=== PATIENT | female | born 1950 | race Caucasian/White ===

== ENCOUNTER 2019-10-25 15:39 | Inpatient (IN) | payer MEDICARE, MEDICAID, SELFPAY ==
[2019-10-25 15:40] VITALS: BMI 25.1
[2019-10-25 15:44] VITALS: BP 149/57; PULSE 88; RESP 18; TEMP 36.9; O2SAT 93
--- NOTE | 2019-10-25 15:54 | XR_ITS ---
WS: [id number] RIGHT FEMUR: 2 VIEW(S) TECHNIQUE: AP and lateral. HISTORY: fall COMPARISON: None available. Acute transverse fracture involving the femoral neck. No displacement. Bones are osteopenic. Severe atherosclerosis femoral arteries and popliteal artery. XR/XR femur RT min 2V* 34672 Impression: 1. Acute RIGHT femoral neck fracture without displacement. 2. Severe atherosclerosis.
--- NOTE | 2019-10-25 15:54 | XR_ITS ---
WS: [id number] PELVIS: AP VIEW SUBMITTED HISTORY: fall COMPARISON: None available. Bones are osteopenic. Acute fracture of the RIGHT femoral neck without displacement on the AP view. L EFT lateral fusion hardware at L4-5. Extensive calcifications in the femoral arteries and iliac arter ies. Prior cholecystectomy. XR/XR pelvis 1-2V* [id number] IMPRESSION: Acute transverse fracture RIGHT femoral neck.
--- NOTE | 2019-10-25 15:56 | ED_ITS ---
HPI - Fall General: Chief Complaint: Fall Stated Complaint: FALL RIGHT LEG PAIN Time Seen by Provider: 10/25/19 15:44 Source: patient and EMS Mode of arrival: EMS Limitations: no limitations History of Present Illness: HPI Narrative: 69-year-old female patient who presents to the emergency department after a fall. She was at the store when she tripped over an uneven floor and fell and landed on the right side of her hip and thigh. She developed immediate pain in her right thigh and when bystanders helped her up and she tried to bear weight in her right lower extremity she could not and fell again landing once again on her right thigh and hip region. She has been unable to bear weight since and is here to be evaluated. She denies hitting her head or loss of consciousness. She denies any dizziness, chest pain, difficulty breathing or any other symptoms before the fall. MD complaint: fall Onset (ago): minute(s) (30) Fall from: standing Fall witnessed: yes, by bystander Place fall occurred: other (outside at a store) Loss of consciousness: None Symptoms prior to fall: none Context: tripped/slipped Location of injury: other Location of injury - extremities: Right: thigh Severity: severe Quality: sharp Associated symptoms-after fall: Reports difficulty walking; Denies abdominal pain, chest pain or lightheadedness Review of Systems General: Reports: 10 or more systems reviewed and unremarkable except in HPI and below Const: Denies: fever, chills, body aches, change in appetite, change in weight or fatigue Card: Denies: chest pain, palpitations, irregular heart rhythm, swelling of feet/ankles, lightheadedness, pre-syncope or shortness of breath on exertion Resp: Denies: shortness of breath, productive cough, non-productive cough, wheezing, stridor or coughing up blood GI: Denies: abdominal pain, nausea, vomiting, vomiting blood, heartburn/indigestion, constipation or cramping : Denies: flank pain, difficulty urinating, painful urination, urinary frequency, urinary urgency, urinary hesitancy or urinary dribbling Musc: Reports: extremity pain Neuro: Reports: difficulty walking PFSH ED PFSH: Social History Smoking and tobacco status: former smoker Physical Exam Const: COMMON NORMALS: average body habitus, oriented x3 and no limitations GENERAL APPEARANCE: in distress (painful distress) Neck/C-Spine: COMMON NORMALS: full ROM and supple GENERAL: Yes trachea midline, No anterior neck swelling and No tender Chest: CHEST: No localized rib tenderness with anteroposterior compression Resp: COMMON NORMALS: normal respiratory effort, no retractions and no use of accessory muscles Cardio: COMMON NORMALS: regular rate, regular rhythm, S1 normal heart sound, S2 normal heart sound, no gallops, no clicks and no murmurs RATE: regular rate RHYTHM: regular rhythm HEART SOUNDS: S1 normal and S2 normal GI: COMMON NORMALS: normal to inspection, nondistended, normoactive bowel sounds, soft to palpation, non-tender and no hepatosplenomegaly PALPATION: Yes soft and Yes no hepatosplenomegaly Extremity: RIGHT LOWER EXTREMITY: Yes hip joint Right hip: Yes other (mild tenderness laterally) and Yes upper leg Right upper leg: Yes palpation (severe tenderness to palpation of the right thigh in the mid to upper part) and Yes other (has some reduced sensation in her right foot. Palpable dorsalis pedis.) Neuro: COMMON NORMALS: oriented x3 Course Consultations: Consultation #1: Dr. Vasquez, orthopedic surgeon. Because of her medical comorbidities she should be admitted by the hospitalist service and he can be consulted. He would like to take her to the OR in the morning for pinning of the femoral fracture. Time: 16:46 Consultation #2: Discussed patient with Dr. Dorantes, hospitalist. He kindly accepted the patient to his service. Time: 17:00 Vital Signs: Vital signs: Vital Signs Temperature 98.4 F 10/25/19 15:44 Pulse Rate 101 H 10/25/19 17:20 Respiratory Rate 14 10/25/19 17:20 Blood Pressure 149/57 10/25/19 17:20 Pulse Oximetry 93 10/25/19 17:20 MDM - Fall MDM Narrative: Medical decision making narrative: 69-year-old female patient who presented to the emergency department following a fall. She sustained a nondisplaced femoral neck fracture and is being admitted for surgical repair of the fracture. Medical Records: Attestation: I reviewed the patient's medical records. Imaging Data^: Xray Ortho: Radiologist's impression: [address] [address] XRay Report Signed Patient: Christina Charles #: [id number] : 8Acct#:[id number] Age/Sex: 69 / FADM Date: 10/25/19 Loc: ERRoom/Bed: Attending Dr: Ordering Provider/Ordering MD: Iglesia Hatch MD, [facility] Date of Service: 10/25/19 Procedure(s): XR pelvis 1-2V* 75298 Accession Number(s): [id number] Report Number: [id number] WS: [id number] PELVIS: AP VIEW SUBMITTED HISTORY: fall COMPARISON: None available. Bones are osteopenic. Acute fracture of the RIGHT femoral neck without displacement on the AP view. LEFT lateral fusion hardware at L4-5. Extensive calcifications in the femoral arteries and iliac arteries. Prior cholecystectomy. XR/XR pelvis 1-2V* 84672 IMPRESSION: Acute transverse fracture RIGHT femoral neck. Dictated By:Dary Funes DO Signed By:aDry Funes DOSigned Date/Time:10/25/19 162 DD/ [address] [address] XRay Report Signed Patient: Christina Charles #: [id number] : 1950cct#:[id number] Age/Sex: 69 / FADM Date: 10/25/19 Loc: ERRoo/Bed: Attending Dr: Ordering Provider/Ordering MD: Iglesia Hatch MD, [facility] Date of Service: 10/25/19 Procedure(s): XR femur RT min 2V* 58860 Accession Number(s): [id number] Report Number: [id number] WS: [id number] RIGHT FEMUR: 2 VIEW(S) TECHNIQUE: AP and lateral. HISTORY: fall COMPARISON: None available. Acute transverse fracture involving the femoral neck. No displacement. Bones are osteopenic. Severe atherosclerosis femoral arteries and popliteal artery. XR/XR femur RT min 2V* 46118 Impression: 1. Acute RIGHT femoral neck fracture without displacement. 2. Severe atherosclerosis. Dictated By:Dary Funes DO Signed By:Dary Funes DOSigned Date/Time:10/25/19 1625 DD/ 1624 EKG Data^: EKG 1: Attestation: I personally reviewed and interpreted this EKG as follows: EKG interpretation date: 10/25/19 EKG interpretation time: 17:34 Prior EKG tracings: not available for review Interpretation: Sinus tachycardia. Heart rate 111 bpm Left axis deviation. Intraventricular conduction delay. Discharge Plan Discharge Patient Disposition: Admitted As Inpatient Admit Provider: Wilfredo Buckner Clinical Impression: Fracture of femoral neck, right Condition: Stable Coding Level of Care Code ED Drug Abuse Worker for Chg Fwd Exam Detailed
[2019-10-25] MEDS: morphine 4 mg/mL SDV 1 mL 8 MG IVP (16:05)
[2019-10-25] MEDS: ondansetron 2 mg/ML SDV 2 mL 4 MG IVP (16:05)
--- NOTE | 2019-10-25 16:57 | ECG_ITS ---
Measurements Intervals [place] Rate: 111 P: 51 NM: 234 QRS: -44 QRSD: 132 T: 84 QT: 368 QTc: 501 SINUS TACHYCARDIA WITH FIRST DEGREE AV BLOCK LEFT AXIS DEVIATION [QRS AXIS < -30] INTRAVENTRICULAR CONDUCTION DELAY [130+ ms QRS DURATION] LATERAL MYOCARDIAL INFARCTION , OF INDETERMINATE AGE Compared to ECG 11/27/2018 11:57:17 First degree AV block now present Left-axis deviation now present Intraventricular conduction delay now present Atrial fibrillation no longer present T-wave abnormality no longer present Possible ischemia no longer present Myocardial infarct finding still present Electronically Signed On 10-26-2019 19:23:28 CDT by Renata Leyva M.D. [email or web address]
--- NOTE | 2019-10-25 16:58 | XR_ITS ---
WS: [id number] PORTABLE CHEST HISTORY: pre-op COMPARISON: 11/27/2018 Prior median sternotomy and CABG. Hyperexpanded lungs with diffuse coarsened reticular changes. Mild progression since the prior study. Pleural thickening in the LEFT lower thorax. No pneumothorax. Cardiac size: Moderately enlarged cardiac silhouette. Mediastinum/Aorta: Partially calcified aorta. No osseous abnormality seen. XR/XR chest 1V portable [id number] IMPRESSION: 1. Hyperinflation with emphysema. 2. Progression of interstitial thickening over several prior studies. Progress ion of fibrosis or interstitial edema. 3. Increasing LEFT lower lobe interstitial thickening. May be a component of a telectasis with pleural thickening. Chest CT may be necessary to exclude neopla sm. Continued progression of interstitial thickening and pleural thickening in the LEFT lower thorax since 11/22/2018.
[2019-10-25 17:20] VITALS: BP 149/57; PULSE 101; RESP 14; O2SAT 93
[2019-10-25 17:34] LABS: Basophils % 0.3 %; Eosinophils # 0.2 10^3/uL (0.0-0.8); Eosinophils % 3.4 %; Hematocrit 36.2 % (37.0-47.0); Hemoglobin 10.9 g/dL (11.5-15.3); Lymphocytes # 0.8 10^3/uL (0.8-4.8); Lymphocytes % 12.1 %; Mean Corpuscular HGB Conc 30.1 g/dL (30.0-36.0); Mean Corpuscular Hemoglobin 26.7 pg (28.0-34.0); Mean Corpuscular Volume 88.7 fL (81-99); Monocytes # 0.3 10^3/uL (0.2-0.9); Monocytes % 5.2 %; Neutrophils % 78.2 %; Nucleated Red Blood Cells % 0 %; Platelet Count 189 10^3/cmm (130-400); Red Blood Count 4.08 10^6/uL (4.1-5.3); Red Cell Distribution Width 14.1 % (12.1-15.1); White Blood Count 6.4 10^3/uL (4.0-10.0)
[2019-10-25 17:41] LABS: INR 1.13 (0.8-1.2)
[2019-10-25 17:47] LABS: Alanine Aminotransferase 9 U/L (0-33); Albumin Level 4.2 g/dL (3.5-5.2); Alkaline Phosphatase 161 IU/L (35-105); Anion Gap 17.8 (5-19); Aspartate Amino Transferase 19 U/L (0-32); Blood Urea Nitrogen 34 mg/dL (8-23); Calcium 9.7 mg/dL (8.5-10.5); Carbon Dioxide 24 mmol/L (22-29); Chloride 100 mmol/L (98-107); Globulin 4.1 g/dL (1.3-4.6); Glucose 135 mg/dL (65-115); Osmolality Calculated 283 mOsm/kg (285-295); Potassium 4.8 mmol/L (3.5-5.1); Sodium 137 mmol/L (136-145); Total Bilirubin 0.3 mg/dL (0.15-1.2); Total Protein 8.3 g/dL (6.6-8.7)
[2019-10-25 18:15] LABS: Iron 22 ug/dL (37-145); Percent Saturation 6.8 % (20-50); Total Iron Binding Capacity 319 mcg/dl; Unsaturated Iron Binding 297 ug/dL (112-347)
[2019-10-25 18:20] LABS: D Dimer >= 20.00 ug/mIFEU (0-0.59)
[2019-10-25 18:22] LABS: NT Pro B Type Natriuretic Pept 4528 pg/mL (0-125)
[2019-10-25 18:31] VITALS: BP 140/66; PULSE 96; RESP 14; O2SAT 93
[2019-10-25 18:38] LABS: Procalcitonin 0.16 ng/mL (0-0.5)
[2019-10-25] MEDS: morphine 4 mg/mL SDV 1 mL IVP (19:06)
[2019-10-25 19:09] VITALS: BP 140/66; PULSE 96; RESP 18; O2SAT 89
[2019-10-25 20:00] VITALS: BP 171/74; PULSE 93; RESP 20; TEMP 36.7; O2SAT 90
[2019-10-25 23:00] VITALS: RESP 18
[2019-10-25] MEDS: morphine 4 mg/mL SDV 1 mL 2 MG IVP (23:00)
[2019-10-25] MEDS: cefTRIAXone 1,000 MG in sodium chloride 0.9% (plus) 50 ML 100 MG IV (23:12)
[2019-10-25] MEDS: dextrose 5%-sod chloride 0.9% 1,000 ML 50 ML IV (23:12)
[2019-10-25] MEDS: heparin 5,000 unit/mL INJ 1 mL 5000 UNIT SUBCUT (23:12)
--- NOTE | 2019-10-25 23:28 | P.HP_ITS ---
Providers/Chief Complaint Admitting Physician: Wilfredo Buckner MD Chief Complaint: FALL RIGHT LEG PAIN History of Present Illness Christina Chrales is a 69 year old female with a past medical history of liver cirrhosis secondary to nonalcoholic fatty liver disease, diastolic CHF, CKD stage II-III, oxygen dependent COPD, insulin-dependent type 2 diabetes mellitus, CAD status post CABG x2, 5 stents, hyperlipidemia, mild palmar hypertension, history of GI bleed suspected to AV malformations, history of peripheral vascular disease status post stenting who presents emergency room status post fall. Patient states that she was taking her grandson to [employer], she was pushing a cart in the parking lot, when she came to crack in the cement, she tripped over the crack and cement, fell on the right side, had right hip pain, bystanders helped her to her feet, but she unfortunately fell again to the right side. Patient denies loss of consciousness, denies head trauma, denies significant bleeding. Patient denies any preceding chest pain, palpitations, lightheadedness, dizziness, nausea, vomiting, shortness of breath. Review of Systems Const: Denies: fever, chills, fatigue or malaise Eyes: Denies: change in vision or blurry vision ENMT: Denies: nasal congestion Resp: Denies: shortness of breath, productive cough, non-productive cough or wheezing GI: Denies: abdominal pain, nausea, vomiting, vomiting blood, diarrhea, constipation, blood in stool or black tarry stool : Denies: flank pain, painful urination or urinary frequency Musc: Denies: neck pain or back pain Skin/Breast: Denies: rash Neuro: Denies: headache, dizziness or vertigo Psych: Denies: anxiety or depression Endo: Denies: excessive urination or excessive thirst Medications/Allergies Home Medications Medication Instructions Recorded Confirmed Last Taken Type ondansetron HCl 4 mg PO DAILY 10/25/19 10/25/19 Unknown History Allergies Allergy/AdvReac Type Severity Reaction Status Date / Time STERIODS Allergy ADR-Agitate Uncoded 10/25/19 15:45 d Additional Medication Information Additional Medication Information: Lasix 20 mg every other day BuSpar 15 mg twice daily Metoprolol 12.5 twice daily Trazodone 200 nightly NovoLog 30 units at bedtime PFSH Acute PFSH: Medical History (Updated 10/25/19 @ 23:35 by Bashir Carrero MD) CAD (coronary artery disease) Chronic kidney disease (CKD) Diastolic CHF Insulin dependent type 2 diabetes mellitus Liver cirrhosis Nonalcoholic fatty liver disease Peripheral vascular disease Pulmonary hypertension Surgical History (Updated 10/25/19 @ 23:35 by Bashir Carrero MD) History of coronary artery bypass graft x 2 History of heart artery stent Family History (Updated 10/25/19 @ 23:35 by Bashir Carrero MD) Other Diabetes Social History (Updated 10/25/19 @ 23:35 by Bashir Carrero MD) Smoking and tobacco status: former smoker Alcohol intake: never Substance/Drug Use: never Vitals/I&O/Wt Last Vital Signs Temp 98.0 F 10/25/19 20:00 Pulse 93 10/25/19 20:00 Resp 18 10/25/19 23:00 BP 171/74 10/25/19 20:00 Pulse Ox 90 10/25/19 20:00 Weight last 48 hrs Weight 77.111 kg Physical Exam Const: COMMON NORMALS: no apparent distress and oriented x3 GENERAL APPEARANCE: cooperative and comfortable HENMT: COMMON NORMALS: normocephalic HEAD & SCALP: normocephalic Eye: COMMON NORMALS: PERRL, EOMs intact bilaterally and no papilledema GENERAL EYE: normal appearance of both eyes PUPIL: Yes PERRL DIRECT OPHTHALMOSCOPY: Yes no papilledema Neck/C-Spine: COMMON NORMALS: full ROM, no lymphadenopathy, no JVD and thyroid normal THYROID: thyroid normal Lymph: LYMPHATIC: no lymphadenopathy noted Resp: COMMON NORMALS: normal respiratory effort, no retractions, no use of accessory muscles and clear to auscultation bilaterally AUSCULTATION: clear to auscultation bilaterally Cardio: COMMON NORMALS: no JVD, regular rate, regular rhythm, S1 normal heart sound, S2 normal heart sound, no gallops, no clicks and no murmurs RATE: regular rate RHYTHM: regular rhythm HEART SOUNDS: S1 normal and S2 normal GI: COMMON NORMALS: normal to inspection, nondistended, normoactive bowel sounds, soft to palpation, non-tender and no hepatosplenomegaly PALPATION: Yes soft and Yes no hepatosplenomegaly Extremity: COMMON NORMALS: normal to inspection and no pedal edema Neuro: COMMON NORMALS: oriented x3, CN's II-XII intact bilaterally, moves all extremities and no focal motor deficits Psych: COMMON NORMALS: mental status grossly normal, thought process normal and cooperative THOUGHT PROCESS: normal thought process Data : 10/25/19 17:22 10/25/19 17:22 A&P Assessment and plan (1) Fracture of femoral neck, right: -Acute fracture of right femoral neck without displacement -Plan for surgical treatment by Dr. Vasquez tomorrow morning -EKG shows no acute ST-T wave changes, sinus tachycardia, no complaints of chest pain, no complaints of shortness of breath -Has a history of CABG x2, CAD status post stenting x5 -Patient had stress test in 2016: -CONCLUSION: 1. Myocardial perfusion imaging revealing areas of persistent decreased tracer uptake in the inferior wall and the anteroseptal regions, suggestive of myocardial scarring in the distribution of the right coronary artery and the left anterior descending artery. 2. Normal left ventricular ejection fraction of 57%. 3. Wall motion analysis revealing diffuse hypokinesia of the inferior wall and the septal segments. 4. Left ventricular volume was within normal limits. 5. No significant coronary ischemia, based on the above findings. -Patient had an echocardiogram in on 09/02/2018 which showed an ejection fraction 55%, biatrial enlargement -Repeat cardiac echocardiogram ordered -Denies history of DVTs, no history of PEs. No complaints of shortness of breath, no recent immobility, recent travel, no hemoptysis, but given elevated d-dimer will order bilateral lower extremity ultrasound -Has chronic kidney disease stage II-III, creatinine 1.9 -Has liver cirrhosis, secondary to nonalcoholic fatty liver disease -Has COPD 2 L oxygen dependent, denies fevers, chills, cough, shortness of samanta th -Has insulin-dependent type 2 diabetes mellitus -Has peripheral vascular disease status post stenting -Patient is an intermediate risk for intermediate risk surgery Plan: -N.p.o. over midnight -Morphine for pain control -Zofran for nausea -Gentle IV hydration -Dr. Vasquez on consult for orthopedics -Heparin for DVT prophylaxis Status: Acute Qualifiers: Encounter type: initial encounter Fracture type: closed Qualified Code(s): S72.001A - Fracture of unspecified part of neck of right femur, initial encounter for closed fracture (2) COPD (chronic obstructive pulmonary disease): 2 L oxygen dependent, not in exacerbation Status: Acute (3) Chronic kidney disease (CKD): Creatinine about at baseline 1.9 Status: Acute (4) Peripheral vascular disease: -Total occlusion of the left common iliac artery -High-grade lesion the left common femoral -Subtotally occluded distal left SFA with extensive calcification -Moderate diffuse disease in the abdominal aorta -Moderate diffuse disease in the left renal artery -Hospital stenting in [place] Status: Acute (5) History of heart artery stent: Status: Acute (6) History of coronary artery bypass graft x 2: Status: Acute (7) CAD (coronary artery disease): Status: Acute (8) Nonalcoholic fatty liver disease: Status: Acute (9) Liver cirrhosis: Status: Acute (10) Diastolic CHF: Not in exacerbation Status: Acute (11) Pulmonary hypertension: Status: Acute (12) Oxygen dependent: Status: Acute (13) Urinary tract infection: Started on Rocephin Status: Acute (14) Insulin dependent type 2 diabetes mellitus: Low-dose sliding scale, check hemoglobin A1c Status: Acute Attestations Medical Necessity Statement*: Patient requires hospitalization, outpatient with observation, for right hip fracture Coding Level of Care Code 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 [facility] Fwd Diagnoses Fracture of femoral neck, right S72.001A Encounter type: initial encounter Fracture type: closed COPD (chronic obstructive pulmonary disease) J44.9 Chronic kidney disease (CKD) N18.9 Peripheral vascular disease I73.9 History of heart artery stent Z95.5 History of coronary artery bypass graft x 2 Z95.1 CAD (coronary artery disease) I25.10 Nonalcoholic fatty liver disease K76.0 Liver cirrhosis K74.60 Diastolic CHF I50.30 Pulmonary hypertension I27.20 Oxygen dependent Z99.81 Urinary tract infection N39.0 Insulin dependent type 2 diabetes mellitus E11.9; Z79.4
[2019-10-25 23:31] LABS: Thyroid Stimulating Hormone 2.62 uIU/mL (0.27-4.20)
[2019-10-26] VITALS (27 sets, daily range): BP systolic 104–142; BP diastolic 41–74; PULSE 62–82; RESP 16–22; TEMP 36.6–37.3; O2SAT 92–99
--- NOTE | 2019-10-26 | SCC_ITS ---
Procedure Done: Closed reduction and percutaneous screw fixation right femoral neck fracture 75.1 seconds of fluoroscopic guidance, for a cumulative dose of 12.39 mGy, was provided to Dr. Vasquez by the radiology department. C-arm images of the RIGHT Hip were saved for the patient's permanent record. [facility]
[2019-10-26] MEDS: metoprolol tartrate 25 mg Tablet 12.5 MG PO ×2 (00:39→18:03)
[2019-10-26] MEDS: trazodone 100 mg Tablet 200 MG PO ×2 (00:39→20:51)
[2019-10-26 05:42] LABS: Basophils % 0.3 %; Eosinophils # 0.4 10^3/uL (0.0-0.8); Eosinophils % 5.7 %; Hematocrit 30.4 % (37.0-47.0); Hemoglobin 9.2 g/dL (11.5-15.3); Lymphocytes # 1.2 10^3/uL (0.8-4.8); Lymphocytes % 18.3 %; Mean Corpuscular HGB Conc 30.3 g/dL (30.0-36.0); Mean Corpuscular Hemoglobin 26.8 pg (28.0-34.0); Mean Corpuscular Volume 88.6 fL (81-99); Mean Platelet Volume 10.3 fL (7.4-10.4); Monocytes # 0.5 10^3/uL (0.2-0.9); Monocytes % 7.3 %; Neutrophils # 4.5 10^3/uL (1.8-7.7); Neutrophils % 68.1 %; Nucleated Red Blood Cells % 0 %; Platelet Count 171 10^3/cmm (130-400); Red Blood Count 3.43 10^6/uL (4.1-5.3); Red Cell Distribution Width 14.1 % (12.1-15.1); White Blood Count 6.7 10^3/uL (4.0-10.0)
[2019-10-26 05:57] LABS: Magnesium 2.1 mg/dL (1.7-2.3); Phosphorus 3.5 mg/dL (2.5-4.5)
[2019-10-26 06:01] LABS: Alanine Aminotransferase 7 U/L (0-33); Albumin Level 3.6 g/dL (3.5-5.2); Alkaline Phosphatase 129 IU/L (35-105); Anion Gap 12.8 (5-19); Aspartate Amino Transferase 16 U/L (0-32); Blood Urea Nitrogen 32 mg/dL (8-23); Calcium 9.1 mg/dL (8.5-10.5); Carbon Dioxide 25 mmol/L (22-29); Chloride 101 mmol/L (98-107); Globulin 3.2 g/dL (1.3-4.6); Glucose 136 mg/dL (65-115); Osmolality Calculated 277 mOsm/kg (285-295); Potassium 4.8 mmol/L (3.5-5.1); Sodium 134 mmol/L (136-145); Total Bilirubin 0.3 mg/dL (0.15-1.2); Total Protein 6.8 g/dL (6.6-8.7)
[2019-10-26 06:08] LABS: Estmated Average Glucose 123; Hemoglobin A1C 5.9 % (4.0-6.0)
[2019-10-26 06:14] LABS: INR 1.17 (0.8-1.2)
[2019-10-26 06:21] LABS: Glucose Point of Care 124 mg/dL (70-110)
[2019-10-26] MEDS: sodium chloride 0.9% 1,000 ML 30 ML IV (07:37)
--- NOTE | 2019-10-26 07:40 | ANES.PREANE2 ---
Pre-Anesthetic Assessment Pre-Anesthetic Assessment: Height/Weight: Height 1.75 m Weight 77.111 kg Temp Pulse Resp BP Pulse Ox 99.2 F 72 18 128/56 94 10/26/19 07:31 10/26/19 07:31 10/26/19 07:31 10/26/19 07:31 10/26/19 07:31 Preop Diagnosis: Right femoral neck fracture Proposed Procedure: Operation Date: 10/26/19 09:05 Proposed Procedures p Hip Screw Closed Reduction Percutaneous Pinning Hip Screw(Right) - Nader Vasquez MD Last intake: Intake Last Liquid Date 10/25/19 Last Liquid Time 23:30 Last Solid Date 10/25/19 Last Solid Time 23:30 Social: Pack years: 15 Comment: quit 46y of age Exam: Pre-Anes Outpt Exam: alert, oriented x 3, clear to auscultation bilaterally and regular rate & rhythm Airway: Submandibular: WNL Cervical ROM: WNL MP: 2 Dentition: False Additional comments: upper dentrues Pulmonary: Pulmonary: COPD Comments: breathing feels okay, home 02 x 7 months CV/HEM: CV/HEM: CAD, CA and PVD Comments: s/p CABG, sussequent 5 stents, last 7y ago : : Chronic renal Insufficiency Hepatic: Hepatic: Cirrohsis Comments: nonalcoholic fatty liver Metabolic: Metabolic: DM (rx'd 9y, normally 130-150) Musc/skel: Musc/skel: Lower Back Pain Comments: nonradiating s/p back sx Anesthetic Plan: ASA status: 3 Anesthesia: General Meds/Allergies Current Medications: Current Medications Generic Name Dose Route Start Last Admin Trade Name Freq PRN Reason Stop Dose Admin Famotidine 20 mg 10/25/19 19:37 10/25/19 19:52 Pepcid Inj IVP Not Given Q12H RIANNA Heparin Sodium (Be ef Lung) 5,000 unit 10/25/19 23:00 10/25/19 23:12 Heparin SUBCUT 5,000 unit Q8H RIANNA Administration Dextrose/Sodium Ch loride 1,000 mls @ 50 ml s/hr 10/25/19 23:00 10/25/19 23:12 Dextrose 5%-Sod Chloride 0.9% IV 50 mls/hr .Q20H RIANNA Administration Ceftriaxone Sodium 1,000 mg/ 50 mls @ 100 mls/ hr 10/25/19 23:00 10/25/19 23:42 Sodium Chloride IV Infused Q24H RIANNA Infusion Protocol Sodium Chloride 1,000 mls @ 30 ml s/hr 10/26/19 07:30 10/26/19 07:37 Sodium Chloride 0.9% IV 10/27/19 07:29 30 mls/hr .Q24H RIANNA Administration Metoprolol Tartrat e 12.5 mg 10/25/19 23:35 10/26/19 00:39 Lopressor PO 12.5 mg BID RIANNA Administration Morphine Sulfate 2 mg 10/25/19 22:17 10/25/19 23:00 Morphine IVP 2 mg Q4H PRN Administration SEVERE PAIN Trazodone HCl 200 mg 10/25/19 23:35 10/26/19 00:39 Desyrel PO 200 mg BEDTIME RIANNA Administration Additional Medication Information: Lasix 20 mg every other day BuSpar 15 mg twice daily Metoprolol 12.5 twice daily Trazodone 200 nightly NovoLog 30 units at bedtime PFSH Anesthesia PFSH: Medical History (Updated 10/25/19 @ 23:35 by Bashir Carrero MD) CAD (coronary artery disease) Chronic kidney disease (CKD) Diastolic CHF Insulin dependent type 2 diabetes mellitus Liver cirrhosis Nonalcoholic fatty liver disease Peripheral vascular disease Pulmonary hypertension Surgical History (Updated 10/25/19 @ 23:35 by Bashir Carrero MD) History of coronary artery bypass graft x 2 History of heart artery stent Family History (Updated 10/25/19 @ 23:35 by Bashir Carrero MD) Other Diabetes Social History (Updated 10/25/19 @ 23:35 by Bashir Carrero MD) Smoking and tobacco status: former smoker Alcohol intake: never Substance/Drug Use: never Data Anesthesia CBC & Chem 7: 10/26/19 04:45 10/26/19 04:45 Other Labs: Laboratory Results - last 48 hr 10/25/19 10/25/19 10/25/19 17:22 17:22 17:22 WBC 6.4 RBC 4.08 L Hgb 10.9 L Hct 36.2 L MCV 88.7 MCH 26.7 L MCHC 30.1 RDW 14.1 Plt Count 189 MPV 10.0 Neut % (Auto) 78.2 Lymph % (Auto) 12.1 Taylor % (Auto) 5.2 Eos % (Auto) 3.4 Baso % (Auto) 0.3 Neut # (Auto) 5.0 Lymph # (Auto) 0.8 Taylor # (Auto) 0.3 Eos # (Auto) 0.2 Baso # (Auto) 0.0 Nucleated RBC % (auto) 0 Nucleated RBCs # 0.0 PT 14.90 H INR 1.13 D-Dimer Sodium 137 Potassium 4.8 Chloride 100 Carbon Dioxide 24 Anion Gap 17.8 BUN 34 H Creatinine 1.9 H Glucose 135 H POC Glucose Estimat Average Glucose Hemoglobin A1c Calculated Osmolality 283 L Calcium 9.7 Phosphorus Magnesium Iron TIBC % Saturation Unsat Iron Binding Total Bilirubin 0.3 AST 19 ALT 9 Alkaline Phosphatase 161 H NT-Pro-B Natriuret Pep Total Protein 8.3 Albumin 4.2 Globulin 4.1 Procalcitonin TSH 10/25/19 10/25/19 10/25/19 17:22 17:22 17:22 WBC RBC Hgb Hct MCV MCH MCHC RDW Plt Count MPV Neut % (Auto) Lymph % (Auto) Taylor % (Auto) Eos % (Auto) Baso % (Auto) Neut # (Auto) Lymph # (Auto) Taylor # (Auto) Eos # (Auto) Baso # (Auto) Nucleated RBC % (auto) Nucleated RBCs # PT INR D-Dimer Sodium Potassium Chloride Carbon Dioxide Anion Gap BUN Creatinine Glucose POC Glucose Estimat Average Glucose Hemoglobin A1c Calculated Osmolality Calcium Phosphorus Magnesium Iron 22 L TIBC 319 % Saturation 6.8 L Unsat Iron Binding 297 Total Bilirubin AST ALT Alkaline Phosphatase NT-Pro-B Natriuret Pep 4528 H Total Protein Albumin Globulin Procalcitonin 0.16 TSH 2.62 10/25/19 10/26/19 10/26/19 17:32 04:45 04:45 WBC 6.7 RBC 3.43 L Hgb 9.2 L Hct 30.4 L MCV 88.6 MCH 26.8 L MCHC 30.3 RDW 14.1 Plt Count 171 MPV 10.3 Neut % (Auto) 68.1 Lymph % (Auto) 18.3 Taylor % (Auto) 7.3 Eos % (Auto) 5.7 Baso % (Auto) 0.3 Neut # (Auto) 4.5 Lymph # (Auto) 1.2 Taylor # (Auto) 0.5 Eos # (Auto) 0.4 Baso # (Auto) 0.0 Nucleated RBC % (auto) 0 Nucleated RBCs # 0.0 PT INR D-Dimer >= 20.00 H Sodium 134 L Potassium 4.8 Chloride 101 Carbon Dioxide 25 Anion Gap 12.8 BUN 32 H Creatinine 2.0 H Glucose 136 H POC Glucose Estimat Average Glucose Hemoglobin A1c Calculated Osmolality 277 L Calcium 9.1 Phosphorus Magnesium Iron TIBC % Saturation Unsat Iron Binding Total Bilirubin 0.3 AST 16 ALT 7 Alkaline Phosphatase 129 H NT-Pro-B Natriuret Pep Total Protein 6.8 Albumin 3.6 Globulin 3.2 Procalcitonin TSH 10/26/19 10/26/19 10/26/19 04:45 04:45 04:45 WBC RBC Hgb Hct MCV MCH MCHC RDW Plt Count MPV Neut % (Auto) Lymph % (Auto) Taylor % (Auto) Eos % (Auto) Baso % (Auto) Neut # (Auto) Lymph # (Auto) Taylor # (Auto) Eos # (Auto) Baso # (Auto) Nucleated RBC % (auto) Nucleated RBCs # PT 15.30 H INR 1.17 D-Dimer Sodium Potassium Chloride Carbon Dioxide Anion Gap BUN Creatinine Glucose POC Glucose Estimat Average Glucose 123 Hemoglobin A1c 5.9 Calculated Osmolality Calcium Phosphorus 3.5 Magnesium 2.1 Iron TIBC % Saturation Unsat Iron Binding Total Bilirubin AST ALT Alkaline Phosphatase NT-Pro-B Natriuret Pep Total Protein Albumin Globulin Procalcitonin TSH 10/26/19 06:18 WBC RBC Hgb Hct MCV MCH MCHC RDW Plt Count MPV Neut % (Auto) Lymph % (Auto) Taylor % (Auto) Eos % (Auto) Baso % (Auto) Neut # (Auto) Lymph # (Auto) Taylor # (Auto) Eos # (Auto) Baso # (Auto) Nucleated RBC % (auto) Nucleated RBCs # PT INR D-Dimer Sodium Potassium Chloride Carbon Dioxide Anion Gap BUN Creatinine Glucose POC Glucose 124 Estimat Average Glucose Hemoglobin A1c Calculated Osmolality Calcium Phosphorus Magnesium Iron TIBC % Saturation Unsat Iron Binding Total Bilirubin AST ALT Alkaline Phosphatase NT-Pro-B Natriuret Pep Total Protein Albumin Globulin Procalcitonin TSH Cardiac Studies: No Data to Display
--- NOTE | 2019-10-26 08:18 | PM.CONSULT ---
Providers/Reason For Consult Consulting Physican/Specialty*: Orthopedic surgery, Nader Vasquez Reason for Consult*: Right femoral neck fracture Attending Physician: Wilfredo Buckner MD History of Present Illness History of Present Illness Christina Charles is a 69 year old female who describes falling when she tripped over a crack in a parking lot for a [id number]. On her right side with immediate pain in her right hip. She denies any previous pain in the hip. She denies any other extremity pain. She previously used no ambulatory aids. She lives at home with a daughter. Review of Systems Const: Denies: fever or chills Neuro: Denies: numbness in extremities or weakness in extremities Meds/Allergies Home Medications and Allergies Home Medications Medication Instructions Recorded Confirmed Type ondansetron HCl 4 mg PO DAILY 10/25/19 10/25/19 History Allergies Allergy/AdvReac Type Severity Reaction Status Date / Time STERIODS Allergy ADR-Agitate Uncoded 10/25/19 15:45 d Current Medications Current Medications Generic Name Dose Route Start Last Admin Trade Name Freq PRN Reason Stop Dose Admin Famotidine 20 mg 10/25/19 19:37 10/25/19 19:52 Pepcid Inj IVP Not Given Q12H RIANNA Heparin Sodium (Beef Lung) 5,000 unit 10/25/19 23:00 10/25/19 23:12 Heparin SUBCUT 5,000 unit Q8H RIANNA Administration Dextrose/Sodium Chloride 1,000 mls @ 50 mls/hr 10/25/19 23:00 10/25/19 23:12 Dextrose 5%-Sod Chloride 0.9% IV 50 mls/hr .Q20H RIANNA Administration Ceftriaxone Sodium 1,000 mg/ 50 mls @ 100 mls/hr 10/25/19 23:00 10/25/19 23:42 Sodium Chloride IV Infused Q24H RIANNA Infusion Protocol Sodium Chloride 1,000 mls @ 30 mls/hr 10/26/19 07:30 10/26/19 07:37 Sodium Chloride 0.9% IV 10/27/19 07:29 30 mls/hr .Q24H RIANNA Administration Metoprolol Tartrate 12.5 mg 10/25/19 23:35 10/26/19 00:39 Lopressor PO 12.5 mg BID RIANNA Administration Morphine Sulfate 2 mg 10/25/19 22:17 10/25/19 23:00 Morphine IVP 2 mg Q4H PRN Administration SEVERE PAIN Trazodone HCl 200 mg 10/25/19 23:35 10/26/19 00:39 Desyrel PO 200 mg BEDTIME RIANNA Administration PFSH Acute PFSH: Medical History CAD (coronary artery disease) Chronic kidney disease (CKD) Diastolic CHF Insulin dependent type 2 diabetes mellitus Liver cirrhosis Nonalcoholic fatty liver disease Peripheral vascular disease Pulmonary hypertension Surgical History History of coronary artery bypass graft x 2 History of heart artery stent Family History Other Diabetes Social History Smoking and tobacco status: former smoker Alcohol intake: never Substance/Drug Use: never Vitals/I&O/Wt Last Vital Signs Temp 99.2 F 10/26/19 07:31 Pulse 72 10/26/19 07:31 Resp 18 10/26/19 07:31 BP 128/56 10/26/19 07:31 Pulse Ox 94 10/26/19 07:31 10/25/19 10/26/19 10/26/19 22:59 06:59 14:59 Intake Total 50 / 50 Output Total 300 / 300 Balance -250 / -250 Weight last 48 hrs Weight 170 lb Physical Exam Narrative: EXAM NARRATIVE: The patient is a elderly female supine in no acute distress. She is alert and oriented to person place and time. She answers questions appropriately. There is no visible malalignment of either lower extremity. She has pain with internal and external rotation of the right hip. She has a palpable right dorsalis pedis pulse. She flexing sends her toes and ankle on the right. Her sensation is intact to light touch throughout the right lower extremity. Data Imaging^: Xray Ortho: I personally reviewed and interpreted this imaging study as follows: My impression: I reviewed radiographs of the right hip and pelvis. The patient has a vertical fracture of the right femoral neck with minimal displacement. A&P Assessment and plan (1) Fracture of femoral neck, right: I discussed options with the patient.. I told the patient we could treat this nonoperatively but certainly they would be at risk for medical problems without surgery. They would have problems with pain that would require narcotics for pain control. They would require a long period of bedrest inventory specialist manager risk for pneumonia and skin breakdown. I discussed surgical intervention with the patient. I told him that with displaced fractures hemiarthroplasty is indicated however this fracture is not displaced. I told him hemiarthroplasty is a larger procedure that would carry with it more acute medical risks. Open reduction internal fixation with pins would be a smaller procedure at this setting but would require some protected weightbearing. I told them with open reduction internal fixation with screws they should be able to be mobilized and resume ambulatory status. We can eliminate the problems associated with prolonged bed rest and would have better control of pain. Certainly there would be inherent risk with surgery. These would would include the risk of cardiac complications, stroke, infection, and even . I discussed risk of any orthopedic implant including nonunion, malunion, a component failure. I discussed risk of avascular necrosis that could happen and are beyond our control. I discussed the possible need for component removal. I discussed risk of deep venous thromboses and pulmonary emboli that are present with any treatment and the importance of DVT prophylaxis. The patient expressed good understanding of alternative treatments, seem to comprehend, and agrees to surgical intervention. Status: Acute Qualifiers: Encounter type: initial encounter Fracture type: closed Qualified Code(s): S72.001A - Fracture of unspecified part of neck of right femur, initial encounter for closed fracture Coding Level of Care Code Acute Assembler Installer Structures for [facility] Diagnoses Fracture of femoral neck, right S72.001A Encounter type: initial encounter Fracture type: closed
--- NOTE | 2019-10-26 10:33 | XR_ITS ---
WS: [id number] C-ARM RADIOGRAPHS RIGHT HIP; 4 IMAGES HISTORY: OR PICS COMPARISON: 10/25/2019 Intraoperative screw fixation RIGHT femoral neck fracture. Fracture in good position and alignment. XR/XR hip RT 2-3V wo/w pel* [id number] IMPRESSION: Status post fixation RIGHT femoral neck fracture in good alignment.
[2019-10-26] MEDS: morphine 4 mg/mL SDV 1 mL 2 MG IVP ×2 (10:47→10:53)
--- NOTE | 2019-10-26 10:58 | SUR.PHASEI ---
PT NOW SLEEPING RT HIP DRESSING D/I RT FOOT PULSE DOPPLED STRONG AND REGULAR X 2 SITES MARKED WARM BLANKET TO PT X 2 PT SLEEPS NOW IF NOT DISTURBED SEE EARLIER PAIN MEDS GIVEN.
--- NOTE | 2019-10-26 11:26 | SUR.PHASEI ---
1115 PT TO FLOOR PER BED PT ALERT TALKATIVE WITH NURSE RIVAS AT BEDSIDE, DRESSIING RT THIGH D/I OPSITE WITH NO BLEEDING OR HEMATOMA NOTED. BP 112/59, HR 92, RESP 20, SATS ON 3LNC 93%
[2019-10-26 11:39] LABS: Glucose Point of Care 165 mg/dL (70-110)
[2019-10-26] MEDS: sodium chloride 0.9% 1,000 ML 80 ML IV (11:39)
[2019-10-26] MEDS: HYDROcodone-acetaminophen 5-325 mg Tablet PO (11:39)
--- NOTE | 2019-10-26 12:05 | PC.CHAP ---
Pastoral Care Encounter/Spiritual Assessment Type of Contact [] Declined upper lining cementer visit [] Patient/Family/Request visit [] Outpatient visit [] Follow-up visit [] Physician referral [] Code/Alert [x] Routine visit [] Staff referral [] Actively dying [] Patient sleeping [] Family support [] [] Out of room [] Palliative care [] [] Receiving care in room [] Pre-surgical visit [] Trauma [] Long length of stay [] ICU visit [] Other: Relational/Emotional Strength [] Patient feels connected with others/family/visitors/staff [] Distress [] Loneliness/isolation [] Abandonment Spirituality of Patient [] Person of Mary Ann [] Attends Taoist of their Mary Ann [x] Believes in Prayer [] Reads Bible or Pentecostalism materials [] There are Spiritual issues to be addressed Ethics Manager Interventions [x] Prayer [] Active listening [] Non-anxious presence [] Spiritual/emotional support [] Crisis/trauma care [] Spiritual counseling [] Bereavement support [] Provided bereavement packet [] Provided Bible/devotional materials [] Provided toy/stuffed animal, coloring book to patient or family member [] Provided Communion [] Anointing/[place] [] Salvation [x] Completed spiritual assessment [] Other: Impact on Illness or Injury [] Angry [] Fearful [] Anxious [] Often cries [] Exhaustion [] Unable to work [] Unable to attend synagogue [] Unable to walk/stand [] Unable to read [] Unable to drive [] Unable to eat/drink [] Unable to sleep [] Unable to be with family [] Patient intubated [] Other: Summary Patient doing well, left foot being attending by doctors. Patient enjoying lunch Time spent with patient 10min
--- NOTE | 2019-10-26 12:10 | PC.CHAP ---
Pastoral Care Encounter/Spiritual Assessment Type of Contact [] Declined melting furnace skimmer visit [] Patient/Family/Request visit [] Outpatient visit [] Follow-up visit [] Physician referral [] Code/Alert [x] Routine visit [] Staff referral [] Actively dying [] Patient sleeping [] Family support [] [] Out of room [] Palliative care [] [] Receiving care in room [] Pre-surgical visit [] Trauma [] Long length of stay [] ICU visit [] Other: Relational/Emotional Strength [] Patient feels connected with others/family/visitors/staff [] Distress [] Loneliness/isolation [] Abandonment Spirituality of Patient [] Person of Mary Ann [] Attends Alevism of their Mary Ann [] Believes in Prayer [] Reads Bible or Taoist materials [] There are Spiritual issues to be addressed Surface Plate Inspector Interventions [] Prayer [] Active listening [] Non-anxious presence [] Spiritual/emotional support [] Crisis/trauma care [] Spiritual counseling [] Bereavement support [] Provided bereavement packet [] Provided Bible/devotional materials [] Provided toy/stuffed animal, coloring book to patient or family member [] Provided Communion [] Anointing/[place] [] Salvation [x] Completed spiritual assessment [] Other: Impact on Illness or Injury [] Angry [] Fearful [] Anxious [] Often cries [] Exhaustion [] Unable to work [] Unable to attend spiritism [] Unable to walk/stand [] Unable to read [] Unable to drive [] Unable to eat/drink [] Unable to sleep [] Unable to be with family [] Patient intubated [] Other: Summary Patient just returned from surgery. Prayed in [address]. Time spent with patient
--- NOTE | 2019-10-26 12:13 | P.OP_ITS ---
Operative Report Date of procedure: October 26, 2019 Pre-op Diagnosis: Right femoral neck fracture Post-op diagnosis: same Post-op Findings: Same Procedure Done: Closed reduction and percutaneous screw fixation right femoral neck fracture Implants: Drummond 8.0 mm cannulated screw Pathology: none sent Anesthesia: Local (With sedation) Estimated blood loss (mL): 25 Complications: None Findings: The patient had the previously described nondisplaced fracture of the right femoral neck consisting of a more vertical fracture beginning of the head neck junction extending inferiorly Condition: stable Disposition: PACU Procedure: The patient was positioned on the fracture table with his right leg in traction. They were given sedation by the anesthesia service. A point just beneath the greater trochanter was infiltrated with approximately 20 cc of 1% lidocaine with epinephrine. A timeout was performed. A small lateral stab wound was made just below the level of the greater trochanter with a scalpel blade. Under visit so fluoroscopy initial guide pin was driven from a central position just above the level of lesser trochanter into inferior neck and inferior head. Over this was passed an 8.0 mm Radha Asnis screw. A second pin was placed in the superior anterior position and a second screw placed. A third pin was placed in a posterior superior position and a third screw placed. Intraoperative fluoroscopy was used to verify hardware position. The wound was irrigated with saline. Deep tissues were closed with 3-0 Vicryl. A sterile dressing was applied. The patient was taken to recovery room unit in stable condition.
--- NOTE | 2019-10-26 12:28 | P.PN_ITS ---
Subjective Medications: Medication Review Details: Lasix 20 mg every other day BuSpar 15 mg twice daily Metoprolol 12.5 twice daily Trazodone 200 nightly NovoLog 30 units at bedtime Vitals/I&O/Wt Last Vital Signs Temp 99.2 F 10/26/19 12:12 Pulse 74 10/26/19 12:12 Resp 20 H 10/26/19 12:12 BP 123/64 10/26/19 12:12 Pulse Ox 93 10/26/19 12:12 10/25/19 10/26/19 10/26/19 22:59 06:59 14:59 Intake Total 50 / 50 110 / 110 Output Total 300 / 300 25 / 25 Balance -250 / -250 85 / 85 Weight last 48 hrs Weight 77.111 kg Physical Exam Const: COMMON NORMALS: no apparent distress and oriented x3 GENERAL APPEARANCE: cooperative and comfortable HENMT: COMMON NORMALS: normocephalic HEAD & SCALP: normocephalic Eye: COMMON NORMALS: PERRL, EOMs intact bilaterally and no papilledema GENERAL EYE: normal appearance of both eyes PUPIL: Yes PERRL DIRECT OPHTHALMOSCOPY: Yes no papilledema Neck/C-Spine: COMMON NORMALS: full ROM, no lymphadenopathy, no JVD and thyroid normal THYROID: thyroid normal Lymph: LYMPHATIC: no lymphadenopathy noted Resp: COMMON NORMALS: normal respiratory effort, no retractions, no use of accessory muscles and clear to auscultation bilaterally AUSCULTATION: clear to auscultation bilaterally Cardio: COMMON NORMALS: no JVD, regular rate, regular rhythm, S1 normal heart sound, S2 normal heart sound, no gallops, no clicks and no murmurs RATE: regular rate RHYTHM: regular rhythm HEART SOUNDS: S1 normal and S2 normal GI: COMMON NORMALS: normal to inspection, nondistended, normoactive bowel soun ds, soft to palpation, non-tender and no hepatosplenomegaly PALPATION: Yes soft and Yes no hepatosplenomegaly Extremity: COMMON NORMALS: normal to inspection and no pedal edema Neuro: COMMON NORMALS: oriented x3, CN's II-XII intact bilaterally, moves all extremities and no focal motor deficits Psych: COMMON NORMALS: mental status grossly normal, thought process normal and cooperative THOUGHT PROCESS: normal thought process Data : 10/26/19 04:45 10/26/19 04:45 A&P Assessment and plan (1) Fracture of femoral neck, right: Status: Acute Qualifiers: Encounter type: initial encounter Fracture type: closed Qualified Code(s): S72.001A - Fracture of unspecified part of neck of right femur, initial encounter for closed fracture (2) COPD (chronic obstructive pulmonary disease): Status: Acute (3) Oxygen dependent: Status: Acute (4) Chronic kidney disease (CKD): Status: Acute (5) Peripheral vascular disease: -Total occlusion of the left common iliac artery -High-grade lesion the left common femoral -Subtotally occluded distal left SFA with extensive calcification -Moderate diffuse disease in the abdominal aorta -Moderate diffuse disease in the left renal artery -Hospital stenting in [place] Status: Acute (6) CAD (coronary artery disease): Status: Acute (7) History of heart artery stent: Status: Acute (8) History of coronary artery bypass graft x 2: Status: Acute (9) Diastolic CHF: Status: Acute (10) Nonalcoholic fatty liver disease: Status: Acute (11) Liver cirrhosis: Status: Acute (12) Pulmonary hypertension: Status: Acute (13) Insulin dependent type 2 diabetes mellitus: Status: Acute Additional A&P Information Fracture femoral neck: Postop day 0. Physical therapy, perioperative antibiotics, anticoagulation as per surgical team. We will use [place] 5/325 1 tab every 4 hours as needed along with tramadol 50 every 6 hours as needed for pain. We will try to avoid oversedation. COPD/pulmonary hypertension: Baseline at 2 L oxygen dependent. DuoNebs every 8 hour, albuterol as needed. Oxygen supplementation keeping saturation over 90%. CAD with history of CABG and multiple stents in the past: As per the medication list provided patient is not on any statins or aspirin. Not sure of the medication list is confirmed/true. We will try to get in touch with her daughter to see what medication patient is on. For now we will start patient on aspirin 81 mg daily. Check lipid panel and HbA1c along with TSH. We will hold off on starting statins for now. Continue with home dose of Lopressor 12.5 mg twice daily. Diastolic heart failure: proBNP on admission more than 4000 which seems to be her baseline. Patient seems euvolemic for now. We will hold off on giving any extra fluid for now and watch for fluid overload. CKD: Baseline creatinine seems to be around 2. Creatinine stable for now. Medical reconciliation for now done for nephrotoxic drugs. Continue check BMP daily. No electrolyte abnormalities or acidosis at present. Type 2 diabetes mellitus: Check HbA1c. Continue patient on insulin sliding scale at moderate dose for now before meals and at bedtime. History of liver cirrhosis: Most probably [place]. Continue to monitor liver panels. Stable at present. For now continue chronic medications like BuSpar and trazodone. We will change medication as medical reconciliation is confirmed. Full code. Advance to cardiac diet. Lovenox for DVT prophylaxis as per surgical team. Physical therapy evaluation and treat. We will consult care coordination team for SNF placement for further rehabilitation. 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
[2019-10-26] MEDS: ipratropium-albuterol 3 mL Neb INHALATION ×2 (13:21→20:19)
[2019-10-26 14:00] LABS: Thyroid Stimulating Hormone 2.87 uIU/mL (0.27-4.20)
[2019-10-26 14:16] LABS: Hematocrit 30.6 % (37.0-47.0)
[2019-10-26 16:41] LABS: Glucose Point of Care 146 mg/dL (70-110)
--- NOTE | 2019-10-26 16:57 | USCV_ITS ---
Christina Charles Age: 69 Gender: F : 1950 Exam Date: 10/26/2019 07:06 Ordering Phys: Iglesia Hatch MD [facility] [place] Technologist: Chai Clarke [place] [facility] [place] Indication: PRE OP FOR FX RT HIP BP: 127 / 72 HR: 69 Rhythm: Sinus Technical Quality: Adequate MEASUREMENTS (Male / Female) Normal Values 2D ECHO LV Diastolic Diameter PLAX 4.6 cm 4.2 - 5.9 / 3.9 - 5.3 cm LV Systolic Diameter PLAX 2.8 cm IVS Diastolic Thickness 1.3 cm 0.6 - 1.0 / 0.6 - 0.9 cm IVS Systolic Thickness 1.3 cm LVPW Diastolic Thickness 1.1 cm 0.6 - 1.0 / 0.6 - 0.9 cm LVPW Systolic Thickness 1.4 cm LVOT Diameter 2.0 cm LV Ejection Fraction 2D Teich 69.7 % LV Ejection Fraction MOD 2C 55.3 % LV Ejection Fraction 2C AL 54.9 % LA Diameter 3.6 cm LA Width 4.7 cm LA Height 5.1 cm RA Width 4.0 cm RA Height 4.8 cm M-MODE LV Diastolic Diameter MM 6.3 cm 4.2 - 5.9 / 3.9 - 5.3 cm LV Systolic Diameter MM 4.3 cm LV Ejection Fraction MM Teich 60.1 % IVS Diastolic Thickness MM 1.4 cm 0.6 - 1.0 / 0.6 - 0.9 cm IVS Systolic Thickness MM 1.7 cm LVPW Diastolic Thickness MM 1.1 cm 0.6 - 1.0 / 0.6 - 0.9 cm LVPW Systolic Thickness MM 1.7 cm RV Diastolic Diameter MM 1.2 cm Aortic Annulus Diameter 3.3 cm LA Ao Ratio MM 1.1 MV E Point Septal Separation 1.9 cm DOPPLER AV Peak Velocity 119.0 cm/s LVOT Peak Velocity 114.0 cm/s AV Area Cont Eq vti 2.7 cm squared AV Area Cont Eq pk 3.1 cm squared MV Area PHT 5.0 cm squared Mitral E to A Ratio 1.8 MV E' Velocity 7.0 cm/s Mitral E to MV E' Ratio 15.7 Mitral E to LV E' Lateral Ratio 16.0 Mitral E to LV E' Septal Ratio 15.5 TR Peak Velocity 265.0 cm/s TR Peak Gradient 28.1 mmHg Right Atrial Pressure 3.0 mmHg Pulmonary Artery Systolic Pressu 31.1 mmHg PV Peak Velocity 104.0 cm/s FINDINGS Left Ventricle Normal left ventricular cavity size. Normal left ventricular systolic function. No regional wall motion abnormalities. Left ventricular ejection fraction is estimated at 60 %. Grade II/IV diastolic dysfunction, moderately elevated filling pressures. Right Ventricle The right ventricle is normal in size and function. Right Atrium The right atrium is normal in size. Left Atrium The left atrium is normal in size. Mitral Valve Structurally normal mitral valve without significant stenosis or prolapse. There is no mitral regurgitation. Aortic Valve Structurally normal aortic valve without significant sclerosis or stenosis. There is no aortic regurgitation. Tricuspid Valve Moderate tricuspid valve regurgitation. Pulmonic Valve Structurally normal pulmonic valve without significant stenosis. There is no pulmonic regurgitation. Pericardium Normal pericardium without effusion. Aorta Normal ascending aorta dimension. CONCLUSIONS 1-Normal left ventricular cavity size. Normal left ventricular systolic function. No regional wall motion abnormalities. Left ventricular ejection fraction is estimated at 60 %. Grade II/IV diastolic dysfunction, moderately elevated filling pressures. 2-Moderate tricuspid valve regurgitation. 3-There is no pericardial effusion. 4-No other significant valve abnormalities. 5-When compared to the prior echocardiogram dated 08/30/2018 there is improvement of pulmonary pressure from 47 mmHg which was moderate to mild 30 mmHg now. Jaden Salas MD (Electronically Signed) Final Date: 26 October 2019 16:07 S
[2019-10-26] MEDS: enoxaparin 40 mg/0.4 mL Syringe SUBCUT (20:51)
[2019-10-26] MEDS: famotidine 20 mg/2 mL INJ IVP (20:51)
[2019-10-26] MEDS: cefTRIAXone 1,000 MG in sodium chloride 0.9% (plus) 50 ML 100 MG IV (21:37)
[2019-10-26 21:55] LABS: Glucose Point of Care 169 mg/dL (70-110)
[2019-10-26 22:31] LABS: Bacteria Urine 1+; Bilirubin Urine Neg (NEGATIVE); Blood Urine 2+ (Negative); Glucose Urine UA Norm (Normal); Ketones Urine Negative (Negative); Leukocyte Esterase Urine 2+ (Negative); Nitrate Urine Negative (Negative); Protein Urine 2+ (Negative); Squamous Epithelial Cell Urine 15-25 (0-5); Urine Appearance Turbid (CLEAR); Urine Color Yellow (Yellow); Urobilinogen Urine Norm (Negative); WBC Urine >100 /hpf (0-5); pH Urine 5 (5-7)
[2019-10-26 22:32] LABS: Add Urine Culture? Yes
[2019-10-27] VITALS (13 sets, daily range): BP systolic 108–144; BP diastolic 65–71; PULSE 58–78; RESP 16–20; TEMP 36.4–37.9; O2SAT 92–98
[2019-10-27] MEDS: ipratropium-albuterol 3 mL Neb INHALATION ×3 (04:00→21:21)
[2019-10-27 05:18] LABS: Basophils % 0.4 %; Eosinophils # 0.2 10^3/uL (0.0-0.8); Eosinophils % 3.1 %; Hematocrit 31.4 % (37.0-47.0); Hemoglobin 9.2 g/dL (11.5-15.3); Lymphocytes # 0.7 10^3/uL (0.8-4.8); Lymphocytes % 9.5 %; Mean Corpuscular HGB Conc 29.3 g/dL (30.0-36.0); Mean Corpuscular Hemoglobin 26.3 pg (28.0-34.0); Mean Corpuscular Volume 89.7 fL (81-99); Mean Platelet Volume 10.9 fL (7.4-10.4); Monocytes # 0.4 10^3/uL (0.2-0.9); Monocytes % 5.1 %; Neutrophils # 5.7 10^3/uL (1.8-7.7); Neutrophils % 81.3 %; Nucleated Red Blood Cells % 0 %; Platelet Count 136 10^3/cmm (130-400); Red Cell Distribution Width 14.1 % (12.1-15.1); White Blood Count 7.1 10^3/uL (4.0-10.0)
[2019-10-27 05:36] LABS: Chol HDL Ratio 4.34 mg/dL (0.0-4.40); Cholesterol 152 mg/dL (0-200); HDL Cholesterol 35 mg/dL (60-100); LDL Cholesterol Calculated 83 mg/dL (50-129); Magnesium 2.2 mg/dL (1.7-2.3); Phosphorus 4.2 mg/dL (2.5-4.5); Triglycerides 169 mg/dL (0-150); VLDL Cholestrol Calculation 34 mg/dL (0-30)
[2019-10-27] MEDS: dextrose 5%-sod chloride 0.9% 1,000 ML 50 ML IV (06:08)
[2019-10-27] MEDS: metoprolol tartrate 25 mg Tablet PO ×2 (08:04→17:22)
[2019-10-27] MEDS: HYDROcodone-acetaminophen 5-325 mg Tablet 1 TAB PO ×3 (08:05→17:23)
[2019-10-27] MEDS: famotidine 20 mg/2 mL INJ IVP ×2 (08:07→21:05)
--- NOTE | 2019-10-27 08:44 | ANE.PACU2 ---
 Inpatient post-anesthesia follow up: Airway intact: Yes Vital signs: Temperature 98.1 F Pulse Rate 71 Respiratory Rate 20 Blood Pressure 133/69 Pulse Oximetry 92 Oxygen Delivery Me thod Nasal Cannula Oxygen Flow Rate 2 Fraction of Inspir ed Oxygen Hydration adequate: Yes Nausea and vomiting: No Pain level: 10 Mental status: Baseline
--- NOTE | 2019-10-27 11:15 | PM.PN ---
Subjective Subjective: Interval history: Christina reports she is doing okay. She reports she does not really want to go to a nursing facility for rehab but has plenty of support at home. Nursing relates that she was slightly confused this morning. History and physical, records reviewed. Medications: Reviewed: Yes Vitals/I&O/Wt Last Vital Signs Temp 98.1 F 10/27/19 07:45 Pulse 71 10/27/19 07:45 Resp 20 H 10/27/19 07:45 BP 133/69 10/27/19 07:45 Pulse Ox 92 10/27/19 07:45 10/26/19 10/27/19 10/27/19 22:59 06:59 14:59 Intake Total 1460 / 1570 100 / 1670 Output Total 700 / 725 400 / 1125 Balance 760 / 845 -300 / 545 Weight last 48 hrs Weight 77.111 kg Physical Exam Narrative: EXAM NARRATIVE: General exam is a white female, alert and conversive but seems somewhat tired Cardiovascular regular rate and rhythm without murmur Lungs clear Abdomen is soft with positive bowel sounds Extremities no cyanosis clubbing or edema Right lower extremity surgical site clean and dry. Urinary Catheter Management^: Barriga: Cath Placed During This Visit: yes, but has since been removed by the nurse Reason for Continuing Indwelling Catheter: Perioperative Use in Selected Surgeries Urinary Catheter Date of Insertion: 10/26/19 Urinary Catheter Time of Insertion: 15:25 Date Urinary Catheter Removed: 10/27/19 Time Urinary Catheter Discontinued: 06:00 Data : 10/27/19 04:55 10/26/19 04:45 A&P Assessment and plan (1) Fracture of femoral neck, right: Postoperative day #1, doing well with the exception of confusion noted by nurses earlier this morning Rehabilitation Hydrocodone, tramadol for pain Status: Acute Qualifiers: Encounter type: initial encounter Fracture type: closed Qualified Code(s): S72.001A - Fracture of unspecified part of neck of right femur, initial encounter for closed fracture (2) COPD (chronic obstructive pulmonary disease): No evidence of current exacerbation Continue chronic medications Status: Acute (3) Oxygen dependent: Stable on 2 L Status: Acute (4) Chronic kidney disease (CKD): Last creatinine stable Status: Acute (5) Peripheral vascular disease: -Total occlusion of the left common iliac artery -High-grade lesion the left common femoral -Subtotally occluded distal left SFA with extensive calcification -Moderate diffuse disease in the abdominal aorta -Moderate diffuse disease in the left renal artery -Hospital stenting in [place] On exam left lateral malleolar ulcer noted without evidence of infection. Status: Acute (6) CAD (coronary artery disease): Asymptomatic currently Status: Acute (7) History of heart artery stent: Status: Acute (8) History of coronary artery bypass graft x 2: Status: Acute (9) Diastolic CHF: Compensated Status: Acute (10) Nonalcoholic fatty liver disease: Status: Acute (11) Liver cirrhosis: Status: Acute (12) Pulmonary hypertension: Status: Acute (13) Insulin dependent type 2 diabetes mellitus: Continue current insulin orders Status: Acute Additional A&P Information Anemia, not significantly worsened by surgery. History of cirrhosis. Likely [place]. Check ammonia level in the morning Full code Lovenox for DVT prophylaxis Discussed with her long term facility placement but she does not want to do this currently. Discharge planning to work with patient regarding this. Attestations Medical Necessity Statement*: Needs continued hospitalization for close monitoring following hip fracture surgery. Coding Level of Care Code Acute Rug Frame Mounter for [facility] Diagnoses Fracture of femoral neck, right S72.001A Encounter type: initial encounter Fracture type: closed COPD (chronic obstructive pulmonary disease) J44.9 Oxygen dependent Z99.81 Chronic kidney disease (CKD) N18.9 Peripheral vascular disease I73.9 CAD (coronary artery disease) I25.10 History of heart artery stent Z95.5 History of coronary artery bypass graft x 2 Z95.1 Diastolic CHF I50.30 Nonalcoholic fatty liver disease K76.0 Liver cirrhosis K74.60 Pulmonary hypertension I27.20 Insulin dependent type 2 diabetes mellitus E11.9; Z79.4
--- NOTE | 2019-10-27 12:38 | PM.PN ---
Subjective Subjective: Interval history: Still complains of pain in right hip. Up to chair earlier today. Tolerating p.o. intake. Vitals/I&O/Wt Last Vital Signs Temp 98.6 F 10/27/19 11:12 Pulse 66 10/27/19 11:17 Resp 16 10/27/19 11:17 BP 123/70 10/27/19 11:12 Pulse Ox 96 10/27/19 11:17 10/26/19 10/27/19 10/27/19 22:59 06:59 14:59 Intake Total 1460 / 1570 100 / 1670 360 / 360 Output Total 700 / 725 400 / 1125 Balance 760 / 845 -300 / 545 360 / 360 Weight last 48 hrs Weight 170 lb Physical Exam Narrative: EXAM NARRATIVE: Right hip dressing clean and dry. Some pain with motion of hip. Urinary Catheter Management^: Barriga: Cath Placed During This Visit: yes, but has since been removed by the nurse Reason for Continuing Indwelling Catheter: Perioperative Use in Selected Surgeries Urinary Catheter Date of Insertion: 10/26/19 Urinary Catheter Time of Insertion: 15:25 Date Urinary Catheter Removed: 10/27/19 Time Urinary Catheter Discontinued: 06:00 Data : 10/27/19 04:55 10/26/19 04:45 A&P Assessment and plan (1) Postoperative state: Patient can be mobilized as per therapy. Stable for discharge as per medicine Status: Acute Attestations Medical Necessity Statement*: As per medicine Coding Level of Care Code Acute Pulmonary Disease Specialist for [facility] Diagnoses Postoperative state Z98.890
--- NOTE | 2019-10-27 14:48 | PC.RESP ---
Patient given information on Pulmonary Rehab.
[2019-10-27] MEDS: enoxaparin 30 mg/0.3 mL Syringe SUBCUT (20:44)
[2019-10-27 22:13] LABS: Glucose Point of Care 166 mg/dL (70-110)
[2019-10-27 22:13] LABS: Glucose Point of Care 221 mg/dL (70-110)
[2019-10-27 22:14] LABS: Glucose Point of Care 178 mg/dL (70-110)
[2019-10-27] MEDS: cefTRIAXone 1,000 MG in sodium chloride 0.9% (plus) 50 ML 100 MG IV (23:00)
[2019-10-28] VITALS (8 sets, daily range): BP systolic 119–146; BP diastolic 55–70; PULSE 57–78; RESP 16–20; TEMP 36.8–36.9; O2SAT 85–96
[2019-10-28] MEDS: HYDROcodone-acetaminophen 5-325 mg Tablet 1 TAB PO ×2 (01:10→13:37)
[2019-10-28 03:25] LABS: Basophils % 0.1 %; Eosinophils # 0.3 10^3/uL (0.0-0.8); Eosinophils % 3.5 %; Hematocrit 29.7 % (37.0-47.0); Hemoglobin 8.5 g/dL (11.5-15.3); Lymphocytes # 0.7 10^3/uL (0.8-4.8); Lymphocytes % 10.3 %; Mean Corpuscular HGB Conc 28.6 g/dL (30.0-36.0); Mean Corpuscular Hemoglobin 26.1 pg (28.0-34.0); Mean Corpuscular Volume 91.1 fL (81-99); Mean Platelet Volume 10.5 fL (7.4-10.4); Monocytes # 0.4 10^3/uL (0.2-0.9); Monocytes % 6.1 %; Neutrophils # 5.6 10^3/uL (1.8-7.7); Neutrophils % 79.6 %; Nucleated Red Blood Cells % 0 %; Platelet Count 133 10^3/cmm (130-400); Red Blood Count 3.26 10^6/uL (4.1-5.3); Red Cell Distribution Width 14.4 % (12.1-15.1); White Blood Count 7.1 10^3/uL (4.0-10.0)
[2019-10-28 03:44] LABS: Ammonia 35 umol/L (11-51)
[2019-10-28 03:49] LABS: Alanine Aminotransferase < 5 U/L (0-33); Albumin Level 3.3 g/dL (3.5-5.2); Alkaline Phosphatase 115 IU/L (35-105); Anion Gap 15.7 (5-19); Aspartate Amino Transferase 13 U/L (0-32); Blood Urea Nitrogen 37 mg/dL (8-23); Carbon Dioxide 21 mmol/L (22-29); Chloride 103 mmol/L (98-107); Globulin 3.3 g/dL (1.3-4.6); Glucose 213 mg/dL (65-115); Osmolality Calculated 284 mOsm/kg (285-295); Potassium 4.7 mmol/L (3.5-5.1); Sodium 135 mmol/L (136-145); Total Bilirubin 0.2 mg/dL (0.15-1.2); Total Protein 6.6 g/dL (6.6-8.7)
[2019-10-28 03:50] LABS: Magnesium 2.2 mg/dL (1.7-2.3); Phosphorus 2.5 mg/dL (2.5-4.5)
[2019-10-28] MEDS: ipratropium-albuterol 3 mL Neb INHALATION (04:14)
[2019-10-28] MEDS: dextrose 5%-sod chloride 0.9% 1,000 ML 50 ML IV (04:29)
[2019-10-28 06:23] LABS: Glucose Point of Care 162 mg/dL (70-110)
[2019-10-28] MEDS: famotidine 20 mg/2 mL INJ IVP (08:08)
[2019-10-28] MEDS: metoprolol tartrate 25 mg Tablet PO (08:44)
--- NOTE | 2019-10-28 09:05 | PC.SOCIAL ---
JOSEE initialied and copied. Gena SANABRIA CM was going in room to see patient and explained form as well as provided copy to patient.
[2019-10-28] MEDS: acetaminophen 325 mg Tablet 650 MG PO (09:24)
[2019-10-28 11:15] LABS: Glucose Point of Care 131 mg/dL (70-110)
--- NOTE | 2019-10-28 11:17 | P.DS_ITS ---
Discharge Providers Date of Admission: 10/25/19 17:00 Date of Discharge: October 28, 2019 Attending Provider at Admission: Wilfredo Buckner MD Attending Provider at Discharge: Lobito Bishop MD Diagnoses at Discharge Discharge Diagnosis (1) Postoperative state: Status: Acute Problem details: Postoperative day #2 status post hip repair, doing well. Reason for Visit Reason for Visit: Reason For Visit: FALL RIGHT LEG PAIN Hospital Course Hospital Course: Christina presented on October 24 following a mechanical fall, tripping on cement. She had pain in her right hip, was brought into the emergency department. There she was found to have a femoral neck fracture. Orthopedic surgery was consulted. Urinary tract infection was also suspected and she was started on Rocephin. She underwent operative repair on October 25 without complication. In the postoperative period she had some confusion, that cleared with time. By October 26 she was stable to be discharged home with home health, home physical therapy, and appropriate follow-up. I discussed her hospital course with her daughter as well who will be assuming her care at home. Discharge hemoglobin 8.5, stable. Discharge creatinine 2.4 in this patient with chronic kidney disease stage III/IV. She will need a repeat BMP in 3 to 5 days, follow-up with her primary care provider as well as orthopedics and continue on 2 L of oxygen which she is on chronically. Physical Exam Narrative: EXAM NARRATIVE: General exam is no apparent distress Cardiovascular regular rate and rhythm without murmur Lungs clear Abdomen is soft with positive bowel sounds Extremities no cyanosis clubbing or edema, right hip dressing site clean and dry. Urinary Catheter Management^: Barriga: Cath Placed During This Visit: yes, but has since been removed by the nurse Reason for Continuing Indwelling Catheter: Perioperative Use in Selected Surgeries Urinary Catheter Date of Insertion: 10/26/19 Urinary Catheter Time of Insertion: 15:25 Date Urinary Catheter Removed: 10/27/19 Time Urinary Catheter Discontinued: 06:00 Discharge Data Data Completed and Pending: Completed Studies During Hospitalization Category Date Time Status XR chest 1V velma ble [id number] Stat Exams 10/25/19 16:58 Completed XR femur RT min 2 V* [id number] Stat Exams 10/25/19 15:54 Completed XR hip RT 2-3V wo /w pel* [id number] Rout ine Exams 10/26/19 10:33 Completed XR pelvis 1-2V* 7 2170 Stat Exams 10/25/19 15:54 Completed CV echo complete* [id number] Routine Ultrasound 10/26/19 16:57 Completed Pending at discharge Category Date Time Status Urine Culture Rou kaylan Lab 10/26/19 17:47 Received Labs from last 24 hours 10/28/19 10/28/19 10/28/19 11:11 06:18 03:15 WBC RBC Hgb Hct MCV MCH MCHC RDW Plt Count MPV Neut % (Auto) Lymph % (Auto) [place] % (Auto) Eos % (Auto) Baso % (Auto) Neut # (Auto) Lymph # (Auto) [place] # (Auto) Eos # (Auto) Baso # (Auto) Nucleated RBC % (a uto) Nucleated RBCs # Sodium Potassium Chloride Carbon Dioxide Anion Gap BUN Creatinine Glucose POC Glucose 131 162 Calculated Osmolal ity Calcium Phosphorus 2.5 Magnesium 2.2 Total Bilirubin AST ALT Alkaline Phosphata se Ammonia Total Protein Albumin Globulin 10/28/19 10/28/19 10/28/19 03:15 03:15 03:15 WBC 7.1 RBC 3.26 L Hgb 8.5 L Hct 29.7 L MCV 91.1 MCH 26.1 L MCHC 28.6 L RDW 14.4 Plt Count 133 MPV 10.5 H Neut % (Auto) 79.6 Lymph % (Auto) 10.3 [place] % (Auto) 6.1 Eos % (Auto) 3.5 Baso % (Auto) 0.1 Neut # (Auto) 5.6 Lymph # (Auto) 0.7 L [place] # (Auto) 0.4 Eos # (Auto) 0.3 Baso # (Auto) 0.0 Nucleated RBC % (a uto) 0 Nucleated RBCs # 0.0 Sodium 135 L Potassium 4.7 Chloride 103 Carbon Dioxide 21 L Anion Gap 15.7 BUN 37 H Creatinine 2.4 H Glucose 213 H POC Glucose Calculated Osmolal ity 284 L Calcium 9.0 Phosphorus Magnesium Total Bilirubin 0.2 AST 13 ALT < 5 Alkaline Phosphata se 115 H Ammonia 35 Total Protein 6.6 Albumin 3.3 L Globulin 3.3 10/27/19 10/27/19 10/27/19 19:39 16:37 11:13 WBC RBC Hgb Hct MCV MCH MCHC RDW Plt Count MPV Neut % (Auto) Lymph % (Auto) [place] % (Auto) Eos % (Auto) Baso % (Auto) Neut # (Auto) Lymph # (Auto) [place] # (Auto) Eos # (Auto) Baso # (Auto) Nucleated RBC % (a uto) Nucleated RBCs # Sodium Potassium Chloride Carbon Dioxide Anion Gap BUN Creatinine Glucose POC Glucose 166 221 178 Calculated Osmolal ity Calcium Phosphorus Magnesium Total Bilirubin AST ALT Alkaline Phosphata se Ammonia Total Protein Albumin Globulin Vitals: Last Vital Signs Temp 98.2 F 10/28/19 11:02 Pulse 57 L 10/28/19 11:02 Resp 18 10/28/19 11:02 BP 119/67 10/28/19 11:02 Pulse Ox 93 10/28/19 11:02 Discharge Plan Discharge Patient Disposition: Home Health Service Condition: Stable Prescriptions: New cefdinir 300 mg capsule 300 mg PO BID 5 Days Qty: 10 RF: 0 Continued ondansetron HCl 4 mg tablet 4 mg PO DAILY RF: 0 furosemide 40 mg tablet 40 mg PO DAILY RF: 0 ondansetron HCl 4 mg tablet 4 mg PO Q4H PRN (Reason: Nausea And Vomiting) RF: 0 diphenoxylate-atropine 2.5-0.025 mg tablet 1 tab PO TID PRN (Reason: Diarrhea) RF: 0 hydrocodone-acetaminophen 10-325 mg tablet 10 - 325 tab PO 5XD PRN (Reason: Pain) RF: 0 trazodone 100 mg tablet 100 mg PO BEDTIME RF: 0 mupirocin 2 % ointment 1 applic TOPICAL DAILY RF: 0 midodrine 2.5 mg tablet 2.5 mg PO BID RF: 0 spironolactone 50 mg tablet 50 mg PO DAILY RF: 0 buspirone 15 mg tablet 15 mg PO BID RF: 0 metoprolol tartrate 25 mg tablet 25 mg PO BID RF: 0 Xopenex HFA 45 mcg/actuation HFA aerosol inhaler 1 puff INHALATION QID PRN (Reason: Shortness Of Breath) RF: 0 Tresiba FlexTouch U-100 100 unit/mL (3 mL) insulin pen 30 unit SUBCUT BEDTIME RF: 0 Discharge Orders: Discharge Order (Routine); Ordered 10/28/19 Ordered By: Lobito Bishop Referrals: [facility] [Outside] Keena De La Torre DO [Family Provider] - 7-10 days (BMP in 3 to 4 days, by home health, sent to her primary care provider.) Discharge Diet: Diabetic Discharge Activity: Limit activity as instructed Activity Restrictions/Additional Instructions: Continue oxygen 2 L at night Postoperative wound instructions, follow-up, weightbearing status, rehabilitation instructions to come through orthopedics. Please call them prior to discharge. Please also call orthopedics for their follow-up plans. 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
== END 2019-10-28 14:23 | disposition home health service (06) | DRG 481 ==
LOC: ER 17:51 → MEDSURG 17:56
PROVIDERS: Family Medicine; Orthopaedic Surgery; Admitting Provider Student in an Organized Health Care Education/Training Program; Emergency Provider Family Medicine; Family Provider Family Medicine; Visit Provider Internal Medicine
PROC: 0QS604Z Reposition Right Upper Femur with Internal Fixation Device, Open Approach (ICD-10-PCS; CPT 27236; principal; 2019-10-26 08:45)
DX: S72.091A Other fracture of head and neck of right femur, initial encounter for closed fracture (principal); I13.0 Hypertensive heart and chronic kidney disease with heart failure and stage 1 through stage 4 chronic kidney disease, or unspecified chronic kidney disease; I50.32 Chronic diastolic (congestive) heart failure; N39.0 Urinary tract infection, site not specified; W01.0XXA Fall on same level from slipping, tripping and stumbling without subsequent striking against object, initial encounter; Y93.89 Activity, other specified; Y92.89 Other specified places as the place of occurrence of the external cause; K74.60 Unspecified cirrhosis of liver; K76.0 Fatty (change of) liver, not elsewhere classified; N18.3 Chronic kidney disease, stage 3 (moderate); E11.22 Type 2 diabetes mellitus with diabetic chronic kidney disease; Z99.81 Dependence on supplemental oxygen; J44.9 Chronic obstructive pulmonary disease, unspecified; Z79.4 Long term (current) use of insulin; I25.10 Atherosclerotic heart disease of native coronary artery without angina pectoris; Z95.5 Presence of coronary angioplasty implant and graft; Z95.1 Presence of aortocoronary bypass graft; E78.5 Hyperlipidemia, unspecified; E11.51 Type 2 diabetes mellitus with diabetic peripheral angiopathy without gangrene; Z95.820 Peripheral vascular angioplasty status with implants and grafts; I27.20 Pulmonary hypertension, unspecified; Z87.891 Personal history of nicotine dependence; Z79.891 Long term (current) use of opiate analgesic
CPT/HCPCS: 12345; 36415; 36416; 51702; 71045; 72170; 73502; 73552; 76000; 80053; 80061; 81001; 82140; 82962; 83036; 83540; 83550; 83735; 83880; 84100; 84145; 84443; 85014; 85018; 85025; 85378; 85610; 87086; 93005; 93306; 94640; 94664; 96372; 96374; 96375; 97110; 97116; 97161; 97167; 97530; 97535; 99282; C1713; J0690; J0696; J1644; J1650; J1815; J2001; J2270; J2370; J2405; J2704; J3490; J7030

== ENCOUNTER 2020-04-12 00:50 | Inpatient (IN) | payer MEDICARE, MEDICAID, SELFPAY ==
[2020-04-12] VITALS (25 sets, daily range): BP systolic 101–151; BP diastolic 49–87; PULSE 92–133; RESP 13–20; TEMP 36.4–36.9; O2SAT 90–100; BMI 25.4
--- NOTE | 2020-04-12 00:55 | XRR_ITS ---
PROCEDURE INFORMATION: Exam: XR Chest, 1 View Exam date and time: 04/12/2020 2:01 AM Age: 70 years old Clinical indication: Dyspnea; Prior surgery; Surgery type: Bypass stents TECHNIQUE: Imaging protocol: XR of the chest Views: 1 view. COMPARISON: CR XR chest 1V portable [id number] 10/25/2019 5:00 PM FINDINGS: Lungs: Interstitial prominence most pronounced within the right lung base greater than left. Correlate. Pleural space: Probable subpulmonic effusions bilaterally Heart/Mediastinum: cardiac silhouette is enlarged. Prior sternotomy. Bones/joints: See Heart/Mediastinum finding. XR/XR chest 1V portable [id number] IMPRESSION: Interstitial prominence most pronounced within the right lung base greater than left. Correlate. Follow-up recommended. Suspected subpulmonic effusions.
--- NOTE | 2020-04-12 00:56 | ECG_ITS ---
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 Measurements Intervals [place] Rate: 116 P: -25 NH: 64 QRS: -25 QRSD: 108 T: 151 QT: 343 QTc: 478 Interpretive Statements SINUS TACHYCARDIA WITH SHORT NH INTERVAL INCOMPLETE RIGHT BUNDLE BRANCH BLOCK [90+ ms QRS DURATION, TERMINAL R IN V1/V2, 40+ ms S IN I/aVL/V4/V5/V6] SEPTAL MYOCARDIAL INFARCTION [40+ ms Q WAVE IN V1/V2], OF INDETERMINATE AGE MODERATE T-WAVE ABNORMALITY, CONSIDER ANTEROLATERAL ISCHEMIA [-0.1+ mV T WAVE IN V3-V6] Compared to ECG 10/25/2019 17:34:30 Short NH interval now present No significant change Electronically Signed On 04-12-2020 18:36:00 CDT by Jaden Salas M.D. [email or web address]
--- NOTE | 2020-04-12 01:02 | ED_ITS ---
HPI - SOB/Dyspnea General: Chief Complaint: Shortness of Breath/Dyspnea Stated Complaint: SOB Time Seen by Provider: 04/12/20 00:51 Source: patient and EMS Mode of arrival: EMS History of Present Illness: HPI Narrative: Christina is a nice 70-year-old female who comes in from home with report of shortness of breath. Patient states that she has had increased lower extremity swelling at her body weight has increased. She denies fever, cough, loss of sense of taste, loss of sense of smell or increased sputum production. Patient does have COPD and wears 2 L of nasal cannula oxygen at all time. Patient is tried to treat herself by increasing her albuterol frequency and increasing her oxygen. Patient states she has shortness of breath when she lays flat and when she exerts herself. There is no reported chest pain. Patient has a history of A. fib but states that she does not take anticoagulation because she has had GI bleeds in the past. EMS gave the patient 40 mg of Lasix and 1 albuterol treatment in route. They do state that she has been tachycardic throughout her transport. Associated symptoms: Deny abdominal pain, chest congestion, chest pain, diaphoresis, dizziness, extremity pain, fever(s), hemoptysis, lightheadedness, nausea, palpitations, syncope or vomiting Review of Systems Const: Denies: fever(s), chills, body aches, fatigue, malaise or diaphoresis Eyes: Denies: change in vision, blurry vision, photophobia, eye discomfort, eye discharge, eye redness or yellow eyes ENMT: Denies: throat pain, odynophagia, hoarseness, swelling of lips/tongue, ear or mastoid pain, ear discharge, change in hearing or nasal discharge Card: Reports: swelling of feet/ankles and dyspnea on exertion; Denies: chest pain, palpitations, irregular heart rhythm, edema, lightheadedness, syncope or pre-syncope Resp: Reports: dyspnea; Denies: productive cough, non-productive cough, wheezing, hemoptysis or chest congestion GI: Denies: abdominal pain, nausea, vomiting, hematemesis, coffee ground emesis, heartburn, diarrhea, constipation, GI cramping, hematochezia or melena : Denies: flank pain, dysuria, urinary frequency, urinary urgency or hematuria Musc: Denies: neck pain, back pain, extremity pain, extremity swelling, joint pain, joint swelling, joint redness, joint warmth or joint stiffness Skin/Breast: Denies: rash, pruritus, erythema, skin pain or skin tenderness Neuro: Denies: headache(s), numbness in extremities, weakness in extremities, sensory changes, lack of coordination, difficulty walking, dizziness, vertigo, confusion, Slurred speech present or seizure-like activity Reed/Lymph: Denies: easy bruising, easy bleeding, petechiae, purpura or enlarged lymph nodes All/Imm: Denies: urticaria, throat swelling, tongue swelling, facial swelling or acute wheezing PFSH ED PFSH: Medical History CAD (coronary artery disease) Chronic kidney disease (CKD) Diastolic CHF Insulin dependent type 2 diabetes mellitus Liver cirrhosis Nonalcoholic fatty liver disease Peripheral vascular disease Pulmonary hypertension Surgical History History of coronary artery bypass graft x 2 History of heart artery stent Family History Other Diabetes Social History Smoking and tobacco status: former smoker Alcohol intake: never Physical Exam Const: COMMON NORMALS: no acute distress, patient oriented x3, no limitations and alert GENERAL APPEARANCE: cooperative HENMT: COMMON NORMALS: normocephalic, atraumatic, external ears normal, EAC's normal and Normal external nose present HEAD & SCALP: normal to inspection, normocephalic and atraumatic FACE & SINUS: normal facial exam and face symmetric NOSE: Normal external nose present and Normal nares present EXTERNAL EAR: Yes external ears normal EXTERNAL AUDITORY CANAL: EAC's normal MOUTH: Normal oral and palatal mucosa present, lip normal and tongue normal Eye: COMMON NORMALS: Equal, round and reactive pupils present and conjunctivae normal GENERAL EYE: appearance normal, both eyes and all related structures ALIGNMENT: Yes alignment normal PERIORBITAL: periorbital findings normal EYELID: eyelids normal CONJUNCTIVA: Yes conjunctivae normal SCLERA: sclerae normal PUPIL: Yes Equal, round and reactive pupils present Neck/C-Spine: COMMON NORMALS: full ROM, no lymphadenopathy, supple, no meningeal signs and no JVD GENERAL: Yes normal visual inspection and Yes trachea midline Chest: COMMONS NORMALS: normal inspection of the chest and normal palpation of entire chest wall Resp: COMMON NORMALS: normal respiratory effort, No retractions, No use of accessory muscles and clear to auscultation bilaterally EFFORT & INSPECTION: Yes able to speak in complete sentences and Yes symmetric chest movement AUSCULTATION: clear to auscultation bilaterally, no crackles, no rhonchi and no wheezes Cardio: COMMON NORMALS: no JVD, S1 normal heart sound present and S2 normal heart sound present RATE: tachycardic RHYTHM: abnormal rhythm irregularly irregular HEART SOUNDS: S1 normal heart sound present, S2 normal heart sound present, no click, no gallops, no murmurs and no rubs GI: COMMON NORMALS: Soft to palpation and No hepatosplenomegaly present PALPATION: Yes Soft to palpation, No Tenderness to palpation present (GI), No Guarding due to palpation present (GI), No Rigid due to palpation, Yes No hepatosplenomegaly present, No Hernia present, No Palpable mass present and No Pulsatile mass present : COMMON NORMALS: Yes no CVA tenderness BLADDER/KIDNEY EXAM: Yes no CVA tenderness EXTERNAL FEMALE EXAM: No Hernia present Back/Pelvis: COMMON NORMALS: no CVA tenderness, thoracic and lumbar spine normal to inspection, no thoracic nor lumbar tenderness and thoraco-lumbar ROM normal Extremity: COMMON NORMALS: normal to inspection, full ROM, capillary refill normal, no joint enlargement and no calf tenderness NARRATIVE EXTREMITY EXAM: Bilateral lower extremity pitting edema Neuro: COMMON NORMALS: patient oriented x3, CN's II-XII intact bilaterally, moves all extremities, no focal motor deficits and no sensory deficits noted SENSORIUM/ORIENTATION: Yes alert MENINGEAL SIGNS: Yes no meningeal signs SPEECH: speech normal Psych: COMMON NORMALS: mental status grossly normal, Normal thought process present, cooperative, normal affect, speech normal and activity/motor behavior normal SPEECH: Yes normal speech THOUGHT PROCESS: Normal thought process present Skin: COMMON NORMALS: no rashes or lesions noted, turgor normal, no jaundice, no petechiae and no mottling GENERAL SKIN EXAM: no rashes or lesions noted and turgor normal Course Vital Signs: Vital signs: Vital Signs Temperature 98.5 F 04/12/20 00:51 Pulse Rate 126 H 09/30/20 03:27 Respiratory Rate 15 04/12/20 03:21 Blood Pressure 101/87 04/12/20 03:27 Pulse Oximetry 97 04/12/20 03:27 MDM - SOB/Dyspnea 2 Lab Data: Attestation: I reviewed the patient's lab results. Labs: Lab Results 04/12/20 04/12/20 04/12/20 Range/Units 00:12 00:12 00:12 WBC 6.1 (4.0-10.0) 10^3/ uL RBC 3.54 L (4.1-5.3) 10^6/u L Hgb 7.6 L (11.5-15.3) g/dL Hct 28.7 L (37.0-47.0) % MCV 81.1 (81-99) fL MCH 21.5 L (28.0-34.0) pg MCHC 26.5 L (30.0-36.0) g/dL RDW 17.6 H (12.1-15.1) % Plt Count 190 (130-400) 10^3/c mm MPV 10.2 (7.4-10.4) fL Neut % (Auto) 82.9 % Lymph % (Auto) 8.7 % Spencer % (Auto) 4.4 % Eos % (Auto) 3.4 % Baso % (Auto) 0.3 % Neut # (Auto) 5.04 (1.8-7.7) 10^3/u L Lymph # (Auto) 0.5 L (0.8-4.8) 10^3/u L Spencer # (Auto) 0.3 (0.2-0.9) 10^3/u L Eos # (Auto) 0.2 (0.0-0.8) 10^3/u L Baso # (Auto) 0.0 (0.0-0.1) 10^3/u L Nucleated RBC % (a uto) 0 % Nucleated RBCs # 0.0 /100WBC PT 15.30 H (12.1-14.9) SECO NDS INR 1.17 (0.8-1.2) Specimen Type Sample Site ABG pH (7.35-7.45) ABG pCO2 (35-45) mmHg ABG pO2 (80.0-100.0) mmH g ABG HCO3 (22-26) mmol/L ABG Base Excess (-2.0-2.0) mmol/ L Jaleel Test Hematocrit (37-47) % O2 Delivery Device O2 Liters/Min % Pigment Weigher ID Sodium 136 (136-145) mmol/L Potassium 5.1 (3.5-5.1) mmol/L Chloride 96 L (98-107) mmol/L Carbon Dioxide 29 (22-29) mmol/L Anion Gap 16.1 (5-19) BUN 38 H (8-23) mg/dL Creatinine 2.0 H (0.5-0.9) mg/dL GFR Calculation Not Reportable Glucose 159 H (65-115) mg/dL Calculated Osmolal ity 294 (285-295) mOsm/k g Lactic Acid (0.5-2.2) mmol/L Calcium 9.1 (8.5-10.5) mg/dL Magnesium 2.3 (1.7-2.3) mg/dL Total Bilirubin 0.4 (0.15-1.2) mg/dL AST 15 (0-32) U/L ALT < 5 (0-33) U/L Alkaline Phosphata se 92 (35-105) IU/L Troponin T Baselin e (0-10) ng/L NT-Pro-B Natriuret Pep 09896 H (0-125) pg/mL Total Protein 7.4 (6.6-8.7) g/dL Albumin 4.3 (3.5-5.2) g/dL Globulin 3.1 (1.3-4.6) g/dL Lipase 12 L (13-60) U/L TSH 2.91 (0.27-4.20) uIU/ mL Urine Color (Yellow) Urine Appearance (CLEAR) Urine pH (5-7) Ur Specific Gravit y (1.005-1.030) Urine Protein (Negative) Urine Glucose (UA) (Normal) Urine Ketones (Negative) Urine Blood (Negative) Urine Nitrate (Negative) Urine Bilirubin (Negative) Urine Urobilinogen (Negative) mg/dL Ur Leukocyte Majo ase (Negative) Influenza Type A A g (Negative) Influenza Type B A g (Negative) SARS-CoV-2 Ag (Rap id) (Negative) Blood Type Rho(D) Type 04/12/20 04/12/2004/12/20 Range/Units 00:12 01:00 01:00 WBC (4.0-10.0) 10^3/ uL RBC (4.1-5.3) 10^6/u L Hgb (11.5-15.3) g/dL Hct (37.0-47.0) % MCV (81-99) fL MCH (28.0-34.0) pg MCHC (30.0-36.0) g/dL RDW (12.1-15.1) % Plt Count (130-400) 10^3/c mm MPV (7.4-10.4) fL Neut % (Auto) % Lymph % (Auto) % Spencer % (Auto) % Eos % (Auto) % Baso % (Auto) % Neut # (Auto) (1.8-7.7) 10^3/u L Lymph # (Auto) (0.8-4.8) 10^3/u L Spencer # (Auto) (0.2-0.9) 10^3/u L Eos # (Auto) (0.0-0.8) 10^3/u L Baso # (Auto) (0.0-0.1) 10^3/u L Nucleated RBC % (a uto) % Nucleated RBCs # /100WBC PT (12.1-14.9) SECO NDS INR (0.8-1.2) Specimen Type Sample Site ABG pH (7.35-7.45) ABG pCO2 (35-45) mmHg ABG pO2 (80.0-100.0) mmH g ABG HCO3 (22-26) mmol/L ABG Base Excess (-2.0-2.0) mmol/ L Jaleel Test Hematocrit (37-47) % O2 Delivery Device O2 Liters/Min % Pigment Weigher ID Sodium (136-145) mmol/L Potassium (3.5-5.1) mmol/L Chloride (98-107) mmol/L Carbon Dioxide (22-29) mmol/L Anion Gap (5-19) BUN (8-23) mg/dL Creatinine (0.5-0.9) mg/dL GFR Calculation Glucose (65-115) mg/dL Calculated Osmolal ity (285-295) mOsm/k g Lactic Acid 1.7 (0.5-2.2) mmol/L Calcium (8.5-10.5) mg/dL Magnesium (1.7-2.3) mg/dL Total Bilirubin (0.15-1.2) mg/dL AST (0-32) U/L ALT (0-33) U/L Alkaline Phosphata se (35-105) IU/L Troponin T Baselin e 67 H (0-10) ng/L NT-Pro-B Natriuret Pep (0-125) pg/mL Total Protein (6.6-8.7) g/dL Albumin (3.5-5.2) g/dL Globulin (1.3-4.6) g/dL Lipase (13-60) U/L TSH (0.27-4.20) uIU/ mL Urine Color (Yellow) Urine Appearance (CLEAR) Urine pH (5-7) Ur Specific Gravit y (1.005-1.030) Urine Protein (Negative) Urine Glucose (UA) (Normal) Urine Ketones (Negative) Urine Blood (Negative) Urine Nitrate (Negative) Urine Bilirubin (Negative) Urine Urobilinogen (Negative) mg/dL Ur Leukocyte Majo ase (Negative) Influenza Type A A g (Negative) Influenza Type B A g (Negative) SARS-CoV-2 Ag (Rap id) Negative (Negative) Blood Type Rho(D) Type 04/12/20 04/12/20 04/12/20 Range/Units 01:00 01:14 01:29 WBC (4.0-10.0) 10^3/ uL RBC (4.1-5.3) 10^6/u L Hgb (11.5-15.3) g/dL Hct (37.0-47.0) % MCV (81-99) fL MCH (28.0-34.0) pg MCHC (30.0-36.0) g/dL RDW (12.1-15.1) % Plt Count (130-400) 10^3/c mm MPV (7.4-10.4) fL Neut % (Auto) % Lymph % (Auto) % Spencer % (Auto) % Eos % (Auto) % Baso % (Auto) % Neut # (Auto) (1.8-7.7) 10^3/u L Lymph # (Auto) (0.8-4.8) 10^3/u L Spencer # (Auto) (0.2-0.9) 10^3/u L Eos # (Auto) (0.0-0.8) 10^3/u L Baso # (Auto) (0.0-0.1) 10^3/u L Nucleated RBC % (a uto) % Nucleated RBCs # /100WBC PT (12.1-14.9) SECO NDS INR (0.8-1.2) Specimen Type Arterial Sample Site Brachial, right ABG pH 7.39 (7.35-7.45) ABG pCO2 50.2 H (35-45) mmHg ABG pO2 88.8 (80.0-100.0) mmH g ABG HCO3 30.6 H (22-26) mmol/L ABG Base Excess 5.0 H (-2.0-2.0) mmol/ L Jaleel Test Pos Hematocrit 25.2 L (37-47) % O2 Delivery Device Nc O2 Liters/Min 3.0 % Pigment Weigher ID Jlg Sodium (136-145) mmol/L Potassium (3.5-5.1) mmol/L Chloride (98-107) mmol/L Carbon Dioxide (22-29) mmol/L Anion Gap (5-19) BUN (8-23) mg/dL Creatinine (0.5-0.9) mg/dL GFR Calculation Glucose (65-115) mg/dL Calculated Osmolal ity (285-295) mOsm/k g Lactic Acid (0.5-2.2) mmol/L Calcium (8.5-10.5) mg/dL Magnesium (1.7-2.3) mg/dL Total Bilirubin (0.15-1.2) mg/dL AST (0-32) U/L ALT (0-33) U/L Alkaline Phosphata se (35-105) IU/L Troponin T Baselin e (0-10) ng/L NT-Pro-B Natriuret Pep (0-125) pg/mL Total Protein (6.6-8.7) g/dL Albumin (3.5-5.2) g/dL Globulin (1.3-4.6) g/dL Lipase (13-60) U/L TSH (0.27-4.20) uIU/ mL Urine Color Yellow (Yellow) Urine Appearance Clear (CLEAR) Urine pH 5 (5-7) Ur Specific Gravit y 1.015 (1.005-1.030) Urine Protein Neg (Negative) Urine Glucose (UA) Norm (Normal) Urine Ketones Negative (Negative) Urine Blood Neg (Negative) Urine Nitrate Negative (Negative) Urine Bilirubin Neg (Negative) Urine Urobilinogen Norm (Negative) mg/dL Ur Leukocyte Majo ase Negative (Negative) Influenza Type A A g Negative (Negative) Influenza Type B A g Negative (Negative) SARS-CoV-2 Ag (Rap id) (Negative) Blood Type Rho(D) Type 04/12/20 Range/Units 01:30 WBC (4.0-10.0) 10^3/ uL RBC (4.1-5.3) 10^6/u L Hgb (11.5-15.3) g/dL Hct (37.0-47.0) % MCV (81-99) fL MCH (28.0-34.0) pg MCHC (30.0-36.0) g/dL RDW (12.1-15.1) % Plt Count (130-400) 10^3/c mm MPV (7.4-10.4) fL Neut % (Auto) % Lymph % (Auto) % Spencer % (Auto) % Eos % (Auto) % Baso % (Auto) % Neut # (Auto) (1.8-7.7) 10^3/u L Lymph # (Auto) (0.8-4.8) 10^3/u L Spencer # (Auto) (0.2-0.9) 10^3/u L Eos # (Auto) (0.0-0.8) 10^3/u L Baso # (Auto) (0.0-0.1) 10^3/u L Nucleated RBC % (a uto) % Nucleated RBCs # /100WBC PT (12.1-14.9) SECO NDS INR (0.8-1.2) Specimen Type Sample Site ABG pH (7.35-7.45) ABG pCO2 (35-45) mmHg ABG pO2 (80.0-100.0) mmH g ABG HCO3 (22-26) mmol/L ABG Base Excess (-2.0-2.0) mmol/ L Jaleel Test Hematocrit (37-47) % O2 Delivery Device O2 Liters/Min % Pigment Weigher ID Sodium (136-145) mmol/L Potassium (3.5-5.1) mmol/L Chloride (98-107) mmol/L Carbon Dioxide (22-29) mmol/L Anion Gap (5-19) BUN (8-23) mg/dL Creatinine (0.5-0.9) mg/dL GFR Calculation Glucose (65-115) mg/dL Calculated Osmolal ity (285-295) mOsm/k g Lactic Acid (0.5-2.2) mmol/L Calcium (8.5-10.5) mg/dL Magnesium (1.7-2.3) mg/dL Total Bilirubin (0.15-1.2) mg/dL AST (0-32) U/L ALT (0-33) U/L Alkaline Phosphata se (35-105) IU/L Troponin T Baselin e (0-10) ng/L NT-Pro-B Natriuret Pep (0-125) pg/mL Total Protein (6.6-8.7) g/dL Albumin (3.5-5.2) g/dL Globulin (1.3-4.6) g/dL Lipase (13-60) U/L TSH (0.27-4.20) uIU/ mL Urine Color (Yellow) Urine Appearance (CLEAR) Urine pH (5-7) Ur Specific Gravit y (1.005-1.030) Urine Protein (Negative) Urine Glucose (UA) (Normal) Urine Ketones (Negative) Urine Blood (Negative) Urine Nitrate (Negative) Urine Bilirubin (Negative) Urine Urobilinogen (Negative) mg/dL Ur Leukocyte Majo ase (Negative) Influenza Type A A g (Negative) Influenza Type B A g (Negative) SARS-CoV-2 Ag (Rap id) (Negative) Blood Type A Positive Rho(D) Type Positive Imaging Data^: CXR: Attestation: I personally reviewed and interpreted this imaging study as follows: My impression: Cardiomegaly with mild to moderate pulmonary vascular congestion. EKG Data^: EKG 1: Attestation: I personally reviewed and interpreted this EKG as follows: EKG Interpretation Date: 04/12/20 EKG interpretation time: 01:19 Interpretation: Possible sinus tach versus a flutter with a ventricular rate of 116, right bundle branch block, left axis deviation, left anterior fascicular block, mild ST depression V4 through V6 and 1. Discharge Plan Discharge Patient Disposition: Admitted As Inpatient Clinical Impression: Acute exacerbation of CHF (congestive heart failure), Anemia Condition: Stable Prescriptions: No Action ondansetron HCl 4 mg tablet 4 mg PO DAILY RF: 0 furosemide 40 mg tablet 40 mg PO DAILY RF: 0 ondansetron HCl 4 mg tablet 4 mg PO Q4H PRN (Reason: Nausea And Vomiting) RF: 0 diphenoxylate-atropine 2.5-0.025 mg tablet 1 tab PO TID PRN (Reason: Diarrhea) RF: 0 hydrocodone-acetaminophen 10-325 mg tablet 10 - 325 tab PO 5XD PRN (Reason: Pain) RF: 0 trazodone 100 mg tablet 100 mg PO BEDTIME RF: 0 mupirocin 2 % ointment 1 applic TOPICAL DAILY RF: 0 midodrine 2.5 mg tablet 2.5 mg PO BID RF: 0 spironolactone 50 mg tablet 50 mg PO DAILY RF: 0 buspirone 15 mg tablet 15 mg PO BID RF: 0 metoprolol tartrate 25 mg tablet 25 mg PO BID RF: 0 Xopenex HFA 45 mcg/actuation HFA aerosol inhaler 1 puff INHALATION QID PRN (Reason: Shortness Of Breath) RF: 0 Tresiba FlexTouch U-100 100 unit/mL (3 mL) insulin pen 30 unit SUBCUT BEDTIME RF: 0 Referrals: Keena De La Torre DO [Primary Care Provider] - Coding Level of Care Code ED Flight Kitchen Manager for Chg Fwd Exam Comprehensive
[2020-04-12 01:16] LABS: Basophils % 0.3 %; Eosinophils # 0.2 10^3/uL (0.0-0.8); Eosinophils % 3.4 %; Hematocrit 28.7 % (37.0-47.0); Hemoglobin 7.6 g/dL (11.5-15.3); Lymphocytes # 0.5 10^3/uL (0.8-4.8); Lymphocytes % 8.7 %; Mean Corpuscular HGB Conc 26.5 g/dL (30.0-36.0); Mean Corpuscular Hemoglobin 21.5 pg (28.0-34.0); Mean Corpuscular Volume 81.1 fL (81-99); Mean Platelet Volume 10.2 fL (7.4-10.4); Monocytes # 0.3 10^3/uL (0.2-0.9); Monocytes % 4.4 %; Neutrophils # 5.04 10^3/uL (1.8-7.7); Neutrophils % 82.9 %; Nucleated Red Blood Cells % 0 %; Platelet Count 190 10^3/cmm (130-400); Red Blood Count 3.54 10^6/uL (4.1-5.3); Red Cell Distribution Width 17.6 % (12.1-15.1); White Blood Count 6.1 10^3/uL (4.0-10.0)
[2020-04-12 01:26] LABS: INR 1.17 (0.8-1.2)
[2020-04-12 01:32] LABS: Troponin(5th) Baseline 67 ng/L (0-10)
[2020-04-12 01:43] LABS: Alanine Aminotransferase < 5 U/L (0-33); Albumin Level 4.3 g/dL (3.5-5.2); Alkaline Phosphatase 92 IU/L (35-105); Anion Gap 16.1 (5-19); Aspartate Amino Transferase 15 U/L (0-32); Blood Urea Nitrogen 38 mg/dL (8-23); Calcium 9.1 mg/dL (8.5-10.5); Carbon Dioxide 29 mmol/L (22-29); Chloride 96 mmol/L (98-107); Globulin 3.1 g/dL (1.3-4.6); Glucose 159 mg/dL (65-115); Lipase 12 U/L (13-60); Magnesium 2.3 mg/dL (1.7-2.3); NT Pro B Type Natriuretic Pept 11354 pg/mL (0-125); Osmolality Calculated 294 mOsm/kg (285-295); Potassium 5.1 mmol/L (3.5-5.1); Sodium 136 mmol/L (136-145); Thyroid Stimulating Hormone 2.91 uIU/mL (0.27-4.20); Total Bilirubin 0.4 mg/dL (0.15-1.2); Total Protein 7.4 g/dL (6.6-8.7)
[2020-04-12 01:43] LABS: ABG PCO2 50.2 mmHg (35-45); ABG PH Result 7.39 (7.35-7.45); Arterial Blood Gas Hematocrit 25.2 % (37-47); Blood Gas Allen Test Pos; Blood Gas Sample Site Brachial, right; Blood Gas Sample Type Arterial; HCO3 ABG 30.6 mmol/L (22-26); Oxygen Device NC; PO2 ABG 88.8 mmHg (80.0-100.0)
[2020-04-12 02:07] LABS: SARS Covid-2 Antigen Negative (Negative)
[2020-04-12 02:09] LABS: Add Urine Microscopic? NO
[2020-04-12 02:11] LABS: Lactic Sepsis W/Reflex 1.7 mmol/L (0.5-2.2)
[2020-04-12 02:15] LABS: Bilirubin Urine Neg (Negative); Blood Urine Neg (Negative); Glucose Urine UA Norm (Normal); Ketones Urine Negative (Negative); Leukocyte Esterase Urine Negative (Negative); Nitrate Urine Negative (Negative); Protein Urine Neg (Negative); Specific Gravity, Urine 1.015 (1.005-1.030); Urine Appearance Clear (CLEAR); Urine Color Yellow (Yellow); Urobilinogen Urine Norm (Negative); pH Urine 5 (5-7)
[2020-04-12 02:27] LABS: Influenza A by IFA Negative (Negative); Influenza B by IFA Negative (Negative)
[2020-04-12] MEDS: pantoprazole 40 mg SDV 80 MG IVP (02:54)
[2020-04-12] MEDS: levalbuterol 1.25 mg/3 mL Neb INHALATION (03:21)
--- NOTE | 2020-04-12 03:28 | PM.HP ---
Providers/Chief Complaint Admitting Physician: Dr. Boss Primary Care Provider: Keena De La Torre DO Chief Complaint: SOB History of Present Illness Christina Charles is a 70 year old female who presented from home with chief complaint of difficulty breathing. Patient has a history of diastolic CHF, known coronary artery disease, chronic kidney disease and nonalcoholic fatty liver disease among other diagnoses noted below. She is chronically on Lasix 40 mg daily. She states that about a week ago she started swelling significantly. It is gotten to the point that she is short of breath talking or with any degree of exertion. She has significant orthopnea and describes some PND. She has begun to have weeping from both of her legs. She states that she is never had weeping before. Under the instruction of her primary care provider, Dr. De La Torre, she increased her Lasix to 60 mg a day on Friday but has not had any significant improvement. She feels like if she can have some fluid drained from her belly that her breathing would be better. She relates to me being hospitalized at [facility] in [place] and in October or November 2018. She had paracentesis at that time. She says she feels like she did then. She has not had any other paracenteses that she can recall in the interim. She was most recently hospitalized here in October of this year when she fell and sustained a hip fracture. She underwent surgical intervention and was subsequently discharged to [facility]. She left [facility] and January or so. She states that she is at baseline now able to get up to bedside commode but does not really ambulate more than that. The past few days she has not even been able to do that bit. Does not sound like she experienced significant fluid overload during that hospital stay. In the emergency room today patient was tachycardic, tachypneic maintaining oxygen saturations. Chest x-ray showed pulmonary vascular congestion. BNP was elevated and BUN and creatinine. Near baseline. Patient had extensive edema on examination. She received 1 dose of Lasix. She is being admitted for further evaluation and treatment. She has had similar admissions in the past but I think she may be more edematous this time than she has been previously. She is only with her primary care provider. Appointments have been made for specialist follow-up to include hepatology, nephrology and cardiology but those appointments were delayed due to COVID. Of note patient denies any known sick contacts. Today is only the second time she has been out of her house since she left [facility]. She had rapid COVID antigen negative in the emergency room. No reports of any fevers. Review of Systems Const: Reports: fatigue and malaise; Denies: fever(s), chills, change in appetite or diaphoresis Eyes: Denies: change in vision ENMT: Denies: throat pain, odynophagia, dry mouth, nasal congestion or epistaxis Card: Reports: edema, dyspnea on exertion and orthopnea; Denies: chest pain, palpitations or syncope Resp: Reports: dyspnea, productive cough, non-productive cough and wheezing (Not increased from baseline); Denies: pain on inspiration or hemoptysis GI: Reports: nausea, early satiety and bloating; Denies: abdominal pain, vomiting, hematemesis, dysphagia, heartburn, diarrhea, constipation, hematochezia or melena : Reports: nocturia; Denies: difficulty voiding Musc: Reports: extremity pain and muscle weakness Skin/Breast: Reports: other (Legs are weeping) Neuro: Denies: headache(s), numbness in extremities, weakness in extremities or dizziness Psych: Reports: anxiety; Denies: depression Reed/Lymph: Denies: easy bruising or easy bleeding Medications/Allergies Home Medications Medication Instructions Recorded Confirmed Last Taken Type ondansetron HCl 4 mg PO DAILY 10/25/19 10/25/19 Unknown History Tresiba FlexTouch U-100 30 unit SUBCUT BEDTIME 10/26/19 10/26/19 Unknown History Xopenex HFA 1 puff INHALATION QID PRN 10/26/19 10/26/19 Unknown History buspirone 15 mg PO BID 10/26/19 10/26/19 Unknown History diphenoxylate-atropine 1 tab PO TID PRN 10/26/19 10/26/19 Unknown History furosemide 40 mg PO DAILY 10/26/19 10/26/19 Unknown History hydrocodone-acetaminophen 10 - 325 tab PO 5XD PRN 10/26/19 10/26/19 Unknown History metoprolol tartrate 25 mg PO BID 10/26/19 10/26/19 Unknown History midodrine 2.5 mg PO BID 10/26/19 10/26/19 Unknown History mupirocin 1 applic TOPICAL DAILY 10/26/19 10/26/19 Unknown History ondansetron HCl 4 mg PO Q4H PRN 10/26/19 10/26/19 Unknown History spironolactone 50 mg PO DAILY 10/26/19 10/26/19 Unknown History trazodone 100 mg PO BEDTIME 10/26/19 10/26/19 Unknown History Allergies Allergy/AdvReac Type Severity Reaction Status Date / Time STERIODS Allergy ADR-Agitate Uncoded 10/25/19 15:45 d PFSH Acute PFSH: Medical History (Updated 04/12/20 @ 05:08 by Coty Boss MD) CAD (coronary artery disease) Chronic kidney disease (CKD) COPD (chronic obstructive pulmonary disease) Diastolic CHF Echocardiogram 10/2019 with EF 60% and grade 2/4 diastolic dysfunction History of arteriovenous malformation (AVM) Associated with GI bleeding in the past Insulin dependent type 2 diabetes mellitus Liver cirrhosis Nonalcoholic fatty liver disease Paroxysmal atrial fibrillation Noted on some prior EKGs, not anticoagulated due to the blood loss from gastrointestinal AVMs, not known to be chronic Peripheral vascular disease Pulmonary hypertension Echocardiogram in October of 2019 showed improvement in pulmonary pressures to 30 mmHg consistent with mild disease Surgical History (Updated 04/12/20 @ 04:14 by Coty Boss MD) History of appendectomy History of back surgery History of cholecystectomy History of coronary artery bypass graft x 2 History of hand surgery History of heart artery stent History of hernia repair History of repair of right hip joint (~10/26/19) Close reduction with percutaneous screw fixation in the right femoral neck fracture by Dr. Vasquez Family History Other Diabetes Social History Smoking and tobacco status: former smoker Alcohol intake: never Vitals/I&O/Wt Last Vital Signs Temp 98.5 F 04/12/20 00:51 Pulse 111 H 04/12/20 03:21 Resp 15 04/12/20 03:21 BP 128/84 04/12/20 02:54 Pulse Ox 95 04/12/20 03:21 Weight last 48 hrs Weight 78.018 kg Physical Exam Const: OTHER: Alert, oriented x3, cooperative, chronically and acutely ill-appearing HENMT: OTHER: Normocephalic atraumatic, moist mucus membranes, nasopharynx is clear Eye: OTHER: Pupils equally round and reactive to light, sclera anicteric Neck/C-Spine: OTHER: Supple, large Resp: OTHER: Basilar rails, no current wheezes, tachypnea, talks in 3-5 word sentences with supraclavicular retractions and requiring sitting up straight Cardio: OTHER: Tachycardic but regular rhythm, S3 gallop, no rubs, JVD up to the earlobe GI: OTHER: Abdomen soft, distended with extensive abdominal wall edema and a peau d'orange appearance, bowel sounds are decreased but present in all 4 quadrants, uncomfortable but not tender to palpation : OTHER: Edematous suprapubic region, Barriga catheter in place Extremity: NARRATIVE EXTREMITY EXAM: Clubbing noted, 4+ pitting edema, with the positioning in the ED bed right lower extremity looks slightly larger in diameter than left lower extremity but this is the leg in which she had surgical intervention earlier this year. Both calves are tender to palpation that I think it is due to the degree of edema, not able to appreciate definitive palpable cords. Neuro: OTHER: Face symmetric, speech clear, moves all extremities though is generally weak with muscle wasting noted Psych: OTHER: Anxious but otherwise normal affect Skin: OTHER: Lower extremities are shiny they are so swollen. There are some areas of serous drainage. Around both ankles there is a bit of redness with some slight warmth associated with the right ankle but not the left. The left thigh is a bit cool compared to the right thigh coloration is equal bilaterally. Capillary refill is actually brisk at both great toes though I am unable to palpate peripheral pulses. Toes are pink. On the right great toe there is a small area of discoloration along the nailbed a few millimeters in diameter. I do not see any obviously open wounds to the lower extremities. Urinary Catheter Management^: Barriga: Cath Placed During This Visit: yes Urethral Indwelling: Yes Reason for Continuing Indwelling Catheter: Accurate Measurement of Urinary Output in Critically Ill Patients Urinary Catheter Date of Insertion: 04/12/20 Data : 04/12/20 00:12 04/12/20 00:12 Other Labs: Laboratory Tests 04/12/20 04/12/20 04/12/20 00:12 00:12 01:00 INR 1.17 ABG pH ABG pCO2 ABG pO2 ABG HCO3 Lactic Acid 1.7 Magnesium 2.3 Troponin T Baseline NT-Pro-B Natriuret Pep 88377 H Lipase 12 L TSH 2.91 04/12/20 04/12/20 01:29 04:31 INR ABG pH 7.39 ABG pCO2 50.2 H ABG pO2 88.8 ABG HCO3 30.6 H Lactic Acid Magnesium Troponin T Baseline 67 H NT-Pro-B Natriuret Pep Lipase TSH A&P Assessment and plan (1) Acute exacerbation of CHF (congestive heart failure): I suspect that this is the primary issue for this patient at the moment. She is probably been having gradually increasing edema for some time although her report indicates that this just happened in the last week. Chest x-ray shows pulmonary vascular congestion and clinically that is what she looks like. She had an echocardiogram earlier this year with normal ejection fraction although there was some hypokinesis noted. She has a history of coronary artery disease status post prior bypass surgery and stents but has not had specific cardiac evaluation in some time. Initial troponins were elevated. EKG additionally shows some nonspecific ischemic changes there are no ST segment elevation. She denies chest pain. Could have had an event sometime since last hospital stay and now, potentially even recently though need a bit more information to discern. This does not seem to be primarily a respiratory issue as it has been in the past, looking at her ABG she does have chronic hypercapnia. Status: Acute Qualifiers: Heart failure type: diastolic Qualified Code(s): I50.33 - Acute on chronic diastolic (congestive) heart failure (2) Anemia: Without evidence of acute blood loss currently, preliminary Hemoccult in the emergency room was negative though I do not have results directly from that. She does have a history of AVMs and GI bleed in the past. She has chronic anemia which is suspect is multifactorial from chronic inflammation/chronic kidney disease plus or minus the impact of chronic slow blood loss. She has not had any transfusions in 2019 at least at our facility. Could be a component of hemodilution currently with a degree of anasarca that she has. No gross bleeding is evident. She has been typed and crossed and has an antibody that was being evaluated further by the blood bank. Status: Acute Qualifiers: Anemia type: unspecified type Qualified Code(s): D64.9 - Anemia, unspecified (3) Chronic kidney disease (CKD): Looks to have chronic kidney disease stage III although she could actually be chronic kidney disease stage IV when adequately diuresed. Renal function has varied somewhat over time depending on the degree of diuresis that she has achieved. Review of records shows evidence of acute kidney injury with diuresis almost every hospital stay. Status: Chronic Qualifiers: Chronic kidney disease stage: stage 3 (moderate) Qualified Code(s): N18.3 - Chronic kidney disease, stage 3 (moderate) (4) CAD (coronary artery disease): Baseline troponin is elevated, await repeat levels. EKG with some ischemic changes that without ST segment elevation is noted. Denies chest pain. Could be a type II process but with history primary ischemic etiology of her presentation is also within the differential Status: Chronic Qualifiers: Coronary Disease-Associated Artery/Lesion type: bypass graft [place] vs. transplanted heart: [place] heart Associated angina: angina presence unspecified Qualified Code(s): I25.810 - Atherosclerosis of coronary artery bypass graft(s) without angina pectoris (5) Insulin dependent type 2 diabetes mellitus: With associated chronic kidney disease stage III Status: Chronic (6) Nonalcoholic fatty liver disease: Has had previous paracentesis about a year and a half ago and feels like she needs another one currently by her estimation. Liver function studies are normal, platelet count is normal, INR is normal as is total protein. Status: Chronic (7) COPD (chronic obstructive pulmonary disease): Chronically on oxygen. Currently does not appear to be exacerbated. Status: Chronic Qualifiers: COPD type: unspecified COPD Qualified Code(s): J44.9 - Chronic obstructive pulmonary disease, unspecified Additional A&P Information Tachycardia, appears to be sinus but has had EKGs demonstrating likely paroxysmal atrial fibrillation in the past Hip fracture status post repair in October of this year, limited mobility at baseline presently Normal TSH Rapid COVID antigen -04/12 Inpatient admission Cardiac stepdown unit with telemetry monitoring Serial cardiac enzymes and EKGs IV diuresis Barriga catheter for close monitoring of urine output in a patient with known chronic kidney disease and CHF who has had acute kidney injury with attempts at diuresis in the past Strict I's and O's and daily weights Fluid restriction Had echocardiogram in October of this year with normal ejection fraction although some hypokinesis. Results of serial cardiac enzymes and clinical response will decide if need to evaluate further and/or include cardiology and care Explained to patient that I like to see how much fluid and relief we can get her with IV diuresis before proceeding to consideration for paracentesis. I am not able to truly appreciate a fluid wave due to the degree of anasarca and abdominal wall edema. Hemoccult of stool, TIBC, repeat H&H later today and consider ordering for transfusion if further drop in hemoglobin, has been typed and screened Continue Xopenex which is what she usually has at home Respiratory therapy to follow, she may require BiPAP depending on clinical course. I did discuss this with her and she is okay with that Need to further clarify home medications later today but did review what we have arm profile from October with patient as well as recently filled prescriptions. Based on this I have continued her on some BuSpar, Midrin, hydrocodone. I have currently held oral Lasix and Aldactone though I did order some metoprolol at a lower than usual dose. Lantus and sliding scale insulin in place of home Tresiba currently Check lipid panel and hemoglobin A1c Add aspirin and statin at least for now although will need to decide if long-term utilization is warranted before discharge Subcu heparin for DVT prophylaxis currently, although we will need to watch for any signs of GI blood loss Given surgical intervention a few months ago and disparate edema between the 2 lower extremities will check ultrasound, venous Doppler to make sure no DVT contributing to the situation. PPI for GI prophylaxis Chronically on home oxygen at 2 to 3 L by nasal cannula Has family at home to assist her, her daughter and currently anticipate discharge back home. That said baseline mobility is limited since her hip fracture this year. She may require either some additional assistance at home or even potentially consideration for placement. Supportive care otherwise Full code as per my discussion with Mrs. Charles Attestations Medical Necessity Statement*: Anticipated stay greater than 2 midnights in a patient with multiple comorbid conditions presenting significant total body volume overload as evidenced by anasarca and associated respiratory distress. Clinically appears to be acute on chronic CHF. She will require IV diuresis and close monitoring of renal function given known propensity to develop acute kidney injury with management. Additionally she has anemia which, if not secondary to volume overload, may necessitate transfusion, particularly with known history of coronary disease. At high risk of rapid clinical decline necessitating more aggressive medical care. Coding Level of Care Code Acute Firebreak Cutter for Chg Fwd Diagnoses Acute exacerbation of CHF (congestive heart failure) I50.33 Heart failure type: diastolic Anemia D64.9 Anemia type: unspecified type Chronic kidney disease (CKD) N18.3 Chronic kidney disease stage: stage 3 (moderate) CAD (coronary artery disease) I25.810 Coronary Disease-Associated Artery/Lesion type: bypass graft [place] vs. transplanted heart: [place] heart Associated angina: angina presence unspecified Insulin dependent type 2 diabetes mellitus E11.9; Z79.4 Nonalcoholic fatty liver disease K76.0 COPD (chronic obstructive pulmonary disease) J44.9 COPD type: unspecified COPD
--- NOTE | 2020-04-12 04:20 | ECG_ITS ---
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 Measurements Intervals Mccrory Rate: 111 P: VT: -1 QRS: -26 QRSD: 105 T: 126 QT: 329 QTc: 449 Interpretive Statements ATRIAL FIBRILLATION WITH RAPID VENTRICULAR RESPONSE INCOMPLETE RIGHT BUNDLE BRANCH BLOCK [90+ ms QRS DURATION, TERMINAL R IN V1/V2, 40+ ms S IN I/aVL/V4/V5/V6] SEPTAL MYOCARDIAL INFARCTION [40+ ms Q WAVE IN V1/V2], OF INDETERMINATE AGE ST DEVIATION AND MODERATE T-WAVE ABNORMALITY, CONSIDER ANTEROLATERAL ISCHEMIA [-0.1+ mV T WAVE IN V3-V6] Compared to ECG 04/12/2020 01:19:58 Sinus tachycardia no longer present Short VT interval no longer present Myocardial infarct finding still present T-wave abnormality still present Possible ischemia still present Electronically Signed On 04-12-2020 18:36:03 CDT by Jaden Salas M.D. [id number]
--- NOTE | 2020-04-12 04:43 | PC.NURSE ---
Called Dr Boss for instruction on giving blood to patient, Dr Boss gave verbal order for no blood to be given to patient at this time.
[2020-04-12 04:56] LABS: Troponin(5th) Baseline 67 ng/L (0-10)
[2020-04-12 05:17] LABS: Iron 16 ug/dL (37-145); Total Iron Binding Capacity 317 mcg/dl; Unsaturated Iron Binding 301 ug/dL (112-347)
--- NOTE | 2020-04-12 05:35 | PC.NURSE ---
Patient arrived to [facility] from ED at 0515. Patient is alert and orientated and wears o2 at 3 L sat levels at 95. Barriga in place from ED patent and draining. Very friendly and cooperative with staff. 2 IVs present left wrist and right AC.
--- NOTE | 2020-04-12 06:05 | USCV_ITS ---
Christina Charles Age: 70 Gender: F : 1950 Exam Date: 04/12/2020 08:23 Ordering Phys: Coty Boss MD Technologist: Chai Clarke [place] [facility] [place]: ? DVT HISTORY: BILAT SWELLING PROCEDURES: The venous duplex Doppler examination of both lower extremities was performed in the standard fashion. The following venous structures were evaluated: common femoral vein, profunda vein, proximal portion of the greater saphenous vein, superficial femoral vein, and the popliteal vein. In addition, the posterior tibial and peroneal trunk were evaluated. FINDINGS: Normal 2-D Doppler and augmentation and compressibility throughout the lower extremity venous structures. Additional imaging through the proximal calf veins also reveals no thrombus. Limited evaluation of the greater saphenous vein is patent with no thrombus. Multiple echolucent areas are noted in the subcutaneous plane bilaterally. CONCLUSIONS No evidence of DVT in the above-mentioned identifiable veins. Features of fluid retention/edema bilaterally in the lower extremities Dr Ole Flores MD FACC (Electronically Signed) Final Date: 13 April 2020 14:56 S
[2020-04-12] MEDS: metoprolol tartrate 25 mg Tablet 12.5 MG PO (06:09)
[2020-04-12] MEDS: heparin 5,000 unit/mL INJ 1 mL 5000 UNIT SUBCUT ×2 (06:09→18:43)
[2020-04-12] MEDS: FUROsemide 10 mg/mL SDV 4mL 40 MG IVP ×2 (06:09→18:33)
--- NOTE | 2020-04-12 06:09 | PC.NURSE ---
Verified with Dr. Boss not to give blood to patient at this time. Blood bank notified.
[2020-04-12] MEDS: iron sucrose 200 MG in sodium chloride 0.9% (100 ml) 100 ML 220 MG IV (06:25)
[2020-04-12 06:28] LABS: Glucose Point of Care 150 mg/dL (70-110)
[2020-04-12] MEDS: levalbuterol 0.63 mg/3 mL Neb INHALATION (08:57)
[2020-04-12] MEDS: budesonide 0.5 mg/2 mL Neb INHALATION ×2 (08:57→21:34)
[2020-04-12] MEDS: midodrine 5 mg TABLET 2.5 MG PO ×2 (09:36→18:33)
[2020-04-12] MEDS: aspirin 81 mg EC Tablet PO (09:37)
[2020-04-12] MEDS: docusate sodium 100 mg Capsule PO ×2 (09:38→18:33)
[2020-04-12] MEDS: BuSPIRONE 10 mg Tablet PO ×2 (09:38→18:33)
[2020-04-12] MEDS: pantoprazole DR 40 mg Tablet PO (09:38)
[2020-04-12 10:31] LABS: Basophils % 0.2 %; Eosinophils # 0.1 10^3/uL (0.0-0.8); Eosinophils % 1.4 %; Hematocrit 27.7 % (37.0-47.0); Hemoglobin 7.4 g/dL (11.5-15.3); Lymphocytes # 0.3 10^3/uL (0.8-4.8); Lymphocytes % 5.2 %; Mean Corpuscular HGB Conc 26.7 g/dL (30.0-36.0); Mean Corpuscular Hemoglobin 21.5 pg (28.0-34.0); Mean Corpuscular Volume 80.5 fL (81-99); Mean Platelet Volume 9.9 fL (7.4-10.4); Monocytes # 0.3 10^3/uL (0.2-0.9); Neutrophils % 88.9 %; Nucleated Red Blood Cells % 0 %; Platelet Count 172 10^3/cmm (130-400); Red Blood Count 3.44 10^6/uL (4.1-5.3); Red Cell Distribution Width 17.8 % (12.1-15.1); White Blood Count 6.3 10^3/uL (4.0-10.0)
[2020-04-12] MEDS: HYDROcodone-acetaminophen 5-325 mg Tablet 1 TAB PO ×3 (10:47→20:37)
--- NOTE | 2020-04-12 10:54 | US_ITS ---
WS: [id number] Abdominal ultrasound, limited. History: Evaluate for ascites. Comparison: 11/27/2018 All 4 quadrants are imaged by ultrasound to evaluate for ascites. There is a small to moderate amount of ascites within the peritoneal cavity. The largest amount is along the superior liver which would be difficult to access for paracentesis. Liver appears cirrhotic. US/US abdomen limited [id number] IMPRESSION: Small to moderate amount of ascites.
[2020-04-12 10:55] LABS: Anion Gap 13.1 (5-19); Blood Urea Nitrogen 38 mg/dL (8-23); Calcium 9.2 mg/dL (8.5-10.5); Carbon Dioxide 30 mmol/L (22-29); Chloride 100 mmol/L (98-107); Glucose 157 mg/dL (65-115); Osmolality Calculated 298 mOsm/kg (285-295); Potassium 5.1 mmol/L (3.5-5.1); Sodium 138 mmol/L (136-145)
[2020-04-12 10:59] LABS: Troponin 5 6HR 62.48 ng/L (0-10)
[2020-04-12 11:06] LABS: Troponin 5 6HR Delta -4.52 ng/L (0-12)
--- NOTE | 2020-04-12 11:12 | PM.PN ---
Subjective Subjective: Interval history: Admitted overnight. H&P and labs noted. Examination patient is an respiratory distress but saturating 96% on 4 L nasal cannula. She seems very tired. Denies of any nausea, vomiting, abdominal pain, headache, dizziness. Vitals have remained stable. Patient has remained afebrile. Vitals/I&O/Wt Last Vital Signs Temp 97.5 F L 04/12/20 11:05 Pulse 108 H 04/12/20 11:05 Resp 15 04/12/20 11:05 BP 114/80 04/12/20 11:05 Pulse Ox 97 04/12/20 11:05 04/11/20 04/12/20 04/12/20 22:59 06:59 14:59 Output Total 650 / 650 Balance -650 / -650 Weight last 48 hrs Weight 100.896 kg Weight 78.018 kg Physical Exam Const: OTHER: Alert, oriented x3, cooperative, chronically and acutely ill-appearing HENMT: OTHER: Normocephalic atraumatic, moist mucus membranes, nasopharynx is clear Eye: OTHER: Pupils equally round and reactive to light, sclera anicteric Neck/C-Spine: OTHER: Supple, large Resp: OTHER: Fine crackles present and bilateral lower zone up to mid chest, decreased air entry bilaterally right more than left, no current wheezes, tachypnea, talks in 3-5 word sentences with supraclavicular retractions and requiring sitting up straight Cardio: OTHER: Tachycardic but regular rhythm, S3 gallop, no rubs, JVD up to the earlobe GI: OTHER: Abdomen soft, distended with extensive abdominal wall edema and a peau d'orange appearance, bowel sounds are decreased but present in all 4 quadrants, uncomfortable but not tender to palpation : OTHER: Edematous suprapubic region, Barriga catheter in place Extremity: NARRATIVE EXTREMITY EXAM: Clubbing noted, 4+ pitting edema, with the positioning in the ED bed right lower extremity looks slightly larger in diameter than left lower extremity but this is the leg in which she had surgical intervention earlier this year. Both calves are tender to palpation that I think it is due to the degree of edema, not able to appreciate definitive palpable cords. Neuro: OTHER: Face symmetric, speech clear, moves all extremities though is generally weak with muscle wasting noted Psych: OTHER: Anxious but otherwise normal affect Skin: OTHER: Lower extremities are shiny they are so swollen. There are some areas of serous drainage. Around both ankles there is a bit of redness with some slight warmth associated with the right ankle but not the left. The left thigh is a bit cool compared to the right thigh coloration is equal bilaterally. Capillary refill is actually brisk at both great toes though I am unable to palpate peripheral pulses. Toes are pink. On the right great toe there is a small area of discoloration along the nailbed a few millimeters in diameter. I do not see any obviously open wounds to the lower extremities. Urinary Catheter Management^: Barriga: Cath Placed During This Visit: yes Reason for Continuing Indwelling Catheter: Accurate Measurement of Urinary Output in Critically Ill Patients Urinary Catheter Date of Insertion: 04/12/20 Urinary Catheter Time of Insertion: 02:00 Data : 04/12/20 10:13 04/12/20 10:13 A&P Assessment and plan (1) Respiratory distress: Status: Acute (2) Acute exacerbation of CHF (congestive heart failure): Status: Acute Qualifiers: Heart failure type: diastolic Qualified Code(s): I50.33 - Acute on chronic diastolic (congestive) heart failure (3) Diastolic CHF: Status: Chronic (4) Pulmonary hypertension: Status: Chronic (5) Anemia: Without evidence of acute blood loss currently, preliminary Hemoccult in the emergency room was negative though I do not have results directly from that. She does have a history of AVMs and GI bleed in the past. She has chronic anemia which is suspect is multifactorial from chronic inflammation/chronic kidney disease plus or minus the impact of chronic slow blood loss. She has not had any transfusions in 2019 at least at our facility. Could be a component of hemodilution currently with a degree of anasarca that she has. No gross bleeding is evident. She has been typed and crossed and has an antibody that was being evaluated further by the blood bank. Status: Acute Qualifiers: Anemia type: unspecified type Qualified Code(s): D64.9 - Anemia, unspecified (6) Chronic kidney disease (CKD): Status: Chronic Qualifiers: Chronic kidney disease stage: stage 3 (moderate) Qualified Code(s): N18.3 - Chronic kidney disease, stage 3 (moderate) (7) CAD (coronary artery disease): Baseline troponin is elevated, await repeat levels. EKG with some ischemic changes that without ST segment elevation is noted. Denies chest pain. Could be a type II process but with history primary ischemic etiology of her presentation is also within the differential Status: Chronic Qualifiers: Associated angina: angina presence unspecified Coronary Disease-Associated Artery/Lesion type: bypass graft [place] vs. transplanted heart: [place] heart Qualified Code(s): I25.810 - Atherosclerosis of coronary artery bypass graft(s) without angina pectoris (8) Insulin dependent type 2 diabetes mellitus: With associated chronic kidney disease stage III. Insulin sliding scale at moderate dose before meals and at bedtime. Status: Chronic (9) Nonalcoholic fatty liver disease: Status: Chronic (10) COPD (chronic obstructive pulmonary disease): Chronically on oxygen. Mild exacerbation. Status: Chronic Qualifiers: COPD type: unspecified COPD Qualified Code(s): J44.9 - Chronic obstructive pulmonary disease, unspecified Additional A&P Information Respiratory distress: Most likely a combination of acute exacerbation of congestive heart failure along with increased intra-abdominal ascites. Patient does have history of pulmonary hypertension in the past. Echocardiogram done in October 2019 shows an EF of 60% with grade 2 diastolic dysfunction. Patient denies any changes in the medication recently, any changes in the lifestyle. Denies of having any chest pain, palpitation. Using up to 4 pillows every night which has been going on for a long time. proBNP elevated to more than 11,000. In October was 4000. Continue with Lasix at 40 mg IV twice daily. Strict input output charting. Daily weights. Fluid restriction up to 1500 cc. Patient's EKG suggestive of right bundle branch block along with ST depressions anterior lateral leads. Troponins negative. Patient has a sedentary lifestyle. Unfortunately cannot do a CTA PE because of CKD. We will do a lower limb Doppler, CT chest without contrast to rule out any pneumonic patch. ABG concerning for hypercapnia and hypoxia which is going against PE. If patient does not improve or continues to worsen in next 24 hours we will have to do a VQ scan. Check procalcitonin, sputum culture, urine Legionella, bacterial antigen. For now we will start patient on ceftriaxone which will also cover for community-acquired pneumonia along with possible SBP. Though unlikely. If patient remains afebrile in next 24 to 48 hours will discontinue antibiotics. COPD exacerbation: Continue with budesonide. Start DuoNeb's. Hold off on steroids for now. For now we will try to put patient on BiPAP ventilation to decrease rate of breathing. If patient is not tolerating BiPAP ventilation will go for high flow to help with rate of breathing. Wilson: Ascites: Cirrhosis: We will do ultrasound abdomen to look for liver, portal vein, portal hypertension, ascites. Patient does have ascites will go for paracentesis. We will confirm with radiology. For now hold off on heparin. INR within normal limits. Liver enzymes appreciated. For now hold off on spironolactone. CKD: Patient baseline creatinine since 2019 has been ranging from 1.7-2. 2.2 today morning. Medical reconciliation done for nephrotoxic drugs. We will continue to monitor BMP daily. Metabolic acidosis on admission have resolved now. Potassium 5.1. Most likely because of spironolactone use at home. We will continue to monitor. For now hold off on spironolactone. Anemia: Iron panel suggestive of severe iron deficiency anemia. Continue with IV iron supplementation for 5 days. Day 07/18 today. Check vitamin B12, folate levels. If hemoglobin goes below 7 will transfuse. Tachycardia, appears to be sinus but has had EKGs demonstrating likely paroxysmal atrial fibrillation in the past Hip fracture status post repair in October of this year, limited mobility at baseline presently Normal TSH Rapid COVID antigen -04/12 Continue chronic medication like Middaugh drain, BuSpar, trazodone. Full code as per my discussion with Mrs. Charles GI soft diet. Heparin 5000 every 12 after paracentesis. BiPAP ventilation. When not on BiPAP ventilation will start on high flow to decrease the rate of breathing. Attestations Medical Necessity Statement*: Respiratory distress, CHF, ascites Time Spent in Patient Care: Greater than 35 minutes (>than 50% of time spent in counselling and/or direct pt care on unit). 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 transplanted heart: [place] heart Insulin dependent type 2 diabetes mellitus E11.9; Z79.4 Nonalcoholic fatty liver disease K76.0 COPD (chronic obstructive pulmonary disease) J44.9 COPD type: unspecified COPD
--- NOTE | 2020-04-12 11:13 | USCV_ITS ---
Christina Charles Age: 70 Gender: F : 1950 Exam Date: 04/12/2020 12:02 Ordering Phys: Wilfredo Buckner MD Technologist: Leslye Graff Exam Location: [facility] [place] Indication: PER EFF? BP: 114 / 80 HR: 112 Rhythm: Atrial fibrillation Technical Quality: Adequate MEASUREMENTS (Male / Female) Normal Values 2D ECHO LV Diastolic Diameter PLAX 5.1 cm 4.2 - 5.9 / 3.9 - 5.3 cm LV Systolic Diameter PLAX 4.4 cm LV Chamber Size 5.0 cm IVS Diastolic Thickness 1.1 cm 0.6 - 1.0 / 0.6 - 0.9 cm IVS Systolic Thickness 0.9 cm LVPW Diastolic Thickness 1.1 cm 0.6 - 1.0 / 0.6 - 0.9 cm LVPW Systolic Thickness 1.6 cm RV Chamber Size 3.6 cm LVOT Diameter 2.0 cm LV Ejection Fraction 2D Teich 28.4 % LV Ejection Fraction MOD 2C 32.2 % LV Ejection Fraction 2C AL 35.7 % LA Diameter 4.1 cm LA Width 4.6 cm LA Height 4.9 cm RA Width 4.2 cm RA Height 4.0 cm Aorta at Sinotubular Diameter 3.4 cm M-MODE LV Diastolic Diameter MM 5.8 cm 4.2 - 5.9 / 3.9 - 5.3 cm LV Systolic Diameter MM 4.6 cm LV Ejection Fraction MM Teich 42.5 % IVS Diastolic Thickness MM 0.9 cm 0.6 - 1.0 / 0.6 - 0.9 cm IVS Systolic Thickness MM 1.2 cm LVPW Diastolic Thickness MM 1.3 cm 0.6 - 1.0 / 0.6 - 0.9 cm LVPW Systolic Thickness MM 1.5 cm RV Diastolic Diameter MM 1.2 cm MV E Point Septal Separation 1.4 cm DOPPLER AV Peak Velocity 108.0 cm/s LVOT Peak Velocity 64.0 cm/s AV Area Cont Eq vti 2.1 cm squared AV Area Cont Eq pk 1.9 cm squared MV E' Velocity 6.0 cm/s TR Peak Velocity 344.0 cm/s TR Peak Gradient 47.3 mmHg TR Mean Velocity 249.2 cm/s TR Mean Gradient 26.5 mmHg TR Velocity Time Integral 95.0 cm TV Peak E Velocity 89.0 cm/s Right Atrial Pressure 8.0 mmHg Pulmonary Artery Systolic Pressu 55.3 mmHg PV Peak Velocity 46.0 cm/s FINDINGS Left Ventricle Diffuse hypokinesia left ventricle with ejection fraction around 40-45% Right Ventricle Mildly increased right ventricular size. Mildly decreased right ventricular systolic function. Right Atrium Moderately increased right atrial size. Left Atrium Mildly increased left atrial size. Mitral Valve Thickened mitral valve. Mild-moderate mitral valve regurgitation. Aortic Valve Thickened aortic valve. Tricuspid Valve Moderate tricuspid valve regurgitation. Estimated pulmonary artery peak systolic pressure of 55 mmHg Pulmonic Valve Mild pulmonary valve regurgitation. Pericardium Normal pericardium without effusion. Aorta Normal ascending aorta dimension. CONCLUSIONS Diffuse hypokinesia left ventricle with ejection fraction around 40-45%. Mildly increased right ventricular size. Mildly decreased right ventricular systolic function. Moderately increased right atrial size. Mildly increased left atrial size. Moderate tricuspid valve regurgitation. Estimated pulmonary artery peak systolic pressure of 55 mmHg. Mild pulmonary valve regurgitation. Thickened aortic valve. Compared to study from 10/26/2019, there is some worsening of the LV systolic function. Because of the differences in the technical quality, exact comparison is difficult. No significant pericardial effusion Dr Ole Flores MD FAC (Electronically Signed) Final Date: 12 April 2020 19:28 S
--- NOTE | 2020-04-12 11:14 | CT_ITS ---
WS: [id number] CT CHEST WITHOUT INTRAVENOUS CONTRAST HISTORY: Short of breath and CHF. TECHNIQUE: Contiguous 5 mm axial imaging performed on the thorax. Coronal and sagittal reformats are submitted. All CT scans at [facility] use at least one of these dose optimization techniq ues: automated exposure control; mA and/or kV adjustment per patient size (includes targeted exams wh ere dose is matched to clinical indication); or iterative reconstruction. CONTRAST: None DLP: 933.84 mGy.cm COMPARISON: 02/17/2017. Lungs and central airway: Diffuse mild pulmonary venous congestion and haziness. Additional interstit ial thickening of the distal airways. Nodular thickening and a few subcentimeter nodules in the RIGHT upper lobe. Small RIGHT pleural effusion. Small amount of pleural thickening at the LEFT lung base. Pleura: Small RIGHT pleural effusion. Pleural thickening at the LEFT base. Heart and pericardium: Moderately enlarged heart. Prior CABG. LEFT anterior descending coronary arter y stent. No significant pericardial effusion. Mediastinum and omar: Multiple small mediastinal and hilar lymph nodes. Vessels: Extensive atherosclerosis thoracic aorta. Pulmonary artery size is enlarged. Chest wall and lower neck: There is diffuse soft tissue anasarca over the mid to lower thorax extendi ng into the upper abdomen. Upper abdomen: Moderate amount of ascites noted around the liver and spleen. This soft tissue anasarc a. Extensive atherosclerosis in the visualized upper abdominal aorta and mesenteric arteries. Suspect cirrhosis. Osseous structures: Thoracolumbar scoliosis. CT/CT chest wo con [id number] IMPRESSION: 1. Small layering RIGHT pleural effusion. 2. Moderate pulmonary venous congestion. Suspect these changes of congestion w ithout improve as acute episode of venous congestion resolves. Follow-up chest CT may be beneficial in 2-3 weeks. 3. Cardiomegaly. 4. Moderate amount of ascites. 5. Extensive atherosclerosis within the thoracic and abdominal aorta and mesen teric arteries as visualized.
[2020-04-12 11:22] LABS: Glucose Point of Care 158 mg/dL (70-110)
[2020-04-12 11:26] LABS: Procalcitonin 0.78 ng/mL (0-0.5)
--- NOTE | 2020-04-12 12:05 | PC.RESP ---
PULMONARY REHAB INFORMATION SENT TO PATIENT.
--- NOTE | 2020-04-12 13:45 | PC.NURSE ---
Patient yelling through bipap mask to nurse aide that she wants the mask off and the RT told her she only had to wear if for one hour. Nurse aide notified nurse & RT that patient is off her bipap and back on nasal cannula. Dr. Kelsey is present on unit. He stated if patient cannot tolerate bipap we can place her on high flow oxygen per NC. And not to use an oxymask as that will cause patient to retain CO2. Discussed with patient the need for bipap at present. RT also at bedside to adjust patient's bipap mask and provide education and support to patient.. Assured patient both RT and I would check her more frequently to assure her comfort with the bipap as she adjusts to it.
--- NOTE | 2020-04-12 14:18 | US_ITS ---
WS: [id number] ULTRASOUND-GUIDED THERAPEUTIC AND DIAGNOSTIC PARACENTESIS Procedure, risks, and complications have been explained to the patient. Consent is obtained. Utilizing aseptic technique and 1% buffered lidocaine, a small dermatome was made through which a 5 F rench Yueh catheter was inserted. Approximately 2000 ml of clear peritoneal fluid was obtained witho ut difficulty. No complications encountered. Specimen collected and sent for analysis as requested by ordering physician. US/US paracentesis abd w [id number] IMPRESSION: Uncomplicated paracentesis yielding 2000 ml of peritoneal fluid. Peritoneal fluid sent for for analysis as requested.
[2020-04-12] MEDS: ipratropium-albuterol 3 mL Neb INHALATION ×2 (14:22→21:34)
[2020-04-12] MEDS: cefTRIAXone 1,000 MG in sodium chloride 0.9% (plus) 50 ML 100 MG IV (15:53)
[2020-04-12 16:17] LABS: Glucose Point of Care 132 mg/dL (70-110)
[2020-04-12] MEDS: morphine 4 mg/mL SDV 1 mL 2 MG IVP (16:35)
[2020-04-12 16:36] LABS: Body Fluid Polynuclear #Cells 0.006; Body Fluid WBC 160 /uL; Monocytes # Body Fluid 0.154
[2020-04-12 16:40] LABS: Apprearance, Body Fluid CLOUDY; Color, Body Fluid YELLOW
[2020-04-12 16:41] LABS: Body Fluid Specific Gravity 1.015; PATH Referral YES
[2020-04-12 16:53] LABS: Albumin Body Fluid 2.7 g/dL; Amylase Body Fluid 27 U/L; Cholesterol Body Fluid 58 mg/dL (0-200); Fluid Alkaline Phos. 44 IU/L; LDH Body Fluid 94 U/L; Total Protein Body Fluid 4 g/dL
[2020-04-12 16:54] LABS: Triglycerides Body Fluid 45 mg/dL (0-150); Uric Acid Body Fluid 11 mg/dL
[2020-04-12] MEDS: metoprolol tartrate 25 mg Tablet PO (18:35)
[2020-04-12] MEDS: atorvastatin 40 mg Tablet 20 MG PO (20:37)
[2020-04-12 20:49] LABS: Glucose Point of Care 118 mg/dL (70-110)
--- NOTE | 2020-04-12 23:48 | PC.NURSE ---
Patient is cooperative with staff and cares and is currently sitting on side of bed and is happy to be able to move lower extremities easier due to decreased levels of edema. Patient is wearing bipap when laying in bed. Patient has also requested something to help her sleep while adjusting to wearing bipap. Notified provider.
--- NOTE | 2020-04-12 23:56 | PC.NURSE ---
Order received for trazodone at bedtime to help patient sleep.
[2020-04-13] VITALS (12 sets, daily range): BP systolic 107–136; BP diastolic 47–69; PULSE 77–105; RESP 11–18; TEMP 36.6–36.8; O2SAT 94–100
[2020-04-13] MEDS: trazodone 100 mg Tablet 50 MG PO ×2 (00:01→20:18)
--- NOTE | 2020-04-13 03:13 | PC.NURSE ---
Patient did wear bipap at beginning of shift, but then took bipap off and still isnt tolerating wearing it. Patient was educated on the benefits of complying with treatment with no effect. Continue care.
[2020-04-13] MEDS: ipratropium-albuterol 3 mL Neb INHALATION ×3 (03:40→21:24)
[2020-04-13] MEDS: iron sucrose 200 MG in sodium chloride 0.9% (100 ml) 100 ML 220 MG IV (04:45)
[2020-04-13 05:00] LABS: Basophils % 0.3 %; Eosinophils # 0.1 10^3/uL (0.0-0.8); Eosinophils % 2.2 %; Hematocrit 28.8 % (37.0-47.0); Hemoglobin 7.8 g/dL (11.5-15.3); Lymphocytes # 0.6 10^3/uL (0.8-4.8); Lymphocytes % 10.1 %; Mean Corpuscular HGB Conc 27.1 g/dL (30.0-36.0); Mean Corpuscular Hemoglobin 21.8 pg (28.0-34.0); Mean Corpuscular Volume 80.7 fL (81-99); Mean Platelet Volume 9.9 fL (7.4-10.4); Monocytes # 0.3 10^3/uL (0.2-0.9); Monocytes % 4.9 %; Neutrophils # 5.18 10^3/uL (1.8-7.7); Neutrophils % 82.2 %; Nucleated Red Blood Cells % 0 %; Platelet Count 199 10^3/cmm (130-400); Red Blood Count 3.57 10^6/uL (4.1-5.3); White Blood Count 6.3 10^3/uL (4.0-10.0)
[2020-04-13] MEDS: FUROsemide 10 mg/mL SDV 4mL 40 MG IVP (05:00)
[2020-04-13] MEDS: heparin 5,000 unit/mL INJ 1 mL 5000 UNIT SUBCUT ×2 (05:01→17:00)
[2020-04-13] MEDS: metoprolol tartrate 25 mg Tablet PO ×2 (05:01→17:00)
[2020-04-13 05:29] LABS: NT Pro B Type Natriuretic Pept 20445 pg/mL (0-125)
[2020-04-13 05:31] LABS: Alanine Aminotransferase < 5 U/L (0-33); Albumin Level 3.7 g/dL (3.5-5.2); Alkaline Phosphatase 76 IU/L (35-105); Anion Gap 15.5 (5-19); Aspartate Amino Transferase 14 U/L (0-32); Blood Urea Nitrogen 39 mg/dL (8-23); Carbon Dioxide 29 mmol/L (22-29); Chloride 99 mmol/L (98-107); Glucose 117 mg/dL (65-115); Osmolality Calculated 298 mOsm/kg (285-295); Potassium 4.5 mmol/L (3.5-5.1); Sodium 139 mmol/L (136-145); Total Bilirubin 0.4 mg/dL (0.15-1.2); Total Protein 6.7 g/dL (6.6-8.7)
[2020-04-13 06:33] LABS: Glucose Point of Care 118 mg/dL (70-110)
--- NOTE | 2020-04-13 08:15 | PC.NURSE ---
pt expressed concern of not being able to breath. nurse assessed, o2 saturation was 99% on [address] del toro notified and medications adjusted. ordered high flow and bipap at hs. needs within reach. will continue to monitor.
[2020-04-13] MEDS: midodrine 5 mg TABLET 2.5 MG PO ×2 (08:30→16:59)
[2020-04-13] MEDS: docusate sodium 100 mg Capsule PO ×2 (08:31→17:00)
[2020-04-13] MEDS: aspirin 81 mg EC Tablet PO (08:31)
[2020-04-13] MEDS: BuSPIRONE 10 mg Tablet PO ×2 (08:31→16:59)
[2020-04-13] MEDS: pantoprazole DR 40 mg Tablet PO (08:31)
[2020-04-13] MEDS: budesonide 0.5 mg/2 mL Neb INHALATION ×2 (08:41→21:25)
--- NOTE | 2020-04-13 08:56 | P.PN_ITS ---
Subjective Subjective: Interval history: In last 24 hours patient underwent paracentesis in which 2 L fluid was aspirated. Patient was on CPAP overnight. Looking comfortable today morning. Still complaining of feeling out of breath. Looking mildly sleepy Denies any nausea, vomiting, headache, dizziness. Vitals/I&O/Wt Last Vital Signs Temp 98.0 F 04/13/20 07:11 Pulse 77 04/13/20 08:46 Resp 16 04/13/20 08:44 BP 121/60 04/13/20 07:11 Pulse Ox 97 04/13/20 08:44 04/12/20 04/13/20 04/13/20 22:59 06:59 14:59 Intake Total 140 / 140 260 / 400 120 / 120 Output Total 700 / 1350 1450 / 2800 Balance -560 / -1210 -1190 / -2400 120 / 120 Weight last 48 hrs Weight 99.79 kg Weight 100.896 kg Weight 78.018 kg Physical Exam Const: OTHER: Alert, oriented x3, cooperative, chronically and acutely ill- appearing HENMT: OTHER: Normocephalic atraumatic, moist mucus membranes, nasopharynx is clear Eye: OTHER: Pupils equally round and reactive to light, sclera anicteric Neck/C-Spine: OTHER: Supple, large Resp: OTHER: Fine crackles present and bilateral lower zone up to mid chest, decreased air entry bilaterally right more than left, no current wheezes, tachypnea, talks in 3-5 word sentences with supraclavicular retractions and requiring sitting up straight Cardio: OTHER: Tachycardic but regular rhythm, S3 gallop, no rubs, JVD up to t he earlobe GI: OTHER: Abdomen soft, distended with extensive abdominal wall edema and a peau d'orange appearance, bowel sounds are decreased but present in all 4 quadrants, uncomfortable but not tender to palpation : OTHER: Edematous suprapubic region, Barriga catheter in place Extremity: NARRATIVE EXTREMITY EXAM: Clubbing noted, 4+ pitting edema, with the positioning in the ED bed right lower extremity looks slightly larger in diameter than left lower extremity but this is the leg in which she had surgical intervention earlier this year. Both calves are tender to palpation that I think it is due to the degree of edema, not able to appreciate definitive palpable cords. Neuro: OTHER: Face symmetric, speech clear, moves all extremities though is generally weak with muscle wasting noted Psych: OTHER: Anxious but otherwise normal affect Skin: OTHER: Lower extremities are shiny they are so swollen. There are some areas of serous drainage. Around both ankles there is a bit of redness with some slight warmth associated with the right ankle but not the left. The left thigh is a bit cool compared to the right thigh coloration is equal bilaterally. Capillary refill is actually brisk at both great toes though I am unable to palpate peripheral pulses. Toes are pink. On the right great toe there is a small area of discoloration along the nailbed a few millimeters in diameter. I do not see any obviously open wounds to the lower extremities. Urinary Catheter Management^: Barriga: Cath Placed During This Visit: yes Reason for Continuing Indwelling Catheter: Acute Urinary Retention or Obstruction Urinary Catheter Date of Insertion: 04/12/20 Urinary Catheter Time of Insertion: 02:00 Data : 04/13/20 04:41 04/13/20 04:41 Micro: Microbiology 04/12/20 16:00 Gram Stain - Preliminary Peritoneal Fluid 04/12/20 01:14 Bacterial Antigens - Final Urine Kidney 04/12/20 01:14 Legionella Urinary Antigen - Final Urine Kidney A&P Assessment and plan (1) Respiratory distress: Status: Acute (2) Acute exacerbation of CHF (congestive heart failure): Status: Acute Qualifiers: Heart failure type: diastolic Qualified Code(s): I50.33 - Acute on chronic diastolic (congestive) heart failure (3) Diastolic CHF: Status: Chronic (4) Pulmonary hypertension: Status: Chronic (5) Anemia: Status: Acute Qualifiers: Anemia type: unspecified type Qualified Code(s): D64.9 - Anemia, unspecified (6) Chronic kidney disease (CKD): Status: Chronic Qualifiers: Chronic kidney disease stage: stage 3 (moderate) Qualified Code(s): N18.3 - Chronic kidney disease, stage 3 (moderate) (7) CAD (coronary artery disease): Status: Chronic Qualifiers: Associated angina: angina presence unspecified Coronary Disease- Associated Artery/Lesion type: bypass graft [place] vs. transplanted heart: [place] heart Qualified Code(s): I25.810 - Atherosclerosis of coronary artery bypass graft(s) without angina pectoris (8) Insulin dependent type 2 diabetes mellitus: With associated chronic kidney disease stage III. Insulin sliding scale at moderate dose before meals and at bedtime. Status: Chronic (9) Nonalcoholic fatty liver disease: Status: Chronic (10) COPD (chronic obstructive pulmonary disease): Chronically on oxygen. Mild exacerbation. Status: Chronic Qualifiers: COPD type: unspecified COPD Qualified Code(s): J44.9 - Chronic obstructive pulmonary disease, unspecified Additional A&P Information Respiratory distress: Most likely a combination of acute exacerbation of congestive heart failure along with increased intra-abdominal ascites. Patient does have history of pulmonary hypertension in the past. Echocardiogram done in October 2019 shows an EF of 60% with grade 2 diastolic dysfunction. Patient denies any changes in the medication recently, any changes in the lifestyle. Denies of having any chest pain, palpitation. Using up to 4 pillows every night which has been going on for a long time. proBNP elevated to more than 11,000. In October was 4000. Patient's proBNP elevated today. Will increase the dose of Lasix to 60 mg IV twice daily. Strict input output charting. Daily weights. Fluid restriction up to 1500 cc. We will try to get patient at least a liter to a 1500 cc negative in next 1 to 4 hours. Currently patient is overall 2-1/2 L negative since admission Repeat echo echocardiogram done shows an EF of 40 to 45%, mildly increased right ventricular size with decreased RV systolic function, moderate TR with PASP of 55 mmHg, mild to moderate MR, mild FL. Echocardiogram results suggestive of biventricular heart failure. Given sedentary lifestyle, EKG changes and history of CAD with multiple stents with ischemic work-up around 7 to 8 years ago cannot rule out ischemic event. Though patient is fairly decompensated and creatinine is elevated. We will consult cardiology for further work-up if possible. Troponins negative. Patient has a sedentary lifestyle. Unfortunately cannot do a CTA PE because of CKD. Lower limb Dopplers negative for DVT. ABG concerning for hypercapnia and hypoxia which is going against PE. If patient does not improve or continues to worsen in next 24 hours we will have to do a VQ scan. Procalcitonin mildly elevated most likely because of elevated creatinine. MRSA negative, urine Legionella and bacterial antigen negative, paracentesis fluid study negative for any kind of infection. Stop antibiotics. Given multiple valvular issues along with pulmonary hypertension we will start patient on Imdur 15 mg extended release daily. We will continue to monitor blood pressures and if possible will uptitrate. COPD exacerbation: Continue with budesonide. Start DuoNeb's. Hold off on steroids for now. For now we will try to put patient on BiPAP ventilation to decrease rate of breathing. If patient is not tolerating BiPAP ventilation will go for high flow to help with rate of breathing. Wilson: Ascites: Cirrhosis: Post paracentesis. Patient had 2 L of fluid aspirated on April 12. Liver enzymes appreciated. For now hold off on spironolactone. CKD: Cardiorenal and hepatorenal syndrome. Patient baseline creatinine since 2019 has been ranging from 1.7-2. Medical reconciliation done for nephrotoxic drugs. We will continue to monitor BMP daily. Metabolic acidosis on admission have resolved now. Anemia: Iron panel suggestive of severe iron deficiency anemia. Continue with IV iron supplementation for 5 days. Day 2/5 today. Check vitamin B12, folate levels. If hemoglobin goes below 7 will transfuse. Continue chronic medication like Midodrin, BuSpar, trazodone. Full code as per my discussion with Mrs. Charles GI soft diet. Heparin 5000 every 12 after paracentesis. CPAP at night, can try high flow to decrease work of breathing and some PEEP. Patient is fairly anxious continue morphine 1 mg IV every 6 hours along with Xa nax 0.25 twice daily as needed. Attestations Medical Necessity Statement*: Biventricular heart failure, decompensated congestive heart failure, cardiorenal syndrome Time Spent in Patient Care: Greater than 35 minutes (>than 50% of time spent in counselling and/or direct pt care on unit) . Coding Level of Care Code Acute Risk Control Specialist for Joey Coffman Diagnoses Respiratory distress R06.03 Acute exacerbation of CHF (congestive heart failure) I50.33 Heart failure type: diastolic Diastolic CHF I50.30 Pulmonary hypertension I27.20 Anemia D64.9 Anemia type: unspecified type Chronic kidney disease (CKD) N18.3 Chronic kidney disease stage: stage 3 (moderate) CAD (coronary artery disease) I25.810 Associated angina: angina presence unspecified Coronary Disease-Associated Artery/Lesion type: bypass graft [place] vs. transplanted heart: [place] heart Insulin dependent type 2 diabetes mellitus E11.9; Z79.4 Nonalcoholic fatty liver disease K76.0 COPD (chronic obstructive pulmonary disease) J44.9 COPD type: unspecified COPD
[2020-04-13] MEDS: ALPRAZolam 0.25 mg Tablet 0.125 MG PO (09:25)
[2020-04-13] MEDS: FUROsemide 10 mg/mL SDV 2mL 20 MG IVP (09:26)
[2020-04-13] MEDS: morphine 4 mg/mL SDV 1 mL 2 MG IVP (09:27)
[2020-04-13] MEDS: isosorbide mononitrate ER 30 mg Tablet 15 MG PO (10:51)
--- NOTE | 2020-04-13 10:52 | PC.NURSE ---
imdur administered late per dr liu. wanted to see what blood pressure was after other medications and consult with Maritza. verbal order to give at this time.
[2020-04-13 11:14] LABS: Glucose Point of Care 143 mg/dL (70-110)
[2020-04-13] MEDS: cefTRIAXone 1,000 MG in sodium chloride 0.9% (plus) 50 ML 100 MG IV (15:49)
[2020-04-13 16:44] LABS: Glucose Point of Care 130 mg/dL (70-110)
[2020-04-13] MEDS: FUROsemide 10 mg/mL SDV 4mL 60 MG IVP (16:59)
[2020-04-13] MEDS: HYDROcodone-acetaminophen 5-325 mg Tablet 1 TAB PO (17:01)
--- NOTE | 2020-04-13 18:52 | P.CONIM_ITS ---
Providers/Reason For Consult Consulting Physican/Specialty*: Cardiology Reason for Consult*: Shortness of breath, liver dysfunction Attending Physician: Wilfredo Buckner MD Primary Care Provider: Keena De La Torre DO History of Present Illness History of Present Illness Christina Charles is a 70 year old female past medical history significant for history of cirrhosis, chronic kidney disease, diastolic heart failure, severe multivessel coronary artery disease status post CABG and PCI was admitted with ascites pleural effusion worsening of shortness of breath. Patient was diuresed underwent paracentesis and drained 2 L of fluid. Despite the fact she remains short of breath she was also noted to have anemia. Left ventricular ejection fraction dropped from 60 to 45% which is moderately depressed. We have been asked to assist in her care as our medicine colleagues think that reduction in LV function could be ischemia driven . When I saw the patient she was sleepy and does not like to talk. History as per Dr. Valentine and documentations. Review of Systems Const: Reports: fatigue and malaise; Denies: fever(s), chills, body aches, change in appetite or diaphoresis Eyes: Denies: change in vision, blurry vision, photophobia, eye discomfort, eye discharge, eye redness or yellow eyes ENMT: Denies: throat pain, odynophagia, hoarseness, swelling of lips/tongue, dry mouth, ear or mastoid pain, ear discharge, change in hearing, nasal discharge, nasal congestion or epistaxis Card: Reports: edema, swelling of feet/ankles, dyspnea on exertion and orthopnea; Denies: chest pain, palpitations, irregular heart rhythm, lightheadedness, syncope or pre-syncope Resp: Reports: dyspnea, productive cough, non-productive cough and wheezing (Not increased from baseline); Denies: pain on inspiration, hemoptysis or chest congestion GI: Reports: nausea, early satiety and bloating; Denies: abdominal pain, vomiting, hematemesis, coffee ground emesis, dysphagia, heartburn, diarrhea, constipation, GI cramping, hematochezia or melena : Reports: nocturia; Denies: flank pain, difficulty voiding, dysuria, urinary frequency, urinary urgency or hematuria Musc: Reports: extremity pain and muscle weakness; Denies: neck pain, back pain, extremity swelling, joint pain, joint swelling, joint redness, joint warmth or joint stiffness Skin/Breast: Reports: other (Legs are weeping); Denies: rash, pruritus, erythema, skin pain or skin tenderness Neuro: Denies: headache(s), numbness in extremities, weakness in extremities, sensory changes, lack of coordination, difficulty walking, dizziness, vertigo, confusion, Slurred speech present or seizure-like activity Psych: Reports: anxiety; Denies: depression Reed/Lymph: Denies: easy bruising, easy bleeding, petechiae, purpura or enlarged lymph nodes All/Imm: Denies: urticaria, throat swelling, tongue swelling, facial swelling or acute wheezing Meds/Allergies Home Medications and Allergies Home Medications Medication Instructions Recorded Confirmed Last Taken Type ondansetron HCl 4 mg PO DAILY 10/25/19 04/12/20 Unknown History Tresiba FlexTouch U-100 30 unit SUBCUT BEDTIME 10/26/19 04/12/20 Unknown History buspirone 15 mg PO BID 10/26/19 04/12/20 Unknown History diphenoxylate-atropine 1 tab PO TID PRN 10/26/19 04/12/20 Unknown History furosemide 40 mg PO DAILY 10/26/19 04/12/20 Unknown History hydrocodone-acetaminophen 10 - 325 tab PO 5XD PRN 10/26/19 04/12/20 Unknown History levalbuterol tartrate [Xopenex HFA] 1 puff INHALATION QID PRN 10/26/19 04/12/20 Unknown History metoprolol tartrate 25 mg PO DAILY 10/26/19 04/12/20 Unknown History midodrine 2.5 mg PO BID 10/26/19 04/12/20 Unknown History spironolactone 50 mg PO DAILY 10/26/19 04/12/20 Unknown History trazodone 100 mg PO BEDTIME 10/26/19 04/12/20 Unknown History albuterol sulfate 2.5 mg INHALATION QID PRN 04/12/20 04/12/20 Unknown History Allergies Allergy/AdvReac Type Severity Reaction Status Date / Time STERIODS Allergy ADR-Agitate Uncoded 10/25/19 15:45 d Current Medications Current Medications Generic Name Dose Route Start Last Admin Trade Name Freq PRN Reason Stop Dose Admin Hydrocodone Bitart/Acetaminophen 1 tab 04/12/20 09:16 04/13/20 17:01 [place] 5-325 Mg PO 1 tab Q4H PRN Administration MODERATE PAIN Albuterol/Ipratropium 3 ml 04/12/20 15:00 04/13/20 14:21 Duoneb INHALATION Not Given Q6H.RESPIRATORY RIANNA Alprazolam 0.125 mg 04/13/20 09:03 04/13/20 09:25 Xanax PO 0.125 mg BID PRN Administration ANXIETY Aspirin 81 mg 04/12/20 09:30 04/13/20 08:31 Aspirin Ec PO 81 mg DAILY RIANNA Administration Atorvastatin Calcium 20 mg 04/12/20 21:00 04/12/20 20:37 Lipitor PO 20 mg BEDTIME RIANNA Administration Budesonide 0.5 mg 04/12/20 09:30 04/13/20 08:41 Pulmicort INHALATION 0.5 mg BID.RESPIRATORY RIANNA Administration Buspirone HCl 10 mg 04/12/20 09:30 04/13/20 16:59 Buspar PO 10 mg BID RIANNA Administration Docusate Sodium 100 mg 04/12/20 09:30 04/13/20 17:00 Colace PO 100 mg BID RIANNA Administration Furosemide 60 mg 04/13/20 18:00 04/13/20 16:59 Lasix IVP 60 mg BID RIANNA Administration Heparin Sodium (Beef Lung) 5,000 unit 04/12/20 18:00 04/13/20 17:00 Heparin SUBCUT 5,000 unit Q12H RIANNA Administration Iron Sucrose 200 mg/ Sodium 110 mls @ 220 mls/hr 04/12/20 05:45 04/13/20 05:30 Chloride IV 04/16/20 06:14 Infused Q24H RIANNA Infusion Ceftriaxone Sodium 1,000 mg/ 50 mls @ 100 mls/hr 04/12/20 15:00 04/13/20 17:04 Sodium Chloride IV Infused Q24H RIANNA Infusion Protocol Insulin Aspart 0 unit 04/12/20 21:00 04/12/20 20:36 Novolog SUBCUT Not Given BEDTIME RIANNA Protocol Insulin Aspart 0 unit 04/12/20 09:00 04/13/20 17:00 Novolog SUBCUT Not Given TIDWM RIANNA Protocol Isosorbide Mononitrate 15 mg 04/13/20 09:00 04/13/20 10:51 Imdur PO 15 mg DAILY RIANNA Administration Metoprolol Tartrate 25 mg 04/12/20 18:00 04/13/20 17:00 Lopressor PO 25 mg Q12H RIANNA Administration Midodrine 2.5 mg 04/12/20 09:30 04/13/20 16:59 Proamatine PO 2.5 mg BID RIANNA Administration Morphine Sulfate 2 mg 04/13/20 08:57 04/13/20 09:27 Morphine IVP 2 mg Q6H PRN Administration Severe Pain/dyspnea if SBP>100 Pantoprazole Sodium 40 mg 04/12/20 09:30 04/13/20 08:31 Protonix PO 40 mg DAILY RIANNA Administration Trazodone HCl 50 mg 04/12/20 23:45 04/13/20 00:01 Desyrel PO 50 mg BEDTIME RIANNA Administration PFSH Acute PFSH: Medical History (Updated 04/13/20 @ 19:24 by Wilfredo Buckner MD) CAD (coronary artery disease) Chronic kidney disease (CKD) COPD (chronic obstructive pulmonary disease) Diastolic CHF Echocardiogram 10/2019 with EF 60% and grade 2/4 diastolic dysfunction History of arteriovenous malformation (AVM) Associated with GI bleeding in the past Insulin dependent type 2 diabetes mellitus Liver cirrhosis Nonalcoholic fatty liver disease Paroxysmal atrial fibrillation Noted on some prior EKGs, not anticoagulated due to the blood loss from gastrointestinal AVMs, not known to be chronic Peripheral vascular disease Pulmonary hypertension Echocardiogram in October of 2019 showed improvement in pulmonary pressures to 30 mmHg consistent with mild disease Surgical History (Updated 04/12/20 @ 04:14 by Coty Boss MD) History of appendectomy History of back surgery History of cholecystectomy History of coronary artery bypass graft x 2 History of hand surgery History of heart artery stent History of hernia repair History of repair of right hip joint (~10/26/19) Close reduction with percutaneous screw fixation in the right femoral neck fracture by Dr. Vasquez Family History Other Diabetes Social History Smoking and tobacco status: former smoker Alcohol intake: never Vitals/I&O/Wt Last Vital Signs Temp 97.9 F 04/13/20 14:43 Pulse 89 04/13/20 14:43 Resp 13 04/13/20 14:43 BP 114/47 04/13/20 14:43 Pulse Ox 97 04/13/20 14:43 04/13/20 04/13/20 04/13/20 06:59 14:59 22:59 Intake Total 260 / 450 360 / 360 170 / 530 Output Total 1450 / 2800 1000 / 1000 250 / 1250 Balance -1190 / -2350 -640 / -640 -80 / -720 Weight last 48 hrs Weight 220 lb Weight 222 lb 7 oz Weight 172 lb Physical Exam Narrative: EXAM NARRATIVE: GENERAL: Patient is alert, awake and oriented x3. Patient appeared to be cachectic and weak and pale. NECK: No jugular vein distension. HEENT: No cyanosis. No icterus. No pallor. HEART: Regular S1 and S2. No murmur, rub or gallop. LUNGS: Clear to auscultate bilaterally. ABDOMEN: Soft, nontender and nondistended. Positive bowel sounds. No guarding, rebound or tenderness. CENTRAL NERVOUS SYSTEM: Grossly nonfocal. EXTREMITIES: Lower extremities with trace edema bilaterally. Urinary Catheter Management^: Barriga: Cath Placed During This Visit: yes Reason for Continuing Indwelling Catheter: Acute Urinary Retention or Obstruction Urinary Catheter Date of Insertion: 04/12/20 Urinary Catheter Time of Insertion: 02:00 Data Micro: Micro: Microbiology 04/12/20 16:00 Gram Stain - Final Peritoneal Fluid 04/12/20 15:55 MRSA Culture - Fin al Nose 04/12/20 01:14 Bacterial Antigens - Final Urine Kidney 04/12/20 01:14 Legionella Urinary Antigen - Final Urine Kidney A&P Assessment and plan (1) Acute exacerbation of CHF (congestive heart failure): We will continue diuretics. Status: Acute Qualifiers: Heart failure type: diastolic Qualified Code(s): I50.33 - Acute on chronic diastolic (congestive) heart failure (2) CAD (coronary artery disease): Patient has a history of multivessel coronary disease with history of CABG. Recent drop in left ventricle ejection fraction could be ischemia driven however patient is not a good candidate for intervention keeping in mind her comorbidities we recommend continue to treat her medically. Continue to optimize beta-luana if blood pressure permits continue isosorbide mononitrate and VIRA inhibitor once cretinine improves. Continue to diurese and try to achieve euvolemic state. We will continue to follow-up with the patient. Status: Chronic Qualifiers: Associated angina: angina presence unspecified Coronary Disease- Associated Artery/Lesion type: bypass graft [place] vs. transplanted heart: [place] heart Qualified Code(s): I25.810 - Atherosclerosis of coronary artery bypass graft(s) without angina pectoris (3) Pulmonary hypertension: Continue to optimize isosorbide mononitrate. O2 sats to nasal cannula will also help Status: Chronic (4) Anemia: Patient has chronic anemia but in the face of cirrhosis AVM GI bleed could be a consideration. Continue to monitor as per medicine. Status: Acute Qualifiers: Anemia type: unspecified type Qualified Code(s): D64.9 - Anemia, unspecified (5) Chronic kidney disease (CKD): Could be multifactorial including hepatorenal/heart failure. Continue to monitor. Status: Chronic Qualifiers: Chronic kidney disease stage: stage 3 (moderate) Qualified Code(s): N18.3 - Chronic kidney disease, stage 3 (moderate) (6) Nonalcoholic fatty liver disease: Patient has history of nonalcoholic fatty liver cirrhosis. Ascites during this admission. Continue diuretics. Patient follow-up with hepatology Status: Chronic (7) Peripheral vascular disease: Stable. Continue to monitor Status: Chronic (8) Insulin dependent type 2 diabetes mellitus: As per medicine. Status: Chronic Consult Attestations Medical Necessity Statement: Require continuation hospitalization for above defined care. Coding Level of Care Code Established Pt Acute Dredge Engineer for Joey Coffman Patient Type Established History Detailed Exam Detailed Medical Decision Making Moderate Complexity Diagnoses Acute exacerbation of CHF (congestive heart failure) I50.33 Heart failure type: diastolic CAD (coronary artery disease) I25.810 Associated angina: angina presence unspecified Coronary Disease-Associated Artery/Lesion type: bypass graft [place] vs. transplanted heart: [place] heart Pulmonary hypertension I27.20 Anemia D64.9 Anemia type: unspecified type Chronic kidney disease (CKD) N18.3 Chronic kidney disease stage: stage 3 (moderate) Nonalcoholic fatty liver disease K76.0 Peripheral vascular disease I73.9 Paroxysmal atrial fibrillation I48.0 Biventricular heart failure with reduced left ventricular function I50.814 Cardiovascular renal disease I13.10 Respiratory distress R06.03 Insulin dependent type 2 diabetes mellitus E11.9; Z79.4
--- NOTE | 2020-04-13 19:10 | PC.NURSE ---
Patient resting in bed watching television. Patient requested to be pulled up in bed which was done using 2 RNs. Patient positioned for comfort to left side. Patient expressed thanks. Discussed plan of care for tonight. Patient stated, I will try to wear my bipap tonight but I am very claustrophobic. Instructed patient on Xanax. Patient verbalized complete understanding.
[2020-04-13 20:13] LABS: Glucose Point of Care 138 mg/dL (70-110)
[2020-04-13] MEDS: atorvastatin 40 mg Tablet 20 MG PO (20:18)
[2020-04-14] VITALS (22 sets, daily range): BP systolic 102–139; BP diastolic 52–80; PULSE 74–99; RESP 12–19; TEMP 36.4–37.1; O2SAT 93–100
--- NOTE | 2020-04-14 02:02 | PC.NURSE ---
Patient resting with eyes closed. Patient refused to use bipap this evening. Patient currently has SpO2 of 95-100% on 4L NC. No distress observed.
[2020-04-14] MEDS: ipratropium-albuterol 3 mL Neb INHALATION ×3 (02:25→21:40)
[2020-04-14 05:15] LABS: Basophils % 0.4 %; Eosinophils # 0.2 10^3/uL (0.0-0.8); Eosinophils % 3.9 %; Hematocrit 27.8 % (37.0-47.0); Hemoglobin 7.3 g/dL (11.5-15.3); Lymphocytes # 0.7 10^3/uL (0.8-4.8); Lymphocytes % 13.4 %; Mean Corpuscular HGB Conc 26.3 g/dL (30.0-36.0); Mean Corpuscular Hemoglobin 21.5 pg (28.0-34.0); Mean Corpuscular Volume 81.8 fL (81-99); Mean Platelet Volume 10.3 fL (7.4-10.4); Monocytes # 0.3 10^3/uL (0.2-0.9); Monocytes % 5.8 %; Neutrophils # 4.11 10^3/uL (1.8-7.7); Neutrophils % 76.1 %; Nucleated Red Blood Cells % 0 %; Platelet Count 188 10^3/cmm (130-400); White Blood Count 5.4 10^3/uL (4.0-10.0)
[2020-04-14] MEDS: heparin 5,000 unit/mL INJ 1 mL 5000 UNIT SUBCUT ×2 (05:24→17:20)
[2020-04-14] MEDS: metoprolol tartrate 25 mg Tablet PO ×2 (05:24→17:20)
[2020-04-14] MEDS: iron sucrose 200 MG in sodium chloride 0.9% (100 ml) 100 ML 220 MG IV (05:24)
[2020-04-14 05:53] LABS: Alanine Aminotransferase < 5 U/L (0-33); Albumin Level 3.5 g/dL (3.5-5.2); Alkaline Phosphatase 78 IU/L (35-105); Anion Gap 12.3 (5-19); Aspartate Amino Transferase 12 U/L (0-32); Blood Urea Nitrogen 40 mg/dL (8-23); Calcium 8.6 mg/dL (8.5-10.5); Carbon Dioxide 32 mmol/L (22-29); Chloride 99 mmol/L (98-107); Globulin 2.7 g/dL (1.3-4.6); Glucose 137 mg/dL (65-115); Osmolality Calculated 300 mOsm/kg (285-295); Potassium 4.3 mmol/L (3.5-5.1); Sodium 139 mmol/L (136-145); Total Bilirubin 0.2 mg/dL (0.15-1.2); Total Protein 6.2 g/dL (6.6-8.7)
[2020-04-14 06:09] LABS: Glucose Point of Care 137 mg/dL (70-110)
--- NOTE | 2020-04-14 07:00 | PC.NURSE ---
assessment performed. pt resting in bed. noted to have something spilt on sheets and gown, nurse obtained new linens and pt assisted in changing linens and gown. no needs identified at this time. call light within reach, will continue to monitor.
[2020-04-14] MEDS: ALPRAZolam 0.25 mg Tablet 0.125 MG PO (07:29)
--- NOTE | 2020-04-14 07:37 | PC.NURSE ---
pt pushed call light and wanted to speak to nurse. stated that she felt like the fluid was building up in her belly again. pt asked for xanax, nurse obtained and administered xanax per prn order. call light within reach, will continue to monitor.
[2020-04-14] MEDS: midodrine 5 mg TABLET 2.5 MG PO ×2 (08:23→17:20)
[2020-04-14] MEDS: docusate sodium 100 mg Capsule PO ×2 (08:23→17:19)
[2020-04-14] MEDS: BuSPIRONE 10 mg Tablet PO ×2 (08:23→17:19)
[2020-04-14] MEDS: isosorbide mononitrate ER 30 mg Tablet 15 MG PO ×2 (08:23→17:19)
[2020-04-14] MEDS: aspirin 81 mg EC Tablet PO (08:23)
[2020-04-14] MEDS: pantoprazole DR 40 mg Tablet PO (08:23)
[2020-04-14] MEDS: FUROsemide 10 mg/mL SDV 4mL 60 MG IVP ×2 (08:23→22:12)
[2020-04-14] MEDS: budesonide 0.5 mg/2 mL Neb INHALATION ×2 (08:45→21:40)
--- NOTE | 2020-04-14 10:07 | PM.PN ---
Subjective Subjective: Interval history: No acute events overnight. Patient has remained hemodynamically stable. Examination lying comfortably in bed on 4 L nasal cannula. Patient has not been on CPAP overnight. Denies of any nausea, vomiting, headache. Patient has been sitting in chair for most of the day today. Vitals/I&O/Wt Last Vital Signs Temp 98.1 F 04/14/20 04:00 Pulse 86 04/14/20 08:51 Resp 17 04/14/20 08:45 BP 115/68 04/14/20 07:39 Pulse Ox 98 04/14/20 08:45 04/13/20 04/14/20 04/14/20 22:59 06:59 14:59 Intake Total 410 / 770 240 / 1010 100 / 100 Output Total 250 / 1250 750 / 2000 Balance 160 / -480 -510 / -990 100 / 100 Weight last 48 hrs Weight 97.568 kg Weight 99.79 kg Physical Exam Const: OTHER: Alert, oriented x3, cooperative, chronically and acutely ill-appearing HENMT: OTHER: Normocephalic atraumatic, moist mucus membranes, nasopharynx is clear Eye: OTHER: Pupils equally round and reactive to light, sclera anicteric Neck/C-Spine: OTHER: Supple, large Resp: OTHER: Fine crackles present and bilateral lower zone up to mid chest, decreased air entry bilaterally right more than left, no current wheezes, tachypnea, talks in 3-5 word sentences with supraclavicular retractions and requiring sitting up straight Cardio: OTHER: Tachycardic but regular rhythm, S3 gallop, no rubs, JVD up to the earlobe GI: OTHER: Abdomen soft, distended with extensive abdominal wall edema and a peau d'orange appearance, bowel sounds are decreased but present in all 4 quadrants, uncomfortable but not tender to palpation : OTHER: Edematous suprapubic region, Barriga catheter in place Extremity: NARRATIVE EXTREMITY EXAM: Clubbing noted, 4+ pitting edema, with the positioning in the ED bed right lower extremity looks slightly larger in diameter than left lower extremity but this is the leg in which she had surgical intervention earlier this year. Both calves are tender to palpation that I think it is due to the degree of edema, not able to appreciate definitive palpable cords. Neuro: OTHER: Face symmetric, speech clear, moves all extremities though is generally weak with muscle wasting noted Psych: OTHER: Anxious but otherwise normal affect Skin: OTHER: Lower extremities are shiny they are so swollen. There are some areas of serous drainage. Around both ankles there is a bit of redness with some slight warmth associated with the right ankle but not the left. The left thigh is a bit cool compared to the right thigh coloration is equal bilaterally. Capillary refill is actually brisk at both great toes though I am unable to palpate peripheral pulses. Toes are pink. On the right great toe there is a small area of discoloration along the nailbed a few millimeters in diameter. I do not see any obviously open wounds to the lower extremities. Urinary Catheter Management^: Barriga: Cath Placed During This Visit: yes Reason for Continuing Indwelling Catheter: Acute Urinary Retention or Obstruction Urinary Catheter Date of Insertion: 04/12/20 Urinary Catheter Time of Insertion: 02:00 Data : 04/14/20 04:19 04/14/20 04:19 Micro: Microbiology 04/12/20 16:00 Gram Stain - Final Peritoneal Fluid 04/12/20 15:55 MRSA Culture - Final Nose A&P Assessment and plan (1) Respiratory distress: Status: Acute (2) Acute exacerbation of CHF (congestive heart failure): Status: Acute Qualifiers: Heart failure type: diastolic Qualified Code(s): I50.33 - Acute on chronic diastolic (congestive) heart failure (3) Biventricular heart failure with reduced left ventricular function: Status: Acute (4) Diastolic CHF: Status: Chronic (5) Pulmonary hypertension: Status: Chronic (6) COPD (chronic obstructive pulmonary disease): Chronically on oxygen. Mild exacerbation. Status: Chronic Qualifiers: COPD type: unspecified COPD Qualified Code(s): J44.9 - Chronic obstructive pulmonary disease, unspecified (7) Anemia: Status: Acute Qualifiers: Anemia type: unspecified type Qualified Code(s): D64.9 - Anemia, unspecified (8) Cardiovascular renal disease: Status: Acute (9) Chronic kidney disease (CKD): Status: Chronic Qualifiers: Chronic kidney disease stage: stage 3 (moderate) Qualified Code(s): N18.3 - Chronic kidney disease, stage 3 (moderate) (10) Nonalcoholic fatty liver disease: Status: Chronic (11) Paroxysmal atrial fibrillation: Status: Acute (12) CAD (coronary artery disease): Status: Chronic Qualifiers: Associated angina: angina presence unspecified Coronary Disease-Associated Artery/Lesion type: bypass graft [place] vs. transplanted heart: [place] heart Qualified Code(s): I25.810 - Atherosclerosis of coronary artery bypass graft(s) without angina pectoris (13) Insulin dependent type 2 diabetes mellitus: With associated chronic kidney disease stage III. Insulin sliding scale at moderate dose before meals and at bedtime. Status: Chronic Additional A&P Information Respiratory distress: Most likely a combination of acute exacerbation of congestive heart failure along with increased intra-abdominal ascites. Patient does have history of pulmonary hypertension in the past. Echocardiogram done in October 2019 shows an EF of 60% with grade 2 diastolic dysfunction. Patient denies any changes in the medication recently, any changes in the lifestyle. Denies of having any chest pain, palpitation. Using up to 4 pillows every night which has been going on for a long time. proBNP elevated to more than 11,000. In October was 4000. C/w Lasix 60 mg IV BID. Overall 3 L negative since admission Strict input output charting. Daily weights. Fluid restriction up to 1500 cc. Repeat echo echocardiogram done shows an EF of 40 to 45%, mildly increased right ventricular size with decreased RV systolic function, moderate TR with PASP of 55 mmHg, mild to moderate MR, mild OR. Echocardiogram results suggestive of biventricular heart failure. Given sedentary lifestyle, EKG changes and history of CAD with multiple stents with ischemic work-up around 7 to 8 years ago cannot rule out ischemic event. Though patient is fairly decompensated and creatinine is elevated. Dr. Salas's recommendation appreciated. Troponins negative. Unfortunately cannot do a CTA PE because of CKD. Lower limb Dopplers negative for DVT. ABG concerning for hypercapnia and hypoxia which is going against PE. If patient does not improve or continues to worsen in next 24 hours we will have to do a VQ scan. Procalcitonin mildly elevated most likely because of elevated creatinine. MRSA negative, urine Legionella and bacterial antigen negative, paracentesis fluid study negative for any kind of infection. Stop antibiotics. Given multiple valvular issues along with pulmonary hypertension we will start patient on Imdur. Uptitrate to Imdure 15 mg PO BID. Monitor urine output. COPD exacerbation: C/w Duonebs and budesonide. Hold off on steroids for now. Patient is fairly anxious continue morphine 1 mg IV every 6 hours along with Xanax 0.25 twice daily as needed. CPAP at night. Continue with oxygen supplementation keeping saturation over 90. Wilson: Ascites: Cirrhosis: Post paracentesis. Patient had 2 L of fluid aspirated on April 12. Liver enzymes appreciated. For now hold off on spironolactone. CKD: Cardiorenal and hepatorenal syndrome. Patient baseline creatinine since 2019 has been ranging from 1.7-2. Creatinine baseline at present. Medical reconciliation done for nephrotoxic drugs. We will continue to monitor BMP daily. Metabolic acidosis on admission have resolved now. Anemia: Iron panel suggestive of severe iron deficiency anemia. Continue with IV iron supplementation for 5 days. Day 3/5 today. Hemoglobin 7.3 today. Given the cardiac history and CHF will give her 1 unit of blood transfusion. Will repeat her dose of Lasix after blood transfusion. Vitamin B12 and folate levels normal. Continue chronic medication like Midodrin, BuSpar, trazodone. Full code as per my discussion with Mrs. Charles GI soft diet. Heparin 5000 every 12 after paracentesis. Attestations Medical Necessity Statement*: Respiratory distress because of bivalvular heart failure, COPD, liver cirrhosis, CKD most likely cardiorenal syndrome. Time Spent in Patient Care: Greater than 35 minutes (>than 50% of time spent in counselling and/or direct pt care on unit). Coding Level of Care Code Acute Director Records Management for Joey Coffman Diagnoses Respiratory distress R06.03 Acute exacerbation of CHF (congestive heart failure) I50.33 Heart failure type: diastolic Biventricular heart failure with reduced left ventricular function I50.814 Diastolic CHF I50.30 Pulmonary hypertension I27.20 COPD (chronic obstructive pulmonary disease) J44.9 COPD type: unspecified COPD Anemia D64.9 Anemia type: unspecified type Cardiovascular renal disease I13.10 Chronic kidney disease (CKD) N18.3 Chronic kidney disease stage: stage 3 (moderate) Nonalcoholic fatty liver disease K76.0 Paroxysmal atrial fibrillation I48.0 CAD (coronary artery disease) I25.810 Associated angina: angina presence unspecified Coronary Disease-Associated Artery/Lesion type: bypass graft [place] vs. transplanted heart: [place] heart Insulin dependent type 2 diabetes mellitus E11.9; Z79.4
[2020-04-14 11:33] LABS: Glucose Point of Care 342 mg/dL (70-110)
--- NOTE | 2020-04-14 11:53 | PC.NURSE ---
pt up to chair with two assist. moderate assistance needed. call light and food placed within reach. will continue to monitor.
[2020-04-14] MEDS: HYDROcodone-acetaminophen 5-325 mg Tablet 1 TAB PO ×2 (13:09→19:57)
--- NOTE | 2020-04-14 14:00 | PC.NURSE ---
pt sat in chair for about 2 hours. pt worked with physical therapy and requested to go back to bed after finishing exercises.
[2020-04-14 16:41] LABS: Glucose Point of Care 75 mg/dL (70-110)
[2020-04-14 16:41] LABS: Glucose Point of Care 77 mg/dL (70-110)
--- NOTE | 2020-04-14 18:06 | PM.PN ---
Subjective Subjective: Interval history: Patient says she is feeling much better she is breathing better vital [place] she is stable. She is status post paracentesis with 2 L out Vitals/I&O/Wt Last Vital Signs Temp 98.1 F 04/14/20 04:00 Pulse 83 04/14/20 16:00 Resp 17 04/14/20 16:00 BP 117/65 04/14/20 16:00 Pulse Ox 98 04/14/20 16:00 04/14/20 04/14/20 04/14/20 06:59 14:59 22:59 Intake Total 240 / 1010 340 / 340 Output Total 750 / 2000 1200 / 1200 Balance -510 / -990 340 / 340 -1200 / -860 Weight last 48 hrs Weight 215 lb 1.6 oz Weight 220 lb Physical Exam Narrative: EXAM NARRATIVE: GENERAL: Patient is alert, awake and oriented x3. NECK: No jugular vein distension. HEENT: No cyanosis. No icterus. No pallor. HEART: Regular S1 and S2. No murmur, rub or gallop. LUNGS: Clear to auscultate bilaterally. ABDOMEN: Soft, nontender and nondistended. Positive bowel sounds. No guarding, rebound or tenderness. CENTRAL NERVOUS SYSTEM: Grossly nonfocal. EXTREMITIES: Lower extremities with trace edema bilaterally. Urinary Catheter Management^: Barriga: Cath Placed During This Visit: yes Reason for Continuing Indwelling Catheter: Acute Urinary Retention or Obstruction Urinary Catheter Date of Insertion: 04/12/20 Urinary Catheter Time of Insertion: 02:00 Data : 04/14/20 04:19 04/14/20 04:19 Micro: Microbiology 04/12/20 16:00 Gram Stain - Final Peritoneal Fluid Anaerobic Culture - Preliminary Body Fluid Culture - Preliminary A&P Assessment and plan (1) Acute exacerbation of CHF (congestive heart failure): Continue current regimen continue diuresis Status: Acute Qualifiers: Heart failure type: diastolic Qualified Code(s): I50.33 - Acute on chronic diastolic (congestive) heart failure (2) CAD (coronary artery disease): Continue to optimize medicine including beta-luana isosorbide mononitrate and aspirin. Status: Chronic Qualifiers: Coronary Disease-Associated Artery/Lesion type: bypass graft [place] vs. transplanted heart: [place] Associated angina: angina presence unspecified Qualified Code(s): I25.810 - Atherosclerosis of coronary artery bypass graft(s) without angina pectoris (3) Pulmonary hypertension: Add isosorbide mononitrate and oxygen therapy Status: Chronic (4) Anemia: Patient has chronic anemia but in the face of cirrhosis AVM GI bleed could be a consideration. Continue to monitor as per medicine. Status: Acute Qualifiers: Anemia type: unspecified type Qualified Code(s): D64.9 - Anemia, unspecified (5) Chronic kidney disease (CKD): Could be multifactorial including hepatorenal/heart failure. Continue diuresis continue to monitor vitals he is status post paracentesis Status: Chronic Qualifiers: Chronic kidney disease stage: stage 3 (moderate) Qualified Code(s): N18.3 - Chronic kidney disease, stage 3 (moderate) (6) Nonalcoholic fatty liver disease: Patient has history of nonalcoholic fatty liver cirrhosis. Ascites during this admission. Continue diuretics. Patient follow-up with hepatology Status: Chronic (7) Peripheral vascular disease: Stable. Continue to monitor Status: Chronic (8) Insulin dependent type 2 diabetes mellitus: As per medicine. Status: Chronic Attestations Medical Necessity Statement*: Patient require continuation hospitalization for above defined care. 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 transplanted heart: [place] heart Associated angina: angina presence unspecified Pulmonary hypertension I27.20 Anemia D64.9 Anemia type: unspecified type Chronic kidney disease (CKD) N18.3 Chronic kidney disease stage: stage 3 (moderate) Nonalcoholic fatty liver disease K76.0 Peripheral vascular disease I73.9 Insulin dependent type 2 diabetes mellitus E11.9; Z79.4
[2020-04-14] MEDS: sodium chloride 0.9% (100 ml) 100 ML (19:44)
[2020-04-14 20:03] LABS: Glucose Point of Care 116 mg/dL (70-110)
[2020-04-14] MEDS: trazodone 100 mg Tablet 50 MG PO (22:11)
[2020-04-14] MEDS: atorvastatin 40 mg Tablet 20 MG PO (22:12)
--- NOTE | 2020-04-14 22:19 | PC.NURSE ---
1 unit PRBCs infused. Patient denies any reactions. No distress observed. Lasix given post blood administration per Dr request.
[2020-04-15] VITALS (11 sets, daily range): BP systolic 108–131; BP diastolic 58–80; PULSE 75–88; RESP 12–98; TEMP 36.4–36.8; O2SAT 92–100
--- NOTE | 2020-04-15 03:03 | PC.NURSE ---
RN and RT have made numerous attempts to encourage her to wear bipap as requested by physician. Patient continues to stated, I feel really anxious and I am so claustrophobic, I just don't think I can wear it tonight. Patient continues to refuse to wear bipap. Patient has not slept tonight and is currently sitting up in a recliner.
[2020-04-15 05:08] LABS: Alanine Aminotransferase < 5 U/L (0-33); Albumin Level 3.7 g/dL (3.5-5.2); Alkaline Phosphatase 83 IU/L (35-105); Anion Gap 12.1 (5-19); Aspartate Amino Transferase 15 U/L (0-32); Blood Urea Nitrogen 42 mg/dL (8-23); Calcium 8.8 mg/dL (8.5-10.5); Carbon Dioxide 32 mmol/L (22-29); Chloride 98 mmol/L (98-107); Globulin 3.1 g/dL (1.3-4.6); Glucose 110 mg/dL (65-115); Osmolality Calculated 297 mOsm/kg (285-295); Potassium 4.1 mmol/L (3.5-5.1); Sodium 138 mmol/L (136-145); Total Bilirubin 0.5 mg/dL (0.15-1.2); Total Protein 6.8 g/dL (6.6-8.7)
[2020-04-15] MEDS: metoprolol tartrate 25 mg Tablet PO ×2 (05:39→18:15)
[2020-04-15] MEDS: heparin 5,000 unit/mL INJ 1 mL 5000 UNIT SUBCUT ×2 (05:39→18:15)
[2020-04-15] MEDS: iron sucrose 200 MG in sodium chloride 0.9% (100 ml) 100 ML IV (05:39)
[2020-04-15 06:49] LABS: Glucose Point of Care 120 mg/dL (70-110)
[2020-04-15] MEDS: HYDROcodone-acetaminophen 5-325 mg Tablet 1 TAB PO ×2 (07:23→15:23)
[2020-04-15] MEDS: ipratropium-albuterol 3 mL Neb INHALATION ×2 (08:14→14:55)
[2020-04-15] MEDS: budesonide 0.5 mg/2 mL Neb INHALATION (08:14)
[2020-04-15] MEDS: aspirin 81 mg EC Tablet PO (09:32)
[2020-04-15] MEDS: midodrine 5 mg TABLET 2.5 MG PO ×2 (09:32→18:14)
[2020-04-15] MEDS: pantoprazole DR 40 mg Tablet PO (09:32)
[2020-04-15] MEDS: isosorbide mononitrate ER 30 mg Tablet 15 MG PO ×2 (09:33→18:14)
[2020-04-15] MEDS: docusate sodium 100 mg Capsule PO ×2 (09:33→18:15)
[2020-04-15] MEDS: FUROsemide 10 mg/mL SDV 4mL 60 MG IVP (09:35)
[2020-04-15] MEDS: BuSPIRONE 10 mg Tablet PO ×2 (09:35→18:15)
--- NOTE | 2020-04-15 10:41 | PC.SOCIAL ---
IMM Update Pg. 2 of IMM given and explained to patient who verbalized understanding. Copy provided.
[2020-04-15 10:52] LABS: Glucose Point of Care 149 mg/dL (70-110)
--- NOTE | 2020-04-15 13:07 | P.PN_ITS ---
Subjective Subjective: Interval history: No acute events overnight. Patient has stable. She states she is feeling a lot better after blood transfusion. She is looking a lot more awake. She states breathing is better. Denies of having any nausea, vomiting, headache, abdominal pain. Still concerned of some possible abdominal fluid pressing on to her lungs. We discussed in detail that patient has already had a paracentesis earlier in this admission. Frequent paracentesis can lead to abdominal infection. Also discussed that most likely if she requires further paracentesis she would re quire a permanent catheter for frequent drainage. We decided for now continue with oral diuretics and see how she does. Vitals/I&O/Wt Last Vital Signs Temp 97.9 F 04/15/20 10:48 Pulse 77 04/15/20 10:48 Resp 12 04/15/20 10:48 BP 121/61 04/15/20 10:48 Pulse Ox 92 04/15/20 10:48 04/14/20 04/15/20 04/15/20 22:59 06:59 14:59 Intake Total 350.083 / 690.083 240 / 930.083 240 / 240 Output Total 1200 / 1200 1250 / 2450 Balance -849.917 / -509.917 -1010 / -1519.917 240 / 240 Weight last 48 hrs Weight 97.159 kg Weight 97.568 kg Physical Exam Const: OTHER: Alert, oriented x3, cooperative, chronically and acutely ill- appearing HENMT: OTHER: Normocephalic atraumatic, moist mucus membranes, nasopharynx is clear Eye: OTHER: Pupils equally round and reactive to light, sclera anicteric Neck/C-Spine: OTHER: Supple, large Resp: OTHER: Fine crackles present and bilateral lower zone up to mid chest, decreased air entry bilaterally right more than left, no current wheezes, tachypnea, talks in 3-5 word sentences with supraclavicular retractions and requiring sitting up straight Cardio: OTHER: Tachycardic but regular rhythm, S3 gallop, no rubs, JVD up to the earlobe GI: OTHER: Abdomen soft, distended with extensive abdominal wall edema and a peau d'orange appearance, bowel sounds are decreased but present in all 4 quadrants, uncomfortable but not tender to palpation : OTHER: Edematous suprapubic region, Barriga catheter in place Extremity: NARRATIVE EXTREMITY EXAM: Clubbing noted, 4+ pitting edema, with the positioning in the ED bed right lower extremity looks slightly larger in diameter than left lower extremity but this is the leg in which she had surgical intervention earlier this year. Both calves are tender to palpation that I think it is due to the degree of edema, not able to appreciate definitive palpable cords. Neuro: OTHER: Face symmetric, speech clear, moves all extremities though is generally weak with muscle wasting noted Psych: OTHER: Anxious but otherwise normal affect Skin: OTHER: Lower extremities are shiny they are so swollen. There are some areas of serous drainage. Around both ankles there is a bit of redness with some slight warmth associated with the right ankle but not the left. The left thigh is a bit cool compared to the right thigh coloration is equal bilaterally. Capillary refill is actually brisk at both great toes though I am unable to palpate peripheral pulses. Toes are pink. On the right great toe there is a small area of discoloration along the nailbed a few millimeters in diameter. I do not see any obviously open wounds to the lower extremities. Urinary Catheter Management^: Barriga: Cath Placed During This Visit: yes Reason for Continuing Indwelling Catheter: Acute Urinary Retention or Obstruction Urinary Catheter Date of Insertion: 04/12/20 Urinary Catheter Time of Insertion: 02:00 Data : 04/14/20 04:19 04/15/20 04:02 Micro: Microbiology 04/12/20 16:00 Gram Stain - Final Peritoneal Fluid Anaerobic Culture - Preliminary Body Fluid Culture - Preliminary A&P Assessment and plan (1) Respiratory distress: Status: Acute (2) Acute exacerbation of CHF (congestive heart failure): Status: Acute Qualifiers: Heart failure type: diastolic Qualified Code(s): I50.33 - Acute on chronic diastolic (congestive) heart failure (3) Biventricular heart failure with reduced left ventricular function: Status: Acute (4) Diastolic CHF: Status: Chronic (5) Pulmonary hypertension: Status: Chronic (6) COPD (chronic obstructive pulmonary disease): Chronically on oxygen. Mild exacerbation. Status: Chronic Qualifiers: COPD type: unspecified COPD Qualified Code(s): J44.9 - Chronic obstructive pulmonary disease, unspecified (7) Anemia: Status: Acute Qualifiers: Anemia type: unspecified type Qualified Code(s): D64.9 - Anemia, unspecified (8) Cardiovascular renal disease: Status: Acute (9) Chronic kidney disease (CKD): Status: Chronic Qualifiers: Chronic kidney disease stage: stage 3 (moderate) Qualified Code(s): N18.3 - Chronic kidney disease, stage 3 (moderate) (10) Nonalcoholic fatty liver disease: Status: Chronic (11) Paroxysmal atrial fibrillation: Status: Acute (12) CAD (coronary artery disease): Status: Chronic Qualifiers: Coronary Disease-Associated Artery/Lesion type: bypass graft [place] vs. transplanted heart: [place] heart Associated angina: angina presence unspecified Qualified Code(s): I25.810 - Atherosclerosis of coronary artery bypass graft(s) without angina pectoris (13) Insulin dependent type 2 diabetes mellitus: With associated chronic kidney disease stage III. Insulin sliding scale at moderate dose before meals and at bedtime. Status: Chronic Additional A&P Information Respiratory distress: Most likely a combination of acute exacerbation of congestive heart failure along with increased intra-abdominal ascites. Patient does have history of pulmonary hypertension in the past. Echocardiogram done in October 2019 shows an EF of 60% with grade 2 diastolic dysfunction. Patient denies any changes in the medication recently, any changes in the lifestyle. Denies of having any chest pain, palpitation. Using up to 4 pillows every night which has been going on for a long time. proBNP elevated to more than 11,000. In October was 4000. Patient is overall 4.5 L negative. Change IV Lasix to order. Start patient on Lasix 80 mg twice daily. Also start patient on home spironolactone but her lower dose of 25 mg daily. Strict input output charting. Daily weights. Fluid restriction up to 1500 cc. Repeat echo echocardiogram done shows an EF of 40 to 45%, mildly increased right ventricular size with decreased RV systolic function, moderate TR with PASP of 55 mmHg, mild to moderate MR, mild [place]. Echocardiogram results suggestive of biventricular heart failure. Given sedentary lifestyle, EKG changes and history of CAD with multiple stents with ischemic work-up around 7 to 8 years ago cannot rule out ischemic event. Though patient is fairly decompensated and creatinine is elevated which is going to make both Lexiscan and left heart cath difficult. Dr. Salas's recommendation appreciated. Troponins negative. Unfortunately cannot do a CTA PE because of CKD. Lower limb Dopplers negative for DVT. ABG concerning for hypercapnia and hypoxia which is going against PE. If patient does not improve or continues to worsen in next 24 hours we will have to do a VQ scan. Procalcitonin mildly elevated most likely because of elevated creatinine. MRSA negative, urine Legionella and bacterial antigen negative, paracentesis fluid study negative for any kind of infection. Patient has remained hemodynamically stable and afebrile last 48 hours of antibiotics. Given multiple valvular issues along with pulmonary hypertension we will start patient on Imdur. Continue Imdur at 15 mg twice daily. COPD exacerbation: C/w Duonebs and budesonide. Hold off on steroids for now. Patient is fairly anxious continue morphine 1 mg IV every 6 hours along with Xanax 0.25 twice daily as needed. CPAP at night if tolerated. Continue with oxygen supplementation keeping saturation over 90. Wilson: Ascites: Cirrhosis: Post paracentesis. Patient had 2 L of fluid aspirated on April 12. Liver enzymes appreciated. Spironolactone restarted. CKD: Cardiorenal and hepatorenal syndrome. Patient baseline creatinine since 2018 has been ranging from 1.7-2. Creatinine baseline at present. Medical reconciliation done for nephrotoxic drugs. We will continue to monitor BMP daily. Metabolic acidosis on admission have resolved now. Anemia: Iron panel suggestive of severe iron deficiency anemia. Continue with IV iron supplementation for 5 days. Day 4/5 today. Post 1 blood transfusion. Vitamin B12 and folate levels normal. Continue chronic medication like Midodrin, BuSpar, trazodone. Full code as per my discussion with Mrs. Charles GI soft diet. Heparin 5000 every 12 after paracentesis. Attestations Medical Necessity Statement*: Anemia, respiratory distress because of biventricular heart failure, liver cirrhosis Time Spent in Patient Care: Greater than 35 minutes (>than 50% of time spent in counselling and/or direct pt care on unit) . 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[employer] [facility] Diagnoses Respiratory distress R06.03 Acute exacerbation of CHF (congestive heart failure) I50.33 Heart failure type: diastolic Biventricular heart failure with reduced left ventricular function I50.814 Diastolic CHF I50.30 Pulmonary hypertension I27.20 COPD (chronic obstructive pulmonary disease) J44.9 COPD type: unspecified COPD Anemia D64.9 Anemia type: unspecified type Cardiovascular renal disease I13.10 Chronic kidney disease (CKD) N18.3 Chronic kidney disease stage: stage 3 (moderate) Nonalcoholic fatty liver disease K76.0 Paroxysmal atrial fibrillation I48.0 CAD (coronary artery disease) I25.810 Coronary Disease-Associated Artery/Lesion type: bypass graft [place] vs. transplanted heart: [place] heart Associated angina: angina presence unspecified Insulin dependent type 2 diabetes mellitus E11.9; Z79.4
[2020-04-15] MEDS: spironolactone 25 mg Tablet PO (13:34)
[2020-04-15] MEDS: FUROsemide 40 mg Tablet 80 MG PO (15:23)
[2020-04-15 16:17] LABS: Glucose Point of Care 127 mg/dL (70-110)
--- NOTE | 2020-04-15 16:37 | P.PN_ITS ---
Subjective Subjective: Interval history: Patient is feeling much better compared to before after paracentesis. She still feels some mild shortness of breath and has significant lower extremity edema. Vitals/I&O/Wt Last Vital Signs Temp 97.8 F 04/15/20 14:54 Pulse 78 04/15/20 14:57 Resp 18 04/15/20 14:57 BP 108/58 04/15/20 14:54 Pulse Ox 97 04/15/20 14:57 04/15/20 04/15/20 04/15/20 06:59 14:59 22:59 Intake Total 240 / 930.083 240 / 240 Output Total 1250 / 2450 880 / 880 Balance -1010 / -1519.917 240 / 240 -880 / -640 Weight last 48 hrs Weight 214 lb 3.2 oz Weight 215 lb 1.6 oz Physical Exam Narrative: EXAM NARRATIVE: GENERAL: Patient is alert, awake and oriented x3. NECK: No jugular vein distension. HEENT: No cyanosis. No icterus. No pallor. HEART: Regular S1 and S2. No murmur, rub or gallop. LUNGS: Clear to auscultate bilaterally. ABDOMEN: Soft, nontender and nondistended. Positive bowel sounds. No guarding, rebound or tenderness. CENTRAL NERVOUS SYSTEM: Grossly nonfocal. EXTREMITIES: Lower extremities with 1+ pitting edema Urinary Catheter Management^: Barriga: Cath Placed During This Visit: yes Reason for Continuing Indwelling Catheter: Acute Urinary Retention or Obstruction Urinary Catheter Date of Insertion: 04/12/20 Urinary Catheter Time of Insertion: 02:00 Data : 04/14/20 04:19 04/15/20 04:02 Micro: Microbiology 04/12/20 16:00 Gram Stain - Final Peritoneal Fluid Anaerobic Culture - Preliminary Body Fluid Culture - Preliminary A&P Assessment and plan (1) Acute exacerbation of CHF (congestive heart failure): Continue current regimen continue diuresis. Will recommend adding spironolactone once creatinine is less than 1.7. Status: Acute Qualifiers: Heart failure type: diastolic Qualified Code(s): I50.33 - Acute on chronic diastolic (congestive) heart failure (2) CAD (coronary artery disease): Continue to optimize medicine including beta-luana isosorbide mono nitrate and aspirin. Status: Chronic Qualifiers: Coronary Disease-Associated Artery/Lesion type: bypass graft [place] vs. transplanted heart: [place] heart Associated angina: angina presence unspecified Qualified Code(s): I25.810 - Atherosclerosis of coronary artery bypass graft(s) without angina pectoris (3) Pulmonary hypertension: Status: Chronic (4) Anemia: Patient has chronic anemia but in the face of cirrhosis AVM GI bleed could be a consideration. Continue to monitor as per medicine. Status: Acute Qualifiers: Anemia type: unspecified type Qualified Code(s): D64.9 - Anemia, unspecified (5) Chronic kidney disease (CKD): Could be multifactorial including hepatorenal/heart failure. Continue diuresis continue to monitor vitals he is status post paracentesis Status: Chronic Qualifiers: Chronic kidney disease stage: stage 3 (moderate) Qualified Code(s): N18.3 - Chronic kidney disease, stage 3 (moderate) (6) Nonalcoholic fatty liver disease: Patient has history of nonalcoholic fatty liver cirrhosis. Ascites during this admission. Continue diuretics. Patient follow-up with hepatology Status: Chronic (7) Peripheral vascular disease: Stable. Continue to monitor Status: Chronic (8) Insulin dependent type 2 diabetes mellitus: As per medicine. Status: Chronic Attestations Medical Necessity Statement*: Care expected to cross 2 midnights. Patient needing continued IV diuresis. Coding Level of Care Code Acute Academic Advisement Director for [facility] Fwd Diagnoses Acute exacerbation of CHF (congestive heart failure) I50.33 Heart failure type: diastolic CAD (coronary artery disease) I25.810 Coronary Disease-Associated Artery/Lesion type: bypass graft [place] vs. transplanted heart: [place] heart Associated angina: angina presence unspecified Pulmonary hypertension I27.20 Anemia D64.9 Anemia type: unspecified type Chronic kidney disease (CKD) N18.3 Chronic kidney disease stage: stage 3 (moderate) Nonalcoholic fatty liver disease K76.0 Peripheral vascular disease I73.9 Insulin dependent type 2 diabetes mellitus E11.9; Z79.4
[2020-04-15 19:52] LABS: Glucose Point of Care 175 mg/dL (70-110)
[2020-04-15] MEDS: atorvastatin 40 mg Tablet 20 MG PO (20:08)
[2020-04-15] MEDS: trazodone 100 mg Tablet 50 MG PO (20:08)
--- NOTE | 2020-04-15 21:54 | PC.NURSE ---
Patient up to [facility] and toileted following catheter removal at 1700 today. Patient voided 300 mL's of urine. Continue care.
--- NOTE | 2020-04-16 02:58 | PC.NURSE ---
Patient continues to comply with staff and cares. Dr. Cote and RT aware of patient non compliant with bipap and orders were given to dayshift and RT that bipap may be DC and taken out of room due to patient continuing to saturate well via O2 NC at 3.5 L. Patient is getting up stand by assist to use BSC when needing to void and continues to improve in mobility functions. Continue care.
[2020-04-16 04:00] VITALS: BP 133/82; PULSE 80; RESP 18; TEMP 36.3; O2SAT 99
[2020-04-16 04:19] LABS: Basophils % 0.3 %; Eosinophils # 0.2 10^3/uL (0.0-0.8); Eosinophils % 2.5 %; Hematocrit 30.3 % (37.0-47.0); Hemoglobin 8.3 g/dL (11.5-15.3); Lymphocytes # 0.6 10^3/uL (0.8-4.8); Lymphocytes % 8.5 %; Mean Corpuscular HGB Conc 27.4 g/dL (30.0-36.0); Mean Corpuscular Volume 83.9 fL (81-99); Mean Platelet Volume 10.5 fL (7.4-10.4); Monocytes # 0.4 10^3/uL (0.2-0.9); Monocytes % 5.8 %; Neutrophils # 5.81 10^3/uL (1.8-7.7); Neutrophils % 82.3 %; Nucleated Red Blood Cells % 0 %; Platelet Count 180 10^3/cmm (130-400); Red Blood Count 3.61 10^6/uL (4.1-5.3); Red Cell Distribution Width 19.5 % (12.1-15.1); White Blood Count 7.1 10^3/uL (4.0-10.0)
[2020-04-16 04:37] LABS: Alanine Aminotransferase < 5 U/L (0-33); Albumin Level 3.6 g/dL (3.5-5.2); Alkaline Phosphatase 80 IU/L (35-105); Anion Gap 16.2 (5-19); Aspartate Amino Transferase 16 U/L (0-32); Blood Urea Nitrogen 38 mg/dL (8-23); Calcium 9.1 mg/dL (8.5-10.5); Carbon Dioxide 30 mmol/L (22-29); Chloride 97 mmol/L (98-107); Globulin 3.2 g/dL (1.3-4.6); Glucose 125 mg/dL (65-115); Osmolality Calculated 299 mOsm/kg (285-295); Potassium 4.2 mmol/L (3.5-5.1); Sodium 139 mmol/L (136-145); Total Bilirubin 0.4 mg/dL (0.15-1.2); Total Protein 6.8 g/dL (6.6-8.7)
[2020-04-16] MEDS: iron sucrose 200 MG in sodium chloride 0.9% (100 ml) 100 ML 220 MG IV (05:11)
[2020-04-16] MEDS: heparin 5,000 unit/mL INJ 1 mL 5000 UNIT SUBCUT (05:12)
[2020-04-16] MEDS: metoprolol tartrate 25 mg Tablet PO (05:12)
--- NOTE | 2020-04-16 05:44 | PC.NURSE ---
Patient resting in room with eyes shut at this time. Patient has been pleasant and cooperative with staff all shift. Non eventful shift. Iron sucrose IV infusion complete per orders. Continue care.
[2020-04-16 06:09] LABS: Glucose Point of Care 128 mg/dL (70-110)
[2020-04-16 06:56] VITALS: BP 136/90; PULSE 84; RESP 17; TEMP 36.6; O2SAT 100
[2020-04-16] MEDS: midodrine 5 mg TABLET 2.5 MG PO (08:23)
[2020-04-16] MEDS: aspirin 81 mg EC Tablet PO (08:24)
[2020-04-16] MEDS: pantoprazole DR 40 mg Tablet PO (08:24)
[2020-04-16] MEDS: BuSPIRONE 10 mg Tablet PO (08:24)
[2020-04-16] MEDS: FUROsemide 40 mg Tablet 80 MG PO (08:24)
[2020-04-16] MEDS: spironolactone 25 mg Tablet PO (08:24)
[2020-04-16] MEDS: isosorbide mononitrate ER 30 mg Tablet 15 MG PO (08:24)
[2020-04-16] MEDS: docusate sodium 100 mg Capsule PO (08:25)
[2020-04-16 10:38] VITALS: PULSE 86; RESP 17; O2SAT 97
[2020-04-16 10:44] VITALS: BP 109/60; PULSE 78; RESP 20; TEMP 36.6; O2SAT 98
--- NOTE | 2020-04-16 10:46 | P.DS_ITS ---
Discharge Providers Date of Admission: 04/12/20 05:08 Date of Discharge: April 16, 2020 Attending Provider at Admission: Coty Boss MD Attending Provider at Discharge: Wilfredo Buckner MD Consults: Cardiology: Dr. Salas Primary Care Provider: Keena De La Torre DO Diagnoses at Discharge Discharge Diagnosis (1) Acute exacerbation of CHF (congestive heart failure): Status: Acute Qualifiers: Heart failure type: diastolic Qualified Code(s): I50.33 - Acute on chronic diastolic (congestive) heart failure (2) CAD (coronary artery disease): Status: Chronic Qualifiers: Coronary Disease-Associated Artery/Lesion type: bypass graft [place] vs. transplanted heart: [place] heart Associated angina: angina presence unspecified Qualified Code(s): I25.810 - Atherosclerosis of coronary artery bypass graft(s) without angina pectoris (3) Pulmonary hypertension: Status: Chronic Problem details: ECHO 04/12 Estimated pulmonary artery peak systolic pressure of 55 mmHg. (4) Anemia: Status: Acute Qualifiers: Anemia type: unspecified type Qualified Code(s): D64.9 - Anemia, unspecified (5) Chronic kidney disease (CKD): Status: Chronic Qualifiers: Chronic kidney disease stage: stage 3 (moderate) Qualified Code(s): N18.3 - Chronic kidney disease, stage 3 (moderate) (6) Nonalcoholic fatty liver disease: Status: Chronic (7) Peripheral vascular disease: Status: Chronic (8) Insulin dependent type 2 diabetes mellitus: Status: Chronic Reason for Visit Reason for Visit: SOB Hospital Course Discharge Summary: Christina Charles is a 70 year old female with a past medical history of liver cirrhosis secondary to nonalcoholic fatty liver disease, diastolic CHF, CKD stage II-III, oxygen dependent COPD, insulin-dependent type 2 diabetes mellitus, CAD status post CABG x2, 5 stents, hyperlipidemia, mild palmar hypertension, history of GI bleed suspected to AV malformations, history of peripheral vascular disease status post stenting who presents emergency room status post fall, who presented from home with chief complaint of difficulty breathing. She is chronically on Lasix 40 mg daily. She states that about a week ago she started swelling significantly. It is gotten to the point that she is short of breath talking or with any degree of exertion. She has significant orthopnea and describes some PND. She has begun to have weeping from both of her legs. She states that she is never had weeping before. Under the instruction of her primary care provider, Dr. De La Torre, she increased her Lasix to 60 mg a day on Friday but has not had any significant improvement. She feels like if she can have some fluid drained from her belly that her breathing would be better. She relates to me being hospitalized at [facility] in [place] and in October or November 2018. She had paracentesis at that time. She says she feels like she did then. She has not had any other paracenteses that she can recall in the interim. She was most recently hospitalized here in October of this year when she fell and sustained a hip fracture. She underwent surgical intervention and was subsequently discharged to [place]. She left [place] and January or so. She states that she is at baseline now able to get up to bedside commode but does not really ambulate more than that. The past few days she has not even been able to do that bit. She was admitted to the hospital for further management of acute on chronic congestive heart failure along with situs. She was started on IV diuresis. Any source of infection along with pneumonia was ruled out with negative consolidation on chest imaging, negative MRSA swab, negative urine Legionella or bacterial antigen. Abdominal ultrasound was done which was consistent with moderate ascites for which she underwent paracentesis and 2 L of fluid was aspirated. Echocardiogram was repeated because of severe congestive heart failure and anasarca which showed an EF of 40 to 45%, mildly increased right ventricular size with decreased RV systolic function, moderate TR with PASP of 55 mmHg, moderate MR, mild GA. Her echocardiogram results were consistent with biventricular heart failure. Echocardiogram findings are very different from the one done in October 2019 which had shown an EF of 60% with grade 2 diastolic dysfunction. Cardiology was consulted for further evaluation and treatment. Etiology of decreasing her ejection fraction could be secondary to ischemia but unfortunately because patient was fairly decompensated with elevated creatinine she was not a good candidate for ischemic work-up at present. During hospitalization she was found to have severe iron deficiency anemia for which she was treated with IV iron transfusion for 5 days and 1 unit of PRBC transfusion. She responded appropriately to the treatment and oxygen requirements came down, she worked appropriately with physical therapy and was able to ambulate from bed to chair and bedside commode which is her baseline functional capacity. Overall patient was around 6 L negative. She is been discharged in hemodynamically stable condition on oral diuretics with advised to follow-up with her drafting technician for work-up of ischemic cardiomyopathy once she is more compensated from a heart failure point of view. Physical Exam Const: OTHER: Alert, oriented x3, cooperative, chronically and acutely ill- appearing HENMT: OTHER: Normocephalic atraumatic, moist mucus membranes, nasopharynx is clear Eye: OTHER: Pupils equally round and reactive to light, sclera anicteric Neck/C-Spine: OTHER: Supple, large Resp: OTHER: Fine crackles present and bilateral lower zone up to mid chest, decreased air entry bilaterally right more than left, no current wheezes, tachypnea, talks in 3-5 word sentences with supraclavicular retractions and requiring sitting up straight Cardio: OTHER: Tachycardic but regular rhythm, S3 gallop, no rubs, JVD up to the earlobe GI: OTHER: Abdomen soft, distended with extensive abdominal wall edema and a peau d'orange appearance, bowel sounds are decreased but present in all 4 quadrants, uncomfortable but not tender to palpation : OTHER: Edematous suprapubic region, Barriga catheter in place Extremity: NARRATIVE EXTREMITY EXAM: Clubbing noted, 4+ pitting edema, with the positioning in the ED bed right lower extremity looks slightly larger in diameter than left lower extremity but this is the leg in which she had surgical intervention earlier this year. Both calves are tender to palpation that I think it is due to the degree of edema, not able to appreciate definitive palpable cords. Neuro: OTHER: Face symmetric, speech clear, moves all extremities though is generally weak with muscle wasting noted Psych: OTHER: Anxious but otherwise normal affect Skin: OTHER: Lower extremities are shiny they are so swollen. There are some areas of serous drainage. Around both ankles there is a bit of redness with some slight warmth associated with the right ankle but not the left. The left thigh is a bit cool compared to the right thigh coloration is equal bilaterally. Capillary refill is actually brisk at both great toes though I am unable to palpate peripheral pulses. Toes are pink. On the right great toe there is a small area of discoloration along the nailbed a few millimeters in diameter. I do not see any obviously open wounds to the lower extremities. Urinary Catheter Management^: Barriga: Cath Placed During This Visit: yes Reason for Continuing Indwelling Catheter: Acute Urinary Retention or Obstruction Urinary Catheter Date of Insertion: 04/12/20 Urinary Catheter Time of Insertion: 02:00 Discharge Data Data Completed and Pending: Completed Studies During Hospitalization Category Date Time Status CT chest wo con 7 1250 Urgent Cat Scan 04/12/20 11:14 Completed XR chest 1V velma ble [id number] Stat Exams 04/12/20 00:55 Completed CV echo complete* [id number] Routine Ultrasound 04/12/20 11:13 [place] [id number] Routin e Ultrasound 04/12/20 06:05 Completed US abdomen limite d [id number] Routine Ultrasound 04/12/20 10:54 Completed [place]acentesis a bd w [id number] Routine Ultrasound 04/12/20 14:18 Completed Pending at discharge Category Date Time Status Anaerobic Culture Routine Lab 04/12/20 16:00 Results Body Fluid Cultur e & GS Routine Lab 04/12/20 16:00 Results Mycobacteria, Cul ture w/Fluor Routi ne Lab 04/12/20 16:00 Received Sputum Culture an d Gram Stain Routi ne Lab 04/12/20 14:27 Uncollected Cytology [PTH] Ro utine Pth 04/12/20 14:18 Received Labs from last 24 hours 04/16/20 04/16/20 04/16/20 05:55 03:49 03:49 WBC 7.1 RBC 3.61 L Hgb 8.3 L Hct 30.3 L MCV 83.9 MCH 23.0 L MCHC 27.4 L RDW 19.5 H Plt Count 180 MPV 10.5 H Neut % (Auto) 82.3 Lymph % (Auto) 8.5 [place] % (Auto) 5.8 Eos % (Auto) 2.5 Baso % (Auto) 0.3 Neut # (Auto) 5.81 Lymph # (Auto) 0.6 L [place] # (Auto) 0.4 Eos # (Auto) 0.2 Baso # (Auto) 0.0 Nucleated RBC % (a uto) 0 Nucleated RBCs # 0.0 Sodium 139 Potassium 4.2 Chloride 97 L Carbon Dioxide 30 H Anion Gap 16.2 BUN 38 H Creatinine 2.2 H GFR Calculation Not Reportable Glucose 125 H POC Glucose 128 Calculated Osmolal ity 299 H Calcium 9.1 Total Bilirubin 0.4 AST 16 ALT < 5 Alkaline Phosphata se 80 Total Protein 6.8 Albumin 3.6 Globulin 3.2 Crossmatch 04/15/20 04/15/20 04/15/20 19:43 16:11 10:48 WBC RBC Hgb Hct MCV MCH MCHC RDW Plt Count MPV Neut % (Auto) Lymph % (Auto) [place] % (Auto) Eos % (Auto) Baso % (Auto) Neut # (Auto) Lymph # (Auto) [place] # (Auto) Eos # (Auto) Baso # (Auto) Nucleated RBC % (a uto) Nucleated RBCs # Sodium Potassium Chloride Carbon Dioxide Anion Gap BUN Creatinine GFR Calculation Glucose POC Glucose 175 127 149 Calculated Osmolal ity Calcium Total Bilirubin AST ALT Alkaline Phosphata se Total Protein Albumin Globulin Crossmatch 04/12/20 01:30 WBC RBC Hgb Hct MCV MCH MCHC RDW Plt Count MPV Neut % (Auto) Lymph % (Auto) [place] % (Auto) Eos % (Auto) Baso % (Auto) Neut # (Auto) Lymph # (Auto) [place] # (Auto) Eos # (Auto) Baso # (Auto) Nucleated RBC % (a uto) Nucleated RBCs # Sodium Potassium Chloride Carbon Dioxide Anion Gap BUN Creatinine GFR Calculation Glucose POC Glucose Calculated Osmolal ity Calcium Total Bilirubin AST ALT Alkaline Phosphata se Total Protein Albumin Globulin Crossmatch See Detail Vitals: Last Vital Signs Temp 97.9 F 04/16/20 10:44 Pulse 78 04/16/20 10:44 Resp 20 H 04/16/20 10:44 BP 109/60 04/16/20 10:44 Pulse Ox 98 04/16/20 10:44 Discharge Plan Discharge Patient Disposition: Home Health Service Condition: Stable Prescriptions: New furosemide 40 mg Tablet 80 mg PO BID@,16 Qty: 120 RF: 0 isosorbide mononitrate 30 mg Tablet Extended Release 24 Hr 15 mg PO BID Qty: 60 RF: 0 aspirin 81 mg Tablet,Delayed Release (Dr/Ec) 81 mg PO DAILY Qty: 30 RF: 0 Continued albuterol sulfate 2.5 mg /3 mL (0.083 %) Solution For Nebulization 2.5 mg INHALATION QID PRN (Reason: Shortness Of Breath) RF: 0 ondansetron HCl 4 mg tablet 4 mg PO DAILY RF: 0 diphenoxylate-atropine 2.5-0.025 mg tablet 1 tab PO TID PRN (Reason: Diarrhea) RF: 0 hydrocodone-acetaminophen 10-325 mg tablet 10 - 325 tab PO 5XD PRN (Reason: Pain) RF: 0 trazodone 100 mg tablet 100 mg PO BEDTIME RF: 0 midodrine 2.5 mg tablet 2.5 mg PO BID RF: 0 buspirone 15 mg tablet 15 mg PO BID RF: 0 metoprolol tartrate 25 mg tablet 25 mg PO DAILY RF: 0 levalbuterol tartrate [Xopenex HFA] 45 mcg/actuation HFA aerosol inhaler 1 puff INHALATION QID PRN (Reason: Shortness Of Breath) RF: 0 Tresiba FlexTouch U-100 100 unit/mL (3 mL) insulin pen 30 unit SUBCUT BEDTIME RF: 0 Changed spironolactone 50 mg tablet 25 mg PO DAILY Qty: 30 RF: 0 Discontinued furosemide 40 mg tablet 40 mg PO DAILY RF: 0 Discharge Orders: Discharge Order (Routine); Ordered 04/16/20 Ordered By: Wilfredo Buckner Referrals: Jaden Salas MD [Physician] - 2 weeks Keena De La Torre DO [Primary Care Provider] - 4-7 days Discharge Diet: Cardiac and Low Salt Discharge Activity: Resume usual activity Activity Restrictions/Additional Instructions: Your oral diuretics have been increased. You are not supposed to be on Lasix 80 mg twice daily and Spironolactone 25 mg daily. Please follow-up with your primary care provider within next 4 to 7 days with a repeat CMP. Please follow-up with your drafting technician within next 2 weeks for further work-up of ischemic cardiomyopathy. You are supposed to have continue taking low-salt 2 g cardiac diet every day. Please make sure that you restrict your fluid intake to less than 1500 cc/day. Discharge Attestations Time Spent in Discharge Care*: greater than 30 min Specific Discharge Activities: Specific discharge activities: educating patient, discussing with pcp/other providers, discussing with case management specialist/social workers/dc planners, documenting/other paperwork and evaluating patient/reviewing data Status at Discharge: Cognitive status at discharge: cognitively intact , Behavioral status at discharge: cooperative , Functional status at discharge: uses cane/walker Overall status at discharge: patient is progressing back to baseline Quality Metrics Clinical Quality Measures During this hospital stay, did patient experience: None Coding Level of Care Code Acute Manager Stylist for [facility] Fwd Diagnoses Acute exacerbation of CHF (congestive heart failure) I50.33 Heart failure type: diastolic CAD (coronary artery disease) I25.810 Coronary Disease-Associated Artery/Lesion type: bypass graft [place] vs. transplanted heart: [place] heart Associated angina: angina presence unspecified Pulmonary hypertension I27.20 Anemia D64.9 Anemia type: unspecified type Chronic kidney disease (CKD) N18.3 Chronic kidney disease stage: stage 3 (moderate) Nonalcoholic fatty liver disease K76.0 Peripheral vascular disease I73.9 Insulin dependent type 2 diabetes mellitus E11.9; Z79.4
--- NOTE | 2020-04-16 10:46 | P.PN_ITS ---
Subjective Subjective: Interval history: Patient is doing well. She denies any complaints of shortness of breath, chest pain or palpitations. Vitals/I&O/Wt Last Vital Signs Temp 97.9 F 04/16/20 10:44 Pulse 78 04/16/20 10:44 Resp 20 H 04/16/20 10:44 BP 109/60 04/16/20 10:44 Pulse Ox 98 04/16/20 10:44 04/15/20 04/16/20 04/16/20 22:59 06:59 14:59 Intake Total 420 / 660 110 / 770 120 / 120 Output Total 1440 / 1440 450 / 1890 300 / 300 Balance -1020 / -780 -340 / -1120 -180 / -180 Weight last 48 hrs Weight 215 lb Weight 214 lb 3.2 oz Physical Exam Narrative: EXAM NARRATIVE: GENERAL: Patient is alert, awake and oriented x3. NECK: No jugular vein distension. HEENT: No cyanosis. No icterus. No pallor. HEART: Regular S1 and S2. No murmur, rub or gallop. LUNGS: Clear to auscultate bilaterally. ABDOMEN: Soft, nontender and nondistended. Positive bowel sounds. No guarding, rebound or tenderness. CENTRAL NERVOUS SYSTEM: Grossly nonfocal. EXTREMITIES: Lower extremities with 1+ pitting edema Urinary Catheter Management^: Barriga: Cath Placed During This Visit: yes Reason for Continuing Indwelling Catheter: Acute Urinary Retention or Obstruction Urinary Catheter Date of Insertion: 04/12/20 Urinary Catheter Time of Insertion: 02:00 Data : 04/16/20 03:49 04/16/20 03:49 Micro: Microbiology 04/12/20 16:00 Gram Stain - Final Peritoneal Fluid Anaerobic Culture - Preliminary Body Fluid Culture - Preliminary A&P Assessment and plan (1) Acute exacerbation of CHF (congestive heart failure): IV Lasix can be switched to p.o. Lasix 60 mg twice daily. Patient is close to be euvolemic. From cardiology standpoint she can be discharged. Spironolactone can be held and started once creatinine is less than 1.7. Will recommend follow-up BMP in 3 days as outpatient. Status: Acute Qualifiers: Heart failure type: diastolic Qualified Code(s): I50.33 - Acute on chronic diastolic (congestive) heart failure (2) CAD (coronary artery disease): Continue to optimize medicine including beta-luana isosorbide mononitrate and aspirin. Status: Chronic Qualifiers: Coronary Disease-Associated Artery/Lesion type: bypass graft [place] vs. transplanted heart: [place] heart Associated angina: angina presence unspecified Qualified Code(s): I25.810 - Atherosclerosis of coronary artery bypass graft(s) without angina pectoris (3) Pulmonary hypertension: Status: Chronic (4) Anemia: Patient has chronic anemia but in the face of cirrhosis AVM GI bleed could be a consideration. Continue to monitor as per medicine. Status: Acute Qualifiers: Anemia type: unspecified type Qualified Code(s): D64.9 - Anemia, unspecified (5) Chronic kidney disease (CKD): Could be multifactorial including hepatorenal/heart failure. Continue di uresis continue to monitor vitals he is status post paracentesis Status: Chronic Qualifiers: Chronic kidney disease stage: stage 3 (moderate) Qualified Code(s): N18.3 - Chronic kidney disease, stage 3 (moderate) (6) Nonalcoholic fatty liver disease: Patient has history of nonalcoholic fatty liver cirrhosis. Ascites during this admission. Continue diuretics. Patient follow-up with hepatology Status: Chronic (7) Peripheral vascular disease: Stable. Continue to monitor Status: Chronic (8) Insulin dependent type 2 diabetes mellitus: As per medicine. Status: Chronic Attestations Medical Necessity Statement*: Care expected to cross 2 midnights. Coding Level of Care Code Acute Director Pharmacy Services for [facility] Fwd Diagnoses Acute exacerbation of CHF (congestive heart failure) I50.33 Heart failure type: diastolic CAD (coronary artery disease) I25.810 Coronary Disease-Associated Artery/Lesion type: bypass graft [place] vs. transplanted heart: [place] heart Associated angina: angina presence unspecified Pulmonary hypertension I27.20 Anemia D64.9 Anemia type: unspecified type Chronic kidney disease (CKD) N18.3 Chronic kidney disease stage: stage 3 (moderate) Nonalcoholic fatty liver disease K76.0 Peripheral vascular disease I73.9 Insulin dependent type 2 diabetes mellitus E11.9; Z79.4
[2020-04-16 10:55] LABS: Glucose Point of Care 275 mg/dL (70-110)
[2020-04-16 11:21] VITALS: O2SAT 78; O2SAT 84; O2SAT 95
[2020-04-16 13:27] VITALS: BP 109/60; PULSE 78; RESP 20; TEMP 36.6; O2SAT 98
== END 2020-04-16 14:32 | disposition home or self-care (01) | DRG 291 ==
LOC: ER 03:52 → CSU 07:29
PROVIDERS: Emergency Medicine; Admitting Provider Hospitalist; PCP Family Medicine; Visit Provider Student in an Organized Health Care Education/Training Program
DX: I13.0 Hypertensive heart and chronic kidney disease with heart failure and stage 1 through stage 4 chronic kidney disease, or unspecified chronic kidney disease (principal); I50.33 Acute on chronic diastolic (congestive) heart failure; J44.1 Chronic obstructive pulmonary disease with (acute) exacerbation; R18.8 Other ascites; E87.2 Acidosis; E11.22 Type 2 diabetes mellitus with diabetic chronic kidney disease; N18.30 Chronic kidney disease, stage 3 unspecified; Z79.4 Long term (current) use of insulin; I25.10 Atherosclerotic heart disease of native coronary artery without angina pectoris; K76.0 Fatty (change of) liver, not elsewhere classified; Q27.33 Arteriovenous malformation of digestive system vessel; K74.60 Unspecified cirrhosis of liver; I48.0 Paroxysmal atrial fibrillation; E11.51 Type 2 diabetes mellitus with diabetic peripheral angiopathy without gangrene; I27.20 Pulmonary hypertension, unspecified; Z95.1 Presence of aortocoronary bypass graft; Z95.5 Presence of coronary angioplasty implant and graft; Z87.891 Personal history of nicotine dependence; D50.9 Iron deficiency anemia, unspecified; R06.03 Acute respiratory distress; Z79.51 Long term (current) use of inhaled steroids; Z79.891 Long term (current) use of opiate analgesic; E78.5 Hyperlipidemia, unspecified; Z99.81 Dependence on supplemental oxygen
CPT/HCPCS: 12345; 36415; 36416; 36430; 36600; 49083; 51702; 71045; 71250; 76705; 80048; 80053; 80500; 81003; 82042; 82150; 82465; 82803; 82945; 82962; 83540; 83550; 83605; 83615; 83690; 83735; 83880; 83986; 84075; 84145; 84157; 84315; 84443; 84478; 84484; 84560; 85025; 85610; 86403; 86850; 86870; 86900; 86920; 87015; 87070; 87075; 87116; 87205; 87206; 87426; 87449; 87641; 87801; 87804; 88112; 88305; 89050; 93005; 93306; 93970; 94640; 94660; 94664; 96372; 96375; 97161; 97530; 99284; C9113; J0696; J1644; J1756; J1815; J1940; J2270; J7614; J7626; P9016

== ENCOUNTER 2020-04-27 11:20 | Outpatient (CLI) | payer MEDICARE, MEDICAID, SELFPAY ==
[2020-04-27 11:49] LABS: Basophils % 0.3 %; Eosinophils # 0.3 10^3/uL (0.0-0.8); Eosinophils % 4.4 %; Hemoglobin 8.8 g/dL (11.5-15.3); Lymphocytes # 0.5 10^3/uL (0.8-4.8); Lymphocytes % 7.9 %; Mean Corpuscular HGB Conc 27.5 g/dL (30.0-36.0); Mean Corpuscular Volume 87.4 fL (81-99); Mean Platelet Volume 11.3 fL (7.4-10.4); Monocytes # 0.3 10^3/uL (0.2-0.9); Monocytes % 4.3 %; Neutrophils # 5.22 10^3/uL (1.8-7.7); Neutrophils % 82.8 %; Nucleated Red Blood Cells % 0 %; Platelet Count 201 10^3/cmm (130-400); Red Blood Count 3.66 10^6/uL (4.1-5.3); Red Cell Distribution Width 23.7 % (12.1-15.1); White Blood Count 6.3 10^3/uL (4.0-10.0)
[2020-04-27 12:07] LABS: Estmated Average Glucose 97
[2020-04-27 12:25] LABS: Alanine Aminotransferase < 5 U/L (0-33); Albumin Level 3.9 g/dL (3.5-5.2); Alkaline Phosphatase 86 IU/L (35-105); Anion Gap 17.4 (5-19); Aspartate Amino Transferase 15 U/L (0-32); Blood Urea Nitrogen 44 mg/dL (8-23); Calcium 9.1 mg/dL (8.5-10.5); Carbon Dioxide 33 mmol/L (22-29); Chloride 94 mmol/L (98-107); Globulin 3.2 g/dL (1.3-4.6); Glucose 80 mg/dL (65-115); NT Pro B Type Natriuretic Pept 13395 pg/mL (0-125); Osmolality Calculated 300 mOsm/kg (285-295); Potassium 4.4 mmol/L (3.5-5.1); Sodium 140 mmol/L (136-145); Total Bilirubin 0.4 mg/dL (0.15-1.2); Total Protein 7.1 g/dL (6.6-8.7)
== END 2020-04-27 11:21 | disposition home or self-care (01) ==
LOC: LAB 11:24
PROVIDERS: PCP Family Medicine; Visit Provider Registered Nurse
DX: I50.23 Acute on chronic systolic (congestive) heart failure (principal); E11.51 Type 2 diabetes mellitus with diabetic peripheral angiopathy without gangrene; I10 Essential (primary) hypertension; Z79.4 Long term (current) use of insulin
CPT/HCPCS: 80053; 83036; 83880; 85025

== ENCOUNTER 2020-05-26 16:51 | Outpatient (CLI) | payer MEDICARE, MEDICAID, SELFPAY ==
[2020-05-26 17:22] LABS: Basophils % 0.7 %; Eosinophils # 0.4 10^3/uL (0.0-0.8); Eosinophils % 6.8 %; Hematocrit 34.1 % (37.0-47.0); Hemoglobin 9.6 g/dL (11.5-15.3); Lymphocytes # 1.1 10^3/uL (0.8-4.8); Lymphocytes % 17.6 %; Mean Corpuscular HGB Conc 28.2 g/dL (30.0-36.0); Mean Corpuscular Hemoglobin 25.4 pg (28.0-34.0); Mean Corpuscular Volume 90.2 fL (81-99); Monocytes # 0.3 10^3/uL (0.2-0.9); Monocytes % 4.8 %; Neutrophils % 69.9 %; Nucleated Red Blood Cells % 0 %; Platelet Count 187 10^3/cmm (130-400); Red Blood Count 3.78 10^6/uL (4.1-5.3); Red Cell Distribution Width 20.3 % (12.1-15.1)
[2020-05-26 17:39] LABS: Alanine Aminotransferase < 5 U/L (0-33); Albumin Level 4.6 g/dL (3.5-5.2); Alkaline Phosphatase 107 IU/L (35-105); Anion Gap 15.6 (5-19); Aspartate Amino Transferase 15 U/L (0-32); Calcium 9.5 mg/dL (8.5-10.5); Carbon Dioxide 34 mmol/L (22-29); Chloride 93 mmol/L (98-107); Chol HDL Ratio 2.86 mg/dL (0.0-4.40); Cholesterol 126 mg/dL (0-200); Globulin 3.4 g/dL (1.3-4.6); Glucose 66 mg/dL (65-115); HDL Cholesterol 44 mg/dL (60-100); LDL Cholesterol Calculated 61 mg/dL (50-129); LDL HDL Ratio 1.39 RATIO (0.00-3.22); Osmolality Calculated 312 mOsm/kg (285-295); Potassium 5.6 mmol/L (3.5-5.1); Sodium 137 mmol/L (136-145); Total Bilirubin 0.3 mg/dL (0.15-1.2); Triglycerides 106 mg/dL (0-150)
[2020-05-26 17:51] LABS: Blood Urea Nitrogen 97 mg/dL (8-23)
== END 2020-05-26 16:52 | disposition home or self-care (01) ==
LOC: LAB 17:05
PROVIDERS: Visit Provider Family Medicine
DX: E11.51 Type 2 diabetes mellitus with diabetic peripheral angiopathy without gangrene (principal); D64.9 Anemia, unspecified; Z87.19 Personal history of other diseases of the digestive system
CPT/HCPCS: 80053; 80061; 85025

== ENCOUNTER 2020-07-11 19:21 | Inpatient (IN) | payer MEDICARE, MEDICAID, SELFPAY ==
[2020-07-11 19:26] VITALS: BP 106/66; PULSE 116; RESP 20; TEMP 36.8; O2SAT 100; BMI 25.1
--- NOTE | 2020-07-11 19:31 | XR_ITS ---
WS: [id number] Exam: XR foot RT min 3V* [id number] Date/Time of Exam: 07/11/2020 7:31 PM Reason For Exam: injury No fracture or dislocation noted. There is soft tissue edema and air identified about the fifth toe a s well as the soft tissue interspace between the fourth and fifth toe. There are 2 small opaque densi ties superimposing the soft tissues of the fifth MP joint which may represent foreign bodies. No obvi ous bone destruction noted. XR/XR foot RT min 3V* [id number] IMPRESSION: 1. Soft tissue air identified in the region of the fourth and fifth toes. This may be secondary to soft tissue injury or infection secondary to gas-forming ba cteria. Also noted are 2 small opaque densities along the medial and lateral as pects of the distal fifth metatarsal that could represent soft tissue foreign b odies. These both measure in the range of the 4 to 5 mm each.
--- NOTE | 2020-07-11 19:37 | W.ED.EXTPRO ---
HPI - Extremity Problem General: Chief complaint: Extremity Injury, Lower Stated complaint: FALL Time Seen by Provider: 07/11/20 19:27 Source: patient Mode of arrival: ambulatory Limitations: no limitations History of Present Illness: HPI Narrative: 68-year-old female who has a history diabetes states she ran over right foot weeks ago with her wheelchair has had increasing erythema cellulitis and drainage from the foot. There is foul-smelling. She denies any pain. Denies any worsening factors. Associated symptoms: Deny chest pain, fever(s) or rash Review of Systems Const: Denies: fever(s), chills, body aches or change in appetite Eyes: Denies: blurry vision or eye discomfort ENMT: Denies: throat pain or dental pain Card: Denies: chest pain Resp: Denies: dyspnea GI: Denies: abdominal pain, nausea, vomiting or diarrhea : Denies: dysuria Musc: Reports: extremity pain; Denies: neck pain or back pain Skin/Breast: Denies: rash Neuro: Denies: headache(s) Psych: Denies: depression Reed/Lymph: Denies: easy bruising All/Imm: Denies: urticaria PFSH ED PFSH: Medical History (Updated 07/11/20 @ 21:40 by Cammy Anna MD) CAD (coronary artery disease) Chronic kidney disease (CKD) COPD (chronic obstructive pulmonary disease) Diastolic CHF Echocardiogram 04/12 Diffuse hypokinesia left ventricle with ejection fraction around 40-45%, mildly increased RV size, increased RA/LA size, mod TR History of arteriovenous malformation (AVM) Associated with GI bleeding in the past Insulin dependent type 2 diabetes mellitus Liver cirrhosis Nonalcoholic fatty liver disease Paroxysmal atrial fibrillation Noted on some prior EKGs, not anticoagulated due to the blood loss from gastrointestinal AVMs, not known to be chronic Peripheral vascular disease Pulmonary hypertension ECHO 04/12 Estimated pulmonary artery peak systolic pressure of 55 mmHg. Surgical History (Updated 04/12/20 @ 04:14 by Coty Boss MD) History of appendectomy History of back surgery History of cholecystectomy History of coronary artery bypass graft x 2 History of hand surgery History of heart artery stent History of hernia repair History of repair of right hip joint (~10/26/19) Close reduction with percutaneous screw fixation in the right femoral neck fracture by Dr. Vasquez Family History Other Diabetes Social History Smoking and tobacco status: former smoker Alcohol intake: never Physical Exam Const: COMMON NORMALS: no acute distress, patient oriented x3 and healthy appearing HENMT: COMMON NORMALS: normocephalic and atraumatic HEAD & SCALP: normocephalic and atraumatic Eye: COMMON NORMALS: Equal, round and reactive pupils present and EOMs intact bilaterally PUPIL: Yes Equal, round and reactive pupils present Neck/C-Spine: COMMON NORMALS: full ROM and supple Chest: COMMONS NORMALS: normal inspection of the chest and normal palpation of entire chest wall Resp: COMMON NORMALS: normal respiratory effort, No retractions, No use of accessory muscles and clear to auscultation bilaterally AUSCULTATION: clear to auscultation bilaterally Cardio: COMMON NORMALS: regular rate, regular rhythm and No murmurs present (Cardio) RATE: regular rate RHYTHM: regular rhythm GI: COMMON NORMALS: Normal to inspection, nondistended, normoactive bowel sounds present, Soft to palpation, non-tender and no masses PALPATION: Yes Soft to palpation Extremity: NARRATIVE EXTREMITY EXAM: Cellulitis to right foot with a foul smell and drainage distal pulses are intact Neuro: COMMON NORMALS: patient oriented x3, moves all extremities and no focal motor deficits Psych: COMMON NORMALS: mental status grossly normal, Normal thought process present and cooperative THOUGHT PROCESS: Normal thought process present Skin: COMMON NORMALS: no rashes or lesions noted and no wounds GENERAL SKIN EXAM: no rashes or lesions noted Course Vital Signs: Vital signs: Vital Signs Temperature 98.3 F 07/11/20 19:26 Pulse Rate 115 H 07/11/20 19:57 Respiratory Rate 16 07/11/20 19:57 Blood Pressure 100/66 07/11/20 20:31 Pulse Oximetry 100 07/11/20 20:31 MDM - Extremity (Nontraumatic) MDM Narrative: Medical decision making narrative: Christina presents here cellulitis to her foot with possible osteomyelitis his x-ray does show some gas. Patient started on IV antibiotics and I spoke to hospitalist and will admit. Patient is not septic has a normal lactate. Lab Data: Labs: Lab Results 07/11/20 07/11/20 07/11/20 Range/Units 19:45 19:48 19:48 WBC 12.0 H (4.0-10.0) 10^3/ uL RBC 3.23 L (4.1-5.3) 10^6/u L Hgb 7.9 L (11.5-15.3) g/dL Hct 27.9 L (37.0-47.0) % MCV 86.4 (81-99) fL MCH 24.5 L (28.0-34.0) pg MCHC 28.3 L (30.0-36.0) g/dL RDW 17.2 H (12.1-15.1) % Plt Count 315 (130-400) 10^3/c mm MPV 9.8 (7.4-10.4) fL Neut % (Auto) 89.2 % Lymph % (Auto) 4.8 % [place] % (Auto) 3.3 % Eos % (Auto) 1.8 % Baso % (Auto) 0.2 % Neut # (Auto) 10.67 H (1.8-7.7) 10^3/u L Lymph # (Auto) 0.6 L (0.8-4.8) 10^3/u L [place] # (Auto) 0.4 (0.2-0.9) 10^3/u L Eos # (Auto) 0.2 (0.0-0.8) 10^3/u L Baso # (Auto) 0.0 (0.0-0.1) 10^3/u L Nucleated RBC % (a uto) 0.2 % Nucleated RBCs # 0.0 /100WBC Sodium 129 L (136-145) mmol/L Potassium 5.7 H (3.5-5.1) mmol/L Chloride 90 L (98-107) mmol/L Carbon Dioxide 28 (22-29) mmol/L Anion Gap 16.7 (5-19) BUN 88 H* D (8-23) mg/dL Creatinine 2.9 H (0.5-0.9) mg/dL GFR Calculation Not Reportable Glucose 105 (65-115) mg/dL POC Glucose 112 H (70-110) mg/dL Calculated Osmolal ity 295 (285-295) mOsm/k g Lactate (0.5-2.2) mmol/L Calcium 8.9 (8.5-10.5) mg/dL Total Bilirubin 0.3 (0.15-1.2) mg/dL AST 15 (0-32) U/L ALT 30 (0-33) U/L Alkaline Phosphata se 138 H (35-105) IU/L Total Protein 7.5 (6.6-8.7) g/dL Albumin 3.6 (3.5-5.2) g/dL Globulin 3.9 (1.3-4.6) g/dL 07/11/20 Range/Units 19:48 WBC (4.0-10.0) 10^3/ uL RBC (4.1-5.3) 10^6/u L Hgb (11.5-15.3) g/dL Hct (37.0-47.0) % MCV (81-99) fL MCH (28.0-34.0) pg MCHC (30.0-36.0) g/dL RDW (12.1-15.1) % Plt Count (130-400) 10^3/c mm MPV (7.4-10.4) fL Neut % (Auto) % Lymph % (Auto) % [place] % (Auto) % Eos % (Auto) % Baso % (Auto) % Neut # (Auto) (1.8-7.7) 10^3/u L Lymph # (Auto) (0.8-4.8) 10^3/u L [place] # (Auto) (0.2-0.9) 10^3/u L Eos # (Auto) (0.0-0.8) 10^3/u L Baso # (Auto) (0.0-0.1) 10^3/u L Nucleated RBC % (a uto) % Nucleated RBCs # /100WBC Sodium (136-145) mmol/L Potassium (3.5-5.1) mmol/L Chloride (98-107) mmol/L Carbon Dioxide (22-29) mmol/L Anion Gap (5-19) BUN (8-23) mg/dL Creatinine (0.5-0.9) mg/dL GFR Calculation Glucose (65-115) mg/dL POC Glucose (70-110) mg/dL Calculated Osmolal ity (285-295) mOsm/k g Lactate 0.7 (0.5-2.2) mmol/L Calcium (8.5-10.5) mg/dL Total Bilirubin (0.15-1.2) mg/dL AST (0-32) U/L ALT (0-33) U/L Alkaline Phosphata se (35-105) IU/L Total Protein (6.6-8.7) g/dL Albumin (3.5-5.2) g/dL Globulin (1.3-4.6) g/dL Discharge Plan Discharge Patient Disposition: Admitted As Inpatient Admit Provider: Jaden Prasad Clinical Impression: Chronic kidney disease (CKD) Cellulitis Qualifiers: Site of cellulitis: extremity Site of cellulitis of extremity: lower extremity Laterality: right Qualified Code(s): L03.115 - Cellulitis of right lower limb Condition: Stable Coding Level of Care Code ED Information Management Officer for [facility] Fwd Exam Comprehensive
[2020-07-11 19:50] VITALS: PULSE 115
[2020-07-11 19:57] VITALS: BP 90/56; PULSE 115; RESP 16; O2SAT 100
[2020-07-11 20:02] LABS: Glucose Point of Care 112 mg/dL (70-110)
[2020-07-11 20:31] VITALS: BP 100/66; O2SAT 100
[2020-07-11 20:37] LABS: Basophils % 0.2 %; Eosinophils # 0.2 10^3/uL (0.0-0.8); Eosinophils % 1.8 %; Hematocrit 27.9 % (37.0-47.0); Hemoglobin 7.9 g/dL (11.5-15.3); Lymphocytes # 0.6 10^3/uL (0.8-4.8); Lymphocytes % 4.8 %; Mean Corpuscular HGB Conc 28.3 g/dL (30.0-36.0); Mean Corpuscular Hemoglobin 24.5 pg (28.0-34.0); Mean Corpuscular Volume 86.4 fL (81-99); Mean Platelet Volume 9.8 fL (7.4-10.4); Monocytes # 0.4 10^3/uL (0.2-0.9); Monocytes % 3.3 %; Neutrophils # 10.67 10^3/uL (1.8-7.7); Neutrophils % 89.2 %; Nucleated Red Blood Cells % 0.2 %; Platelet Count 315 10^3/cmm (130-400); Red Blood Count 3.23 10^6/uL (4.1-5.3); Red Cell Distribution Width 17.2 % (12.1-15.1)
[2020-07-11 20:45] LABS: Alanine Aminotransferase 30 U/L (0-33); Albumin Level 3.6 g/dL (3.5-5.2); Alkaline Phosphatase 138 IU/L (35-105); Anion Gap 16.7 (5-19); Aspartate Amino Transferase 15 U/L (0-32); Calcium 8.9 mg/dL (8.5-10.5); Carbon Dioxide 28 mmol/L (22-29); Chloride 90 mmol/L (98-107); Globulin 3.9 g/dL (1.3-4.6); Glucose 105 mg/dL (65-115); Osmolality Calculated 295 mOsm/kg (285-295); Potassium 5.7 mmol/L (3.5-5.1); Sodium 129 mmol/L (136-145); Total Bilirubin 0.3 mg/dL (0.15-1.2); Total Protein 7.5 g/dL (6.6-8.7)
[2020-07-11 20:46] LABS: Lactate (Lactic Acid level) 0.7 mmol/L (0.5-2.2)
[2020-07-11 20:50] LABS: Blood Urea Nitrogen 88 mg/dL (8-23)
--- NOTE | 2020-07-11 21:26 | CTR_ITS ---
PROCEDURE INFORMATION: Exam: CT Right Lower Extremity Without Contrast, Foot Exam date and time: 07/11/2020 9:28 PM Age: 70 years old Clinical indication: Patient HX: Cellulitis to right foot. TECHNIQUE: Imaging protocol: CT of the Right lower extremity without contrast was performed. Exam focused on the foot. Radiation optimization: All CT scans at this facility use at least one of these dose optimization techniques: automated exposure control; mA and/or kV adjustment per patient size (includes targeted exams where dose is matched to clinical indication); or iterative reconstruction. COMPARISON: No relevant prior studies available. RADIATION DOSE METRICS: Total DLP (mGy-cm): 483.39 FINDINGS: Bones/joints: Normal. No acute fracture or dislocation. Soft tissues: Soft tissue edema is present with air in the plantar aspect of the 3rd 4th and 5th toes and the dorsal aspects of the 4th and 5th toes. No collection or drainable abscess is identified. CT/CT lower leg RT wo con* [id number] IMPRESSION: 1. Cellulitis is present in the forefoot as described with air in the soft tissues. 2. No drainable abscess is seen. 3. No evidence of osteomyelitis is seen. Radiation Dose CTDIVOL = (mGy): DLP = 483.39 (mGy-cm)
[2020-07-11] MEDS: piperacillin-tazobactam 3.375 GM in sodium chloride 0.9% (plus) 50 ML IV (21:34)
--- NOTE | 2020-07-11 22:02 | PM.HP ---
Providers/Chief Complaint Admitting Physician: Jaden Prasad MD Primary Care Provider: Keena De La Torre DO Chief Complaint: FALL History of Present Illness Christina Charles is a 70 year old female who has multiple comorbidities including type 2 diabetes scented today with chief complaint of worsening wound of right foot. Patient is stating that 1.5 weeks ago her right foot came under her wheelchair and that caused some skin breakdown, initially she did not pay much attention but gradually it was getting worse then she started noticing some bleeding, drainage and foul odor. She did not seek any attention until today when it is looking macerated. She has not noticed any fever, chills, rigors, nausea, vomiting and is stating that her leg hurts all the time. There are no relieving factors, it gets aggravated with any kind of movement. Patient is stating that since her leg surgery she has been using wheelchair has not been able to walk on her own yet. Diagnostics in the ER revealed sepsis, she was given vancomycin and Zosyn She was also found to have bedbugs, I have requested CT of her lower extremity to rule out necrotizing fasciitis Other investigation revealed hypokalemia, worsening kidney function acute on chronic kidney disease, hyponatremia, her foot x-ray is showing some accumulation of air as well, will add clindamycin as well for toxin suppression Review of Systems Const: Reports: chills, body aches and fatigue Eyes: Denies: change in vision ENMT: Denies: throat pain Card: Reports: edema and swelling of feet/ankles; Denies: chest pain Resp: Denies: dyspnea GI: Denies: abdominal pain : Denies: flank pain Musc: Reports: extremity pain, extremity swelling, joint pain, joint swelling, joint warmth, joint stiffness and limited range of motion Skin/Breast: Reports: new lesions, changing lesions, non-healing lesions, lesions, changes in skin color and dry skin Neuro: Denies: headache(s) Psych: Denies: anxiety Endo: Denies: polyuria Reed/Lymph: Denies: easy bruising All/Imm: Denies: urticaria Medications/Allergies Home Medications Medication Instructions Recorded Confirmed Last Taken Type ondansetron HCl 4 mg PO DAILY 10/25/19 04/12/20 Unknown History Tresiba FlexTouch U-100 30 unit SUBCUT BEDTIME 10/26/19 04/12/20 Unknown History buspirone 15 mg PO BID 10/26/19 04/12/20 Unknown History diphenoxylate-atropine 1 tab PO TID PRN 10/26/19 04/12/20 Unknown History hydrocodone-acetaminophen 10 - 325 tab PO 5XD PRN 10/26/19 04/12/20 Unknown History levalbuterol tartrate [Xopenex HFA] 1 puff INHALATION QID PRN 10/26/19 04/12/20 Unknown History metoprolol tartrate 25 mg PO DAILY 10/26/19 04/12/20 Unknown History midodrine 2.5 mg PO BID 10/26/19 04/12/20 Unknown History trazodone 100 mg PO BEDTIME 10/26/19 04/12/20 Unknown History albuterol sulfate 2.5 mg INHALATION QID PRN 04/12/20 04/12/20 Unknown History aspirin 81 mg PO DAILY #30 tab 04/16/20 Unknown Rx furosemide 80 mg PO BID@08,16 #120 tab 04/16/20 Unknown Rx isosorbide mononitrate 15 mg PO BID #60 tab 04/16/20 Unknown Rx spironolactone 25 mg PO DAILY #30 tab 04/16/20 04/12/20 Unknown Rx Allergies Allergy/AdvReac Type Severity Reaction Status Date / Time STERIODS Allergy ADR-Agitate Uncoded 10/25/19 15:45 d PFSH Acute PFSH: Medical History CAD (coronary artery disease) Chronic kidney disease (CKD) COPD (chronic obstructive pulmonary disease) Diastolic CHF Echocardiogram 04/12 Diffuse hypokinesia left ventricle with ejection fraction around 40-45%, mildly increased RV size, increased RA/LA size, mod TR History of arteriovenous malformation (AVM) Associated with GI bleeding in the past Insulin dependent type 2 diabetes mellitus Liver cirrhosis Nonalcoholic fatty liver disease Paroxysmal atrial fibrillation Noted on some prior EKGs, not anticoagulated due to the blood loss from gastrointestinal AVMs, not known to be chronic Peripheral vascular disease Pulmonary hypertension ECHO 04/12 Estimated pulmonary artery peak systolic pressure of 55 mmHg. Surgical History History of appendectomy History of back surgery History of cholecystectomy History of coronary artery bypass graft x 2 History of hand surgery History of heart artery stent History of hernia repair History of repair of right hip joint (~10/26/19) Close reduction with percutaneous screw fixation in the right femoral neck fracture by Dr. Vasquez Family History Other Diabetes Social History Smoking and tobacco status: former smoker Alcohol intake: never Vitals/I&O/Wt Last Vital Signs Temp 98.3 F 07/11/20 19:26 Pulse 115 H 07/11/20 19:57 Resp 16 07/11/20 19:57 BP 100/66 07/11/20 20:31 Pulse Ox 100 07/11/20 20:31 Weight last 48 hrs Weight 77.111 kg Physical Exam Narrative: EXAM NARRATIVE: elderly female Who looks more than stated age Unkempt appearance, Bedbugs were also noted Currently saturating well on 3 L nasal can Patient was not complaining of active chest pain, S1, S2, tachycardia Abdomen soft nontender bowel sound present Bilateral breath sound without adventitial rhonchi or crackles Anxious mood EOMI, PERRLA No neurological deficit Lower extremity bilateral pitting edema 2+ Right foot fifth digit area has wet gangrene, 4 x 3 x 3 cm, extending from dorsum of foot to lateral and plantar side ,macerated edges, purulent discharge with hyperemia, foul-order Dorsalis pedis pulses 1+ bilateral Data : 07/11/20 19:48 07/11/20 19:48 Micro: Microbiology 07/11/20 20:08 Blood Culture - Preliminary Blood SPECIMEN COLLECTED 07/11/20 20:14 Blood Culture - Preliminary Blood SPECIMEN COLLECTED A&P Assessment and plan (1) Diabetic foot ulcer: Status: Acute (2) Sepsis: Status: Acute (3) Cellulitis: Status: Acute Qualifiers: Laterality: right Site of cellulitis: extremity Site of cellulitis of extremity: lower extremity Qualified Code(s): L03.115 - Cellulitis of right lower limb (4) Acute kidney injury superimposed on chronic kidney disease: Status: Acute (5) Hyperkalemia: Status: Acute (6) Chronic anemia: Status: Acute Additional A&P Information Sepsis due to wet gangrene Nonhealing diabetic foot ulcer , purulent cellulitis, Her symptoms started about 1.5 weeks ago Concern for osteomyelitis, foot x-rays also showing air around fifth metatarsal, requested CT scan to rule out necrotizing fasciitis, meanwhile I will start her on linezolid, Zosyn and clindamycin, linezolid was chosen because of worsening kidney function We will consult podiatry Keep her n.p.o. Start her on normal saline ESR, CRP requested Acute on chronic kidney disease Baseline creatinine seems to be around 1.9-2.4 This seems due to sepsis and medications, clinically she has signs of fluid overload, this could very well be prerenal/cardiorenal Patient has been taking spironolactone Not complaining of UTI or flank pain Would request renal ultrasound to rule out hydronephrosis Avoid nephrotoxic agent For hyperkalemia I will give her calcium gluconate and Kayexalate, request EKG chronic anemia Hemoglobin seems to be around baseline No active need of blood transfusion, Current hemoglobin 7.9 HemoDynamically she is stable CHF She has chronic leg edema for which she takes Lasix Clinically she does have signs of fluid overload I will repeat BNP Judicious use of fluids, start Lasix after 4 hours of normal saline overnight Full code DVT prophylaxis SCDs N.p.o. Attestations Medical Necessity Statement*: Anticipating stay in the hospital course more than 2 midnights, currently need evaluation for wet gangrene of foot, awaiting CT scan result to rule out necrotizing fasciitis Time Spent in Patient Care: (>than 50% of time spent in counselling and/or direct pt care on unit). 50mins Coding Level of Care Code Acute Planting Material Carrier for [facility]g Fwd Diagnoses Diabetic foot ulcer E11.621; L97.509 Sepsis A41.9 Cellulitis L03.115 Laterality: right Site of cellulitis: extremity Site of cellulitis of extremity: lower extremity Acute kidney injury superimposed on chronic kidney disease N17.9; N18.9 Hyperkalemia E87.5 Chronic anemia D64.9
[2020-07-11] MEDS: vancomycin 1,000 MG in sodium chloride 0.9% 250 ML 250 MG IV (22:20)
[2020-07-12] VITALS (26 sets, daily range): BP systolic 83–113; BP diastolic 45–73; PULSE 80–124; RESP 14–20; TEMP 36.1–36.7; O2SAT 93–100
[2020-07-12] MEDS: clindamycin 150 mg Capsule 300 MG PO ×3 (05:53→18:00)
[2020-07-12] MEDS: linezolid premix 600 MG/300 ML PREMIX 300 MG IV ×2 (05:53→18:00)
[2020-07-12] MEDS: sodium chloride 0.9% 1,000 ML 75 ML IV (05:53)
[2020-07-12] MEDS: sodium polystyrene sulfonate 15 gm/60 mL Btl PO (05:53)
[2020-07-12 07:29] LABS: Glucose Point of Care 89 mg/dL (70-110)
[2020-07-12 08:07] LABS: Procalcitonin 0.72 ng/mL (0-0.5)
[2020-07-12 08:18] LABS: C Reactive Protein 82.7 mg/L (0.0-4.9)
[2020-07-12 08:42] LABS: Erythrocyte Sedimentation Rate 59 mm/hr (0-15)
[2020-07-12] MEDS: isosorbide mononitrate ER 30 mg Tablet 15 MG PO ×2 (09:18→18:00)
[2020-07-12] MEDS: metoprolol tartrate 25 mg Tablet PO (09:18)
[2020-07-12] MEDS: aspirin 81 mg EC Tablet PO (09:18)
[2020-07-12] MEDS: sennosides-docusate Tablet 1 TAB PO (09:18)
[2020-07-12] MEDS: piperacillin-tazobactam 3.375 GM in sodium chloride 0.9% (plus) 50 ML IV (09:19)
--- NOTE | 2020-07-12 11:45 | USR_ITS ---
PROCEDURE INFORMATION: Exam: US Duplex Lower Extremity Arteries Or Arterial Bypass Grafts Exam date and time: 07/12/2020 1:15 PM Age: 70 years old Clinical indication: Other: Wet gangrene TECHNIQUE: Imaging protocol: Real-time ultrasound scan of the arteries of the bilateral lower extremities with 2-D lucas scale, color Doppler flow and spectral waveform analysis. Images documented and saved. COMPARISON: CT lower leg RT wo con* [id number] 07/12/2020 4:00 AM FINDINGS: Right common femoral artery: The peak systolic velocity is elevated at 209 cm/s consistent with moderate common femoral artery stenosis.. Right superficial femoral artery: There is monophasic waveform with elevated peak systolic velocity in the distal SFA at 183 cm/s. This is consistent with mild stenosis.. Right popliteal artery: Monophasic waveform with elevated velocity of 183 cm/s consistent with mild stenosis.. Right calf/foot arteries: Monophasic waveform but no elevated velocities. Dorsalis pedis artery is patent. Left common femoral artery: No occlusion or significant stenosis. Normal waveform. Left superficial femoral artery: There is complete occlusion of the proximal and midportion of the left superficial femoral artery. The distal portion reconstitute via deep collaterals. Left popliteal artery: There is monophasic waveform in the left popliteal artery and significantly decreased flow consistent with the superficial femoral artery occlusion. Left calf/foot arteries: There is monophasic waveform and significantly decreased velocities and flow. The dorsalis pedis artery is patent.. US/[place] [id number] IMPRESSION: 1. Elevated velocities and monophasic waveform in the right common femoral and right popliteal arteries consistent with mild to moderate stenosis. 2. 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
--- NOTE | 2020-07-12 11:49 | PM.CONSULT ---
Providers/Reason For Consult Consulting Physican/Specialty*: Demetrius Narvaez MD Reason for Consult*: Right diabetic foot infection Attending Physician: Bashir Carrero MD Primary Care Provider: Keena De La Torre DO History of Present Illness History of Present Illness This is a pleasant 71 years old female patient with multiple medical comorbidities including type 2 diabetes mellitus. Patient has been complaining of worsening right foot wound, has been deteriorating over the past 1 week or so and started to have a foul odor drainage and associated with some bleeding. Does not seem that the patient had medical attention and she denies history of fevers chills nausea or vomiting. And she does report that her leg does cause pain most of the time. Patient was admitted to the hospitalist service and was started on broad-spectrum antimicrobial therapy and a foot x-ray was obtained and showed: IMPRESSION: 1. Soft tissue air identified in the region of the fourth and fifth toes. This may be secondary to soft tissue injury or infection secondary to gas-forming bacteria. Also noted are 2 small opaque densities along the medial and lateral aspects of the distal fifth metatarsal that could represent soft tissue foreign bodies. These both measure in the range of the 4 to [address] scan was done that showed: 1. Cellulitis is present in the forefoot as described with air in the soft tissues. 2. No drainable abscess is seen. 3. No evidence of osteomyelitis is seen. Ankle and foot surgery were consulted, a consultation was deferred to general surgery for further evaluation and potential intervention. Review of Systems General: Reports: 10 or more systems reviewed and unremarkable except in HPI and below Meds/Allergies Home Medications and Allergies Home Medications Medication Instructions Recorded Confirmed Last Taken Type Tresiba FlexTouch U-100 30 unit SUBCUT BEDTIME 10/26/19 07/12/20 Unknown History buspirone 15 mg PO BID 10/26/19 07/12/20 Unknown History diphenoxylate-atropine 1 tab PO TID PRN 10/26/19 07/12/20 Unknown History hydrocodone-acetaminophen 10 - 325 tab PO 5XD PRN 10/26/19 07/12/20 Unknown History levalbuterol tartrate [Xopenex HFA] 1 puff INHALATION QID PRN 10/26/19 07/12/20 Unknown History metoprolol tartrate 25 mg PO DAILY 10/26/19 07/12/20 Unknown History midodrine 2.5 mg PO BID 10/26/19 07/12/20 Unknown History trazodone 200 mg PO BEDTIME 10/26/19 07/12/20 Unknown History albuterol sulfate 2.5 mg INHALATION QID PRN 04/12/20 07/12/20 Unknown History aspirin 81 mg PO DAILY #30 tab 04/16/20 07/12/20 Unknown Rx isosorbide mononitrate 15 mg PO BID #60 tab 04/16/20 07/12/20 Unknown Rx spironolactone 25 mg PO DAILY #30 tab 04/16/20 07/12/20 Unknown Rx furosemide 40 mg PO DAILY 07/12/20 07/12/20 Unknown History Allergies Allergy/AdvReac Type Severity Reaction Status Date / Time STERIODS Allergy ADR-Agitate Uncoded 07/12/20 15:00 d Current Medications Current Medications Generic Name Dose Route Start Last Admin Trade Name Freq PRN Reason Stop Dose Admin Albuterol Sulfate 2.5 mg 07/12/20 04:59 07/12/20 08:05 Albuterol 2.5 Mg/0.5 Ml Neb INHALATION 2.5 mg QID PRN Administration Shortness Of Breath Aspirin 81 mg 07/12/20 09:00 07/12/20 09:18 Aspirin 81 Mg Ec Tablet PO 81 mg DAILY RINANA Administration Clindamycin HCl 300 mg 07/12/20 05:00 07/12/20 05:53 Clindamycin 150 Mg Capsule PO 300 mg Q6H RIANNA Administration Protocol Piperacillin Sod/Tazobactam 50 mls @ 12.5 mls/hr 07/12/20 10:00 07/12/20 09:19 Sod 3.375 gm/ Sodium Chloride IV 12.5 mls/hr Q12H RIANNA Administration Protocol Linezolid 600 mg in 300 mls @ 300 mls/hr 07/12/20 05:00 07/12/20 05:53 Zyvox Premix IV 300 mls/hr Q12H RIANNA Administration Protocol Insulin Aspart 0 unit 07/12/20 08:00 07/12/20 08:19 Insulin Aspart 100 Unit/1 Ml SUBCUT Not Given WM&BEDTIME RIANNA Protocol Isosorbide Mononitrate 15 mg 07/12/20 09:00 07/12/20 09:18 Isosorbide Mononitrate Er 30 Mg Tablet PO 15 mg BID RIANNA Administration Metoprolol Tartrate 25 mg 07/12/20 09:00 07/12/20 09:18 Metoprolol Tartrate 25 Mg Tablet PO 25 mg DAILY RIANNA Administration Senna/Docusate Sodium 1 tab 07/12/20 09:00 07/12/20 09:18 Sennosides-Docusate Tablet PO 1 tab DAILY RIANNA Administration PFSH Acute PFSH: Medical History CAD (coronary artery disease) Chronic kidney disease (CKD) COPD (chronic obstructive pulmonary disease) Diastolic CHF Echocardiogram 04/12 Diffuse hypokinesia left ventricle with ejection fraction around 40-45%, mildly increased RV size, increased RA/LA size, mod TR History of arteriovenous malformation (AVM) Associated with GI bleeding in the past Insulin dependent type 2 diabetes mellitus Liver cirrhosis Nonalcoholic fatty liver disease Paroxysmal atrial fibrillation Noted on some prior EKGs, not anticoagulated due to the blood loss from gastrointestinal AVMs, not known to be chronic Peripheral vascular disease Pulmonary hypertension ECHO 04/12 Estimated pulmonary artery peak systolic pressure of 55 mmHg. Surgical History History of appendectomy History of back surgery History of cholecystectomy History of coronary artery bypass graft x 2 History of hand surgery History of heart artery stent History of hernia repair History of repair of right hip joint (~10/26/19) Close reduction with percutaneous screw fixation in the right femoral neck fracture by Dr. Vasquez Family History Other Diabetes Social History Smoking and tobacco status: former smoker Alcohol intake: never Vitals/I&O/Wt Last Vital Signs Temp 97.7 F 07/12/20 11:24 Pulse 87 07/12/20 11:24 Resp 18 07/12/20 11:24 BP 94/54 07/12/20 11:24 Pulse Ox 97 07/12/20 11:24 07/11/20 07/12/20 07/12/20 22:59 06:59 14:59 Intake Total 50 / 50 250 / 300 Balance 50 / 50 250 / 300 Weight last 48 hrs Weight 170 lb Physical Exam Narrative: EXAM NARRATIVE: Patient is conscious alert oriented X3 BMI 25.1 Head and neck examination PERRLA no masses no cervical lymphadenopathy no jaundice Abdomen nontender nondistended soft no organomegaly guarding or rigidity/no signs of peritonitis Lateral lower extremity edema. Right foot shows an open ulcer towards the lateral aspect of the right lateral toe with wet gangrenous changes and malodorous discharge, with dorsal edema and surrounding cellulitis I was not able to palpate dorsalis pedis, posterior tibial or peroneal arteries because of the swelling and edema Data Micro: Micro: Microbiology 07/11/20 20:08 Blood Culture - Pr eliminary Blood SPECIMEN [place] [facility] 07/11/20 20:14 Blood Culture - Pr eliminary Blood SPECIMEN [facility] A&P Assessment and plan (1) Diabetic foot ulcer: After history taking physical examination and reviewing the chart and images with my personal interpretation of the x-ray and the CT scan, we will plan to take the patient for surgery the form of incision and drainage of right diabetic foot infection and possible amputation of right fifth toe. Patient understands the potential risks benefits alternatives and indications and she does understand that she is a high risk of future amputee. Status: Acute Consult Attestations Medical Necessity Statement: Inpatient hospitalization for medical and surgical care Time Spent in Patient Care: (>than 50% of time spent in counselling and/or direct pt care on unit). 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
[2020-07-12 11:59] LABS: Basophils % 0.2 %; Eosinophils # 0.3 10^3/uL (0.0-0.8); Eosinophils % 2.1 %; Hematocrit 27.1 % (37.0-47.0); Lymphocytes # 0.9 10^3/uL (0.8-4.8); Lymphocytes % 6.5 %; Mean Corpuscular HGB Conc 29.5 g/dL (30.0-36.0); Mean Corpuscular Hemoglobin 24.4 pg (28.0-34.0); Mean Corpuscular Volume 82.6 fL (81-99); Mean Platelet Volume 9.6 fL (7.4-10.4); Monocytes # 0.5 10^3/uL (0.2-0.9); Monocytes % 4.1 %; Neutrophils # 11.34 10^3/uL (1.8-7.7); Neutrophils % 86.3 %; Nucleated Red Blood Cells % 0.3 %; Platelet Count 413 10^3/cmm (130-400); Red Blood Count 3.28 10^6/uL (4.1-5.3); Red Cell Distribution Width 17.1 % (12.1-15.1); White Blood Count 13.1 10^3/uL (4.0-10.0)
[2020-07-12 12:07] LABS: Glucose Point of Care 51 mg/dL (70-110)
[2020-07-12] MEDS: dextrose 50% syringe 50 mL 25 ML IVP ×2 (12:10→17:23)
[2020-07-12 12:17] LABS: Ferritin 82 ng/mL (15-150); Iron 15 ug/dL (37-145)
[2020-07-12] MEDS: pantoprazole DR 40 mg Tablet PO ×2 (12:24→18:00)
[2020-07-12] MEDS: sucralfate 1 gm Tablet PO ×3 (12:25→21:51)
[2020-07-12 12:46] LABS: Glucose Point of Care 178 mg/dL (70-110)
[2020-07-12] MEDS: dextrose 5%-sod chloride 0.9% 1,000 ML 100 ML IV ×2 (12:50→23:59)
--- NOTE | 2020-07-12 14:31 | ANES.PREANE2 ---
Pre-Anesthetic Assessment Pre-Anesthetic Assessment: Height/Weight: Height 1.75 m Weight 77.111 kg Temp Pulse Resp BP Pulse Ox 97.8 F 98 16 88/60 100 07/12/20 14:06 07/12/20 14:06 07/12/20 14:06 07/12/20 14:06 07/12/20 14:06 Preop Diagnosis: Right femoral neck fracture Proposed Procedure: Operation Date: 07/12/20 14:20 Proposed Procedures p Debridement right foot(Right) - Demetrius Narvaez MD s poss amputaion right 5th toe(Right) - Demetrius Narvaez MD Was Beta Kojo taken within 24 hours: Yes Last intake: Intake Last Liquid Date 07/11/20 Last Liquid Time 17:30 Last Solid Date 07/11/20 Last Solid Time 11:00 Social: Social History: Tobacco and No alcohol Comment: long h/o smoking quit several yrs ago Exam: Pre-Anes Outpt Exam: alert and oriented x 3 Additional Exam Findings (including area of procedure): decreased BS, irregular Airway: Submandibular: WNL Cervical ROM: WNL MP: 2 Dentition: False Pulmonary: Pulmonary: COPD Comments: Home O2 CV/HEM: CV/HEM: Anemia, Arrythmia, CAD, CHF and PVD Comments: EF 30-40%, pulm HTN : : Chronic renal Insufficiency Hepatic: Hepatic: None reported GI: GI: GERD Metabolic: Metabolic: DM Musc/skel: Musc/skel: Weakness Comments: leg pain Neuropsych: Neuropsych: None reported Anesthetic Plan: ASA status: 4 Anesthesia: Regional (specify below) Other: SAB--despite elevated WBC and left shift, patient has had 2 doses of Zyvox, afebrile...given PMHx especially COPD/CHF and Pulm HTN Risk of > 500 ml blood loss (7ml/kg in children): No Meds/Allergies Current Medications: Current Medications Generic Name Dose Route Start Last Admin Trade Name Freq PRN Reason Stop Dose Admin Albuterol Sulfate 2.5 mg 07/12/20 04:59 07/12/20 08:05 Albuterol 2.5 Mg /0.5 Ml Neb INHALATION 2.5 mg QID PRN Administration Shortness Of Bernie th Aspirin 81 mg 07/12/20 09:00 07/12/20 09:18 Aspirin 81 Mg Ec Tablet PO 81 mg DAILY RIANNA Administration Clindamycin HCl 300 mg 07/12/20 05:00 07/12/20 12:24 Clindamycin 150 Mg Capsule PO 300 mg Q6H RIANNA Administration Protocol Dextrose 25 ml 07/12/20 04:50 07/12/20 12:10 Dextrose 50% Syr darrell 50 Ml IVP 25 ml ONCE PRN Administration hypoglycemia prot ocol Protocol Piperacillin Sod/T azobactam 50 mls @ 12.5 mls /hr 07/12/20 10:00 07/12/20 09:19 Sod 3.375 gm/ So dium Chloride IV 12.5 mls/hr Q12H RIANNA Administration Protocol Linezolid 600 mg in 300 mls @ 300 mls/hr 07/12/20 05:00 07/12/20 05:53 Zyvox Premix IV 300 mls/hr Q12H RIANNA Administration Protocol Dextrose/Sodium Ch loride 1,000 mls @ 100 m ls/hr 07/12/20 12:30 07/12/20 12:50 Dextrose 5%-Sod Chloride 0.9% IV 100 mls/hr .Q10H RIANNA Administration Insulin Aspart 0 unit 07/12/20 08:00 07/12/20 12:26 Insulin Aspart 1 00 Unit/1 Ml SUBCUT Not Given WM&BEDTIME RIANNA Protocol Isosorbide Mononit rate 15 mg 07/12/20 09:00 07/12/20 09:18 Isosorbide [place] itrate Er 30 Mg Ta blet PO 15 mg BID RIANNA Administration Metoprolol Tartrat e 25 mg 07/12/20 09:00 07/12/20 09:18 Metoprolol Tartr ate 25 Mg Tablet PO 25 mg DAILY RIANNA Administration Pantoprazole Sodiu m 40 mg 07/12/20 11:00 07/12/20 12:[address] 40 Mg Tablet PO 40 mg BID RIANNA Administration Senna/Docusate Sod ium 1 tab 07/12/20 09:00 07/12/20 09:18 Sennosides-Docus ate Tablet PO 1 tab DAILY RIANNA Administration Sucralfate 1 gm 07/12/20 11:00 07/12/20 12:25 Sucralfate 1 Gm Tablet PO 1 gm AC&BEDTIME RIANNA Administration PFSH Anesthesia PFSH: Medical History CAD (coronary artery disease) Chronic kidney disease (CKD) COPD (chronic obstructive pulmonary disease) Diastolic CHF Echocardiogram 04/12 Diffuse hypokinesia left ventricle with ejection fraction around 40-45%, mildly increased RV size, increased RA/LA size, mod TR History of arteriovenous malformation (AVM) Associated with GI bleeding in the past Insulin dependent type 2 diabetes mellitus Liver cirrhosis Nonalcoholic fatty liver disease Paroxysmal atrial fibrillation Noted on some prior EKGs, not anticoagulated due to the blood loss from gastrointestinal AVMs, not known to be chronic Peripheral vascular disease Pulmonary hypertension ECHO 04/12 Estimated pulmonary artery peak systolic pressure of 55 mmHg. Surgical History History of appendectomy History of back surgery History of cholecystectomy History of coronary artery bypass graft x 2 History of hand surgery History of heart artery stent History of hernia repair History of repair of right hip joint (~10/26/19) Close reduction with percutaneous screw fixation in the right femoral neck fracture by Dr. Vasquez Family History Other Diabetes Social History Smoking and tobacco status: former smoker Alcohol intake: never Data Anesthesia CBC & Chem 7: 07/12/20 11:50 07/11/20 19:48 Other Labs: Laboratory Results - last 48 hr 07/11/20 07/11/20 07/11/20 19:45 19:48 19:48 WBC 12.0 H RBC 3.23 L Hgb 7.9 L Hct 27.9 L MCV 86.4 MCH 24.5 L MCHC 28.3 L RDW 17.2 H Plt Count 315 MPV 9.8 Neut % (Auto) 89.2 Lymph % (Auto) 4.8 Traverse % (Auto) 3.3 Eos % (Auto) 1.8 Baso % (Auto) 0.2 Reticulocyte % (Auto) Neut # (Auto) 10.67 H Lymph # (Auto) 0.6 L Traverse # (Auto) 0.4 Eos # (Auto) 0.2 Baso # (Auto) 0.0 Nucleated RBC % (auto) 0.2 Nucleated RBCs # 0.0 ESR Sodium 129 L Potassium 5.7 H Chloride 90 L Carbon Dioxide 28 Anion Gap 16.7 BUN 88 H* D Creatinine 2.9 H GFR Calculation Not Reportable Glucose 105 POC Glucose 112 H Calculated Osmolality 295 Lactate Calcium 8.9 Iron Ferritin Total Bilirubin 0.3 AST 15 ALT 30 Alkaline Phosphatase 138 H C-Reactive Protein Total Protein 7.5 Albumin 3.6 Globulin 3.9 Procalcitonin 07/11/20 07/11/20 07/11/20 19:48 19:48 19:48 WBC RBC Hgb Hct MCV MCH MCHC RDW Plt Count MPV Neut % (Auto) Lymph % (Auto) Traverse % (Auto) Eos % (Auto) Baso % (Auto) Reticulocyte % (Auto) Neut # (Auto) Lymph # (Auto) Traverse # (Auto) Eos # (Auto) Baso # (Auto) Nucleated RBC % (auto) Nucleated RBCs # ESR 59 H Sodium Potassium Chloride Carbon Dioxide Anion Gap BUN Creatinine GFR Calculation Glucose POC Glucose Calculated Osmolality Lactate 0.7 Calcium Iron Ferritin Total Bilirubin AST ALT Alkaline Phosphatase C-Reactive Protein 82.7 H Total Protein Albumin Globulin Procalcitonin 0.72 H 07/12/20 07/12/20 07/12/20 07:26 11:50 11:50 WBC 13.1 H RBC 3.28 L Hgb 8.0 L Hct 27.1 L MCV 82.6 MCH 24.4 L MCHC 29.5 L RDW 17.1 H Plt Count 413 H MPV 9.6 Neut % (Auto) 86.3 Lymph % (Auto) 6.5 Traverse % (Auto) 4.1 Eos % (Auto) 2.1 Baso % (Auto) 0.2 Reticulocyte % (Auto) 1.5600 Neut # (Auto) 11.34 H Lymph # (Auto) 0.9 Traverse # (Auto) 0.5 Eos # (Auto) 0.3 Baso # (Auto) 0.0 Nucleated RBC % (auto) 0.3 Nucleated RBCs # 0.0 ESR Sodium Potassium Chloride Carbon Dioxide Anion Gap BUN Creatinine GFR Calculation Glucose POC Glucose 89 Calculated Osmolality Lactate Calcium Iron 15 L Ferritin 82 Total Bilirubin AST ALT Alkaline Phosphatase C-Reactive Protein Total Protein Albumin Globulin Procalcitonin 07/12/20 07/12/20 12:05 12:43 WBC RBC Hgb Hct MCV MCH MCHC RDW Plt Count MPV Neut % (Auto) Lymph % (Auto) Traverse % (Auto) Eos % (Auto) Baso % (Auto) Reticulocyte % (Auto) Neut # (Auto) Lymph # (Auto) Traverse # (Auto) Eos # (Auto) Baso # (Auto) Nucleated RBC % (auto) Nucleated RBCs # ESR Sodium Potassium Chloride Carbon Dioxide Anion Gap BUN Creatinine GFR Calculation Glucose POC Glucose 51 L 178 H Calculated Osmolality Lactate Calcium Iron Ferritin Total Bilirubin AST ALT Alkaline Phosphatase C-Reactive Protein Total Protein Albumin Globulin Procalcitonin Micro: Microbiology 07/11/20 20:08 Blood Culture - Preliminary Blood SPECIMEN COLLECTED 07/11/20 20:14 Blood Culture - Preliminary Blood SPECIMEN COLLECTED Cardiac Studies: No Data to Display
[2020-07-12] MEDS: albumin 12.5 GM/250 ML VIAL IV (14:50)
--- NOTE | 2020-07-12 15:19 | PM.PN ---
Subjective Subjective: Interval history: This morning patient was examined, she is complaining of right foot pain, increased drainage, foul smell, no fevers, no chills, no nausea, no vomiting, no abdominal pain, is hungry Vitals/I&O/Wt Last Vital Signs Temp 97.8 F 07/12/20 14:06 Pulse 98 07/12/20 14:06 Resp 16 07/12/20 14:06 BP 88/60 07/12/20 14:06 Pulse Ox 100 07/12/20 14:06 07/12/20 07/12/20 07/12/20 06:59 14:59 22:59 Intake Total 250 / 300 Balance 250 / 300 Weight last 48 hrs Weight 77.111 kg Physical Exam Const: COMMON NORMALS: no acute distress and patient oriented x3 HENMT: COMMON NORMALS: normocephalic HEAD & SCALP: normocephalic Neck/C-Spine: COMMON NORMALS: no JVD Resp: COMMON NORMALS: normal respiratory effort, No retractions, No use of accessory muscles and clear to auscultation bilaterally AUSCULTATION: clear to auscultation bilaterally Cardio: COMMON NORMALS: no JVD, regular rate, regular rhythm, S1 normal heart sound present and S2 normal heart sound present RATE: regular rate RHYTHM: regular rhythm HEART SOUNDS: S1 normal heart sound present and S2 normal heart sound present GI: COMMON NORMALS: Normal to inspection, nondistended, normoactive bowel sounds present, Soft to palpation, non-tender, No hepatosplenomegaly present, no masses and no bruits PALPATION: Yes Soft to palpation and Yes No hepatosplenomegaly present Extremity: COMMON NORMALS: capillary refill normal, no clubbing, cyanosis or edema, no calf tenderness and no pedal edema Neuro: COMMON NORMALS: patient oriented x3 Psych: COMMON NORMALS: mental status grossly normal Skin: NARRATIVE SKIN EXAM: Right foot, wet gangrene, fourth and fifth digit, foul smell, with surrounding erythema, swelling Data : 07/12/20 11:50 07/11/20 19:48 Micro: Microbiology 07/11/20 20:08 Blood Culture - Preliminary Blood SPECIMEN COLLECTED 07/11/20 20:14 Blood Culture - Preliminary Blood SPECIMEN COLLECTED A&P Assessment and plan (1) Diabetic foot ulcer: Status: Acute (2) Sepsis: Status: Acute (3) Cellulitis: Status: Acute Qualifiers: Laterality: right Site of cellulitis: extremity Site of cellulitis of extremity: lower extremity Qualified Code(s): L03.115 - Cellulitis of right lower limb (4) Acute kidney injury superimposed on chronic kidney disease: Status: Acute (5) Hyperkalemia: Status: Acute (6) Chronic anemia: Status: Acute Additional A&P Information Sepsis due to wet gangrene Nonhealing diabetic foot ulcer , purulent cellulitis, Her symptoms started about 1.[address] scan: Bones/joints: Normal. No acute fracture or dislocation. Soft tissues: Soft tissue edema is present with air in the plantar aspect of the 3rd 4th and 5th toes and the dorsal aspects of the 4th and 5th toes. No collection or drainable abscess is identified. linezolid, Zosyn and clindamycin Podiatry was consulted, however they are not on-call, Dr. Vasquez was consulted however he has passed patient off to Dr. Narvaez, Dr. Narvaez will come see the patient Keep her n.p.o. Start her on normal saline, bolus as needed to maintain MAP more than 65 Pro-Steve 0.72, ESR 52, CRP 82.7 white blood cell count 13.1 Acute on chronic kidney disease Baseline creatinine seems to be around 1.9-2.4, creatinine 2.9 likely secondary to sepsis This seems due to sepsis and medications, clinically she has signs of fluid overload, this could very well be prerenal/cardiorenal Patient has been taking spironolactone Not complaining of UTI or flank pain Would request renal ultrasound to rule out hydronephrosis Avoid nephrotoxic agent For hyperkalemia she has received calcium gluconate and Kayexalate Acute on chronic chronic anemia Hemoglobin seems to be around baseline No active need of blood transfusion, Current hemoglobin 7.9 We will transfuse 1 unit PRBC Start Protonix, Carafate Iron levels 15, ferritin 82 Hemoccult stool pending Cannot rule out underlying slow GI bleed, patient has a history of AV malformations, associate with GI bleeds in the past, continue to monitor CHF: Diastolic CHF, echo on 11/01/2019 showed an EF of 60%, grade 2 out of 4 diastolic dysfunction She has chronic leg edema for which she takes Lasix Currently has 1+ pitting edema, no shortness of breath and on her home 3 L Conservative use of fluids, Lasix as needed CAD, aspirin, statin, Imdur, metoprolol and hold Nonalcoholic fatty liver disease, liver cirrhosis Paroxysmal atrial fibrillation, not anticoagulation due to gastrointestinal AV malformations Peripheral vascular disease: We will do arterial ultrasound bilateral extremities Pulmonary hypertension, echo showed pulmonary tear pressure 30 mmHg Insulin-dependent type 2 diabetes mellitus COPD: 3L o2 Full code DVT prophylaxis SCDs N.p.o. Attestations Medical Necessity Statement*: Patient requires hospitalization for sepsis secondary to wet gangrene, right foot Coding Level of Care Code Acute Outside Sales for [facility] Fwd Diagnoses Diabetic foot ulcer E11.621; L97.509 Sepsis A41.9 Cellulitis L03.115 Laterality: right Site of cellulitis: extremity Site of cellulitis of extremity: lower extremity Acute kidney injury superimposed on chronic kidney disease N17.9; N18.9 Hyperkalemia E87.5 Chronic anemia D64.9
[2020-07-12] MEDS: sodium chloride 0.9% 1,000 ML 30 ML (15:29)
--- NOTE | 2020-07-12 16:02 | PC.RESP ---
Pulmonary Rehab information sent to patient.
[2020-07-12] MEDS: lidocaine 2% INJ 20 mL INJECTION (16:03)
--- NOTE | 2020-07-12 16:20 | PM.OP ---
Operative Report Date of procedure: July 12, 2020 Pre-op Diagnosis: Right diabetic foot Infection Post-op diagnosis: same (Right diabetic foot infection including gangrene of the right fifth toe) Post-op Findings: Right diabetic foot abscess with necrotic tissues Post debridement measurements 5.5 x 4 x [address] to the bone level Procedure Done: Incision and drainage of right diabetic foot abscess Sharp debridement of abscess cavity Amputation of right fifth toe to the level of the distal fifth metatarsal bone Specimens removed/disposition: Tissues for cultures and sensitivity Right fifth toe for permanent pathology Surgeon: Demetrius Narvaez Hydrodynamics Professor: technical service engineerjan Nolen and medical student Sharyn Berger Anesthesia: MAC (Bonita Wright) Estimated blood loss (mL): 15 Condition: stable Disposition: floor Brief History: This is a pleasant 70 years old female patient presenting with complicated diabetic foot infection. Surgical consultation was initiated for further evaluation and management. After history taking physical examination and reviewing the chart and images with my personal interpretation I did preparole counseling aide the patient for incision and drainage of right diabetic foot infection with possible amputation of right fifth toe. Informed consent per chart. Procedure: Patient after being identified in the holding area and the right lower extremity was marked by me, and informed consent per chart ,patient was then taken back to the OR placed in supine position got intubated by anesthesia. Time-out was done verifying the patient's name/date of /planned procedure and destination after the procedure, all were in agreement.preoperative antibiotics administered per protocol, and beta luana protocol was confirmed. prep and drape of the right lower extremity was done under the usual sterile technique. I started incising the skin including the infected area surrounding the right fifth toe area all the way to the subcutaneous and musculofascial layer.Considerable amount of pus was appreciated and necrotic tissues were debrided sharply and tissues were sent for cultures and sensitivities. Post debridement wound Measurements 5.5 x 4 x [address] to the bone level The dissection of the right fifth toe was done all the way to the distal part of the distal fifth metatarsal bone.were an electric bone saw was applied to amputate the toe, the specimen was then passed to the circulating nurse for permanent pathology,an electric rasp was then used to cut off the extra bone spurs. Copious and extensive irrigation was done using Pulsavac 3 L followed by appropriate hemostasis. I elected at this point to apply couple of [id number] #1 PDS sutures to cover the underlying distal part of the fifth metatarsal bone.The remainder of the wound was left open and packed by mini Kerlix soaked in lidocaine 2%. Followed by ABDs Kerlix and Isidro wrap. Count was completed at the end of the procedure I was present for the whole entire procedure. Patient was taken to the recovery in stable condition
--- NOTE | 2020-07-12 16:37 | P.ANESPOST_ITS ---
Inpatient post-anesthesia follow up: Airway intact: Yes Vital signs: Temperature 97.8 F Pulse Rate [Monito r] 115 Pulse Rate 98 Respiratory Rate 16 Blood Pressure [Le ft Arm] 106/66 Blood Pressure 88/60 Pulse Oximetry 100 Oxygen Delivery Me thod Nasal Cannula Oxygen Flow Rate 3.0 Fraction of Inspir ed Oxygen Hydration adequate: Yes Nausea and vomiting: No Pain level: 1 Clem tional Comments: Sedate
[2020-07-12 17:24] LABS: Glucose Point of Care 55 mg/dL (70-110)
[2020-07-12 20:48] LABS: Glucose Point of Care 106 mg/dL (70-110)
[2020-07-12] MEDS: atorvastatin 40 mg Tablet PO (21:51)
[2020-07-13] VITALS (12 sets, daily range): BP systolic 82–98; BP diastolic 45–60; PULSE 80–120; RESP 14–20; TEMP 36.5–36.8; O2SAT 96–100
[2020-07-13] MEDS: piperacillin-tazobactam 3.375 GM in sodium chloride 0.9% (plus) 50 ML IV ×3 (00:05→22:21)
[2020-07-13] MEDS: clindamycin 150 mg Capsule 300 MG PO ×2 (00:08→06:25)
[2020-07-13 05:26] LABS: Lactate (Lactic Acid level) 1.7 mmol/L (0.5-2.2)
[2020-07-13 05:45] LABS: Basophils % 0.2 %; Eosinophils % 0.1 %; Hematocrit 26.3 % (37.0-47.0); Hemoglobin 7.8 g/dL (11.5-15.3); Lymphocytes # 0.2 10^3/uL (0.8-4.8); Lymphocytes % 0.7 %; Mean Corpuscular HGB Conc 29.7 g/dL (30.0-36.0); Mean Corpuscular Hemoglobin 25.2 pg (28.0-34.0); Mean Corpuscular Volume 85.1 fL (81-99); Mean Platelet Volume 9.8 fL (7.4-10.4); Monocytes # 0.5 10^3/uL (0.2-0.9); Monocytes % 1.9 %; Neutrophils # 24.14 10^3/uL (1.8-7.7); Neutrophils % 95.9 %; Nucleated Red Blood Cells % 0.2 %; Platelet Count 276 10^3/cmm (130-400); Red Blood Count 3.09 10^6/uL (4.1-5.3); Red Cell Distribution Width 16.9 % (12.1-15.1); White Blood Count 25.2 10^3/uL (4.0-10.0)
--- NOTE | 2020-07-13 06:12 | P.PN_ITS ---
Subjective Subjective: Interval history: Patient overall feeling better status post amputation of right fifth toe. Vitals/I&O/Wt Last Vital Signs Temp 97.5 F L 07/12/20 21:05 Pulse 118 H 07/12/20 21:05 Resp 18 07/12/20 21:05 BP 109/61 07/12/20 21:05 Pulse Ox 100 07/12/20 21:05 07/12/20 07/12/20 07/13/20 14:59 22:59 06:59 Intake Total 50 / 50 1250 / 1300 Output Total 220 / 220 Balance 50 / 50 1030 / 1080 Weight last 48 hrs Weight 170 lb Physical Exam Narrative: EXAM NARRATIVE: Patient is conscious alert oriented X3 BMI 25.1 Right foot wound is aircraft cleaner with less surrounding cellulitis. No evidence of purulent discharge.Sutures stable in place. Less edema is appreciated. Packing removed by me with bedside and repacking was done with wet-to-dry 1 inch Nu Gauze impregnated in half-strength Dakin solution followed by BRENNEN Kerlix and Isidro wrap Data : 07/13/20 04:30 07/13/20 04:30 Micro: Microbiology 07/11/20 20:08 Blood Culture - Preliminary Blood NEGATIVE TO DATE 07/11/20 20:14 Blood Culture - Preliminary Blood NEGATIVE TO DATE 07/12/20 15:58 Gram Stain - Final Toe - Right A&P Assessment and plan (1) Diabetic foot ulcer: 1-nutrition optimization 2-wound care in the form of packing the wound twice a day using 1 inch Nu Gauze wet-to-dry using Dakin's solution half-strength, followed by Anam Kerlix and Isidro wrap. 3-management of medical comorbidities per hospitalist service 4-physical therapy consultation when needed 5-assurance and education Due to the patient's wound complexity she is encouraged to follow-up at the wound care center upon discharge. All questions have been answered and all concerns have been addressed to patient's satisfaction. Status: Acute Attestations Medical Necessity Statement*: Inpatient hospitalization for medical and surgical care Time Spent in Patient Care: 16 - 35 minutes (>than 50% of time spent in counselling and/or direct pt care on unit) . Coding Level of Care Code Acute Environmental Journalist for [facility] Fwd Diagnoses Diabetic foot ulcer E11.621; L97.509
[2020-07-13 06:24] LABS: Alanine Aminotransferase 19 U/L (0-33); Alkaline Phosphatase 98 IU/L (35-105); Anion Gap 17.8 (5-19); Aspartate Amino Transferase 14 U/L (0-32); C Reactive Protein 65.9 mg/L (0.0-4.9); Calcium 8.6 mg/dL (8.5-10.5); Carbon Dioxide 25 mmol/L (22-29); Chloride 94 mmol/L (98-107); Globulin 3.2 g/dL (1.3-4.6); Glucose 118 mg/dL (65-115); Magnesium 1.9 mg/dL (1.7-2.3); Osmolality Calculated 299 mOsm/kg (285-295); Phosphorus 3.9 mg/dL (2.5-4.5); Potassium 5.8 mmol/L (3.5-5.1); Sodium 131 mmol/L (136-145); Total Bilirubin 1.3 mg/dL (0.15-1.2); Total Protein 6.2 g/dL (6.6-8.7)
[2020-07-13] MEDS: linezolid premix 600 MG/300 ML PREMIX 300 MG IV ×2 (06:26→17:55)
[2020-07-13] MEDS: sucralfate 1 gm Tablet PO ×4 (06:26→20:09)
[2020-07-13 06:27] LABS: Blood Urea Nitrogen 84 mg/dL (8-23)
[2020-07-13 06:33] LABS: Procalcitonin 27.97 ng/mL (0-0.5)
[2020-07-13 07:22] LABS: Glucose Point of Care 182 mg/dL (70-110)
[2020-07-13] MEDS: sodium hypochlorite 0.25% Btl 473 mL 1 APPLIC TOPICAL (08:15)
[2020-07-13] MEDS: isosorbide mononitrate ER 30 mg Tablet 15 MG PO ×2 (08:16→17:56)
[2020-07-13] MEDS: aspirin 81 mg EC Tablet PO (08:16)
[2020-07-13] MEDS: pantoprazole DR 40 mg Tablet PO ×2 (08:16→17:56)
[2020-07-13] MEDS: sennosides-docusate Tablet 1 TAB PO (08:16)
[2020-07-13] MEDS: metoprolol tartrate 25 mg Tablet PO (08:16)
[2020-07-13] MEDS: metroNIDAZOLE IV 500 MG/100 ML PREMIX 100 MG IV ×2 (09:58→17:55)
[2020-07-13 10:57] LABS: Glucose Point of Care 108 mg/dL (70-110)
[2020-07-13] MEDS: morphine IR 15 mg Tablet PO ×3 (11:10→22:21)
--- NOTE | 2020-07-13 11:11 | P.PN_ITS ---
Subjective Subjective: Interval history: Patient was seen sitting up in a chair this morning, she is having her wound packing taken out and changed by Dr. Narvaez, she has no complaints, blood pressures have been soft overnight, Vitals/I&O/Wt Last Vital Signs Temp 98.2 F 07/13/20 08:00 Pulse 109 H 07/13/20 09:31 Resp 18 07/13/20 09:27 BP 97/58 07/13/20 08:00 Pulse Ox 100 07/13/20 09:27 07/12/20 07/13/20 07/13/20 22:59 06:59 14:59 Intake Total 1570 / 1620 480 / 2100 240 / 240 Output Total 220 / 220 Balance 1350 / 1400 480 / 1880 240 / 240 Weight last 48 hrs Weight 77.111 kg Physical Exam Const: COMMON NORMALS: no acute distress and patient oriented x3 HENMT: COMMON NORMALS: normocephalic HEAD & SCALP: normocephalic Neck/C-Spine: COMMON NORMALS: no JVD Resp: COMMON NORMALS: normal respiratory effort, No retractions, No use of accessory muscles and clear to auscultation bilaterally AUSCULTATION: clear to auscultation bilaterally Cardio: COMMON NORMALS: no JVD, regular rate, regular rhythm, S1 normal heart sound present and S2 normal heart sound present RATE: regular rate RHYTHM: regular rhythm HEART SOUNDS: S1 normal heart sound present and S2 normal heart sound present GI: COMMON NORMALS: Normal to inspection, nondistended, normoactive bowel sounds present, Soft to palpation, non-tender, No hepatosplenomegaly present, no masses and no bruits PALPATION: Yes Soft to palpation and Yes No hepatosplenomegaly present Extremity: COMMON NORMALS: capillary refill normal, no clubbing, cyanosis or edema, no calf tenderness and no pedal edema NARRATIVE EXTREMITY EXAM: Right lower extremity, amputation of right fifth toe to the level of the distal fifth metatarsal bone, some minimal necrotic tissue left, some bleeding, sutures in place Neuro: COMMON NORMALS: patient oriented x3 Psych: COMMON NORMALS: mental status grossly normal Data : 07/13/20 04:30 07/13/20 04:30 Micro: Microbiology 07/11/20 20:08 Blood Culture - Preliminary Blood NEGATIVE TO DATE 07/11/20 20:14 Blood Culture - Preliminary Blood NEGATIVE TO DATE 07/12/20 15:58 Gram Stain - Final Toe - Right A&P Assessment and plan (1) Diabetic foot ulcer: Status: Acute (2) Sepsis: Status: Acute (3) Cellulitis: Status: Acute Qualifiers: Laterality: right Site of cellulitis: extremity Site of cellulitis of extremity: lower extremity Qualified Code(s): L03.115 - Cellulitis of right lower limb (4) Acute kidney injury superimposed on chronic kidney disease: Status: Acute (5) Hyperkalemia: Status: Acute (6) Chronic anemia: Status: Acute Additional A&P Information Sepsis due to wet gangrene Nonhealing diabetic foot ulcer , purulent cellulitis, Her symptoms started about 1.[address] scan: Bones/joints: Normal. No acute fracture or dislocation. Soft tissues: Soft tissue edema is present with air in the plantar aspect of the 3rd 4th and 5th toes and the dorsal aspects of the 4th and 5th toes. No collection or drainable abscess is identified. Status post debridement, incision and drainage of right diabetic foot abscess, debridement of abscess cavity, amputation of the right fifth toe to the level of the distal fifth metatarsal bone Afebrile overnight, WBC 25.2, CRP 65.9, pro-Steve 27.97, lactic acid unremarkable Plan: -Follow blood cultures, surgical cultures -Continue vancomycin, Primaxin, added Flagyl -Gentle fluid boluses to maintain MAP greater than 65, add midodrine -Avoid fluid overload as BNP is 40 2139 -Monitor hemodynamics closely -Given low borderline blood pressures, will start midodrine Hyperkalemia, will receive insulin this morning, repeat CMP at 1 PM Acute on chronic kidney disease Baseline creatinine seems to be around 1.9-2.4, creatinine 2.9 likely secondary to sepsis, uremia BUN 84 This seems due to sepsis and medications, clinically she has signs of fluid overload, this could very well be prerenal/cardiorenal Patient has been taking spironolactone Not complaining of UTI or flank pain Avoid nephrotoxic agent Acute on chronic chronic anemia Hemoglobin seems to be around baseline No active need of blood transfusion, Current hemoglobin 7.9 Status post 1 unit PRBC, repeat hemoglobin this afternoon Start Protonix, Carafate Iron levels 15, ferritin 82 Hemoccult stool pending Cannot rule out underlying slow GI bleed, patient has a history of AV malformations, associate with GI bleeds in the past, continue to monitor CHF: Diastolic CHF, echo on 11/01/2019 showed an EF of 60%, grade 2 out of 4 diastolic dysfunction She has chronic leg edema for which she takes Lasix Currently has 1+ pitting edema, no shortness of breath and on her home 3 L Conservative use of fluids, Lasix as needed CAD, aspirin, statin, Imdur, metoprolol and hold Nonalcoholic fatty liver disease, liver cirrhosis Paroxysmal atrial fibrillation, not anticoagulation due to gastrointestinal AV malformations Peripheral vascular disease: We will do arterial ultrasound bilateral extremities Pulmonary hypertension, echo showed pulmonary tear pressure 30 mmHg Insulin-dependent type 2 diabetes mellitus, sliding scale COPD: 3L o2 Full code DVT prophylaxis SCDs N.p.o. Attestations Medical Necessity Statement*: Patient requires hospitalization for sepsis secondary to diabetic ulcer, anemia, uremia, acute renal failure Time Spent in Patient Care: Greater than 35 minutes (>than 50% of time spent in counselling and/or direct pt care on unit) . Coding Level of Care Code Acute Fishing Vessel Operator for g Fwd Diagnoses Diabetic foot ulcer E11.621; L97.509 Sepsis A41.9 Cellulitis L03.115 Laterality: right Site of cellulitis: extremity Site of cellulitis of extremity: lower extremity Acute kidney injury superimposed on chronic kidney disease N17.9; N18.9 Hyperkalemia E87.5 Chronic anemia D64.9
[2020-07-13] MEDS: midodrine 5 mg TABLET PO ×2 (12:24→20:09)
[2020-07-13 17:31] LABS: Glucose Point of Care 112 mg/dL (70-110)
[2020-07-13] MEDS: atorvastatin 40 mg Tablet PO (20:12)
[2020-07-13 21:25] LABS: Glucose Point of Care 174 mg/dL (70-110)
[2020-07-14] VITALS (14 sets, daily range): BP systolic 88–105; BP diastolic 53–67; PULSE 71–108; RESP 16–19; TEMP 36.3–36.7; O2SAT 97–100
[2020-07-14] MEDS: metroNIDAZOLE IV 500 MG/100 ML PREMIX 100 MG IV ×3 (02:10→21:49)
--- NOTE | 2020-07-14 02:53 | PC.NURSE ---
Integumentary: Small open area to medial sacrum measuring approx 1cm Lx 0.2 cm W, zero drainage noted, cleansed with NS & covered with optifoam. Blanchable redness to medial sacrum. Small dry scabs to abdomen & umbilicus. Small dry ulcer to left lateral ankle. Small dry callous to left heel. Dressing change to right foot, wound bed yellowish/white with small amount of serosanguineous drainage noted, sutures intact. Area cleansed with NS, 1 ribbon soaked in 1/2% Dakins Solution + ABD + Kerlix + Isidro wrap. Tolerated well.
--- NOTE | 2020-07-14 04:15 | PC.NURSE ---
Pt c/o itching, states she thinks it may be from the antibiotic (Flagyl). Flagyl was almost complete at this time. No rash/hives noted. Will continue to monitor.
[2020-07-14] MEDS: midodrine 5 mg TABLET PO (05:01)
[2020-07-14] MEDS: linezolid premix 600 MG/300 ML PREMIX 300 MG IV ×2 (05:01→20:07)
[2020-07-14] MEDS: sucralfate 1 gm Tablet PO ×4 (06:24→21:49)
[2020-07-14 06:36] LABS: Basophils % 0.3 %; Eosinophils # 0.4 10^3/uL (0.0-0.8); Eosinophils % 2.5 %; Hematocrit 27.2 % (37.0-47.0); Hemoglobin 7.9 g/dL (11.5-15.3); Lymphocytes # 1.2 10^3/uL (0.8-4.8); Lymphocytes % 8.4 %; Mean Corpuscular Hemoglobin 24.4 pg (28.0-34.0); Mean Platelet Volume 9.7 fL (7.4-10.4); Monocytes # 0.8 10^3/uL (0.2-0.9); Monocytes % 5.3 %; Neutrophils # 11.67 10^3/uL (1.8-7.7); Neutrophils % 82.8 %; Nucleated Red Blood Cells % 0.3 %; Platelet Count 291 10^3/cmm (130-400); Red Blood Count 3.24 10^6/uL (4.1-5.3); Red Cell Distribution Width 17.2 % (12.1-15.1); White Blood Count 14.1 10^3/uL (4.0-10.0)
[2020-07-14 06:59] LABS: INR 1.45 (0.8-1.2)
[2020-07-14 07:06] LABS: Alanine Aminotransferase 15 U/L (0-33); Albumin Level 3.2 g/dL (3.5-5.2); Anion Gap 16.8 (5-19); Aspartate Amino Transferase 13 U/L (0-32); C Reactive Protein 71.4 mg/L (0.0-4.9); Calcium 8.3 mg/dL (8.5-10.5); Carbon Dioxide 24 mmol/L (22-29); Chloride 92 mmol/L (98-107); Glucose 93 mg/dL (65-115); Magnesium 1.8 mg/dL (1.7-2.3); Osmolality Calculated 291 mOsm/kg (285-295); Phosphorus 5.1 mg/dL (2.5-4.5); Potassium 4.8 mmol/L (3.5-5.1); Sodium 128 mmol/L (136-145); Total Bilirubin 0.5 mg/dL (0.15-1.2); Total Protein 6.6 g/dL (6.6-8.7)
[2020-07-14 07:07] LABS: Alkaline Phosphatase 87 IU/L (35-105); Globulin 3.4 g/dL (1.3-4.6)
[2020-07-14 07:07] LABS: Glucose Point of Care 115 mg/dL (70-110)
[2020-07-14 07:13] LABS: Procalcitonin 82.87 ng/mL (0-0.5)
[2020-07-14 07:27] LABS: Blood Urea Nitrogen 83 mg/dL (8-23)
[2020-07-14] MEDS: HYDROcodone-acetaminophen 5-325 mg Tablet 1 TAB PO ×2 (09:13→21:49)
[2020-07-14] MEDS: pantoprazole DR 40 mg Tablet PO ×2 (09:13→17:58)
[2020-07-14] MEDS: sennosides-docusate Tablet 1 TAB PO (09:13)
[2020-07-14] MEDS: aspirin 81 mg EC Tablet PO (09:13)
[2020-07-14] MEDS: piperacillin-tazobactam 3.375 GM in sodium chloride 0.9% (plus) 50 ML IV (09:16)
[2020-07-14 11:17] LABS: Glucose Point of Care 111 mg/dL (70-110)
[2020-07-14] MEDS: sodium hypochlorite 0.25% Btl 473 mL 1 APPLIC TOPICAL (11:44)
[2020-07-14] MEDS: ondansetron 2 mg/ML SDV 2 mL 4 MG IVP (11:46)
--- NOTE | 2020-07-14 13:21 | PM.PN ---
Subjective Subjective: Interval history: Patient was examined she sitting up into a chair, she has had low blood pressures overnight, she is asymptomatic, no chest pain shortness of breath, she tells me that she is urinating frequently, but her creatinine is increased, afebrile overnight, no nausea, vomiting, she is thinking of going to a long-term Vitals/I&O/Wt Last Vital Signs Temp 97.5 F L 07/14/20 11:30 Pulse 72 07/14/20 11:30 Resp 18 07/14/20 11:30 BP 97/54 07/14/20 11:30 Pulse Ox 99 07/14/20 11:30 07/13/20 07/14/20 07/14/20 22:59 06:59 14:59 Intake Total 790 / 1790 150 / 1940 360 / 360 Output Total 100 / 500 200 / 700 Balance 690 / 1290 -50 / 1240 360 / 360 Physical Exam Const: COMMON NORMALS: no acute distress and patient oriented x3 HENMT: COMMON NORMALS: normocephalic HEAD & SCALP: normocephalic Neck/C-Spine: COMMON NORMALS: no JVD Resp: COMMON NORMALS: normal respiratory effort, No retractions, No use of accessory muscles and clear to auscultation bilaterally AUSCULTATION: clear to auscultation bilaterally Cardio: COMMON NORMALS: no JVD, regular rate, regular rhythm, S1 normal heart sound present and S2 normal heart sound present RATE: regular rate RHYTHM: regular rhythm HEART SOUNDS: S1 normal heart sound present and S2 normal heart sound present GI: COMMON NORMALS: Normal to inspection, nondistended, normoactive bowel sounds present, Soft to palpation, non-tender, No hepatosplenomegaly present, no masses and no bruits PALPATION: Yes Soft to palpation and Yes No hepatosplenomegaly present Extremity: COMMON NORMALS: capillary refill normal, no clubbing, cyanosis or edema, no calf tenderness and no pedal edema NARRATIVE EXTREMITY EXAM: Right lower extremity, amputation of right fifth toe to the level of the distal fifth metatarsal bone, some minimal necrotic tissue left, some bleeding, sutures in place Neuro: COMMON NORMALS: patient oriented x3 Psych: COMMON NORMALS: mental status grossly normal Data : 07/14/20 06:18 07/14/20 06:18 Micro: Microbiology 07/12/20 15:58 Gram Stain - Final Toe - Right Tissue Culture - Preliminary Gram Negative Rods Gram Negative Rods#2 A&P Assessment and plan (1) Diabetic foot ulcer: Status: Acute (2) Sepsis: Status: Acute (3) Cellulitis: Status: Acute Qualifiers: Laterality: right Site of cellulitis: extremity Site of cellulitis of extremity: lower extremity Qualified Code(s): L03.115 - Cellulitis of right lower limb (4) Acute kidney injury superimposed on chronic kidney disease: Status: Acute (5) Hyperkalemia: Status: Acute (6) Chronic anemia: Status: Acute Additional A&P Information Sepsis due to wet gangrene Nonhealing diabetic foot ulcer , purulent cellulitis, Her symptoms started about 1.[address] scan: Bones/joints: Normal. No acute fracture or dislocation. Soft tissues: Soft tissue edema is present with air in the plantar aspect of the 3rd 4th and 5th toes and the dorsal aspects of the 4th and 5th toes. No collection or drainable abscess is identified. Status post debridement, incision and drainage of right diabetic foot abscess, debridement of abscess cavity, amputation of the right fifth toe to the level of the distal fifth metatarsal bone Afebrile overnight, WBC 14.1, CRP 71.4, pro-Steve 82.87, lactic acid unremarkable Plan: -Follow blood cultures, surgical cultures -Continue vancomycin, switch Zosyn to Primaxin, continue Flagyl -Gentle fluid boluses to maintain MAP greater than 65, add midodrine if required, hold blood pressure medications -Avoid fluid overload as BNP is over 40,000 -Monitor hemodynamics closely -Given low borderline blood pressures, will start midodrine Hyperkalemia, will receive insulin this morning, repeat CMP at 1 PM Acute on chronic kidney disease Baseline creatinine seems to be around 1.9-2.4, creatinine 3.5, likely secondary to sepsis and hypotension, uremia BUN 84 This seems due to sepsis and medications, clinically she has signs of fluid overload, this could very well be prerenal/cardiorenal Patient has been taking spironolactone Not complaining of UTI or flank pain Avoid nephrotoxic agent Acute on chronic chronic anemia Hemoglobin seems to be around baseline No active need of blood transfusion, Current hemoglobin 7.9, will give another unit PRBC all on hold Status post 1 unit PRBC Start Protonix, Carafate Iron levels 15, ferritin 82 Hemoccult stool pending Cannot rule out underlying slow GI bleed, patient has a history of AV malformations, associate with GI bleeds in the past, continue to monitor CHF: Diastolic CHF, echo on 11/01/2019 showed an EF of 60%, grade 2 out of 4 diastolic dysfunction She has chronic leg edema for which she takes Lasix Currently has 1+ pitting edema, no shortness of breath and on her home 3 L Conservative use of fluids, Lasix as needed CAD, aspirin, statin, Imdur on hold, metoprolol and hold Nonalcoholic fatty liver disease, liver cirrhosis Paroxysmal atrial fibrillation, not anticoagulation due to gastrointestinal AV malformations Peripheral vascular disease: Awaiting arterial ultrasound results Pulmonary hypertension, echo showed pulmonary tear pressure 30 mmHg Insulin-dependent type 2 diabetes mellitus, sliding scale COPD: 3L o2 Full code DVT prophylaxis SCDs Diabetic diet Attestations Medical Necessity Statement*: Patient requires hospitalization due to sepsis secondary to diabetic foot, acute on chronic anemia, hypertension, Coding Level of Care Code Acute Sheet Music Salesperson for [facility] Fw Diagnoses Diabetic foot ulcer E11.621; L97.509 Sepsis A41.9 Cellulitis L03.115 Laterality: right Site of cellulitis: extremity Site of cellulitis of extremity: lower extremity Acute kidney injury superimposed on chronic kidney disease N17.9; N18.9 Hyperkalemia E87.5 Chronic anemia D64.9
[2020-07-14 13:41] LABS: Basophils # 0.1 10^3/uL (0.0-0.1); Basophils % 0.4 %; Eosinophils # 0.3 10^3/uL (0.0-0.8); Hemoglobin 8.2 g/dL (11.5-15.3); Lymphocytes # 0.8 10^3/uL (0.8-4.8); Lymphocytes % 5.4 %; Mean Corpuscular HGB Conc 28.3 g/dL (30.0-36.0); Mean Corpuscular Hemoglobin 24.3 pg (28.0-34.0); Mean Corpuscular Volume 85.8 fL (81-99); Mean Platelet Volume 10.1 fL (7.4-10.4); Monocytes # 0.7 10^3/uL (0.2-0.9); Monocytes % 4.8 %; Neutrophils # 12.42 10^3/uL (1.8-7.7); Nucleated Red Blood Cells % 0 %; Platelet Count 330 10^3/cmm (130-400); Red Blood Count 3.38 10^6/uL (4.1-5.3); Red Cell Distribution Width 17.3 % (12.1-15.1); White Blood Count 14.3 10^3/uL (4.0-10.0)
--- NOTE | 2020-07-14 15:07 | PC.SOCIAL ---
Important Medicare Message Attempted to call patient to review Important Medicare Message page 2 but there was no answer. Staff will attempt at later time.
--- NOTE | 2020-07-14 15:18 | PM.PN ---
Subjective Subjective: Interval history: Patient overall feels well Awaiting duplex arterial studies final report Vitals/I&O/Wt Last Vital Signs Temp 97.5 F L 07/14/20 11:30 Pulse 72 07/14/20 11:30 Resp 18 07/14/20 11:30 BP 97/54 07/14/20 11:30 Pulse Ox 99 07/14/20 11:30 07/14/20 07/14/20 07/14/20 06:59 14:59 22:59 Intake Total 150 / 1940 380 / 380 Output Total 200 / 700 Balance -50 / 1240 380 / 380 Physical Exam Narrative: EXAM NARRATIVE: Patient is conscious alert oriented X3 BMI 25.1 Right foot wound bed shows residual necrotic tissues that were debrided bedside by me less surrounding cellulitis. No evidence of purulent discharge.Sutures stable in place. Some ischemic changes noted towards the site of the suture likely due to to skin ischemia. Data : 07/14/20 13:28 07/14/20 06:18 Micro: Microbiology 07/12/20 15:58 Gram Stain - Final Toe - Right Tissue Culture - Preliminary Gram Negative Rods Gram Negative Rods#2 A&P Assessment and plan (1) Diabetic foot ulcer: Continue: 1-nutrition optimization 2-wound care in the form of packing the wound twice a day using 1 inch Nu Gauze wet-to-dry using Dakin's solution half-strength, followed by ABDs Kerlix and Isidro wrap. 3-management of medical comorbidities per hospitalist service 4-physical therapy consultation and emphasis on nonweightbearing right forefoot 5-assurance and education Due to the patient's wound complexity she is encouraged to follow-up at the wound care center upon discharge. All questions have been answered and all concerns have been addressed to patient's satisfaction. Status: Acute Attestations Medical Necessity Statement*: Inpatient hospitalization for medical and surgical care Time Spent in Patient Care: 16 - 35 minutes (>than 50% of time spent in counselling and/or direct pt care on unit). Coding Level of Care Code Acute Framing Mechanic for [facility] Fwd Diagnoses Diabetic foot ulcer E11.621; L97.509
[2020-07-14 17:09] LABS: Glucose Point of Care 99 mg/dL (70-110)
[2020-07-14] MEDS: diphenhydrAMINE 25 mg Capsule PO (18:16)
[2020-07-14 21:28] LABS: Glucose Point of Care 133 mg/dL (70-110)
[2020-07-14] MEDS: atorvastatin 40 mg Tablet PO (21:49)
[2020-07-15] VITALS (10 sets, daily range): BP systolic 94–122; BP diastolic 53–75; PULSE 81–112; RESP 15–20; TEMP 36.4–36.8; O2SAT 93–99
[2020-07-15] MEDS: diphenhydrAMINE 25 mg Capsule PO ×4 (00:16→23:55)
--- NOTE | 2020-07-15 03:28 | PC.PHAR ---
changed Primaxin to 500 mg q6h to 250 mg q12h due to crcl of 15.8
[2020-07-15] MEDS: metroNIDAZOLE IV 500 MG/100 ML PREMIX 100 MG IV ×3 (04:50→20:31)
--- NOTE | 2020-07-15 05:00 | PC.NURSE ---
Patient abd distended and firm more so than beginning shift assessment. Patient says she has no pain just pressure and feeling bloated. Bowel sounds in all 4 quadrants. Patient reports she has not had a bowel movement in a few days which is normal for her.
[2020-07-15 06:11] LABS: Basophils # 0.1 10^3/uL (0.0-0.1); Basophils % 0.4 %; Eosinophils # 0.3 10^3/uL (0.0-0.8); Eosinophils % 2.3 %; Hematocrit 31.7 % (37.0-47.0); Hemoglobin 9.1 g/dL (11.5-15.3); Lymphocytes # 0.8 10^3/uL (0.8-4.8); Lymphocytes % 6.5 %; Mean Corpuscular HGB Conc 28.7 g/dL (30.0-36.0); Mean Corpuscular Hemoglobin 24.6 pg (28.0-34.0); Mean Corpuscular Volume 85.7 fL (81-99); Mean Platelet Volume 9.7 fL (7.4-10.4); Monocytes # 0.7 10^3/uL (0.2-0.9); Monocytes % 5.8 %; Neutrophils % 84.3 %; Nucleated Red Blood Cells % 0 %; Platelet Count 296 10^3/cmm (130-400); Red Cell Distribution Width 17.2 % (12.1-15.1); White Blood Count 12.1 10^3/uL (4.0-10.0)
[2020-07-15 06:18] LABS: Procalcitonin 61.25 ng/mL (0-0.5)
[2020-07-15 06:19] LABS: Alanine Aminotransferase 14 U/L (0-33); Albumin Level 3.2 g/dL (3.5-5.2); Alkaline Phosphatase 89 IU/L (35-105); Anion Gap 19.9 (5-19); Aspartate Amino Transferase 15 U/L (0-32); C Reactive Protein 51.5 mg/L (0.0-4.9); Calcium 8.4 mg/dL (8.5-10.5); Carbon Dioxide 21 mmol/L (22-29); Chloride 91 mmol/L (98-107); Globulin 3.6 g/dL (1.3-4.6); Glucose 94 mg/dL (65-115); Osmolality Calculated 290 mOsm/kg (285-295); Phosphorus 5.1 mg/dL (2.5-4.5); Potassium 4.9 mmol/L (3.5-5.1); Sodium 127 mmol/L (136-145); Total Bilirubin 0.7 mg/dL (0.15-1.2); Total Protein 6.8 g/dL (6.6-8.7)
[2020-07-15 06:24] LABS: Blood Urea Nitrogen 85 mg/dL (8-23)
[2020-07-15 06:26] LABS: INR 1.38 (0.8-1.2)
[2020-07-15 06:32] LABS: Creatine Phosphokinase 40 U/L (26-192)
[2020-07-15] MEDS: sucralfate 1 gm Tablet PO ×4 (06:32→20:32)
[2020-07-15 06:39] LABS: Lactate (Lactic Acid level) 1.3 mmol/L (0.5-2.2)
[2020-07-15 06:49] LABS: Glucose Point of Care 106 mg/dL (70-110)
--- NOTE | 2020-07-15 07:55 | PM.PN ---
Subjective Subjective: Interval history: Trending down and leukocytosis. Patient complains of being bloated and distended likely due to her ascites otherwise no complaints with regard to her right foot wound. Debridement was done by me bedside yesterday Vitals/I&O/Wt Last Vital Signs Temp 98.3 F 07/15/20 03:58 Pulse 81 07/15/20 03:58 Resp 19 H 07/15/20 03:58 BP 99/64 07/15/20 03:58 Pulse Ox 93 07/15/20 03:58 07/14/20 07/15/20 07/15/20 22:59 06:59 14:59 Intake Total 1280 / 1760 Output Total 400 / 400 550 / 950 Balance 880 / 1360 -550 / 810 Physical Exam Narrative: EXAM NARRATIVE: Patient is conscious alert oriented X3 BMI 25.1 Right foot wound bed shows less residual necrotic tissues that were sharply debrided bedside by me the presence of caring nurse Misty. No surrounding cellulitis. No evidence of purulent discharge.Sutures stable in place. Some ischemic changes noted towards the site of the suture likely due to to skin ischemia. Repacking of the wound done by me Appearance of a right lateral malleolar ulcer about 2 cm in diameter reaching all the way to the fascial layer, bed is clean. Data : 07/15/20 04:55 07/15/20 05:03 Micro: Microbiology 07/12/20 15:58 Gram Stain - Final Toe - Right Tissue Culture - Preliminary Gram Negative Rods Gram Negative Rods#2 A&P Assessment and plan (1) Diabetic foot ulcer: Continue: 1-nutrition optimization. Recommend highly to obtain nutrition consultation I would recommend that the patient have Glucerna with each meal 2-wound care in the form of packing the wound twice a day using 1 inch Nu Gauze wet-to-dry using Dakin's solution half-strength, followed by ABDs Kerlix and Isidro wrap. Application of triple antibiotic ointment on the right lateral malleolar ulcer followed by dry gauze. 3-management of medical comorbidities per hospitalist service, will defer for potential paracentesis to Dr. Carrero 4-physical therapy consultation and emphasis on nonweightbearing right forefoot 5-assurance and education. 6-follow on cultures and sensitivities Due to the patient's wound complexity she is encouraged to follow-up at the wound care center upon discharge. All questions have been answered and all concerns have been addressed to patient's satisfaction. Status: Acute Attestations Medical Necessity Statement*: Ongoing inpatient hospitalization for medical and surgical care Time Spent in Patient Care: 16 - 35 minutes (>than 50% of time spent in counselling and/or direct pt care on unit). Coding Level of Care Code Acute Sales Promotion Officer for [facility] Diagnoses Diabetic foot ulcer E11.621; L97.509
[2020-07-15] MEDS: pantoprazole DR 40 mg Tablet PO ×2 (08:34→17:45)
[2020-07-15] MEDS: aspirin 81 mg EC Tablet PO (08:34)
[2020-07-15] MEDS: sennosides-docusate Tablet 1 TAB PO (08:34)
[2020-07-15] MEDS: neomycin-poly-bacitracin oint 28 gm 1 APPLIC TOPICAL ×2 (08:35→23:04)
[2020-07-15] MEDS: linezolid premix 600 MG/300 ML PREMIX 300 MG IV ×2 (08:35→20:31)
[2020-07-15] MEDS: sodium hypochlorite 0.25% Btl 473 mL 1 APPLIC TOPICAL (08:36)
[2020-07-15 11:13] LABS: Glucose Point of Care 125 mg/dL (70-110)
--- NOTE | 2020-07-15 11:23 | USCV_ITS ---
Christina Charles Age: 70 Gender: F : 1950 Exam Date: 07/15/2020 14:22 Ordering Phys: Bashir Carrero MD Technologist: Angélica Morgan Exam Location: [facility] [place] Indication: CHF BP: 103 / 62 HR: 107 Rhythm: Sinus Technical Quality: Fair MEASUREMENTS (Male / Female) Normal Values 2D ECHO LV Diastolic Diameter PLAX 4.8 cm 4.2 - 5.9 / 3.9 - 5.3 cm LV Systolic Diameter PLAX 4.2 cm LV Chamber Size 4.2 cm IVS Diastolic Thickness 1.2 cm 0.6 - 1.0 / 0.6 - 0.9 cm IVS Systolic Thickness 1.4 cm LVPW Diastolic Thickness 0.9 cm 0.6 - 1.0 / 0.6 - 0.9 cm LVPW Systolic Thickness 1.4 cm RV Chamber Size 3.2 cm LVOT Diameter 2.1 cm LV Ejection Fraction 2D Teich 29.6 % LV Ejection Fraction MOD 2C 37.7 % LV Ejection Fraction 2C AL 39.4 % LA Diameter 4.1 cm LA Width 3.6 cm LA Height 5.0 cm RA Width 3.7 cm RA Height 5.3 cm Aorta at Sinotubular Diameter 2.6 cm M-MODE LV Diastolic Diameter MM 5.1 cm 4.2 - 5.9 / 3.9 - 5.3 cm LV Systolic Diameter MM 4.5 cm LV Ejection Fraction MM Teich 25.7 % IVS Diastolic Thickness MM 0.9 cm 0.6 - 1.0 / 0.6 - 0.9 cm IVS Systolic Thickness MM 1.0 cm LVPW Diastolic Thickness MM 1.2 cm 0.6 - 1.0 / 0.6 - 0.9 cm LVPW Systolic Thickness MM 1.6 cm RV Diastolic Diameter MM 4.1 cm Aortic Annulus Diameter 2.2 cm LA Ao Ratio MM 2.0 MV E Point Septal Separation 0.7 cm DOPPLER AV Peak Velocity 100.0 cm/s LVOT Peak Velocity 91.0 cm/s AV Area Cont Eq vti 3.4 cm squared AV Area Cont Eq pk 3.2 cm squared MV Area PHT 4.8 cm squared MV E' Velocity 66.5 cm/s Mitral E to MV E' Ratio 20.5 Mitral E to LV E' Lateral Ratio 16.1 Mitral E to LV E' Septal Ratio 28.5 TR Peak Velocity 295.4 cm/s TR Peak Gradient 34.9 mmHg TR Mean Velocity 234.3 cm/s TR Mean Gradient 22.9 mmHg TR Velocity Time Integral 78.1 cm TV Peak E Velocity 61.0 cm/s Right Atrial Pressure 15.0 mmHg Pulmonary Artery Systolic Pressu 49.9 mmHg PV Peak Velocity 63.0 cm/s RV Acceleration Time 0.1 s RV Ejection Time 0.2 s RV AcT/ET 0.3 FINDINGS Left Ventricle Normal left ventricular size. LV systolic function is moderately reduced with EF of 35 to 40%. Moderate global hypokinesis is noted. Septal wall motion is consistent with prior surgery. Right Ventricle The right ventricle is mildly enlarged. Mildly decreased right ventricular systolic function. Right Atrium The right atrium is mildly enlarged. RA pressure is elevated Left Atrium The left atrium is enlarged Mitral Valve Structurally normal mitral valve without significant stenosis or prolapse. There is mild to moderate mitral regurgitation. Aortic Valve Aortic valve is thickened. Tricuspid Valve Structurally normal tricuspid valve without significant stenosis. There is moderate tricuspid regurgitation. RVSP is 45 to 50 mmHg. This is consistent with moderate pulmonary hypertension. Pulmonic Valve Structurally normal pulmonic valve without significant stenosis. There is mild pulmonic regurgitation. Pericardium Normal pericardium without effusion. Aorta Normal ascending aorta dimension. CONCLUSIONS LV systolic function is moderately reduced with EF 35 to 40%. Moderate global hypokinesis is noted. Right ventricle is mildly enlarged with mildly decreased RV function. Biatrial enlargement. There is mild to moderate mitral regurgitation. Moderate pulmonary hypertension is noted. There is moderate tricuspid regurgitation. Mild pulmonic regurgitation. Compared to prior echocardiogram from from 04/12/2020, LV systolic function has slightly decreased. Justni Haji MD (Electronically Signed) Final Date: 15 July 2020 18:25 S
--- NOTE | 2020-07-15 11:24 | PM.PN ---
Subjective Subjective: Interval history: This morning patient was examined, she sitting up at the side of the bed, she is complaining of abdominal distention, she tells me that she has had a couple paracentesis in the past, no nausea, no vomiting, no fevers, chills, no lightheadedness, no dizziness, no chest pain, no shortness of breath Vitals/I&O/Wt Last Vital Signs Temp 97.5 F L 07/15/20 08:00 Pulse 81 07/15/20 08:00 Resp 17 07/15/20 08:00 BP 99/63 07/15/20 08:00 Pulse Ox 93 07/15/20 08:00 07/14/20 07/15/20 07/15/20 22:59 06:59 14:59 Intake Total 1580 / 2060 870 / 870 Output Total 400 / 400 550 / 950 Balance 1180 / 1660 -550 / 1110 870 / 870 Physical Exam Const: COMMON NORMALS: no acute distress and patient oriented x3 HENMT: COMMON NORMALS: normocephalic HEAD & SCALP: normocephalic Neck/C-Spine: COMMON NORMALS: no JVD Resp: COMMON NORMALS: normal respiratory effort, No retractions, No use of accessory muscles and clear to auscultation bilaterally AUSCULTATION: clear to auscultation bilaterally Cardio: COMMON NORMALS: no JVD, regular rate, regular rhythm, S1 normal heart sound present and S2 normal heart sound present RATE: regular rate RHYTHM: regular rhythm HEART SOUNDS: S1 normal heart sound present and S2 normal heart sound present GI: COMMON NORMALS: Normal to inspection, nondistended, normoactive bowel sounds present, Soft to palpation, non-tender, no masses and no bruits INSPECTION: Yes abdominal distension PALPATION: Yes Soft to palpation Extremity: COMMON NORMALS: capillary refill normal, no clubbing, cyanosis or edema, no calf tenderness and no pedal edema NARRATIVE EXTREMITY EXAM: Right lower extremity, amputation of right fifth toe to the level of the distal fifth metatarsal bone, some minimal necrotic tissue left, some bleeding, sutures in place, currently wrapped in gauze Neuro: COMMON NORMALS: patient oriented x3 Psych: COMMON NORMALS: mental status grossly normal Data : 07/15/20 04:55 07/15/20 05:03 Micro: Microbiology 07/12/20 15:58 Gram Stain - Final Toe - Right Tissue Culture - Preliminary Gram Negative Rods Gram Negative Rods#2 A&P Assessment and plan (1) Diabetic foot ulcer: Status: Acute (2) Sepsis: Status: Acute (3) Cellulitis: Status: Acute Qualifiers: Laterality: right Site of cellulitis: extremity Site of cellulitis of extremity: lower extremity Qualified Code(s): L03.115 - Cellulitis of right lower limb (4) Acute kidney injury superimposed on chronic kidney disease: Status: Acute (5) Hyperkalemia: Status: Acute (6) Chronic anemia: Status: Acute Additional A&P Information Sepsis due to wet gangrene Nonhealing diabetic foot ulcer , purulent cellulitis, Her symptoms started about 1.[address] scan: Bones/joints: Normal. No acute fracture or dislocation. Soft tissues: Soft tissue edema is present with air in the plantar aspect of the 3rd 4th and 5th toes and the dorsal aspects of the 4th and 5th toes. No collection or drainable abscess is identified. Status post debridement, incision and drainage of right diabetic foot abscess, debridement of abscess cavity, amputation of the right fifth toe to the level of the distal fifth metatarsal bone Afebrile, continues to have borderline low blood pressures, WBC 12.1, ESR 59, CRP 51.5, pro-Steve 61.25, lactic acid unremarkable Plan: -Follow blood cultures, surgical cultures so far show gram-negative rods -Continue vancomycin, Primaxin, continue Flagyl -Gentle fluid boluses to maintain MAP greater than 65, add midodrine if required, hold blood pressure medications -Avoid fluid overload as BNP is over 40,000 -Monitor hemodynamics closely -Follow blood pressures Persistent hypotension, likely secondary to sepsis which has resolved, concerning for cardiac etiology given EF of 40 to 45% -All blood pressure medications have been held -Lactic acid unremarkable, blood cultures remarkable, remains afebrile, inflammatory markers downtrending -Patient is asymptomatic, no lightheadedness, no dizziness -We will repeat echocardiogram -Monitor creatinine, monitor blood pressures Hyperkalemia, resolved Acute on chronic kidney disease Baseline creatinine seems to be around 1.9-2.4, creatinine 3.5, likely secondary to sepsis and hypotension and or cardiorenal syndrome, uremia BUN 85, urine output 950, +6 L since admission Patient has been taking spironolactone, which has been held Not complaining of UTI or flank pain Avoid nephrotoxic agent Has received appropriate fluid therapy, has actually become slightly fluid overloaded, with abdominal distention, hold fluids for now, avoid nephrotoxic agents, renal ultrasound, follow urine studies Acute on chronic chronic anemia Hemoglobin seems to be around baseline No active need of blood transfusion, Current hemoglobin 9.1 Status post 2 units PRBC Start Protonix, Carafate, ferrous sulfate Iron levels 15, ferritin 82 Hemoccult stool pending Cannot rule out underlying slow GI bleed, patient has a history of AV malformations, associate with GI bleeds in the past, continue to monitor CHF: Diastolic CHF, echo on in March 2020 showed an EF of 40 to 45%, with diffuse hypokinesia She has chronic leg edema for which she takes Lasix Currently no pitting edema, no shortness of breath on 1 to 2 L, but does have abdominal distention Conservative use of fluids, Lasix as needed CAD, aspirin, statin, Imdur on hold, metoprolol and hold Nonalcoholic fatty liver disease, liver cirrhosis, now with abdominal distention, likely recurrent ascites, unfortunately we do not have radiology over the weekend, will consult radiology on Friday for paracentesis Paroxysmal atrial fibrillation, not anticoagulation due to gastrointestinal AV malformations Peripheral vascular disease: Awaiting arterial ultrasound results Pulmonary hypertension, echo showed pulmonary tear pressure 30 mmHg Insulin-dependent type 2 diabetes mellitus, sliding scale COPD: 3L o2 Full code DVT prophylaxis SCDs, anticoagulation on hold given anemia Diabetic diet Discharge plan to assisted Plan for today continue antibiotic therapy, repeat urine studies, renal ultrasound, echocardiogram, monitor blood pressures, monitor urine output Attestations Medical Necessity Statement*: Patient requires hospitalization for COVID-19 pneumonia, bilateral pleural effusions, sepsis acute obstructive uropathy, acute on chronic anemia, lymphopenia, will move to general medical floors today Coding Level of Care Code Acute Ear Nose And Throat Specialist for [facility] Fwd Diagnoses Diabetic foot ulcer E11.621; L97.509 Sepsis A41.9 Cellulitis L03.115 Laterality: right Site of cellulitis: extremity Site of cellulitis of extremity: lower extremity Acute kidney injury superimposed on chronic kidney disease N17.9; N18.9 Hyperkalemia E87.5 Chronic anemia D64.9
--- NOTE | 2020-07-15 11:30 | USR_ITS ---
PROCEDURE INFORMATION: Exam: US Retroperitoneal; Complete; Kidneys and Bladder Exam date and time: 07/15/2020 2:26 PM Age: 70 years old Clinical indication: Abnormal findings; Abnormal lab test; Abnormal kidney function lab tests; Additional info: Omi TECHNIQUE: Imaging protocol: Real-time ultrasound of the retroperitoneum with image documentation. Complete exam focused on the kidneys and bladder. COMPARISON: US paracentesis abd w [id number] 04/12/2020 3:44 PM FINDINGS: Right kidney: Measures 8.3 x 4.2 x 4 cm. There is scarring and thinning of the right renal cortex. The renal cortex thickness is 0.8 cm. No stones. No hydronephrosis. Left kidney: Measures 10 x 5.4 x 4.4 cm. The renal cortex thickness is 1.1 cm. No stones. No hydronephrosis. Both kidneys are echogenic. In the left upper quadrant, there is a cystic area measuring 1.2 x 1 cm which may represent a renal cyst or splenule. Findings are consistent with liver cirrhosis. There is moderate ascites in the abdomen. US/US renal BI* [id number] IMPRESSION: No hydronephrosis. The kidneys are echogenic consistent with medical renal disease. There is scarring and atrophy of the right kidney.
[2020-07-15] MEDS: HYDROcodone-acetaminophen 5-325 mg Tablet 1 TAB PO (15:15)
[2020-07-15 16:53] LABS: Glucose Point of Care 112 mg/dL (70-110)
[2020-07-15] MEDS: ferrous sulfate EC 325 mg Tablet PO (17:45)
[2020-07-15] MEDS: atorvastatin 40 mg Tablet PO (20:32)
[2020-07-15 21:30] LABS: Glucose Point of Care 135 mg/dL (70-110)
[2020-07-16 03:52] VITALS: BP 110/61; PULSE 110; RESP 20; TEMP 36.6; O2SAT 99
[2020-07-16] MEDS: metroNIDAZOLE IV 500 MG/100 ML PREMIX 100 MG IV ×3 (03:58→20:52)
[2020-07-16] MEDS: HYDROcodone-acetaminophen 5-325 mg Tablet 1 TAB PO ×2 (04:28→20:26)
[2020-07-16 06:03] LABS: Basophils % 0.3 %; Eosinophils # 0.2 10^3/uL (0.0-0.8); Hematocrit 30.1 % (37.0-47.0); Hemoglobin 8.8 g/dL (11.5-15.3); Lymphocytes # 0.6 10^3/uL (0.8-4.8); Mean Corpuscular HGB Conc 29.2 g/dL (30.0-36.0); Mean Corpuscular Hemoglobin 24.9 pg (28.0-34.0); Mean Platelet Volume 9.3 fL (7.4-10.4); Monocytes # 0.4 10^3/uL (0.2-0.9); Monocytes % 4.3 %; Neutrophils # 8.27 10^3/uL (1.8-7.7); Neutrophils % 86.9 %; Nucleated Red Blood Cells % 0 %; Platelet Count 248 10^3/cmm (130-400); Red Blood Count 3.54 10^6/uL (4.1-5.3); Red Cell Distribution Width 17.1 % (12.1-15.1); White Blood Count 9.5 10^3/uL (4.0-10.0)
[2020-07-16] MEDS: sucralfate 1 gm Tablet PO ×4 (06:08→20:30)
[2020-07-16 06:31] LABS: Procalcitonin 37.27 ng/mL (0-0.5)
[2020-07-16 06:46] LABS: Alanine Aminotransferase 10 U/L (0-33); Albumin Level 3.5 g/dL (3.5-5.2); Alkaline Phosphatase 81 IU/L (35-105); Anion Gap 18.3 (5-19); Aspartate Amino Transferase 11 U/L (0-32); Calcium 8.5 mg/dL (8.5-10.5); Carbon Dioxide 22 mmol/L (22-29); Chloride 93 mmol/L (98-107); Creatine Phosphokinase 26 U/L (26-192); Glucose 106 mg/dL (65-115); Magnesium 1.9 mg/dL (1.7-2.3); Osmolality Calculated 293 mOsm/kg (285-295); Phosphorus 4.9 mg/dL (2.5-4.5); Potassium 4.3 mmol/L (3.5-5.1); Sodium 129 mmol/L (136-145); Total Bilirubin 0.6 mg/dL (0.15-1.2); Total Protein 6.5 g/dL (6.6-8.7)
[2020-07-16 07:02] LABS: NT Pro B Type Natriuretic Pept 54319 pg/mL (0-125)
[2020-07-16 07:03] LABS: Blood Urea Nitrogen 81 mg/dL (8-23)
--- NOTE | 2020-07-16 07:25 | P.PN_ITS ---
Subjective Subjective: Interval history: No acute events overnight Normalization of leukocytosis Arterial duplex study showed: 1. Elevated velocities and monophasic waveform in the right common femoral and right popliteal arteries consistent with mild to moderate stenosis. 2. 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 Vitals/I&O/Wt Last Vital Signs Temp 97.8 F 07/16/20 03:52 Pulse 110 H 07/16/20 03:52 Resp 20 H 07/16/20 03:52 BP 110/61 07/16/20 03:52 Pulse Ox 99 07/16/20 03:52 07/15/20 07/16/20 07/16/20 22:59 06:59 14:59 Intake Total 820 / 2110 620 / 2730 Balance 820 / 1760 620 / 2380 Physical Exam Narrative: EXAM NARRATIVE: Patient is conscious alert oriented X3 BMI 25.1 Right foot wound bed still shows residual necrotic tissues that were sharply debrided bedside by me the presence of caring nurse. No surrounding cellulitis. No evidence of purulent discharge.Sutures stable in place. Some ischemic changes noted towards the site of the suture likely due to to skin ischemia yet stable. Repacking of the wound done by me Stable examination of the right lateral malleolar ulcer about 2 cm in diameter, triple antibiotic ointment was applied followed by dry dressing Data : 07/16/20 05:52 07/16/20 05:52 Micro: Microbiology 07/12/20 15:58 Gram Stain - Final Toe - Right Tissue Culture - Preliminary Serratia marcescens Enterobacter cloacae Enterococcus species A&P Assessment and plan (1) Diabetic foot ulcer: Continue: 1-nutrition optimization. I would recommend that the patient have Glucerna with each meal 2-continue wound care in the form of packing the wound twice a day using 1 inch Nu Gauze wet-to-dry using Dakin's solution half-strength, followed by ABDs Kerlix and Isidro wrap.Application of triple antibiotic ointment on the right lateral malleolar ulcer followed by dry gauze. 3-management of medical comorbidities per hospitalist service, will defer for potential paracentesis to Dr. Carrero 4-physical therapy consultation and emphasis on nonweightbearing right forefoot 5-assurance and education. 6-follow on cultures and sensitivities Due to the patient's wound complexity she is encouraged to follow-up at the wound care center upon discharge. All questions have been answered and all concerns have been addressed to melissa cespedes's satisfaction. Status: Acute (2) Ischemia of both lower extremities: In the light of the arterial duplex studies, patient would benefit from intervention cardiology evaluation and potential intervention for potentially to establish better perfusion to help with wound healing. Status: Acute Attestations Medical Necessity Statement*: Continue inpatient hospitalization for medical and surgical care Time Spent in Patient Care: 16 - 35 minutes (>than 50% of time spent in counselling and/or direct pt care on unit) . Coding Level of Care Code Acute Assistant Counsel for [facility] Diagnoses Diabetic foot ulcer E11.621; L97.509 Ischemia of both lower extremities I99.8
[2020-07-16 07:27] LABS: Glucose Point of Care 112 mg/dL (70-110)
[2020-07-16 07:42] VITALS: BP 93/66; PULSE 112; RESP 18; TEMP 36.5; O2SAT 100
[2020-07-16] MEDS: ferrous sulfate EC 325 mg Tablet PO ×2 (08:18→18:13)
[2020-07-16] MEDS: aspirin 81 mg EC Tablet PO (08:19)
[2020-07-16] MEDS: sennosides-docusate Tablet 1 TAB PO (08:19)
[2020-07-16] MEDS: pantoprazole DR 40 mg Tablet PO ×2 (08:19→18:14)
[2020-07-16] MEDS: linezolid premix 600 MG/300 ML PREMIX 300 MG IV ×2 (08:19→19:15)
[2020-07-16] MEDS: FUROsemide 10 mg/mL SDV 4mL 40 MG IVP (10:41)
[2020-07-16] MEDS: neomycin-poly-bacitracin oint 28 gm 1 APPLIC TOPICAL ×2 (11:25→18:14)
[2020-07-16] MEDS: sodium hypochlorite 0.25% Btl 473 mL 1 APPLIC TOPICAL (11:26)
[2020-07-16 11:30] LABS: Glucose Point of Care 123 mg/dL (70-110)
[2020-07-16 12:00] VITALS: BP 104/67; PULSE 111; RESP 18; TEMP 36.3; O2SAT 99
--- NOTE | 2020-07-16 12:56 | P.PN_ITS ---
Subjective Subjective: Interval history: Patient was examined this morning, her abdomen does feel distended and tight, but no shortness of breath, no chest pain, no fevers, Vitals/I&O/Wt Last Vital Signs Temp 97.3 F L 07/16/20 12:00 Pulse 111 H 07/16/20 12:00 Resp 18 07/16/20 12:00 BP 104/67 07/16/20 12:00 Pulse Ox 99 07/16/20 12:00 07/15/20 07/16/20 07/16/20 22:59 06:59 14:59 Intake Total 820 / 2110 620 / 2730 0 / 0 Output Total 350 / 350 Balance 820 / 1760 620 / 2380 -350 / -350 Physical Exam Const: COMMON NORMALS: no acute distress and patient oriented x3 HENMT: COMMON NORMALS: normocephalic HEAD & SCALP: normocephalic Neck/C-Spine: COMMON NORMALS: no JVD Resp: COMMON NORMALS: normal respiratory effort, No retractions, No use of accessory muscles and clear to auscultation bilaterally AUSCULTATION: clear to auscultation bilaterally Cardio: COMMON NORMALS: no JVD, regular rate, regular rhythm, S1 normal heart sound present and S2 normal heart sound present RATE: regular rate RHYTHM: regular rhythm HEART SOUNDS: S1 normal heart sound present and S2 normal heart sound present GI: COMMON NORMALS: Normal to inspection, nondistended, normoactive bowel sounds present, Soft to palpation, non-tender, No hepatosplenomegaly present, no masses and no bruits INSPECTION: Yes abdominal distension PALPATION: Yes Soft to palpation and Yes No hepatosplenomegaly present Extremity: COMMON NORMALS: capillary refill normal, no clubbing, cyanosis or edema, no calf tenderness and no pedal edema NARRATIVE EXTREMITY EXAM: Right lower extremity, amputation of right fifth toe to the level of the distal fifth metatarsal bone, some minimal necrotic tissue left, some bleeding, sutures in place, currently wrapped in gauze Neuro: COMMON NORMALS: patient oriented x3 Psych: COMMON NORMALS: mental status grossly normal Data : 07/16/20 05:52 07/16/20 05:52 Micro: Microbiology 07/12/20 15:58 Gram Stain - Final Toe - Right Tissue Culture - Preliminary Serratia marcescens Enterobacter cloacae Enterococcus species A&P Assessment and plan (1) Diabetic foot ulcer: Status: Acute (2) Sepsis: Status: Acute (3) Cellulitis: Status: Acute Qualifiers: Laterality: right Site of cellulitis: extremity Site of cellulitis of extremity: lower extremity Qualified Code(s): L03.115 - Cellulitis of right lower limb (4) Acute kidney injury superimposed on chronic kidney disease: Status: Acute (5) Hyperkalemia: Status: Acute (6) Chronic anemia: Status: Acute Additional A&P Information Sepsis due to wet gangrene Nonhealing diabetic foot ulcer , purulent cellulitis, Her symptoms started about 1.[address] scan: Bones/joints: Normal. No acute fracture or dislocation. Soft tissues: Soft tissue edema is present with air in the plantar aspect of the 3rd 4th and 5th toes and the dorsal aspects of the 4th and 5th toes. No collection or drainable abscess is identified. Status post debridement, incision and drainage of right diabetic foot abscess, debridement of abscess cavity, amputation of the right fifth toe to the level of the distal fifth metatarsal bone Afebrile, continues to have borderline low blood pressures, WBC 12.1, ESR 59, CRP 51.5, pro-Steve 61.25, lactic acid unremarkable Plan: -Follow blood cultures, surgical cultures so far show gram-negative rods -Continue vancomycin, Primaxin, continue Flagyl -Gentle fluid boluses to maintain MAP greater than 65, add midodrine if required, hold blood pressure medications -Avoid fluid overload as BNP is over 40,000 -Monitor hemodynamics closely Persistent hypotension, seems more concerning for cardiac etiology given reduced EF of 35 to 40%, moderate global hypokinesis, right ventricular enlargement, biatrial enlargement, moderate pulmonary pretension -All blood pressure medications have been held -Lactic acid unremarkable, blood cultures remarkable, remains afebrile, inflammatory markers downtrending -Patient is asymptomatic, no lightheadedness, no dizziness -We will do trial of Lasix -Monitor creatinine, monitor blood pressures Hyperkalemia, resolved Acute on chronic kidney disease Baseline creatinine seems to be around 1.9-2.4, creatinine 3.6, now seems more likely secondary to cardiorenal syndrome, uremia BUN 85, urine output 950, +7.2 L since admission Patient has been taking spironolactone, which has been held Not complaining of UTI or flank pain Avoid nephrotoxic agent Renal ultrasound no obstructive uropathy, no stones Has received appropriate fluid therapy, has actually become slightly fluid overloaded, with abdominal distention, hold fluids for now, avoid nephrotoxic agents, renal ultrasound, follow urine studies Acute on chronic chronic anemia Hemoglobin seems to be around baseline No active need of blood transfusion, Current hemoglobin 9.1 Status post 2 units PRBC Start Protonix, Carafate, ferrous sulfate Iron levels 15, ferritin 82 Hemoccult stool pending Cannot rule out underlying slow GI bleed, patient has a history of AV malformations, associate with GI bleeds in the past, continue to monitor CHF: Diastolic CHF, echo on in March 2020 showed an EF of 35 to 40%, with diffuse hypokinesia She has chronic leg edema for which she takes Lasix Currently no pitting edema, no shortness of breath on 1 to 2 L, but does have abdominal distention Has evidence of cardiorenal syndrome, ELIU, abdominal distention start Lasix 40 mg IV daily Cardiology consulted CAD, aspirin, statin, Imdur on hold, metoprolol and hold Nonalcoholic fatty liver disease, liver cirrhosis, now with abdominal distention, likely recurrent ascites, unfortunately we do not have radiology over the weekend, will consult radiology on Friday for paracentesis Paroxysmal atrial fibrillation, not anticoagulation due to gastrointestinal AV malformations Peripheral vascular disease: 1. Elevated velocities and monophasic waveform in the right common femoral and right popliteal arteries consistent with mild to moderate stenosis. 2. 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 Cardiology consulted Pulmonary hypertension, echo showed pulmonary tear pressure 30 mmHg Insulin-dependent type 2 diabetes mellitus, sliding scale COPD: 3L o2 Full code DVT prophylaxis SCDs, anticoagulation on hold given anemia Diabetic diet Discharge plan to [facility] Plan for today continue to ambulate, Lasix therapy, monitor blood pressure, monitor urine output, hopefully can have a paracentesis tomorrow morning Attestations Medical Necessity Statement*: Patient requires hospitalization for sepsis, right foot diabetic foot infection, cardiorenal syndrome, worsening abdominal distention, hypotension Coding Level of Care Code Acute Professor Of Surgery for [facility] Diagnoses Diabetic foot ulcer E11.621; L97.509 Sepsis A41.9 Cellulitis L03.115 Laterality: right Site of cellulitis: extremity Site of cellulitis of extremity: lower extremity Acute kidney injury superimposed on chronic kidney disease N17.9; N18.9 Hyperkalemia E87.5 Chronic anemia D64.9
--- NOTE | 2020-07-16 13:00 | PC.SOCIAL ---
*IMM* update gave to the patient verbally over the phone. She stated that she understood.
[2020-07-16 16:00] VITALS: BP 129/71; PULSE 112; RESP 18; TEMP 36.3; O2SAT 100
--- NOTE | 2020-07-16 17:18 | P.CONIM_ITS ---
Providers/Reason For Consult Consulting Physican/Specialty*: Justin Haji MD/ Cardiology Reason for Consult*: CHF/ Peripheral artery disease Attending Physician: Bashir Carrero MD Primary Care Provider: Keena De La Torre DO History of Present Illness History of Present Illness 70 year old female who has multiple comorbidities including type 2 diabetes who presented with chief complaint of worsening wound of right foot. Patient is stating that 1.5 weeks ago her right foot came under her wheelchair and that caused some skin breakdown, initially she did not pay much attention but gradually it was getting worse then she started noticing some bleeding, drainage and foul odor. She did not seek any attention until today when it is looking macerated. She had gangrene of the 5th toe and abscess on the foot. She underwent amputation of the 5th toe and I and D with Dr Blackburn. Her doppler US showed left SFA occlusion however right sided vasculature had mild to moderate disease. Patient's creatinine has been high and secondary to sepsis she was receiving fluids. Patient has developed volume overload with poor urine output and creatinine increased to 3.6. She has abdominal distension with shortness of breath. Sepsis parameters have improved with improving WBC count. ECHO shows EF of 35-40%. Review of Systems Const: Reports: chills, body aches and fatigue Eyes: Denies: change in vision ENMT: Denies: throat pain Card: Reports: edema and swelling of feet/ankles; Denies: chest pain Resp: Reports: dyspnea GI: Denies: abdominal pain : Denies: flank pain Musc: Reports: extremity pain, extremity swelling, joint pain, joint swelling, joint warmth, joint stiffness and limited range of motion Skin/Breast: Reports: new lesions, changing lesions, non-healing lesions, lesions, changes in skin color and dry skin Neuro: Denies: headache(s) Psych: Denies: anxiety Endo: Denies: polyuria Reed/Lymph: Denies: easy bruising All/Imm: Denies: urticaria Meds/Allergies Home Medications and Allergies Home Medications Medication Instructions Recorded Confirmed Last Taken Type Tresiba FlexTouch U-100 30 unit SUBCUT BEDTIME 10/26/19 07/12/20 Unknown History buspirone 15 mg PO BID 10/26/19 07/12/20 Unknown History diphenoxylate-atropine 1 tab PO TID PRN 10/26/19 07/12/20 Unknown History hydrocodone-acetaminophen 10 - 325 tab PO 5XD PRN 10/26/19 07/12/20 Unknown History levalbuterol tartrate [Xopenex HFA] 1 puff INHALATION QID PRN 10/26/19 07/12/20 Unknown History metoprolol tartrate 25 mg PO DAILY 10/26/19 07/12/20 Unknown History midodrine 2.5 mg PO BID 10/26/19 07/12/20 Unknown History trazodone 200 mg PO BEDTIME 10/26/19 07/12/20 Unknown History albuterol sulfate 2.5 mg INHALATION QID PRN 04/12/20 07/12/20 Unknown History aspirin 81 mg PO DAILY #30 tab 04/16/20 07/12/20 Unknown Rx isosorbide mononitrate 15 mg PO BID #60 tab 04/16/20 07/12/20 Unknown Rx spironolactone 25 mg PO DAILY #30 tab 04/16/20 07/12/20 Unknown Rx furosemide 40 mg PO DAILY 07/12/20 07/12/20 Unknown History Allergies Allergy/AdvReac Type Severity Reaction Status Date / Time STERIODS Allergy ADR-Agitate Uncoded 07/12/20 15:00 d Current Medications Current Medications Generic Name Dose Route Start Last Admin Trade Name Freq PRN Reason Stop Dose Admin Hydrocodone Bitart/Acetaminophen 1 tab 07/14/20 08:57 07/16/20 04:28 Hydrocodone-Acetaminophen 5-325 Mg Tablet PO 1 tab Q4H PRN Administration MODERATE PAIN Albuterol Sulfate 2.5 mg 07/12/20 04:59 07/15/20 14:15 Albuterol 2.5 Mg/0.5 Ml Neb INHALATION 2.5 mg QID PRN Administration Shortness Of Breath Aspirin 81 mg 07/12/20 09:00 07/16/20 08:19 Aspirin 81 Mg Ec Tablet PO 81 mg DAILY RIANNA Administration Atorvastatin Calcium 40 mg 07/12/20 21:00 07/15/20 20:32 Atorvastatin 40 Mg Tablet PO 40 mg BEDTIME RIANNA Administration Diphenhydramine HCl 25 mg 07/14/20 18:01 07/15/20 23:55 Diphenhydramine 25 Mg Capsule PO 25 mg Q6H PRN Administration ITCHING Ferrous Sulfate 325 mg 07/15/20 18:00 07/16/20 08:18 Ferrous Sulfate Ec 325 Mg Tablet PO 325 mg BIDWM RIANNA Administration Linezolid 600 mg in 300 mls @ 300 mls/hr 07/12/20 05:00 07/16/20 08:19 Zyvox Premix IV 300 mls/hr Q12H RIANNA Administration Protocol Metronidazole 500 mg in 100 mls @ 100 mls/hr 07/13/20 10:00 07/16/20 13:02 Flagyl Iv IV 100 mls/hr Q8H RIANNA Administration Protocol Imipenem/Cilastatin Sodium 250 100 mls @ 200 mls/hr 07/15/20 10:00 07/16/20 10:48 mg/ Sodium Chloride IV 200 mls/hr Q12H RIANNA Administration Protocol Albumin Human 25 gm in 100 mls @ 60 mls/hr 07/15/20 10:00 07/16/20 11:25 Albumin IV 60 mls/hr Q12H RIANNA Administration Insulin Aspart 0 unit 07/12/20 08:00 07/16/20 11:40 Insulin Aspart 100 Unit/1 Ml SUBCUT Not Given WM&BEDTIME RIANNA Protocol Isosorbide Mononitrate 15 mg 07/12/20 09:00 07/13/20 17:56 Isosorbide Mononitrate Er 30 Mg Tablet PO 15 mg BID RIANNA Administration Metoprolol Tartrate 25 mg 07/12/20 09:00 07/13/20 08:16 Metoprolol Tartrate 25 Mg Tablet PO 25 mg DAILY RIANNA Administration Neomycin/Polymyxin/Bacitracin 1 applic 07/15/20 09:00 07/16/20 11:25 Kczwdkry-Ojld-Ftlhxcpuko Oint 28 Gm TOPICAL 1 applic BID RIANNA Administration Ondansetron HCl 4 mg 07/14/20 10:26 07/14/20 11:46 Ondansetron 2 Mg/Ml Sdv 2 Ml IVP 4 mg Q6H PRN Administration NAUSEA AND VOMITING Pantoprazole Sodium 40 mg 07/12/20 11:00 07/16/20 08:[address] 40 Mg Tablet PO 40 mg BID RIANNA Administration Senna/Docusate Sodium 1 tab 07/12/20 09:00 07/16/20 08:19 Sennosides-Docusate Tablet PO 1 tab DAILY RIANNA Administration Sodium Hypochlorite 1 applic 12/31/20 06:30 07/16/20 11:26 Sodium Hypochlorite 0.25% Btl 473 Ml TOPICAL 1 applic Q24H RIANNA Administration Sucralfate 1 gm 07/12/20 11:00 07/16/20 10:41 Sucralfate 1 Gm Tablet PO 1 gm AC&BEDTIME RIANNA Administration PFSH Acute PFSH: Medical History CAD (coronary artery disease) Chronic kidney disease (CKD) COPD (chronic obstructive pulmonary disease) Diastolic CHF Echocardiogram 04/12 Diffuse hypokinesia left ventricle with ejection fracti on around 40-45%, mildly increased RV size, increased RA/LA size, mod TR History of arteriovenous malformation (AVM) Associated with GI bleeding in the past Insulin dependent type 2 diabetes mellitus Liver cirrhosis Nonalcoholic fatty liver disease Paroxysmal atrial fibrillation Noted on some prior EKGs, not anticoagulated due to the blood loss from gastrointestinal AVMs, not known to be chronic Peripheral vascular disease Pulmonary hypertension ECHO 04/12 Estimated pulmonary artery peak systolic pressure of 55 mmHg. Surgical History History of appendectomy History of back surgery History of cholecystectomy History of coronary artery bypass graft x 2 History of hand surgery History of heart artery stent History of hernia repair History of repair of right hip joint (~10/26/19) Close reduction with percutaneous screw fixation in the right femoral neck fracture by Dr. Vasquez Family History Other Diabetes Social History Smoking and tobacco status: former smoker Alcohol intake: never Vitals/I&O/Wt Last Vital Signs Temp 97.3 F L 07/16/20 16:00 Pulse 112 H 07/16/20 16:00 Resp 18 07/16/20 16:00 BP 129/71 07/16/20 16:00 Pulse Ox 100 07/16/20 16:00 07/16/20 07/16/20 07/16/20 06:59 14:59 22:59 Intake Total 620 / 2730 240 / 240 Output Total 350 / 350 Balance 620 / 2380 -110 / -110 Physical Exam Const: COMMON NORMALS: no acute distress and patient oriented x3 HENMT: COMMON NORMALS: normocephalic HEAD & SCALP: normocephalic Neck/C-Spine: COMMON NORMALS: no JVD Resp: COMMON NORMALS: normal respiratory effort, No retractions, No use of accessory muscles and clear to auscultation bilaterally AUSCULTATION: clear to auscultation bilaterally Cardio: COMMON NORMALS: no JVD, regular rate, regular rhythm, S1 normal heart sound present and S2 normal heart sound present RATE: regular rate RHYTHM: regular rhythm HEART SOUNDS: S1 normal heart sound present and S2 normal heart sound present GI: COMMON NORMALS: Normal to inspection, nondistended, normoactive bowel sounds present, Soft to palpation, non-tender, No hepatosplenomegaly present, no masses and no bruits INSPECTION: Yes abdominal distension PALPATION: Yes Soft to palpation and Yes No hepatosplenomegaly present Extremity: COMMON NORMALS: capillary refill normal, no clubbing, cyanosis or edema, no calf tenderness and no pedal edema NARRATIVE EXTREMITY EXAM: Right lower extremity, amputation of right fifth toe to the level of the distal fifth metatarsal bone, some minimal necrotic tissue left, some bleeding, sutures in place, currently wrapped in gauze Neuro: COMMON NORMALS: patient oriented x3 Psych: COMMON NORMALS: mental status grossly normal Data Micro: Micro: Microbiology 07/12/20 15:58 Gram Stain - Final Toe - Right Tissue Culture - F inal Serratia marces cens Enterobacter cl oacae Enterococcus fa ecalis A&P Assessment and plan (1) Paroxysmal atrial fibrillation: Status: Acute (2) Congestive heart failure: Status: Acute Patient is volume overloaded as received aggressive IV fluids. Her renal function has worsened signficantly. She also has abdominal distension and fluid accumulation. Will recommend IV Diuresis Closely monitor I and Os Paracentesis Her peripheral artery disease is mostly on the left leg, however procedure was done on the right. Will monitor for now specially with creatinine that is more than 3.5. Uptitrate metoprolol to 50mg BID. If heart rates remain uncontrolled, can consider esmolol gtt. Coding Level of Care Code Acute Director Of Physical Security for g Fwd Diagnoses Paroxysmal atrial fibrillation I48.0 Congestive heart failure I50.9
[2020-07-16 17:23] LABS: Glucose Point of Care 174 mg/dL (70-110)
--- NOTE | 2020-07-16 19:20 | PC.NURSE ---
pt had no pain today. pt continues to have diarrhea. unable to obtain urine sample due to mixture of diarrhea with urine. pt was up to bedside commode and side of bed today. dressing on R foot changed today. Pt doing well with fluid restriction.
[2020-07-16 19:21] VITALS: BP 110/70; PULSE 98; RESP 18; TEMP 36.8; O2SAT 100
[2020-07-16] MEDS: atorvastatin 40 mg Tablet PO (20:26)
[2020-07-16 21:39] LABS: Glucose Point of Care 117 mg/dL (70-110)
[2020-07-16 23:40] VITALS: PULSE 98; RESP 20; O2SAT 97
[2020-07-17] VITALS (9 sets, daily range): BP systolic 101–115; BP diastolic 60–75; PULSE 77–123; RESP 16–20; TEMP 36.4–36.8; O2SAT 80–997
[2020-07-17] MEDS: diphenhydrAMINE 25 mg Capsule PO (04:19)
[2020-07-17] MEDS: metroNIDAZOLE IV 500 MG/100 ML PREMIX 100 MG IV (04:20)
[2020-07-17 05:39] LABS: Basophils % 0.3 %; Eosinophils # 0.2 10^3/uL (0.0-0.8); Eosinophils % 2.5 %; Hematocrit 28.8 % (37.0-47.0); Hemoglobin 8.4 g/dL (11.5-15.3); Lymphocytes # 0.6 10^3/uL (0.8-4.8); Lymphocytes % 6.3 %; Mean Corpuscular HGB Conc 29.2 g/dL (30.0-36.0); Mean Corpuscular Hemoglobin 24.6 pg (28.0-34.0); Mean Corpuscular Volume 84.2 fL (81-99); Mean Platelet Volume 9.4 fL (7.4-10.4); Monocytes # 0.4 10^3/uL (0.2-0.9); Monocytes % 4.5 %; Neutrophils # 8.04 10^3/uL (1.8-7.7); Neutrophils % 86.2 %; Nucleated Red Blood Cells % 0 %; Platelet Count 235 10^3/cmm (130-400); Red Blood Count 3.42 10^6/uL (4.1-5.3); Red Cell Distribution Width 17.4 % (12.1-15.1); White Blood Count 9.3 10^3/uL (4.0-10.0)
[2020-07-17] MEDS: HYDROcodone-acetaminophen 5-325 mg Tablet 1 TAB PO ×4 (05:59→20:31)
[2020-07-17 06:15] LABS: Procalcitonin 23.23 ng/mL (0-0.5)
[2020-07-17 06:31] LABS: Alanine Aminotransferase 8 U/L (0-33); Albumin Level 3.8 g/dL (3.5-5.2); Alkaline Phosphatase 76 IU/L (35-105); Anion Gap 18.1 (5-19); Aspartate Amino Transferase 10 U/L (0-32); Blood Urea Nitrogen 75 mg/dL (8-23); C Reactive Protein 36.5 mg/L (0.0-4.9); Calcium 8.5 mg/dL (8.5-10.5); Carbon Dioxide 21 mmol/L (22-29); Chloride 94 mmol/L (98-107); Creatine Phosphokinase 25 U/L (26-192); Globulin 2.9 g/dL (1.3-4.6); Glucose 106 mg/dL (65-115); Magnesium 1.9 mg/dL (1.7-2.3); Osmolality Calculated 291 mOsm/kg (285-295); Phosphorus 4.3 mg/dL (2.5-4.5); Potassium 4.1 mmol/L (3.5-5.1); Sodium 129 mmol/L (136-145); Total Bilirubin 0.6 mg/dL (0.15-1.2); Total Protein 6.7 g/dL (6.6-8.7)
[2020-07-17 06:58] LABS: Glucose Point of Care 122 mg/dL (70-110)
--- NOTE | 2020-07-17 08:00 | US_ITS ---
WS: [id number] ULTRASOUND-GUIDED THERAPEUTIC AND DIAGNOSTIC PARACENTESIS Procedure, risks, and complications have been explained to the patient. Consent is obtained. Utilizing aseptic technique and 1% buffered lidocaine, a small dermatome was made through which a 5 F rench Yueh catheter was inserted. Approximately 4400 ml of yellow peritoneal fluid was obtained witho ut difficulty. No complications encountered. Specimen collected for analysis as requested by physicia n. US/US paracentesis abd w [id number] IMPRESSION: Uncomplicated paracentesis yielding 4400 ml of peritoneal fluid. Specimen collected for analysis as requested.
[2020-07-17] MEDS: sennosides-docusate Tablet 1 TAB PO (09:08)
[2020-07-17] MEDS: aspirin 81 mg EC Tablet PO (09:08)
[2020-07-17] MEDS: pantoprazole DR 40 mg Tablet PO ×2 (09:08→17:20)
[2020-07-17] MEDS: ferrous sulfate EC 325 mg Tablet PO ×2 (09:08→17:20)
[2020-07-17] MEDS: FUROsemide 10 mg/mL SDV 4mL 40 MG IVP ×2 (09:57→20:31)
[2020-07-17 11:02] LABS: Body Fluid Polynuclear #Cells 0.056; Body Fluid WBC 201 /uL; Monocytes # Body Fluid 0.145
[2020-07-17 11:05] LABS: Color, Body Fluid PALE YELLOW
[2020-07-17 11:06] LABS: Apprearance, Body Fluid CLOUDY
[2020-07-17] MEDS: sodium hypochlorite 0.25% Btl 473 mL 1 APPLIC TOPICAL (11:07)
[2020-07-17] MEDS: neomycin-poly-bacitracin oint 28 gm 1 APPLIC TOPICAL ×2 (11:08→17:21)
--- NOTE | 2020-07-17 11:17 | PM.PN ---
Subjective Subjective: Interval history: Patient is still volume overloaded. She does have lower extremity edema and shortness of breath. Plan for paracentesis today. Vitals/I&O/Wt Last Vital Signs Temp 97.6 F 07/17/20 08:00 Pulse 123 H 07/17/20 08:00 Resp 18 07/17/20 08:00 BP 114/64 07/17/20 08:00 Pulse Ox 80 L 07/17/20 08:00 07/16/20 07/17/20 07/17/20 22:59 06:59 14:59 Intake Total 640 / 1480 780 / 2260 240 / 240 Output Total 500 / 850 400 / 1250 Balance 140 / 630 380 / 1010 240 / 240 Physical Exam Const: COMMON NORMALS: no acute distress and patient oriented x3 HENMT: COMMON NORMALS: normocephalic HEAD & SCALP: normocephalic Neck/C-Spine: COMMON NORMALS: no JVD Resp: COMMON NORMALS: normal respiratory effort, No retractions, No use of accessory muscles and clear to auscultation bilaterally AUSCULTATION: clear to auscultation bilaterally Cardio: COMMON NORMALS: no JVD, regular rate, regular rhythm, S1 normal heart sound present and S2 normal heart sound present RATE: regular rate RHYTHM: regular rhythm HEART SOUNDS: S1 normal heart sound present and S2 normal heart sound present GI: COMMON NORMALS: Soft to palpation, non-tender, No hepatosplenomegaly present, no masses and no bruits; negative for Normal to inspection, nondistended, normoactive bowel sounds present (Patient has abdominal distention from fluid) INSPECTION: Yes abdominal distension PALPATION: Yes Soft to palpation and Yes No hepatosplenomegaly present Extremity: COMMON NORMALS: capillary refill normal, no clubbing, cyanosis or edema, no calf tenderness and no pedal edema NARRATIVE EXTREMITY EXAM: Right lower extremity, amputation of right fifth toe to the level of the distal fifth metatarsal bone, some minimal necrotic tissue left, some bleeding, sutures in place, currently wrapped in gauze Neuro: COMMON NORMALS: patient oriented x3 Psych: COMMON NORMALS: mental status grossly normal Data : 07/17/20 05:28 07/17/20 05:28 Micro: Microbiology 07/11/20 20:08 Blood Culture - Final Blood NO GROWTH AFTER 5 DAYS 07/11/20 20:14 Blood Culture - Final Blood NO GROWTH AFTER 5 DAYS 07/12/20 15:58 Gram Stain - Final Toe - Right Tissue Culture - Final Serratia marcescens Enterobacter cloacae Enterococcus faecalis A&P Assessment and plan (1) Paroxysmal atrial fibrillation: Status: Acute (2) Congestive heart failure: Status: Acute Patient is volume overloaded as received aggressive IV fluids. Her renal function has worsened signficantly. She also has abdominal distension and fluid accumulation. Continue IV diuresis. Creatinine improved to 3.1 with IV diuresis. Closely monitor I and Os Paracentesis Her peripheral artery disease is mostly on the left leg, however procedure was done on the right. Will monitor for now specially with creatinine that is more than 3.5. Uptitrate metoprolol to 50mg BID. If heart rates remain uncontrolled, can consider esmolol gtt. Thank you for involving us with care of this patient. We will continue to follow along. Please call with questions. Attestations Medical Necessity Statement*: Care expected to cross 2 midnights. Coding Level of Care Code Acute Patternmaker [employer] for Joey Coffman Diagnoses Paroxysmal atrial fibrillation I48.0 Congestive heart failure I50.9
[2020-07-17 11:21] LABS: Potassium, Radom Urine 20 mmol/L; Urine Creatinine 71 mg/dL (28-217)
[2020-07-17] MEDS: linezolid 600 mg Tablet PO (11:21)
[2020-07-17 11:23] LABS: Glucose Point of Care 142 mg/dL (70-110)
[2020-07-17 11:31] LABS: Urine Random Chloride 16 mmol/L; Urine Random Sodium 14 mmol/L
[2020-07-17 11:52] LABS: Eosinophil Urine No Eosinophils Seen; Urine Eosinophil Count 0 (0-0)
[2020-07-17 12:07] LABS: Albumin Body Fluid 2.7 g/dL; Fluid Alkaline Phos. 42 IU/L; LDH Body Fluid 89 U/L; Total Protein Body Fluid 4 g/dL
[2020-07-17 12:08] LABS: pH Body Fluid 7.5
--- NOTE | 2020-07-17 14:02 | P.PN_ITS ---
Subjective Subjective: Interval history: Patient was examined this morning, she is ready to go down for paracentesis, she tells me that she is feeling better, no nausea, no vomiting, no chest pain Vitals/I&O/Wt Last Vital Signs Temp 97.6 F 07/17/20 08:00 Pulse 123 H 07/17/20 08:00 Resp 18 07/17/20 08:00 BP 114/64 07/17/20 08:00 Pulse Ox 80 L 07/17/20 08:00 07/16/20 07/17/20 07/17/20 22:59 06:59 14:59 Intake Total 640 / 1480 780 / 2260 340 / 340 Output Total 500 / 850 400 / 1250 Balance 140 / 630 380 / 1010 340 / 340 Physical Exam Const: COMMON NORMALS: no acute distress and patient oriented x3 HENMT: COMMON NORMALS: normocephalic HEAD & SCALP: normocephalic Neck/C-Spine: COMMON NORMALS: no JVD Resp: COMMON NORMALS: normal respiratory effort, No retractions, No use of accessory muscles and clear to auscultation bilaterally AUSCULTATION: clear to auscultation bilaterally Cardio: COMMON NORMALS: no JVD, regular rate, regular rhythm, S1 normal heart sound present and S2 normal heart sound present RATE: regular rate RHYTHM: regular rhythm HEART SOUNDS: S1 normal heart sound present and S2 normal heart sound present GI: COMMON NORMALS: Normal to inspection, nondistended, normoactive bowel sounds present, Soft to palpation, non-tender, No hepatosplenomegaly present, no masses and no bruits INSPECTION: Yes abdominal distension PALPATION: Yes Soft to palpation and Yes No hepatosplenomegaly present Extremity: COMMON NORMALS: capillary refill normal, no clubbing, cyanosis or edema, no calf tenderness and no pedal edema NARRATIVE EXTREMITY EXAM: Right lower extremity, amputation of right fifth toe to the level of the distal fifth metatarsal bone, some minimal necrotic tissue left, some bleeding, sutures in place, currently wrapped in gauze Neuro: COMMON NORMALS: patient oriented x3 Psych: COMMON NORMALS: mental status grossly normal Skin: NARRATIVE SKIN EXAM: Right foot, wet gangrene, fourth and fifth digit, foul smell, with surrounding erythema, swelling Data : 07/17/20 05:28 07/17/20 05:28 Micro: Microbiology 07/17/20 10:02 Gram Stain - Final Peritoneal Fluid 07/11/20 20:08 Blood Culture - Final Blood NO GROWTH AFTER 5 DAYS 07/11/20 20:14 Blood Culture - Final Blood NO GROWTH AFTER 5 DAYS 07/12/20 15:58 Gram Stain - Final Toe - Right Tissue Culture - Final Serratia marcescens Enterobacter cloacae Enterococcus faecalis A&P Assessment and plan (1) Diabetic foot ulcer: Status: Acute (2) Sepsis: Status: Acute (3) Cellulitis: Status: Acute Qualifiers: Laterality: right Site of cellulitis: extremity Site of cellulitis of extremity: lower extremity Qualified Code(s): L03.115 - Cellulitis of right lower limb (4) Acute kidney injury superimposed on chronic kidney disease: Status: Acute (5) Hyperkalemia: Status: Acute (6) Chronic anemia: Status: Acute Additional A&P Information Sepsis due to wet gangrene Nonhealing diabetic foot ulcer , purulent cellulitis, Her symptoms started about 1.[address] scan: Bones/joints: Normal. No acute fracture or dislocation. Soft tissues: Soft tissue edema is present with air in the plantar aspect of the 3rd 4th and 5th toes and the dorsal aspects of the 4th and 5th toes. No collection or drainable abscess is identified. Status post debridement, incision and drainage of right diabetic foot abscess, debridement of abscess cavity, amputation of the right fifth toe to the level of the distal fifth metatarsal bone Afebrile, continues to have borderline low blood pressures, WBC 12.1, ESR 59, CRP 51.5, pro-Steve 61.25, lactic acid unremarkable Plan: -Follow blood cultures, surgical cultures so far show gram-negative rods -Switch to p.o. Zyvox, p.o. Levaquin -Avoid fluid overload as BNP is over 40,000 -Monitor hemodynamics closely Persistent hypotension, seems more concerning for cardiac etiology given reduced EF of 35 to 40%, moderate global hypokinesis, right ventricular enlargement, biatrial enlargement, moderate pulmonary pretension -All blood pressure medications have been held -Lactic acid unremarkable, blood cultures remarkable, remains afebrile, inflammatory markers downtrending -Patient is asymptomatic, no lightheadedness, no dizziness -Did well with Lasix -Monitor creatinine, monitor blood pressures -Cardiology on consult Hyperkalemia, resolved Acute on chronic kidney disease Baseline creatinine seems to be around 1.9-2.4, creatinine 3.1, now seems more likely secondary to cardiorenal syndrome, uremia BUN 85, urine output 1250, +8.9 L since admission Patient has been taking spironolactone, which has been held Not complaining of UTI or flank pain Renal ultrasound no obstructive uropathy, no stones Has received appropriate fluid therapy, has actually become slightly fluid overloaded, with abdominal distention, hold fluids for now, avoid nephrotoxic agents, renal ultrasound, follow urine studies Acute on chronic chronic anemia Hemoglobin seems to be around baseline No active need of blood transfusion, Current hemoglobin 8.4 Status post 2 units PRBC Start Protonix, Carafate, ferrous sulfate Iron levels 15, ferritin 82 Hemoccult stool pending Cannot rule out underlying slow GI bleed, patient has a history of AV malformations, associate with GI bleeds in the past, continue to monitor CHF: Diastolic CHF, echo on in March 2020 showed an EF of 35 to 40%, with diffuse hypokinesia She has chronic leg edema for which she takes Lasix Currently no pitting edema, no shortness of breath on 1 to 2 L, but does have abdominal distention Has evidence of cardiorenal syndrome, ELIU, abdominal distention start Lasix 40 mg IV daily Cardiology consulted CAD, aspirin, statin, Imdur on hold, metoprolol and hold Nonalcoholic fatty liver disease, liver cirrhosis, now with abdominal distention , likely recurrent ascites, unfortunately we do not have radiology over the weekend, will consult radiology on Friday for paracentesis Paroxysmal atrial fibrillation, not anticoagulation due to gastrointestinal AV malformations Peripheral vascular disease: 1. Elevated velocities and monophasic waveform in the right common femoral and right popliteal arteries consistent with mild to moderate stenosis. 2. 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 Cardiology consulted Pulmonary hypertension, echo showed pulmonary tear pressure 30 mmHg Insulin-dependent type 2 diabetes mellitus, sliding scale COPD: 3L o2 Full code DVT prophylaxis SCDs, anticoagulation on hold given anemia Diabetic diet Discharge plan to [facility] Plan for today continue to ambulate, Lasix therapy, will have paracentesis, monitor blood pressure, monitor urine output, working on [facility] placement Attestations Medical Necessity Statement*: Patient requires hospitalization for sepsis secondary to diabetic foot infection, acute renal failure, cardiorenal syndrome, CHF, anemia, requiring [facility] placement Coding Level of Care Code Acute Clinical Nursing Intern for g Fwd Diagnoses Diabetic foot ulcer E11.621; L97.509 Sepsis A41.9 Cellulitis L03.115 Laterality: right Site of cellulitis: extremity Site of cellulitis of extremity: lower extremity Acute kidney injury superimposed on chronic kidney disease N17.9; N18.9 Hyperkalemia E87.5 Chronic anemia D64.9
[2020-07-17 14:54] LABS: Urea Nitrogen,Urine Random 546 mg/dL
[2020-07-17] MEDS: levoFLOXacin 750 mg Tablet PO (15:10)
[2020-07-17 18:08] LABS: Glucose Point of Care 135 mg/dL (70-110)
[2020-07-17 20:15] LABS: Glucose Point of Care 133 mg/dL (70-110)
[2020-07-17] MEDS: atorvastatin 40 mg Tablet PO (20:31)
[2020-07-17] MEDS: sucralfate 1 gm Tablet PO (20:31)
[2020-07-18] VITALS (8 sets, daily range): BP systolic 112–123; BP diastolic 68–85; PULSE 91–119; RESP 17–20; TEMP 36.3–36.8; O2SAT 97–100
[2020-07-18] MEDS: HYDROcodone-acetaminophen 5-325 mg Tablet 1 TAB PO ×4 (01:46→20:58)
[2020-07-18 05:31] LABS: Basophils % 0.2 %; Eosinophils # 0.2 10^3/uL (0.0-0.8); Eosinophils % 1.8 %; Hematocrit 30.2 % (37.0-47.0); Hemoglobin 8.7 g/dL (11.5-15.3); Lymphocytes # 0.6 10^3/uL (0.8-4.8); Lymphocytes % 5.3 %; Mean Corpuscular HGB Conc 28.8 g/dL (30.0-36.0); Mean Corpuscular Hemoglobin 24.9 pg (28.0-34.0); Mean Corpuscular Volume 86.3 fL (81-99); Mean Platelet Volume 9.7 fL (7.4-10.4); Monocytes # 0.4 10^3/uL (0.2-0.9); Monocytes % 3.6 %; Neutrophils # 9.26 10^3/uL (1.8-7.7); Neutrophils % 88.6 %; Nucleated Red Blood Cells % 0 %; Platelet Count 218 10^3/cmm (130-400); Red Cell Distribution Width 17.9 % (12.1-15.1); White Blood Count 10.5 10^3/uL (4.0-10.0)
[2020-07-18 06:07] LABS: Alanine Aminotransferase 6 U/L (0-33); Albumin Level 3.6 g/dL (3.5-5.2); Alkaline Phosphatase 75 IU/L (35-105); Anion Gap 19.2 (5-19); Aspartate Amino Transferase 10 U/L (0-32); Blood Urea Nitrogen 70 mg/dL (8-23); C Reactive Protein 30.4 mg/L (0.0-4.9); Calcium 8.5 mg/dL (8.5-10.5); Carbon Dioxide 21 mmol/L (22-29); Chloride 95 mmol/L (98-107); Globulin 2.7 g/dL (1.3-4.6); Glucose 101 mg/dL (65-115); Magnesium 1.9 mg/dL (1.7-2.3); Osmolality Calculated 293 mOsm/kg (285-295); Phosphorus 4.1 mg/dL (2.5-4.5); Potassium 4.2 mmol/L (3.5-5.1); Sodium 131 mmol/L (136-145); Total Bilirubin 0.4 mg/dL (0.15-1.2); Total Protein 6.3 g/dL (6.6-8.7)
[2020-07-18] MEDS: sucralfate 1 gm Tablet PO ×4 (06:17→20:49)
[2020-07-18 07:02] LABS: Glucose Point of Care 110 mg/dL (70-110)
--- NOTE | 2020-07-18 08:54 | USCV_ITS ---
Christina Charles Age: 70 Gender: F : 1950 Exam Date: 07/18/2020 15:04 Ordering Phys: Bashir Carrero MD Technologist: Afia Griffin [place] [facility] [place]: BLE PAIN AND SWELLING HISTORY: Lower extremity edema. Lower extremity pain. PROCEDURES: Venous duplex imaging was performed in bilateral lower extremities. The following venous structures were evaluated: common femoral vein, profunda vein, proximal portion of the greater saphenous vein, superficial femoral vein, and the popliteal vein. In addition, the posterior tibial veins were evaluated. In addition, the posterior tibial and peroneal trunk were evaluated. FINDINGS: Normal 2-D Doppler and augmentation and compressibility throughout the lower extremity venous structures. Additional imaging through the proximal calf veins also reveals no thrombus. Limited evaluation of the greater saphenous vein is patent with no thrombus. CONCLUSIONS No DVT bilateral lower extremities. Dr. Dary Funes DO (Electronically Signed) Final Date: 18 July 2020 16:08 S
[2020-07-18] MEDS: sennosides-docusate Tablet 1 TAB PO (09:04)
[2020-07-18] MEDS: ferrous sulfate EC 325 mg Tablet PO ×2 (09:04→17:04)
[2020-07-18] MEDS: aspirin 81 mg EC Tablet PO (09:04)
[2020-07-18] MEDS: pantoprazole DR 40 mg Tablet PO ×2 (09:04→17:05)
[2020-07-18] MEDS: doxycycline 100 mg Tablet PO ×2 (09:12→17:04)
[2020-07-18] MEDS: FUROsemide 10 mg/mL SDV 4mL 40 MG IVP ×2 (09:13→19:17)
[2020-07-18] MEDS: heparin 5,000 unit/mL INJ 1 mL 5000 UNIT SUBCUT ×2 (09:13→19:16)
[2020-07-18] MEDS: ondansetron 2 mg/ML SDV 2 mL 4 MG IVP (09:16)
--- NOTE | 2020-07-18 10:18 | P.PN_ITS ---
Subjective Subjective: Interval history: Patient is doing well. She denies complaints of chest pain, shortness of breath or palpitations. She had paracentesis yesterday and feels better after that.Still has lower extremity edema Vitals/I&O/Wt Last Vital Signs Temp 97.6 F 07/18/20 07:41 Pulse 118 H 07/18/20 07:41 Resp 17 07/18/20 07:41 BP 123/77 07/18/20 07:41 Pulse Ox 99 07/18/20 07:41 07/17/20 07/18/20 07/18/20 22:59 06:59 14:59 Intake Total 580 / 1020 240 / 1260 120 / 120 Output Total 800 / 1600 450 / 2050 400 / 400 Balance -220 / -580 -210 / -790 -280 / -280 Physical Exam Const: COMMON NORMALS: no acute distress and patient oriented x3 HENMT: COMMON NORMALS: normocephalic HEAD & SCALP: normocephalic Neck/C-Spine: COMMON NORMALS: no JVD Resp: COMMON NORMALS: normal respiratory effort, No retractions, No use of accessory muscles and clear to auscultation bilaterally AUSCULTATION: clear to auscultation bilaterally Cardio: COMMON NORMALS: no JVD, regular rate, regular rhythm, S1 normal heart sound present and S2 normal heart sound present RATE: regular rate RHYTHM: regular rhythm HEART SOUNDS: S1 normal heart sound present and S2 normal heart sound present GI: COMMON NORMALS: Soft to palpation, non-tender, No hepatosplenomegaly present, no masses and no bruits; negative for Normal to inspection, nondistended, normoactive bowel sounds present (Patient has abdominal distention from fluid) INSPECTION: Yes abdominal distension PALPATION: Yes Soft to palpation and Yes No hepatosplenomegaly present Extremity: COMMON NORMALS: capillary refill normal, no clubbing, cyanosis or edema, no calf tenderness and no pedal edema NARRATIVE EXTREMITY EXAM: Right lower extremity, amputation of right fifth toe to the level of the distal fifth metatarsal bone, some minimal necrotic tissue left, some bleeding, sutures in place, currently wrapped in gauze Neuro: COMMON NORMALS: patient oriented x3 Psych: COMMON NORMALS: mental status grossly normal Data : 07/18/20 04:36 07/18/20 04:36 Micro: Microbiology 07/17/20 10:02 Gram Stain - Final Peritoneal Fluid A&P Assessment and plan (1) Paroxysmal atrial fibrillation: Status: Acute (2) Congestive heart failure: Status: Acute Patient is volume overloaded as received aggressive IV fluids. Her renal function has worsened signficantly. Abdominal distension has improved since getting paracentesis yesterday. Continue IV diuresis. Creatinine improved to 3with IV diuresis. Closely monitor I and Os Paracentesis Her peripheral artery disease is mostly on the left leg, however procedure was done on the right. Will monitor for now specially with creatinine that is more than 3 Uptitrate metoprolol to 50mg BID. If heart rates remain uncontrolled, can consider esmolol gtt. Thank you for involving us with care of this patient. We will continue to follow along. Please call with questions. 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
[2020-07-18] MEDS: neomycin-poly-bacitracin oint 28 gm 1 APPLIC TOPICAL ×2 (10:49→17:06)
[2020-07-18] MEDS: sodium hypochlorite 0.25% Btl 473 mL 1 APPLIC TOPICAL (10:49)
[2020-07-18] MEDS: metOLazone 5 MG Tablet PO (10:55)
--- NOTE | 2020-07-18 11:00 | PC.OT ---
OT EVALUATION ATTEMPTED. PATIENT REFUSES AT THIS TIME DUE TO TOO MUCH PAIN. WILL ATTEMPT AGAIN IN P.M.
[2020-07-18 11:04] LABS: Glucose Point of Care 115 mg/dL (70-110)
--- NOTE | 2020-07-18 11:16 | P.PN_ITS ---
Subjective Subjective: Interval history: Patient was examined this morning, she tells me that she is feeling better after the paracentesis, has bilateral lower extremity edema, no shortness of breath, is on 2 L, no fevers, chills, no nausea, no vomiting Vitals/I&O/Wt Last Vital Signs Temp 97.6 F 07/18/20 07:41 Pulse 118 H 07/18/20 07:41 Resp 17 07/18/20 07:41 BP 123/77 07/18/20 07:41 Pulse Ox 99 07/18/20 07:41 07/17/20 07/18/20 07/18/20 22:59 06:59 14:59 Intake Total 580 / 1020 240 / 1260 120 / 120 Output Total 800 / 1600 450 / 2050 400 / 400 Balance -220 / -580 -210 / -790 -280 / -280 Physical Exam Const: COMMON NORMALS: no acute distress and patient oriented x3 HENMT: COMMON NORMALS: normocephalic HEAD & SCALP: normocephalic Neck/C-Spine: COMMON NORMALS: no JVD Resp: COMMON NORMALS: normal respiratory effort, No retractions, No use of accessory muscles and clear to auscultation bilaterally AUSCULTATION: clear to auscultation bilaterally Cardio: COMMON NORMALS: no JVD, regular rate, regular rhythm, S1 normal heart sound present and S2 normal heart sound present RATE: regular rate RHYTHM: regular rhythm HEART SOUNDS: S1 normal heart sound present and S2 normal heart sound present GI: COMMON NORMALS: Normal to inspection, nondistended, normoactive bowel sounds present, Soft to palpation, non-tender, No hepatosplenomegaly present, no masses and no bruits PALPATION: Yes Soft to palpation and Yes No hepatosplenomegaly present Extremity: COMMON NORMALS: capillary refill normal, no clubbing, cyanosis or edema, no calf tenderness and no pedal edema NARRATIVE EXTREMITY EXAM: 1+ pitting edema Neuro: COMMON NORMALS: patient oriented x3 Psych: COMMON NORMALS: mental status grossly normal Skin: NARRATIVE SKIN EXAM: Right lower extremity, wrapped in bandage and gauze Data : 07/18/20 04:36 07/18/20 04:36 Micro: Microbiology 07/17/20 10:02 Gram Stain - Final Peritoneal Fluid A&P Assessment and plan (1) Diabetic foot ulcer: Status: Acute (2) Sepsis: Status: Acute (3) Cellulitis: Status: Acute Qualifiers: Laterality: right Site of cellulitis: extremity Site of cellulitis of extremity: lower extremity Qualified Code(s): L03.115 - Cellulitis of right lower limb (4) Acute kidney injury superimposed on chronic kidney disease: Status: Acute (5) Hyperkalemia: Status: Acute (6) Chronic anemia: Status: Acute Additional A&P Information Sepsis due to wet gangrene Nonhealing diabetic foot ulcer , purulent cellulitis, Her symptoms started about 1.[address] scan: Bones/joints: Normal. No acute fracture or dislocation. Soft tissues: Soft tissue edema is present with air in the plantar aspect of the 3rd 4th and 5th toes and the dorsal aspects of the 4th and 5th toes. No collection or drainable abscess is identified. Status post debridement, incision and drainage of right diabetic foot abscess, debridement of abscess cavity, amputation of the right fifth toe to the level of the distal fifth metatarsal bone Afebrile, continues to have borderline low blood pressures, WBC 10.1, ESR 59, CRP 51.5, pro-Steve 61.25, lactic acid unremarkable Plan: -Follow blood cultures, surgical cultures so far show gram-negative rods -Switch to doxycycline and Levaquin -Avoid fluid overload as BNP is over 40,000 -Monitor hemodynamics closely Persistent hypotension, seems more concerning for cardiac etiology given reduced EF of 35 to 40%, moderate global hypokinesis, right ventricular enlargement, biatrial enlargement, moderate pulmonary pretension -All blood pressure medications have been held -Lactic acid unremarkable, blood cultures remarkable, remains afebrile, inflamm atory markers downtrending -Patient is asymptomatic, no lightheadedness, no dizziness -Did well with Lasix -Blood pressures on hold, Imdur on hold -Monitor creatinine, monitor blood pressures -Cardiology on consult Hyperkalemia, resolved Acute on chronic kidney disease Baseline creatinine seems to be around 1.9-2.4, creatinine 3.0, now seems more likely secondary to cardiorenal syndrome, uremia BUN 85, urine output 2450, +7.5 L since admission Patient has been taking spironolactone, which has been held Not complaining of UTI or flank pain Renal ultrasound no obstructive uropathy, no stones Has received appropriate fluid therapy, has actually become slightly fluid overloaded, with abdominal distention, hold fluids for now, avoid nephrotoxic agents, renal ultrasound, follow urine studies Bilateral lower extremity 1+ pitting edema, has been off heparin because of anemia requiring transfusion, will order bilateral lower extremity venous ultrasound to rule out DVT, continue Lasix, carefully resume heparin today as hemoglobin has stabilized 8.7 Acute on chronic chronic anemia Hemoglobin seems to be around baseline No active need of blood transfusion, Current hemoglobin 8.7 Status post 2 units PRBC Start Protonix, Carafate, ferrous sulfate Iron levels 15, ferritin 82 Hemoccult stool pending Cannot rule out underlying slow GI bleed, patient has a history of AV malformations, associate with GI bleeds in the past, continue to monitor As patient has significant flexion, significant risk of DVT, hemoglobin has stabilized 8.7, will carefully resume heparin CHF: Diastolic CHF, echo on in March 2020 showed an EF of 35 to 40%, with diffuse hypokinesia She has chronic leg edema for which she takes Lasix Currently no pitting edema, no shortness of breath on 1 to 2 L, but does have abdominal distention Has evidence of cardiorenal syndrome, ELIU, abdominal distention start Lasix 40 mg IV daily Cardiology consulted CAD, aspirin, statin, Imdur on hold, metoprolol and hold Nonalcoholic fatty liver disease, liver cirrhosis, now with abdominal distention, likely recurrent ascites, status post paracentesis 4.4 L removed, studies pending, Paroxysmal atrial fibrillation, not anticoagulation due to gastrointestinal AV malformations Peripheral vascular disease: 1. Elevated velocities and monophasic waveform in the right common femoral and right popliteal arteries consistent with mild to moderate stenosis. 2. 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 Cardiology consulted Pulmonary hypertension, echo showed pulmonary tear pressure 30 mmHg Insulin-dependent type 2 diabetes mellitus, sliding scale COPD: 3L o2 Full code DVT prophylaxis SCDs, anticoagulation on hold given anemia Diabetic diet Discharge plan to custodial Plan for today Lasix therapy, metolazone, feeling well after paracentesis, resume heparin, monitor hemoglobin de-escalate antibiotic therapy, potential discharge in the next 24 to 48 hours Attestations Medical Necessity Statement*: Patient requires hospitalization for right lower extremity cellulitis status post debridement, recurrent antibiotic therapy, cardiorenal syndrome, as fluid overload, requiring inpatient IV diuresis, postoperative anemia, hopefully discharge in next 24 to 48 hours Coding Level of Care 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
[2020-07-18 15:19] LABS: Creatinine, Random Urine 70 mg/dL (20-275); Protein, Total, Random 31 mg/dL (5-24); Protein/Creatinine Ratio 0.443 (0.021-0.161); Protein/Creatinine Ratio 443 mg/g creat (21-161)
[2020-07-18 17:06] LABS: Glucose Point of Care 150 mg/dL (70-110)
[2020-07-18] MEDS: atorvastatin 40 mg Tablet PO (19:17)
[2020-07-18 20:15] LABS: Glucose Point of Care 118 mg/dL (70-110)
[2020-07-18] MEDS: diphenhydrAMINE 25 mg Capsule PO (20:49)
[2020-07-19] VITALS: BP 101/63; PULSE 115; RESP 18; TEMP 36.6; O2SAT 99
[2020-07-19 04:00] VITALS: BP 114/70; PULSE 116; RESP 18; TEMP 36.6; O2SAT 99
[2020-07-19 05:49] LABS: Basophils % 0.4 %; Eosinophils # 0.3 10^3/uL (0.0-0.8); Eosinophils % 2.9 %; Hematocrit 29.3 % (37.0-47.0); Hemoglobin 8.6 g/dL (11.5-15.3); Lymphocytes # 0.9 10^3/uL (0.8-4.8); Lymphocytes % 10.7 %; Mean Corpuscular HGB Conc 29.4 g/dL (30.0-36.0); Mean Corpuscular Hemoglobin 24.8 pg (28.0-34.0); Mean Corpuscular Volume 84.4 fL (81-99); Mean Platelet Volume 10.3 fL (7.4-10.4); Monocytes # 0.3 10^3/uL (0.2-0.9); Neutrophils # 6.94 10^3/uL (1.8-7.7); Neutrophils % 81.6 %; Nucleated Red Blood Cells % 0 %; Platelet Count 201 10^3/cmm (130-400); Red Blood Count 3.47 10^6/uL (4.1-5.3); White Blood Count 8.5 10^3/uL (4.0-10.0)
[2020-07-19] MEDS: HYDROcodone-acetaminophen 5-325 mg Tablet 1 TAB PO (05:54)
[2020-07-19] MEDS: sucralfate 1 gm Tablet PO ×2 (05:54→11:50)
[2020-07-19 06:16] LABS: Glucose Point of Care 113 mg/dL (70-110)
[2020-07-19 06:35] LABS: Alanine Aminotransferase 6 U/L (0-33); Albumin Level 3.3 g/dL (3.5-5.2); Alkaline Phosphatase 70 IU/L (35-105); Anion Gap 14.8 (5-19); Aspartate Amino Transferase 11 U/L (0-32); Blood Urea Nitrogen 68 mg/dL (8-23); C Reactive Protein 22.6 mg/L (0.0-4.9); Calcium 8.8 mg/dL (8.5-10.5); Carbon Dioxide 24 mmol/L (22-29); Chloride 95 mmol/L (98-107); Glucose 109 mg/dL (65-115); Magnesium 1.9 mg/dL (1.7-2.3); Osmolality Calculated 290 mOsm/kg (285-295); Phosphorus 3.4 mg/dL (2.5-4.5); Potassium 3.8 mmol/L (3.5-5.1); Sodium 130 mmol/L (136-145); Total Bilirubin 0.4 mg/dL (0.15-1.2); Total Protein 6.3 g/dL (6.6-8.7)
[2020-07-19 07:57] VITALS: BP 119/70; PULSE 99; RESP 16; TEMP 36.7; O2SAT 99
--- NOTE | 2020-07-19 09:00 | P.PN_ITS ---
Subjective Subjective: Interval history: Patient is doing well. He denies complaints of chest pain or palpitations. Her shortness of breath complaints have improved as well. Renal function is improving and creatinine is 2.6 today. Vitals/I&O/Wt Last Vital Signs Temp 98.1 F 07/19/20 07:57 Pulse 99 07/19/20 07:57 Resp 16 07/19/20 07:57 BP 119/70 07/19/20 07:57 Pulse Ox 99 07/19/20 07:57 07/18/20 07/19/20 07/19/20 22:59 06:59 14:59 Output Total 700 / 1100 500 / 1600 Balance -700 / -980 -500 / -1480 Physical Exam Const: COMMON NORMALS: no acute distress and patient oriented x3 HENMT: COMMON NORMALS: normocephalic HEAD & SCALP: normocephalic Neck/C-Spine: COMMON NORMALS: no JVD Resp: COMMON NORMALS: normal respiratory effort, No retractions, No use of accessory muscles and clear to auscultation bilaterally AUSCULTATION: clear to auscultation bilaterally Cardio: COMMON NORMALS: no JVD, regular rate, regular rhythm, S1 normal heart sound present and S2 normal heart sound present RATE: regular rate RHYTHM: regular rhythm HEART SOUNDS: S1 normal heart sound present and S2 normal heart sound present GI: COMMON NORMALS: Normal to inspection, nondistended, normoactive bowel sounds present, Soft to palpation, non-tender, No hepatosplenomegaly present, no masses and no bruits PALPATION: Yes Soft to palpation and Yes No hepatosplenomegaly present Extremity: COMMON NORMALS: capillary refill normal, no clubbing, cyanosis or edema, no calf tenderness and no pedal edema Neuro: COMMON NORMALS: patient oriented x3 Psych: COMMON NORMALS: mental status grossly normal Skin: NARRATIVE SKIN EXAM: Right lower extremity, wrapped in bandage and gauze Data : 07/19/20 04:28 07/19/20 04:28 Micro: Microbiology 07/12/20 10:50 Stool Lactoferrin - Final Stool Occult Blood (FIT) - Final 07/17/20 10:02 Gram Stain - Final Peritoneal Fluid Anaerobic Culture - Preliminary Body Fluid Culture - Preliminary A&P Assessment and plan (1) Paroxysmal atrial fibrillation: Status: Acute (2) Congestive heart failure: Status: Acute Patient is volume overloaded as received aggressive IV fluids. Her renal function worsened signficantly. Abdominal distension has improved since getting paracentesis .Creatinine has improved to 2.6 today Switch to PO lasix today Closely monitor I and Os Paracentesis performed Her peripheral artery disease is mostly on the left leg, however procedure was done on the right. Will monitor for now Metoprolol. Patient is stable to be discharged from cardiology standpoint. Thank you for involving us with care of this patient. Please call with questions. Attestations Medical Necessity Statement*: Care expected to cross 2 midnights. 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
[2020-07-19] MEDS: ferrous sulfate EC 325 mg Tablet PO (09:07)
[2020-07-19] MEDS: aspirin 81 mg EC Tablet PO (09:07)
[2020-07-19] MEDS: sennosides-docusate Tablet 1 TAB PO (09:07)
[2020-07-19] MEDS: FUROsemide 10 mg/mL SDV 4mL 40 MG IVP (09:07)
[2020-07-19] MEDS: doxycycline 100 mg Tablet PO (09:07)
[2020-07-19] MEDS: pantoprazole DR 40 mg Tablet PO (09:07)
[2020-07-19] MEDS: heparin 5,000 unit/mL INJ 1 mL 5000 UNIT SUBCUT (09:07)
[2020-07-19] MEDS: neomycin-poly-bacitracin oint 28 gm 1 APPLIC TOPICAL (10:25)
[2020-07-19] MEDS: sodium hypochlorite 0.25% Btl 473 mL 1 APPLIC TOPICAL (10:26)
[2020-07-19 10:52] LABS: Glucose Point of Care 179 mg/dL (70-110)
--- NOTE | 2020-07-19 11:42 | PM.DCS ---
Discharge Providers Date of Admission: 07/11/20 21:17 Date of Discharge: July 19, 2020 Attending Provider at Admission: Jaden Prasad MD Attending Provider at Discharge: Bashir Carrero MD Primary Care Provider: Keena De La Torre DO Diagnoses at Discharge Discharge Diagnosis (1) Paroxysmal atrial fibrillation: Status: Acute Permanent problem details: Noted on some prior EKGs, not anticoagulated due to the blood loss from gastrointestinal AVMs, not known to be chronic (2) Congestive heart failure: Status: Acute Permanent problem details: Heart failure with reduced EF Reason for Visit Reason for Visit: FALL Hospital Course Hospital Course This is a 70-year-old with past medical history of insulin-dependent diabetes mellitus, diastolic and systolic heart failure, CAD, COPD, CKD, history of AV malformations associated GI bleeds,, acute recurrent anemia, liver cirrhosis with recurrent ascites requiring paracentesis, paroxysmal atrial fibrillation not on anticoagulation due to GI bleeds, pulmonary hypertension, peripheral vascular disease who presents to [facility] due to worsening right foot diabetic ulcer Patient was admitted to [facility] for sepsis Gangrene of nonhealing diabetic foot ulcer, diastolic and systolic CHF exacerbation, acute on chronic anemia Sepsis due to wet gangrene Nonhealing diabetic foot ulcer , purulent cellulitis, Her symptoms started about 1.[address] scan: Bones/joints: Normal. No acute fracture or dislocation. Soft tissues: Soft tissue edema is present with air in the plantar aspect of the 3rd 4th and 5th toes and the dorsal aspects of the 4th and 5th toes. No collection or drainable abscess is identified. Status post debridement, incision and drainage of right diabetic foot abscess, debridement of abscess cavity, amputation of the right fifth toe to the level of the distal fifth metatarsal bone -Follow blood cultures remained negative, surgical cultures so far show Serratia, Enterobacter, Enterococcus -Initially on broad-spectrum antibiotic therapy, clinically did well, remained afebrile, inflammatory markers trending down, white blood cell trending down, sepsis resolving -Switch to doxycycline and Levaquin on discharge -Close follow-up with general surgery in wound care clinic, general wound care Persistent hypotension, initially thought to be more sepsis related, but seems more concerning for cardiac etiology given reduced EF of 35 to 40%, moderate global hypokinesis, right ventricular enlargement, biatrial enlargement, moderate pulmonary pretension -All blood pressure medications were held -Lactic acid unremarkable, blood cultures remarkable, remains afebrile, inflammatory markers downtrending -Patient is asymptomatic, no lightheadedness, no dizziness -Did well with Lasix, creatinine discharge 2.6, diuresing well, fluid overload has resolved -Hold Imdur, continue Metroprolol 12.5 twice daily given paroxysmal atrial fibrillation -Monitor creatinine, monitor blood pressures -Cardiology was consulted, help with management, patient is to follow with cardiology as outpatient Hyperkalemia, resolved Acute on chronic kidney disease Baseline creatinine seems to be around 1.9-2.4, creatinine 2.6, now seems more likely secondary to cardiorenal syndrome, has had good urine output, less fluid overloaded Discontinue spironolactone Not complaining of UTI or flank pain Renal ultrasound no obstructive uropathy, no stones Bilateral lower extremity negative for DVT, resolved with diuretic therapy Acute on chronic chronic anemia secondary to acute on chronic GI bleeds Hemoglobin seems to be around baseline No active need of blood transfusion, Current hemoglobin 8.7 Status post 2 units PRBC Discharge on t Protonix, Carafate, ferrous sulfate Iron levels 15, ferritin 82 Cannot rule out underlying slow GI bleed, patient has a history of AV malformations, associate with GI bleeds in the past, continue to monitor hemoglobin has stabilized 8.7, avoid blood thinners, monitor hemoglobin as outpatient CHF: Diastolic CHF, echo on in March 2020 showed an EF of 35 to 40%, with diffuse hypokinesia She has chronic leg edema for which she takes Lasix Currently no pitting edema, no shortness of breath on 1 to 2 L, Has evidence of cardiorenal syndrome Discharged on Lasix 40 twice daily, metoprolol 12.5 twice daily with close follow-up with cardiology CAD, aspirin, statin, Imdur on hold, Metroprolol continued Nonalcoholic fatty liver disease, liver cirrhosis, now with abdominal distention, likely recurrent ascites, status post paracentesis 4.4 L removed, unremarkable Paroxysmal atrial fibrillation, not anticoagulation due to gastrointestinal AV malformations Peripheral vascular disease: 1. Elevated velocities and monophasic waveform in the right common femoral and right popliteal arteries consistent with mild to moderate stenosis. 2. 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 Cardiology consulted, recommended medical management for now Pulmonary hypertension, echo showed pulmonary tear pressure 30 mmHg Insulin-dependent type 2 diabetes mellitus, sliding scale COPD: 3L o2 Physical Exam Const: COMMON NORMALS: no acute distress and patient oriented x3 HENMT: COMMON NORMALS: normocephalic HEAD & SCALP: normocephalic Neck/C-Spine: COMMON NORMALS: no JVD Resp: COMMON NORMALS: normal respiratory effort, No retractions, No use of accessory muscles and clear to auscultation bilaterally AUSCULTATION: clear to auscultation bilaterally Cardio: COMMON NORMALS: no JVD, regular rate, regular rhythm, S1 normal heart sound present and S2 normal heart sound present RATE: regular rate RHYTHM: regular rhythm HEART SOUNDS: S1 normal heart sound present and S2 normal heart sound present GI: COMMON NORMALS: Normal to inspection, nondistended, normoactive bowel sounds present, Soft to palpation, non-tender, No hepatosplenomegaly present, no masses and no bruits PALPATION: Yes Soft to palpation and Yes No hepatosplenomegaly present Extremity: COMMON NORMALS: capillary refill normal, no clubbing, cyanosis or edema, no calf tenderness and no pedal edema Neuro: COMMON NORMALS: patient oriented x3 Psych: COMMON NORMALS: mental status grossly normal Skin: NARRATIVE SKIN EXAM: Right lower extremity, wrapped in bandage and gauze Discharge Data Data Completed and Pending: Completed Studies During Hospitalization Category Date Time Status CT lower leg RT w o con* [id number] Urgen t Cat Scan 07/11/20 21:26 Completed XR foot RT min 3V * [id number] Stat Exams 07/11/20 19:31 Completed Pathology: Surgic al [PTH] Routine Pth 07/12/20 16:32 [place] [id number] Stat Ultrasound 07/12/20 11:45 Completed CV echo complete* [id number] Routine Ultrasound 07/15/20 11:23 [place] [id number] Routin e Ultrasound 07/18/20 08:54 [place] w [id number] Routine Ultrasound 07/17/20 08:00 Completed US renal BI* [id number] Routine Ultrasound 07/15/20 11:30 Completed Pending at discharge Category Date Time Status Anaerobic Culture Routine Lab 07/17/20 10:02 Results Body Fluid Cultur e & GS Routine Lab 07/17/20 10:02 Results C Reactive Protei n AM LABS Lab 07/20/20 04:00 Ordered Complete Blood Co unt w/Auto AM LABS Lab 07/20/20 04:00 Ordered Comprehensive Met abolic Panel AM LA BS Lab 07/20/20 04:00 Ordered Magnesium AM LABS Lab 07/20/20 04:00 Ordered Miscellaneous Gely t Routine Lab 07/18/20 10:50 Ordered Miscellaneous Gely t Routine Lab 07/18/20 10:50 Ordered Miscellaneous Gely t Routine Lab 07/18/20 10:50 Ordered NT Pro B Type Delia riuretic Pept QAM Lab 07/20/20 06:00 Ordered Phosphorus AM LAB S Lab 07/20/20 04:00 Ordered Urine Culture Sta t Lab 07/17/20 10:40 Results Urine Protein Erma ctrop Random Stat Lab 07/17/20 10:40 Results Cytology [PTH] Ro utine Pth 07/17/20 09:14 Received Labs from last 24 hours 07/19/20 07/19/20 07/19/20 10:25 05:54 04:28 WBC RBC Hgb Hct MCV MCH MCHC RDW Plt Count MPV Neut % (Auto) Lymph % (Auto) Dukes % (Auto) Eos % (Auto) Baso % (Auto) Neut # (Auto) Lymph # (Auto) Dukes # (Auto) Eos # (Auto) Baso # (Auto) Nucleated RBC % (a uto) Nucleated RBCs # Sodium Potassium Chloride Carbon Dioxide Anion Gap BUN Creatinine GFR Calculation Glucose POC Glucose 179 H 113 H Calculated Osmolal ity Calcium Phosphorus Magnesium Total Bilirubin AST ALT Alkaline Phosphata se C-Reactive Protein NT-Pro-B Natriuret Pep 74255 H Total Protein Albumin Globulin Ur Random Creatini ne U Random Total Pro tein Protein/Creatinin Ratio Protein/Creat Rati o 24h 07/19/20 07/19/20 07/18/20 04:28 04:28 20:12 WBC 8.5 RBC 3.47 L Hgb 8.6 L Hct 29.3 L MCV 84.4 MCH 24.8 L MCHC 29.4 L RDW 18.0 H Plt Count 201 MPV 10.3 Neut % (Auto) 81.6 Lymph % (Auto) 10.7 Dukes % (Auto) 4.0 Eos % (Auto) 2.9 Baso % (Auto) 0.4 Neut # (Auto) 6.94 Lymph # (Auto) 0.9 Dukes # (Auto) 0.3 Eos # (Auto) 0.3 Baso # (Auto) 0.0 Nucleated RBC % (a uto) 0 Nucleated RBCs # 0.0 Sodium 130 L Potassium 3.8 Chloride 95 L Carbon Dioxide 24 Anion Gap 14.8 BUN 68 H Creatinine 2.6 H GFR Calculation Not Reportable Glucose 109 POC Glucose 118 H Calculated Osmolal ity 290 Calcium 8.8 Phosphorus 3.4 Magnesium 1.9 Total Bilirubin 0.4 AST 11 ALT 6 Alkaline Phosphata se 70 C-Reactive Protein 22.6 H NT-Pro-B Natriuret Pep Total Protein 6.3 L Albumin 3.3 L Globulin 3.0 Ur Random Creatini ne U Random Total Pro tein Protein/Creatinin Ratio Protein/Creat Rati o 24h 07/18/20 07/17/20 16:53 10:40 WBC RBC Hgb Hct MCV MCH MCHC RDW Plt Count MPV Neut % (Auto) Lymph % (Auto) Dukes % (Auto) Eos % (Auto) Baso % (Auto) Neut # (Auto) Lymph # (Auto) Dukes # (Auto) Eos # (Auto) Baso # (Auto) Nucleated RBC % (a uto) Nucleated RBCs # Sodium Potassium Chloride Carbon Dioxide Anion Gap BUN Creatinine GFR Calculation Glucose POC Glucose 150 H Calculated Osmolal ity Calcium Phosphorus Magnesium Total Bilirubin AST ALT Alkaline Phosphata se C-Reactive Protein NT-Pro-B Natriuret Pep Total Protein Albumin Globulin Ur Random Creatini ne 70 U Random Total Pro tein 31 H Protein/Creatinin Ratio 443 H Protein/Creat Rati o 24h 0.443 H Vitals: Last Vital Signs Temp 98.1 F 07/19/20 07:57 Pulse 99 07/19/20 07:57 Resp 16 07/19/20 07:57 BP 119/70 07/19/20 07:57 Pulse Ox 99 07/19/20 07:57 Discharge Plan Discharge Patient Disposition: Home Condition: Stable Prescriptions: New atorvastatin 40 mg Tablet 40 mg PO BEDTIME 30 Days Qty: 30 RF: 0 HySept 0.25 % Solution 1 applic topical Q24H 30 Days Qty: 473 RF: 0 levofloxacin 500 mg Tablet 500 mg PO Q48H 7 Days Qty: 4 RF: 0 doxycycline monohydrate 100 mg Tablet 100 mg PO BID 7 Days Qty: 14 RF: 0 insulin aspart U-100 [Novolog U-100 Insulin aspart] 100 unit/mL Solution See Rx Instructions .ROUTE .COMPLEX Qty: 10 RF: 0 pantoprazole 40 mg Tablet,Delayed Release (Dr/Ec) 40 mg PO BID 30 Days Qty: 60 RF: 0 sucralfate 1 gram Tablet 1 g PO AC&BEDTIME 30 Days Qty: 60 RF: 0 Triple Antibiotic 3.5mg-400 unit- 5,000 unit/gram Ointment 1 applic topical BID 30 Days Qty: 28 RF: 0 ferrous sulfate 325 mg (65 mg iron) Tablet,Delayed Release (Dr/Ec) 325 mg PO BIDWM 30 Days Qty: 60 RF: 0 potassium chloride [Klor-Con M20] 20 mEq tablet,ER particles/crystals 20 meq PO DAILY 30 Days Qty: 30 RF: 0 Continued albuterol sulfate 2.5 mg /3 mL (0.083 %) Solution For Nebulization 2.5 mg INHALATION QID PRN (Reason: Shortness Of Breath) RF: 0 aspirin 81 mg Tablet,Delayed Release (Dr/Ec) 81 mg PO DAILY Qty: 30 RF: 0 diphenoxylate-atropine 2.5-0.025 mg tablet 1 tab PO TID PRN (Reason: Diarrhea) RF: 0 hydrocodone-acetaminophen 10-325 mg tablet 10 - 325 tab PO 5XD PRN (Reason: Pain) RF: 0 trazodone 100 mg tablet 200 mg PO BEDTIME RF: 0 midodrine 2.5 mg tablet 2.5 mg PO BID RF: 0 buspirone 15 mg tablet 15 mg PO BID RF: 0 levalbuterol tartrate [Xopenex HFA] 45 mcg/actuation HFA aerosol inhaler 1 puff INHALATION QID PRN (Reason: Shortness Of Breath) RF: 0 Changed Tresiba FlexTouch U-100 100 unit/mL (3 mL) insulin pen 10 unit SUBCUT BEDTIME Qty: 0 RF: 0 metoprolol tartrate 25 mg tablet 12.5 mg PO Q12H Qty: 0 RF: 0 furosemide 40 mg Tablet 40 mg PO BID 30 Days Qty: 60 RF: 0 Discontinued isosorbide mononitrate 30 mg Tablet Extended Release 24 Hr 15 mg PO BID Qty: 60 RF: 0 spironolactone 50 mg tablet 25 mg PO DAILY Qty: 30 RF: 0 Discharge Orders: Discharge Order (Routine); Ordered 07/19/20 Ordered By: Bashir Carrero Other Ambulatory Orders: Complete Blood Count w/Auto (Routine) Timeframe: 3 Days Location: Determined by Patient Ordered By: Bashir Carrero Comprehensive Metabolic Panel (Routine) Timeframe: 3 Days Facility: [facility] - Location: Lab - Main Lab Ordered By: Bashir Carrero Referrals: Demetrius Narvaez MD [Physician] - (Schedule appointment first available after discharge to be seen at the wound care center for patient's wound complexity, egd ) Justin Haji M.D [Physician] - 2 weeks WOUND CARE CLINIC, [Staff Physician] - 1-3 days Discharge Diet: Cardiac Discharge Activity: Resume usual activity Activity Restrictions/Additional Instructions: -For right lower extremity diabetic ulcer, continue antibiotics as prescribed, wound care, follow-up with wound care clinic in 1 to 3 days, follow-up with Dr. Narvaez -For heart failure, continue Lasix 40 mg twice daily, potassium replacement, monitor weight daily, restrict fluids to less than 1500 cc, restrict sodium -If she gains more than 2 to 3 pounds in a day. Take an extra 40 mg of Lasix -Monitor for abdominal distention if so she might require recurrent paracentesis -Monitor hemoglobin, hemoglobin 8.6 on discharge, discharged on Protonix, Carafate needs to follow-up with general surgery for consideration of EGD Discharge Attestations Time Spent in Discharge Care*: greater than 30 min Status at Discharge: Cognitive status at discharge: cognitively intact, Behavioral status at discharge: cooperative, Quality Metrics Clinical Quality Measures During this hospital stay, did patient experience: None Coding Level of Care Code Acute Transfer Operator for Chg Fwd Diagnoses Paroxysmal atrial fibrillation I48.0 Congestive heart failure I50.9
[2020-07-19 12:00] VITALS: BP 118/74; PULSE 121; RESP 18; TEMP 36.3; O2SAT 100
--- NOTE | 2020-07-19 12:58 | PC.OT ---
OT NOTE: OT TREATMENT ATTEMPTED IN A.M. AND P.M. PATIENT DECLINES BOTH ATTEMPTS SHE IS TO DISCHARGE TO SNF THIS AFTERNOON. DOES NOT WISH TO RECEIVE THERAPY AT THIS TIME.
[2020-07-19 14:51] VITALS: BP 118/74; PULSE 121; RESP 18; TEMP 36.3; O2SAT 100
--- NOTE | 2020-07-19 14:53 | PC.NURSE ---
Patient discharged at this time in stable condition. Discharge with transportation staff via wheelchair with oxygen. Information sent to SNF.
[2020-07-19 15:12] LABS: Albumin,Urine Random 55 %; Alpha-1-Globulins Urine Random 3 %; Alpha-2-Globulins Urine Random 8 %; Beta-Globulin,Urine Random 16 %; Gamma Globulin,Urine Random 18 %
== END 2020-07-19 14:58 | disposition home or self-care (01) | DRG 853 ==
LOC: ER 19:30 → MEDSURG 21:29
PROVIDERS: Surgery; Admitting Provider Internal Medicine; Emergency Provider Emergency Medicine; PCP Family Medicine; Visit Provider Family Medicine
PROC: 0Y6X0Z0 Detachment at Right 5th Toe, Complete, Open Approach (ICD-10-PCS; 2020-07-12 14:00)
DX: A41.9 Sepsis, unspecified organism (principal); I50.43 Acute on chronic combined systolic (congestive) and diastolic (congestive) heart failure; I13.0 Hypertensive heart and chronic kidney disease with heart failure and stage 1 through stage 4 chronic kidney disease, or unspecified chronic kidney disease; E11.52 Type 2 diabetes mellitus with diabetic peripheral angiopathy with gangrene; I96 Gangrene, not elsewhere classified; N17.9 Acute kidney failure, unspecified; E87.1 Hypo-osmolality and hyponatremia; L03.115 Cellulitis of right lower limb; R18.8 Other ascites; L02.611 Cutaneous abscess of right foot; E11.22 Type 2 diabetes mellitus with diabetic chronic kidney disease; N18.9 Chronic kidney disease, unspecified; E87.6 Hypokalemia; I25.10 Atherosclerotic heart disease of native coronary artery without angina pectoris; Z95.5 Presence of coronary angioplasty implant and graft; J44.9 Chronic obstructive pulmonary disease, unspecified; Z79.4 Long term (current) use of insulin; K74.60 Unspecified cirrhosis of liver; K76.0 Fatty (change of) liver, not elsewhere classified; I48.0 Paroxysmal atrial fibrillation; I27.20 Pulmonary hypertension, unspecified; Z95.1 Presence of aortocoronary bypass graft; Z87.891 Personal history of nicotine dependence; D63.1 Anemia in chronic kidney disease; Q27.33 Arteriovenous malformation of digestive system vessel; E87.5 Hyperkalemia; Z79.01 Long term (current) use of anticoagulants; Z79.82 Long term (current) use of aspirin; Z79.51 Long term (current) use of inhaled steroids; I99.8 Other disorder of circulatory system; I95.9 Hypotension, unspecified
CPT/HCPCS: 12345; 36415; 36416; 36430; 49083; 73630; 73700; 76770; 80053; 80500; 82042; 82150; 82274; 82436; 82465; 82550; 82570; 82728; 82945; 82962; 83540; 83605; 83615; 83630; 83735; 83880; 83986; 84075; 84100; 84133; 84145; 84157; 84300; 84315; 84540; 85025; 85045; 85610; 85651; 85999; 86140; 86850; 86870; 86900; 86920; 87040; 87046; 87070; 87075; 87077; 87086; 87106; 87176; 87177; 87186; 87205; 87209; 87493; 88112; 88305; 89050; 93306; 93925; 93970; 94640; 96365; 96372; 97110; 97161; 97166; 97530; 99283; J0131; J0610; J0743; J1644; J1815; J1940; J2020; J2405; J2543; J3010; J3370; J3490; J7030; J7050; J7611; L3260; P9016; P9041; P9047; S0030

== ENCOUNTER 2020-07-20 16:09 | Observation (INO) | payer MEDICARE, MEDICAID, SELFPAY ==
[2020-07-20 16:10] VITALS: BP 105/66; PULSE 111; RESP 16; TEMP 36.4; O2SAT 100; BMI 27.0
--- NOTE | 2020-07-20 16:36 | CTR_ITS ---
PROCEDURE INFORMATION: Exam: CT Abdomen And Pelvis Without Contrast Exam date and time: 07/20/2020 5:41 PM Age: 70 years old Clinical indication: Other: Black stools; Prior surgery; Additional info: Abd pain TECHNIQUE: Imaging protocol: Computed tomography of the abdomen and pelvis without contrast. Total images: 246 Radiation optimization: All CT scans at this facility use at least one of these dose optimization techniques: automated exposure control; mA and/or kV adjustment per patient size (includes targeted exams where dose is matched to clinical indication); or iterative reconstruction. COMPARISON: CT abdomen pelvis w con* [id number] 04/04/2014 4:44 PM RADIATION DOSE METRICS: Total DLP (mGy-cm): 1370.66 FINDINGS: Lungs: Calcified granulomas of antecedent disease. Stable noncalcified granuloma left lower lobe. Pleural space: Moderate volume right pleural effusion. Heart: Cardiomegaly. Advanced coronary artery disease. Pacemaker. Mediastinal space: Small hiatal hernia. Liver: Cirrhosis of the liver. No visible hepatic mass or cystic structure. Gallbladder and bile ducts: Status post cholecystectomy. Pancreas: Pancreas unremarkable. Spleen: Splenomegaly. Scattered calcified splenic granulomas of antecedent disease. Adrenal glands: Adrenal glands unremarkable. Kidneys and ureters: No visible hydronephrosis or perinephric fluid. Atrophic appearing right kidney. Extensive renal arteriosclerosis. Stomach and bowel: Nonobstructive bowel pattern. No visible diverticulitis or significant diverticulosis coli. No visible significant adynamic or reactive ileus. Liquid stool throughout the colon consistent with diarrhea. No visible evidence; however, for infectious or inflammatory colitis. Appendix: No evidence of appendicitis. Intraperitoneal space: Moderate volume intraperitoneal ascites. Mild mesenteric edema. Vasculature: The abdominal aorta is nonaneurysmal. Extensive arterial sclerotic disease. Lymph nodes: No current visible evidence of active mesenteric or retroperitoneal lymphadenopathy. Urinary bladder: Urinary bladder unremarkable. Reproductive: Unremarkable as visualized. Bones/joints: No visible active or acute osseous abnormality. Left-sided inter pedicle screw fixation L4 and L5. Previous right hip pinning. Osteopenia/osteoporosis. Degenerative disc disease primarily T12/L1 and L2/L3. Facet arthrosis. Soft tissues: Anasarca. CT/CT abdomen pelvis wo con [id number] IMPRESSION: 1. Moderate volume right pleural effusion. 2. Moderate volume intraperitoneal ascites. 3. Cirrhosis of the liver. 4. Splenomegaly. 5. Liquid stool throughout the colon but without visible evidence of infectious or inflammatory colitis. 6. Other nonurgent, nonemergent, chronic, and age related findings as detailed in text above. Radiation Dose CTDIVOL = (mGy): DLP = 1370.66 (mGy-cm)
--- NOTE | 2020-07-20 17:11 | W.ED.GIBLEED ---
HPI - GI Bleed General: Chief complaint: GI Bleed Stated complaint: GI BLEED Time Seen by Provider: 07/20/20 16:13 History of Present Illness: HPI Narrative: 70-year-old female presents emergency room for retirement. She was discharged from the hospital yesterday to [place] with a lower GI bleed she been getting prophylactic heparin evidently he says that she tells me she is taking iron is complaining of dark stools. Reviewing the note she is not on any anticoagulation for atrial fibrillation due to her previous GI bleeds. She denies any hematemesis. MD complaint: other (Black stools) Onset (ago): hour(s) Pain Consistency: intermittent Severity: mild Relieving factors: none Exacerbating factors: none Context: history of GI bleed Associated symptoms: Denies abdominal pain, chills, easy bruising, epistaxis, fever(s), headache(s), malaise, nausea, other bleeding, poor appetite, rash, syncope, vomiting or weakness Treatments Prior to Arrival: none Review of Systems Const: Denies: fever(s), chills or malaise ENMT: Denies: epistaxis Card: Denies: syncope Resp: Denies: dyspnea, productive cough or non-productive cough GI: Denies: abdominal pain, nausea or vomiting : Denies: flank pain, difficulty voiding, dysuria, urinary frequency or urinary urgency Skin/Breast: Denies: rash Neuro: Denies: headache(s) Reed/Lymph: Denies: easy bruising PFSH ED PFSH: Medical History CAD (coronary artery disease) Chronic kidney disease (CKD) COPD (chronic obstructive pulmonary disease) Diastolic CHF Echocardiogram 04/12 Diffuse hypokinesia left ventricle with ejection fraction around 40-45%, mildly increased RV size, increased RA/LA size, mod TR History of arteriovenous malformation (AVM) Associated with GI bleeding in the past Insulin dependent type 2 diabetes mellitus Liver cirrhosis Nonalcoholic fatty liver disease Paroxysmal atrial fibrillation Noted on some prior EKGs, not anticoagulated due to the blood loss from gastrointestinal AVMs, not known to be chronic Peripheral vascular disease Pulmonary hypertension ECHO 04/12 Estimated pulmonary artery peak systolic pressure of 55 mmHg. Surgical History History of appendectomy History of back surgery History of cholecystectomy History of coronary artery bypass graft x 2 History of hand surgery History of heart artery stent History of hernia repair History of repair of right hip joint (~10/26/19) Close reduction with percutaneous screw fixation in the right femoral neck fracture by Dr. Vasquez Family History Other Diabetes Social History Smoking and tobacco status: former smoker Alcohol intake: never Physical Exam Const: COMMON NORMALS: no acute distress GENERAL APPEARANCE: cooperative and comfortable ORIENTATION/CONSCIOUSNESS: Yes awake, Yes oriented to person, Yes oriented to place and Yes oriented to time HENMT: COMMON NORMALS: normocephalic, atraumatic, hearing grossly normal bilaterally, external ears normal, EAC's normal, TM's normal bilaterally, Normal nasal mucous membranes and turbinates present, moist oral mucous membranes and oropharynx normal HEAD & SCALP: normocephalic and atraumatic NOSE: Normal nasal mucous membranes and turbinates present EXTERNAL EAR: Yes external ears normal EXTERNAL AUDITORY CANAL: EAC's normal TYMPANIC MEMBRANE: TM's normal bilaterally Neck/C-Spine: COMMON NORMALS: no JVD Resp: COMMON NORMALS: normal respiratory effort, No retractions, No use of accessory muscles and clear to auscultation bilaterally AUSCULTATION: clear to auscultation bilaterally Cardio: COMMON NORMALS: no JVD, regular rate, regular rhythm and No murmurs present (Cardio) RATE: regular rate RHYTHM: regular rhythm GI: COMMON NORMALS: Soft to palpation and No hepatosplenomegaly present AUSCULTATION: Yes normoactive bowel sounds PALPATION: Yes Soft to palpation, No Tenderness to palpation present (GI), No Guarding due to palpation present (GI) and Yes No hepatosplenomegaly present Extremity: COMMON NORMALS: normal to inspection, capillary refill normal, no clubbing, cyanosis or edema, no calf tenderness and no pedal edema Neuro: SENSORIUM/ORIENTATION: Yes oriented to person, Yes oriented to place and Yes oriented to time Skin: COMMON NORMALS: no rashes or lesions noted GENERAL SKIN EXAM: no rashes or lesions noted Course Vital Signs: Vital signs: Vital Signs Temperature 97.7 F 07/21/20 18:39 Pulse Rate 67 07/21/20 18:39 Respiratory Rate 18 07/21/20 18:39 Blood Pressure 110/70 07/21/20 18:39 Pulse Oximetry 98 07/21/20 18:39 MDM - GI Bleed MDM Narrative: Medical decision making narrative: Hemoccult is sharply positive. We will go ahead and admit place patient in observation for further evaluation she was discharged yesterday. Will need her hemoglobin monitored. May need further evaluation. Lab Data: Labs: Lab Results 07/20/20 07/20/20 07/20/20 Range/Units 17:04 17:04 17:04 WBC 10.0 (4.0-10.0) 10^3/ uL RBC 3.23 L (4.1-5.3) 10^6/u L Hgb 8.1 L (11.5-15.3) g/dL Hct 27.4 L (37.0-47.0) % MCV 84.8 (81-99) fL MCH 25.1 L (28.0-34.0) pg MCHC 29.6 L (30.0-36.0) g/dL RDW 18.2 H (12.1-15.1) % Plt Count 150 (130-400) 10^3/c mm MPV 9.9 (7.4-10.4) fL Neut % (Auto) 86.7 % Lymph % (Auto) 8.3 % Stephenson % (Auto) 2.6 % Eos % (Auto) 1.9 % Baso % (Auto) 0.1 % Neut # (Auto) 8.62 H (1.8-7.7) 10^3/u L Lymph # (Auto) 0.8 (0.8-4.8) 10^3/u L Stephenson # (Auto) 0.3 (0.2-0.9) 10^3/u L Eos # (Auto) 0.2 (0.0-0.8) 10^3/u L Baso # (Auto) 0.0 (0.0-0.1) 10^3/u L Nucleated RBC % (a uto) 0 % Nucleated RBCs # 0.0 /100WBC PT 17.20 H (12.1-14.9) SECO NDS INR 1.36 H (0.8-1.2) APTT 32.8 (23.9-36.7) SECO NDS Sodium 128 L (136-145) mmol/L Potassium 4.4 (3.5-5.1) mmol/L Chloride 93 L (98-107) mmol/L Carbon Dioxide 24 (22-29) mmol/L Anion Gap 15.4 (5-19) BUN 77 H (8-23) mg/dL Creatinine 2.6 H (0.5-0.9) mg/dL GFR Calculation Not Reportable Glucose 151 H (65-115) mg/dL Calculated Osmolal ity 292 (285-295) mOsm/k g Calcium 8.6 (8.5-10.5) mg/dL Total Bilirubin 0.3 (0.15-1.2) mg/dL AST 10 (0-32) U/L ALT < 5 (0-33) U/L Alkaline Phosphata se 82 (35-105) IU/L Total Protein 6.1 L (6.6-8.7) g/dL Albumin 3.5 (3.5-5.2) g/dL Globulin 2.6 (1.3-4.6) g/dL Discharge Plan Discharge Patient Disposition: Placed in Observation Admit Provider: Pablo Rubio Clinical Impression: GI bleed, COPD (chronic obstructive pulmonary disease), Chronic kidney disease (CKD), CAD (coronary artery disease), Anemia, Insulin dependent type 2 diabetes mellitus Discharge Diet: Advance as tolerated Discharge Activity: Resume usual activity Coding Level of Care Code ED Technical Services Specialist for Chg Fwd Exam Comprehensive
[2020-07-20 17:13] LABS: Basophils % 0.1 %; Eosinophils # 0.2 10^3/uL (0.0-0.8); Eosinophils % 1.9 %; Hematocrit 27.4 % (37.0-47.0); Hemoglobin 8.1 g/dL (11.5-15.3); Lymphocytes # 0.8 10^3/uL (0.8-4.8); Lymphocytes % 8.3 %; Mean Corpuscular HGB Conc 29.6 g/dL (30.0-36.0); Mean Corpuscular Hemoglobin 25.1 pg (28.0-34.0); Mean Corpuscular Volume 84.8 fL (81-99); Mean Platelet Volume 9.9 fL (7.4-10.4); Monocytes # 0.3 10^3/uL (0.2-0.9); Monocytes % 2.6 %; Neutrophils # 8.62 10^3/uL (1.8-7.7); Neutrophils % 86.7 %; Nucleated Red Blood Cells % 0 %; Platelet Count 150 10^3/cmm (130-400); Red Blood Count 3.23 10^6/uL (4.1-5.3); Red Cell Distribution Width 18.2 % (12.1-15.1)
[2020-07-20 17:26] LABS: INR 1.36 (0.8-1.2)
[2020-07-20 17:27] LABS: Partial Thromboplastin Time 32.8 SECONDS (23.9-36.7)
[2020-07-20 17:30] LABS: Alanine Aminotransferase < 5 U/L (0-33); Albumin Level 3.5 g/dL (3.5-5.2); Alkaline Phosphatase 82 IU/L (35-105); Anion Gap 15.4 (5-19); Aspartate Amino Transferase 10 U/L (0-32); Blood Urea Nitrogen 77 mg/dL (8-23); Calcium 8.6 mg/dL (8.5-10.5); Carbon Dioxide 24 mmol/L (22-29); Chloride 93 mmol/L (98-107); Globulin 2.6 g/dL (1.3-4.6); Glucose 151 mg/dL (65-115); Osmolality Calculated 292 mOsm/kg (285-295); Potassium 4.4 mmol/L (3.5-5.1); Sodium 128 mmol/L (136-145); Total Bilirubin 0.3 mg/dL (0.15-1.2); Total Protein 6.1 g/dL (6.6-8.7)
[2020-07-20] MEDS: sodium chloride 0.9% 1,000 ML 999 ML IV (18:17)
[2020-07-20 19:10] VITALS: BP 113/67; PULSE 115; O2SAT 100
[2020-07-20 19:37] VITALS: BP 152/110; PULSE 88; RESP 19; TEMP 36.4; O2SAT 96
--- NOTE | 2020-07-20 19:39 | P.HP_ITS ---
Providers/Chief Complaint Admitting Physician: Pablo Rubio Primary Care Provider: Keena De La Torre DO Chief Complaint: GI BLEED History of Present Illness 70-year-old with a past medical history significant for chronic combined heart failure, coronary artery disease, chronic obstructive pulmonary disease, chronic kidney disease, peripheral vascular disease, pulmonary hypertension, liver cirrosis, diabetes mellitus with chronic non-healing left foot ulcer with cellulitis, paroxysmal atrial fibrillation previously on anticoagulation, chronic blood loss anemia/ recurrant GI bleed due to AVM was presented to the hospital after she was noted to have multiple dark bowel movements. She stated she was restarted on her aspirin and iron replacement. States he bowels always turn dark while on oral iron replacement. Denied chest pain, no fever, chills, nausea or vomiting. Upon arrival patient's initial laboratory workup showed a WBC of 10.0, hemoglobin of 8.1 which was 8.6 on discharge yesterday, hematocrit of 27.4, platelet count of 150. PT 17.2, INR 1.36. Sodium 128, potassium 4.4, chloride 93, bicarb 24, BUN 77 and creatinine of 2.6. Imaging studies included a CT ab domen pelvis which showed moderate volume right pleural effusion, intraperitoneal ascites, cirrhosis of liver, splenomegaly and liquid stool throughout the colon without visible evidence of infection or inflammatory colitis. Patient was admitted for observation. Review of Systems General: Reports: 10 or more systems reviewed and unremarkable except in HPI and below Medications/Allergies Home Medications Medication Instructions Recorded Confirmed Last Taken Type buspirone 15 mg PO BID@10/26/19 07/20/20 07/20/20 History diphenoxylate-atropine 1 tab PO TID PRN 10/26/19 07/20/20 Unknown History hydrocodone-acetaminophen 10 - 325 tab PO 5XD PRN 10/26/19 07/20/20 07/20/20 History levalbuterol tartrate [Xopenex HFA] 1 puff INHALATION QID PRN 10/26/19 07/20/20 Unknown History midodrine 2.5 mg PO BID@10/26/19 07/20/20 07/20/20 History trazodone 200 mg PO BEDTIME@199910/26/19 07/20/20 07/19/20 History albuterol sulfate 2.5 mg INHALATION QID PRN 04/12/20 07/20/20 Unknown History Tresiba FlexTouch U-100 10 unit SUBCUT BEDTIME #0 ml 07/19/20 07/20/20 07/19/20 Rx insulin aspart U-100 [Novolog See Rx Instructions .ROUTE 07/19/20 07/20/20 07/20/20 Rx U-100 Insulin aspart] .COMPLEX #10 ml levofloxacin 500 mg PO Q48H 7 Days #4 tab 07/19/20 07/20/20 07/19/20 Rx metoprolol tartrate 12.5 mg PO Q12H #0 tab 07/19/20 07/20/20 07/20/20 Rx aknhjvzi-ptwobczuaEq-iqpbesvvS 1 applic TOPICAL BID 30 Days #28 g 07/19/20 07/20/20 07/20/20 Rx [Triple Antibiotic] sodium hypochlorite [HySept] 1 applic TOPICAL Q24H 30 Days #473 07/19/20 07/20/20 07/20/20 Rx ml sucralfate 1 g PO AC&BEDTIME 30 Days #60 tab 07/19/20 07/20/20 07/20/20 Rx aspirin 81 mg PO DAILY@07/20/20 07/20/20 07/20/20 History atorvastatin 40 mg PO BEDTIME@199907/20/20 07/20/20 07/19/20 History bisacodyl 10 mg CO DAILY PRN 07/20/20 07/20/20 Unknown History doxycycline monohydrate 100 mg PO BID@07/20/20 07/20/20 07/20/20 History ferrous sulfate 325 mg PO BID@07/20/20 07/20/20 07/20/20 History furosemide 40 mg PO BID@,14 07/20/20 07/20/20 07/20/20 History furosemide [Lasix] 40 mg PO DAILY PRN 07/20/20 07/20/20 Unknown History magnesium hydroxide [Milk of 30 ml PO DAILY PRN 07/20/20 07/20/20 Unknown History Magnesia] pantoprazole 40 mg PO BID@06,18 07/20/20 07/20/20 07/20/20 History potassium chloride [Klor-Con M20] 20 meq PO DAILY@08 07/20/20 07/20/20 07/20/20 History sodium phosphates [Enema 118 ml CO DAILY PRN 07/20/20 07/20/20 Unknown History Disposable] Allergies Allergy/AdvReac Type Severity Reaction Status Date / Time STERIODS Allergy ADR-Agitate Uncoded 07/12/20 15:00 d PFSH Acute PFSH: Medical History CAD (coronary artery disease) Chronic kidney disease (CKD) COPD (chronic obstructive pulmonary disease) Diastolic CHF Echocardiogram 04/12 Diffuse hypokinesia left ventricle with ejection fraction around 40-45%, mildly increased RV size, increased RA/LA size, mod TR History of arteriovenous malformation (AVM) Associated with GI bleeding in the past Insulin dependent type 2 diabetes mellitus Liver cirrhosis Nonalcoholic fatty liver disease Paroxysmal atrial fibrillation Noted on some prior EKGs, not anticoagulated due to the blood loss from gastrointestinal AVMs, not known to be chronic Peripheral vascular disease Pulmonary hypertension ECHO 04/12 Estimated pulmonary artery peak systolic pressure of 55 mmHg. Surgical History History of appendectomy History of back surgery History of cholecystectomy History of coronary artery bypass graft x 2 History of hand surgery History of heart artery stent History of hernia repair History of repair of right hip joint (~10/26/19) Close reduction with percutaneous screw fixation in the right femoral neck fracture by Dr. Vasquez Family History Other Diabetes Social History Smoking and tobacco status: former smoker Alcohol intake: never Vitals/I&O/Wt Last Vital Signs Temp 97.6 F 07/20/20 19:37 Pulse 88 07/20/20 19:37 Resp 19 H 07/20/20 19:37 BP 152/110 07/20/20 19:37 Pulse Ox 96 07/20/20 19:37 07/20/20 07/20/20 07/20/20 06:59 14:59 22:59 Intake Total 1000 / 1000 Balance 1000 / 1000 Weight last 48 hrs Weight 80.739 kg Physical Exam Const: COMMON NORMALS: no acute distress GENERAL APPEARANCE: cooperative and comfortable ORIENTATION/CONSCIOUSNESS: Yes awake, Yes oriented to person, Yes oriented to place and Yes oriented to time HENMT: COMMON NORMALS: normocephalic, atraumatic, hearing grossly normal bilaterally, external ears normal, EAC's normal, TM's normal bilaterally, Normal nasal mucous membranes and turbinates present, moist oral mucous membranes and o ropharynx normal HEAD & SCALP: normocephalic and atraumatic NOSE: Normal nasal mucous membranes and turbinates present EXTERNAL EAR: Yes external ears normal EXTERNAL AUDITORY CANAL: EAC's normal TYMPANIC MEMBRANE: TM's normal bilaterally Neck/C-Spine: COMMON NORMALS: no JVD Resp: COMMON NORMALS: normal respiratory effort, No retractions, No use of accessory muscles and clear to auscultation bilaterally AUSCULTATION: clear to auscultation bilaterally Cardio: COMMON NORMALS: no JVD, regular rate, regular rhythm and No murmurs present (Cardio) RATE: regular rate RHYTHM: regular rhythm GI: COMMON NORMALS: Soft to palpation and No hepatosplenomegaly present AUSCULTATION: Yes normoactive bowel sounds PALPATION: Yes Soft to palpation, No Tenderness to palpation present (GI), No Guarding due to palpation present (GI) and Yes No hepatosplenomegaly present Extremity: COMMON NORMALS: normal to inspection, capillary refill normal, no clubbing, cyanosis or edema, no calf tenderness and no pedal edema RIGHT LOWER EXTREMITY: Yes hip joint and Yes upper leg Right upper leg: Yes palpation (severe tenderness to palpation of the right thigh in the mid to upper part) and Yes other (has some reduced sensation in her right foot. Palpable dorsalis pedis.) Neuro: SENSORIUM/ORIENTATION: Yes oriented to person, Yes oriented to place and Yes oriented to time Skin: COMMON NORMALS: no rashes or lesions noted GENERAL SKIN EXAM: no rashes or lesions noted Data : 07/20/20 17:04 07/20/20 17:04 A&P Assessment and plan (1) GI bleed: Status: Acute (2) Chronic anemia: Status: Acute (3) COPD (chronic obstructive pulmonary disease): Status: Chronic Qualifiers: COPD type: unspecified COPD Qualified Code(s): J44.9 - Chronic obstructive pulmonary disease, unspecified (4) Chronic kidney disease (CKD): Status: Chronic (5) Nonalcoholic fatty liver disease: Status: Chronic (6) Peripheral vascular disease: Status: Chronic (7) CAD (coronary artery disease): Status: Chronic Qualifiers: Coronary Disease-Associated Artery/Lesion type: bypass graft [place] vs. transplanted heart: [place] heart Associated angina: angina presence unspecified Qualified Code(s): I25.810 - Atherosclerosis of coronary artery bypass graft(s) without angina pectoris (8) Insulin dependent type 2 diabetes mellitus: Status: Chronic (9) Oxygen dependent: Status: Chronic Suspected GI bleed - Noted dark stools - Will hold asa - Hb 8.6 ( 07/19) - > 8.1 - Will monitor h/h q6hr - Transfuse if < 8.0 - FOBT - If worsening will consult surgery - INR 1.36 - Repeat in am - Protonix 40 mg PO BID - Carafate IDDM with chronic non-healing left diabetic foot ulcer - Will continue doxycycline and Levaquin as previously ordered - Sliding scale insulin - Wound care Additional Medical issues - Chronic hypoxemic respiratory failure on 2L via NC - Chronic systolic heart failure EF 35-40% / Moderate MR / Biatrial enlargement - BAR[place] associated liver cirrhosis / ascietes - Paroxysmal Atrial fibrillation - Chronic stage 3 kidney disease - Peripheral vascular disease - Coronary artery disease DVT ppx - SCDs -Please verify current active meds to reconsile Attestations Medical Necessity Statement*: Patient require overnight observation for suspected GI bleed. Anticipate less than 2 midnight stay in hospital. Time Spent in Patient Care: Greater than 35 minutes (>than 50% of time spent in counselling and/or direct pt care on unit) . Coding Level of Care Code Acute Tooth Cutter for Allyn Augustus Diagnoses GI bleed K92.2 Chronic anemia D64.9 COPD (chronic obstructive pulmonary disease) J44.9 COPD type: unspecified COPD Chronic kidney disease (CKD) N18.9 Nonalcoholic fatty liver disease K76.0 Peripheral vascular disease I73.9 CAD (coronary artery disease) I25.810 Coronary Disease-Associated Artery/Lesion type: bypass graft [place] vs. transplanted heart: [place] heart Associated angina: angina presence unspecified Insulin dependent type 2 diabetes mellitus E11.9; Z79.4 Oxygen dependent Z99.81
[2020-07-20] MEDS: sodium chloride 0.9% 1,000 ML 100 ML IV (19:58)
[2020-07-20 19:59] VITALS: BP 100/64; PULSE 118; RESP 18; TEMP 36.6; O2SAT 97
[2020-07-20 20:00] VITALS: PULSE 116
[2020-07-20] MEDS: trazodone 100 mg Tablet 200 MG PO (20:02)
[2020-07-20 20:03] LABS: Hematocrit 30.3 % (37.0-47.0); Hemoglobin 8.6 g/dL (11.5-15.3)
[2020-07-20] MEDS: sucralfate 1 gm Tablet PO (20:03)
--- NOTE | 2020-07-20 20:23 | PC.NURSE ---
ADMIT NOTE Pt received to floor from ER via wheelchair at 1920. Alert and oriented. Denies pain. Says has been having dark tarry stools. Just discharged from hospital yesterday to [facility]. Abdomen soft with some generalized tenderness. Also denies nausea. IV fluids started at 100ml/hr. IV was bleeding and leaking at site on arrival to floor. Was redressed and retightened and no further leaking.Is NPO except meds & ice chips. Has scattered small scabbed sores to body. Multiple bruises to arms. Has X2 open areas to buttocks/sacral. Will do wound assessments. Dressing/ag wrap to right foot. Recent amputation of toes. Scabbed sore to lateral left ankle. VS check done and oriented to room. c/o SOB with exertion and is weak. To [facility] with loose stool with occult blood sent to lab. Pitting edema to BLE
[2020-07-20 20:49] LABS: Glucose Point of Care 159 mg/dL (70-110)
[2020-07-20] MEDS: HYDROcodone-acetaminophen 10-325 mg Tablet 1 TAB PO (22:14)
[2020-07-21] VITALS (15 sets, daily range): BP systolic 93–117; BP diastolic 53–74; PULSE 67–120; RESP 16–18; TEMP 36.3–36.7; O2SAT 93–100
[2020-07-21 01:27] LABS: Hematocrit 25.7 % (37.0-47.0); Hemoglobin 7.3 g/dL (11.5-15.3)
[2020-07-21] MEDS: sucralfate 1 gm Tablet PO ×2 (06:37→10:46)
[2020-07-21] MEDS: sodium chloride 0.9% 1,000 ML 100 ML IV (06:39)
[2020-07-21 06:41] LABS: Basophils % 0.4 %; Eosinophils # 0.2 10^3/uL (0.0-0.8); Eosinophils % 2.6 %; Hematocrit 24.3 % (37.0-47.0); Hemoglobin 7.1 g/dL (11.5-15.3); Lymphocytes # 0.9 10^3/uL (0.8-4.8); Lymphocytes % 15.3 %; Mean Corpuscular HGB Conc 29.2 g/dL (30.0-36.0); Mean Corpuscular Hemoglobin 24.8 pg (28.0-34.0); Mean Platelet Volume 10.4 fL (7.4-10.4); Monocytes # 0.2 10^3/uL (0.2-0.9); Monocytes % 3.5 %; Neutrophils % 77.7 %; Nucleated Red Blood Cells % 0 %; Platelet Count 117 10^3/cmm (130-400); Red Blood Count 2.86 10^6/uL (4.1-5.3); Red Cell Distribution Width 18.3 % (12.1-15.1); White Blood Count 5.7 10^3/uL (4.0-10.0)
[2020-07-21 06:49] LABS: Glucose Point of Care 109 mg/dL (70-110)
--- NOTE | 2020-07-21 06:53 | PC.NURSE ---
SHIFT MARIA EUGENIA Has slept well without distress. H/H dropped to 7.[address] Dixon was notified. Order was received for 1 unit of PRBC's Pt had not been Typed yet. Lab called this am saying she had alot of antibodies so blood is taking awhile. Passed on to day shift need to transfuse. Had couple of tarry loose BM's tonight. Stool for occult blood did come back positive. IV infusing at 100ml/hr rate.
[2020-07-21 08:02] LABS: Alanine Aminotransferase < 5 U/L (0-33); Albumin Level 3.1 g/dL (3.5-5.2); Alkaline Phosphatase 68 IU/L (35-105); Aspartate Amino Transferase 9 U/L (0-32); Calcium 8.3 mg/dL (8.5-10.5); Carbon Dioxide 26 mmol/L (22-29); Chloride 97 mmol/L (98-107); Globulin 2.4 g/dL (1.3-4.6); Glucose 100 mg/dL (65-115); Osmolality Calculated 303 mOsm/kg (285-295); Sodium 134 mmol/L (136-145); Total Bilirubin 0.4 mg/dL (0.15-1.2); Total Protein 5.5 g/dL (6.6-8.7)
[2020-07-21 08:04] LABS: Blood Urea Nitrogen 82 mg/dL (8-23)
[2020-07-21] MEDS: pantoprazole 40 mg SDV IV (10:14)
[2020-07-21 10:32] LABS: Glucose Point of Care 126 mg/dL (70-110)
--- NOTE | 2020-07-21 12:37 | PC.CHAP ---
Pastoral Care Encounter/Spiritual Assessment Type of Contact [] Declined senior property accountant visit [] Patient/Family/Request visit [] Outpatient visit [] Follow-up visit [] Physician referral [] Code/Alert [xx] Routine visit [] Staff referral [] Actively dying [xx] Patient sleeping [] Family support [] [] Out of room [] Palliative care [] [] Receiving care in room [] Pre-surgical visit [] Trauma [] Long length of stay [] ICU visit [] Other: Relational/Emotional Strength [] Patient feels connected with others/family/visitors/staff [] Distress [] Loneliness/isolation [] Abandonment Spirituality of Patient [] Person of [place] [] Attends Religious of their [place] [] Believes in Prayer [] Reads Bible or Episcopal materials [] There are Spiritual issues to be addressed [employer] [] Prayer [] Active listening [] Non-anxious presence [] Spiritual/emotional support [] Crisis/trauma care [] Spiritual counseling [] Bereavement support [] Provided bereavement packet [] Provided Bible/devotional materials [] Provided toy/stuffed animal, coloring book to patient or family member [] Provided Communion [] Anointing/[place] [] Salvation [] Completed spiritual assessment [] Other: Impact on Illness or Injury [] Angry [] Fearful [] Anxious [] Often cries [] Exhaustion [] Unable to work [] Unable to attend voodoo [] Unable to walk/stand [] Unable to read [] Unable to drive [] Unable to eat/drink [] Unable to sleep [] Unable to be with family [] Patient intubated [] Other: Summary Pt sleeping under sedation. Attempt follow up later. Time spent with patient
--- NOTE | 2020-07-21 15:02 | PC.RESP ---
PULMONARY REHAB INFORMATION SENT TO PATIENT.
--- NOTE | 2020-07-21 15:32 | P.DS_ITS ---
Discharge Providers Date of Admission: 07/20/20 17:56 Date of Discharge: July 21, 2020 Attending Provider at Admission: Pablo Rubio Attending Provider at Discharge: Pablo Rubio Primary Care Provider: Keena De La Torre DO Diagnoses at Discharge Discharge Diagnosis (1) GI bleed: Status: Acute (2) COPD (chronic obstructive pulmonary disease): Status: Chronic Qualifiers: COPD type: unspecified COPD Qualified Code(s): J44.9 - Chronic obstruc tive pulmonary disease, unspecified (3) Chronic kidney disease (CKD): Status: Chronic (4) Nonalcoholic fatty liver disease: Status: Chronic (5) Peripheral vascular disease: Status: Chronic (6) CAD (coronary artery disease): Status: Chronic Qualifiers: Associated angina: angina presence unspecified Coronary Disease- Associated Artery/Lesion type: bypass graft [place] vs. transplanted heart: [place] heart Qualified Code(s): I25.810 - Atherosclerosis of coronary artery bypass graft(s) without angina pectoris (7) Insulin dependent type 2 diabetes mellitus: Status: Chronic (8) Oxygen dependent: Status: Chronic Reason for Visit Reason for Visit: GI BLEED Hospital Course Hospital Course 70-year-old with a past medical history significant for chronic combined heart failure, coronary artery disease, chronic obstructive pulmonary disease, chronic kidney disease, peripheral vascular disease, pulmonary hypertension, liver cirrosis, diabetes mellitus with chronic non-healing left foot ulcer with cellulitis, paroxysmal atrial fibrillation previously on anticoagulation, chronic blood loss anemia/ recurrant GI bleed due to AVM was presented to the hospital after she was noted to have multiple dark bowel movements. She stated she was restarted on her aspirin and iron replacement. States he bowels always turn dark while on oral iron replacement. Denied chest pain, no fever, chills, nausea or vomiting. Upon arrival patient's initial laboratory workup showed a WBC of 10.0, hemoglobin of 8.1 which was 8.6 on discharge yesterday, hematocrit of 27.4, platelet count of 150. PT 17.2, INR 1.36. Sodium 128, potassium 4.4, chloride 93, bicarb 24, BUN 77 and creatinine of 2.6. Imaging studies included a CT abdomen pelvis which showed moderate volume right pleural effusion, intraperitoneal ascites, cirrhosis of liver, splenomegaly and liquid stool throughout the colon without visible evidence of infection or inflammatory colitis. Patient was admitted for observation. Was found to have an acute drop in hemoglobin to 7.1. Transfusion was ordered. Patient was initially kept NPO. General surgery was consulted and recommended the patient have EGD and possible colonoscopy performed however patient adamantly refused. Discussed the risk versus benefit multiple times after which patient verbalized understanding and again refused. Stated she wished to be discharged home with home care after transfusion and would follow up with her physicians at [facility] who have previously managed charge GI bleed. Patient was discharged after transfusion. Advised to return to hospital if any recurrence of dark bloody bowel movements. Of note patient did not have any recurrence of bloody bowel movements after admission. Patient was on aspirin which she was advised to hold until seen by primary care physician or GI specialist. Physical Exam Const: COMMON NORMALS: no acute distress GENERAL APPEARANCE: cooperative and comfortable ORIENTATION/CONSCIOUSNESS: Yes awake, Yes oriented to person, Yes oriented to place and Yes oriented to time HENMT: COMMON NORMALS: normocephalic, atraumatic, hearing grossly normal bilaterally, external ears normal, EAC's normal, TM's normal bilaterally, Normal nasal mucous membranes and turbinates present, moist oral mucous membranes and oropharynx normal HEAD & SCALP: normocephalic and atraumatic NOSE: Normal nasal mucous membranes and turbinates present EXTERNAL EAR: Yes external ears normal EXTERNAL AUDITORY CANAL: EAC's normal TYMPANIC MEMBRANE: TM's normal bilaterally Neck/C-Spine: COMMON NORMALS: no JVD Resp: COMMON NORMALS: normal respiratory effort, No retractions, No use of accessory muscles and clear to auscultation bilaterally AUSCULTATION: clear to auscultation bilaterally Cardio: COMMON NORMALS: no JVD, regular rate, regular rhythm and No murmurs present (Cardio) RATE: regular rate RHYTHM: regular rhythm GI: COMMON NORMALS: Soft to palpation and No hepatosplenomegaly present AUSCULTATION: Yes normoactive bowel sounds PALPATION: Yes Soft to palpation, No Tenderness to palpation present (GI), No Guarding due to palpation present (GI) and Yes No hepatosplenomegaly present Extremity: COMMON NORMALS: normal to inspection, capillary refill normal, no clubbing, cyanosis or edema, no calf tenderness and no pedal edema Neuro: SENSORIUM/ORIENTATION: Yes oriented to person, Yes oriented to place and Yes oriented to time Skin: COMMON NORMALS: no rashes or lesions noted GENERAL SKIN EXAM: no rashes or lesions noted Discharge Data Data Completed and Pending: Completed Studies During Hospitalization Category Date Time Status CT abdomen pelvis wo con [id number] Stat Cat Scan 07/20/20 16:36 Completed Pending at discharge Category Date Time Status Hemoglobin and He matocrit Q6H Lab 07/21/20 13:00 Ordered Labs from last 24 hours 07/21/20 07/21/20 07/21/20 10:18 06:44 04:10 WBC RBC Hgb Hct MCV MCH MCHC RDW Plt Count MPV Neut % (Auto) Lymph % (Auto) [place] % (Auto) Eos % (Auto) Baso % (Auto) Neut # (Auto) Lymph # (Auto) [place] # (Auto) Eos # (Auto) Baso # (Auto) Nucleated RBC % (a uto) Nucleated RBCs # PT INR APTT Sodium Potassium Chloride Carbon Dioxide Anion Gap BUN Creatinine GFR Calculation Glucose POC Glucose 126 H 109 Calculated Osmolal ity Calcium Total Bilirubin AST ALT Alkaline Phosphata se Total Protein Albumin Globulin Blood Type A Positive Rho(D) Type Positive Antibody Screen Positive Antibody Identific ation Anti-K Crossmatch See Detail 07/21/20 07/21/20 07/21/20 04:10 04:10 01:20 WBC 5.7 RBC 2.86 L Hgb 7.1 L 7.3 L Hct 24.3 L 25.7 L MCV 85.0 MCH 24.8 L MCHC 29.2 L RDW 18.3 H Plt Count 117 L MPV 10.4 Neut % (Auto) 77.7 Lymph % (Auto) 15.3 [place]lee % (Auto) 3.5 Eos % (Auto) 2.6 Baso % (Auto) 0.4 Neut # (Auto) 4.40 Lymph # (Auto) 0.9 [place] # (Auto) 0.2 Eos # (Auto) 0.2 Baso # (Auto) 0.0 Nucleated RBC % (a uto) 0 Nucleated RBCs # 0.0 PT INR APTT Sodium 134 L Potassium 4.0 Chloride 97 L Carbon Dioxide 26 Anion Gap 15.0 BUN 82 H* Creatinine 2.4 H GFR Calculation Not Reportable Glucose 100 POC Glucose Calculated Osmolal ity 303 H Calcium 8.3 L Total Bilirubin 0.4 AST 9 ALT < 5 Alkaline Phosphata se 68 Total Protein 5.5 L Albumin 3.1 L Globulin 2.4 Blood Type Rho(D) Type Antibody Screen Antibody Identific ation Crossmatch 07/20/20 07/20/20 07/20/20 20:45 19:40 17:04 WBC RBC Hgb 8.6 L Hct 30.3 L MCV MCH MCHC RDW Plt Count MPV Neut % (Auto) Lymph % (Auto) [place] % (Auto) Eos % (Auto) Baso % (Auto) Neut # (Auto) Lymph # (Auto) [place] # (Auto) Eos # (Auto) Baso # (Auto) Nucleated RBC % (a uto) Nucleated RBCs # PT INR APTT Sodium 128 L Potassium 4.4 Chloride 93 L Carbon Dioxide 24 Anion Gap 15.4 BUN 77 H Creatinine 2.6 H GFR Calculation Not Reportable Glucose 151 H POC Glucose 159 H Calculated Osmolal ity 292 Calcium 8.6 Total Bilirubin 0.3 AST 10 ALT < 5 Alkaline Phosphata se 82 Total Protein 6.1 L Albumin 3.5 Globulin 2.6 Blood Type Rho(D) Type Antibody Screen Antibody Identific ation Crossmatch 07/20/20 07/20/20 17:04 17:04 WBC 10.0 RBC 3.23 L Hgb 8.1 L Hct 27.4 L MCV 84.8 MCH 25.1 L MCHC 29.6 L RDW 18.2 H Plt Count 150 MPV 9.9 Neut % (Auto) 86.7 Lymph % (Auto) 8.3 [place] % (Auto) 2.6 Eos % (Auto) 1.9 Baso % (Auto) 0.1 Neut # (Auto) 8.62 H Lymph # (Auto) 0.8 [place] # (Auto) 0.3 Eos # (Auto) 0.2 Baso # (Auto) 0.0 Nucleated RBC % (a uto) 0 Nucleated RBCs # 0.0 PT 17.20 H INR 1.36 H APTT 32.8 Sodium Potassium Chloride Carbon Dioxide Anion Gap BUN Creatinine GFR Calculation Glucose POC Glucose Calculated Osmolal ity Calcium Total Bilirubin AST ALT Alkaline Phosphata se Total Protein Albumin Globulin Blood Type Rho(D) Type Antibody Screen Antibody Identific ation Crossmatch Vitals: Last Vital Signs Temp 97.7 F 07/21/20 15:23 Pulse 67 07/21/20 15:23 Resp 18 07/21/20 15:23 BP 110/70 07/21/20 15:23 Pulse Ox 98 07/21/20 15:23 Discharge Plan Discharge Patient Disposition: Home Condition: Stable Prescriptions: Continued albuterol sulfate 2.5 mg /3 mL (0.083 %) Solution For Nebulization 2.5 mg INHALATION QID PRN (Reason: Shortness Of Breath) RF: 0 Triple Antibiotic 3.5mg-400 unit- 5,000 unit/gram Ointment 1 applic topical BID 30 Days Qty: 28 RF: 0 levofloxacin 500 mg Tablet 500 mg PO Q48H 7 Days Qty: 4 RF: 0 HySept 0.25 % Solution 1 applic topical Q24H 30 Days Qty: 473 RF: 0 sucralfate 1 gram Tablet 1 g PO AC&BEDTIME 30 Days Qty: 60 RF: 0 insulin aspart U-100 [Novolog U-100 Insulin aspart] 100 unit/mL Solution See Rx Instructions .ROUTE .COMPLEX Qty: 10 RF: 0 metoprolol tartrate 25 mg tablet 12.5 mg PO Q12H Qty: 0 RF: 0 Tresiba FlexTouch U-100 100 unit/mL (3 mL) insulin pen 10 unit SUBCUT BEDTIME Qty: 0 RF: 0 diphenoxylate-atropine 2.5-0.025 mg tablet 1 tab PO TID PRN (Reason: Diarrhea) RF: 0 hydrocodone-acetaminophen 10-325 mg tablet 10 - 325 tab PO 5XD PRN (Reason: Pain) RF: 0 trazodone 100 mg tablet 200 mg PO BEDTIME@1999 RF: 0 midodrine 2.5 mg tablet 2.5 mg PO BID@, RF: 0 buspirone 15 mg tablet 15 mg PO BID@,20 RF: 0 levalbuterol tartrate [Xopenex HFA] 45 mcg/actuation HFA aerosol inhaler 1 puff INHALATION QID PRN (Reason: Shortness Of Breath) RF: 0 Lasix 40 mg Tablet 40 mg PO DAILY PRN (Reason: Edema) RF: 0 Milk of Magnesia 400 mg/5 mL Suspension 30 ml PO DAILY PRN (Reason: Constipation) RF: 0 bisacodyl 10 mg Suppository 10 mg CO DAILY PRN (Reason: Constipation) RF: 0 Enema Disposable 19-7 gram/118 mL Enema 118 ml CO DAILY PRN (Reason: Constipation) RF: 0 furosemide 40 mg tablet 40 mg PO BID@,14 RF: 0 atorvastatin 40 mg tablet 40 mg PO BEDTIME@1999 RF: 0 doxycycline monohydrate 100 mg tablet 100 mg PO BID@, RF: 0 Klor-Con M20 20 mEq tablet,ER particles/crystals 20 meq PO DAILY@08 RF: 0 pantoprazole 40 mg tablet,delayed release (DR/EC) 40 mg PO BID@,18 RF: 0 ferrous sulfate 325 mg (65 mg iron) tablet,delayed release (DR/EC) 325 mg PO BID@, RF: 0 Held aspirin 81 mg tablet,delayed release (DR/EC) 81 mg PO DAILY@ RF: 0 Hold Instructions: Resume on 07/28/20. If hemoglobin is stable on repeat outpatient blood work and okayed by primary care physician Discharge Orders: Discharge Order (Routine); Ordered 07/21/20 Ordered By: Pablo Rubio Other Ambulatory Orders: Complete Blood Count w/Auto (Routine) Timeframe: 3 Days Location: Determined by Patient Ordered By: Pablo Rubio Referrals: Keena De La Torre DO [Primary Care Provider] - (Please call Dr. De La Torre's o ffice and make an appointment to see her within one week. ) [facility], [Staff Physician] - (.) Discharge Diet: Advance as tolerated Discharge Activity: Resume usual activity Patient Instructions: Anemia, GI Bleeding Activity Restrictions/Additional Instructions: return to hospital if any evidence of recurrent GI bleed, chest pain, shortness of breath, fever or chills. Follow-up with your primary care physician for repeat blood work next week. Discharge Attestations Time Spent in Discharge Care*: greater than 30 min Specific Discharge Activities: educating patient, discussing with pcp/other providers, discussing with watch case polisher/social workers/dc planners, documenting/other paperwork and evaluating patient/reviewing data Status at Discharge: Cognitive status at discharge: cognitively intact , Behavioral status at discharge: cooperative , Overall status at discharge: patient is back to baseline Quality Metrics Clinical Quality Measures During this hospital stay, did patient experience: None Coding Level of Care Code Acute Wireless Retail Manager for [facility] Fwd Diagnoses GI bleed K92.2 COPD (chronic obstructive pulmonary disease) J44.9 COPD type: unspecified COPD Chronic kidney disease (CKD) N18.9 Nonalcoholic fatty liver disease K76.0 Peripheral vascular disease I73.9 CAD (coronary artery disease) I25.810 Associated angina: angina presence unspecified Coronary Disease-Associated Artery/Lesion type: bypass graft [place] vs. transplanted heart: [place] heart Insulin dependent type 2 diabetes mellitus E11.9; Z79.4 Oxygen dependent Z99.81
[2020-07-21 16:18] LABS: Hematocrit 29.9 % (37.0-47.0); Hemoglobin 8.7 g/dL (11.5-15.3)
[2020-07-21 17:26] LABS: Glucose Point of Care 165 mg/dL (70-110)
--- NOTE | 2020-07-21 17:39 | P.CONIM_ITS ---
Providers/Reason For Consult Consulting Physican/Specialty*: Pablo Rubio Reason for Consult*: GI bleed Attending Physician: Pablo Rubio Primary Care Provider: Keena De La Torre DO History of Present Illness History of Present Illness Christina Charles is a 70 year old female with multiple comorbidities who has a longstanding history of chronic blood loss anemia secondary to AVM. Patient presented to the ER after she noted typical dark bowel movements. She is on iron therapy. Patient denies any chest pain, abdominal pain, hematemesis or hematochezia. Her hemoglobin is 8.1. CT abdomen pelvis showed ascites, cirrhosis of the liver, no significant esophageal varices. Patient denies any history of peptic ulcer disease. Review of Systems General: Reports: 10 or more systems reviewed and unremarkable except in HPI and below Meds/Allergies Home Medications and Allergies Home Medications Medication Instructions Recorded Confirmed Last Taken Type buspirone 15 mg PO BID@10/26/19 07/20/20 07/20/20 History diphenoxylate-atropine 1 tab PO TID PRN 10/26/19 07/20/20 Unknown History hydrocodone-acetaminophen 10 - 325 tab PO 5XD PRN 10/26/19 07/20/20 07/20/20 History levalbuterol tartrate [Xopenex HFA] 1 puff INHALATION QID PRN 10/26/19 07/20/20 Unknown History midodrine 2.5 mg PO BID@10/26/19 07/20/20 07/20/20 History trazodone 200 mg PO BEDTIME@199910/26/19 07/20/20 07/19/20 History albuterol sulfate 2.5 mg INHALATION QID PRN 04/12/20 07/20/20 Unknown History HySept 1 applic TOPICAL Q24H 30 Days #473 07/19/20 07/20/20 07/20/20 Rx ml Tresiba FlexTouch U-100 10 unit SUBCUT BEDTIME #0 ml 07/19/20 07/20/20 07/19/20 Rx Triple Antibiotic 1 applic TOPICAL BID 30 Days #28 g 07/19/20 07/20/20 07/20/20 Rx insulin aspart U-100 [Novolog See Rx Instructions .ROUTE 07/19/20 07/20/20 07/20/20 Rx U-100 Insulin aspart] .COMPLEX #10 ml levofloxacin 500 mg PO Q48H 7 Days #4 tab 07/19/20 07/20/20 07/19/20 Rx metoprolol tartrate 12.5 mg PO Q12H #0 tab 07/19/20 07/20/20 07/20/20 Rx sucralfate 1 g PO AC&BEDTIME 30 Days #60 tab 07/19/20 07/20/20 07/20/20 Rx Enema Disposable 118 ml [place] DAILY PRN 07/20/20 07/20/20 Unknown History Klor-Con M20 20 meq PO DAILY@07/20/20 07/20/20 07/20/20 History Lasix 40 mg PO DAILY PRN 07/20/20 07/20/20 Unknown History Milk of Magnesia 30 ml PO DAILY PRN 07/20/20 07/20/20 Unknown History aspirin 81 mg PO DAILY@07/20/20 07/20/20 07/20/20 History atorvastatin 40 mg PO BEDTIME@199907/20/20 07/20/20 07/19/20 History bisacodyl 10 mg [place] DAILY PRN 07/20/20 07/20/20 Unknown History doxycycline monohydrate 100 mg PO BID@,07/20/20 07/20/20 07/20/20 History ferrous sulfate 325 mg PO BID@,07/20/20 07/20/20 07/20/20 History furosemide 40 mg PO BID@06,14 07/20/20 07/20/20 07/20/20 History pantoprazole 40 mg PO BID@,18 07/20/20 07/20/20 07/20/20 History Allergies Allergy/AdvReac Type Severity Reaction Status Date / Time STERIODS Allergy ADR-Agitate Uncoded 07/12/20 15:00 d Current Medications Current Medications Generic Name Dose Route Start Last Admin Trade Name Freq PRN Reason Stop Dose Admin Hydrocodone Bitart/Acetaminophen 1 tab 07/20/20 21:13 07/20/20 22:14 Hydrocodone-Acetaminophen 10-325 Mg Tablet PO 1 tab Q4H PRN Administration MODERATE PAIN Albuterol Sulfate 2.5 mg 07/21/20 01:36 07/21/20 02:18 Albuterol 2.5 Mg/0.5 Ml Neb INHALATION 2.5 mg Q6H.RESPIRATORY PRN Administration SHORTNESS OF BREATH Sodium Chloride 1,000 mls @ 100 mls/hr 07/20/20 19:43 07/21/20 15:29 Sodium Chloride 0.9% IV Not Given .Q10H RIANNA Sodium Chloride 1,000 mls @ 30 mls/hr 07/21/20 07:50 07/21/20 10:46 Sodium Chloride 0.9% IV 07/22/20 07:49 Not Given .Q24H ONE Insulin Aspart 0 unit 07/20/20 21:00 07/21/20 17:35 Insulin Aspart 100 Unit/1 Ml SUBCUT Not Given WM&BEDTIME RIANNA Protocol Pantoprazole Sodium 40 mg 07/21/20 09:00 07/21/20 17:35 Pantoprazole 40 Mg Sdv IV Not Given BID RIANNA Sucralfate 1 gm 07/20/20 21:00 07/21/20 17:35 Sucralfate 1 Gm Tablet PO Not Given AC&BEDTIME RIANNA Trazodone HCl 200 mg 07/20/20 20:00 07/20/20 20:02 Trazodone 100 Mg Tablet PO 200 mg BEDTIME@2000 RIANNA Administration PFSH Acute PFSH: Medical History CAD (coronary artery disease) Chronic kidney disease (CKD) COPD (chronic obstructive pulmonary disease) Diastolic CHF Echocardiogram 04/12 Diffuse hypokinesia left ventricle with ejection fraction around 40-45%, mildly increased RV size, increased RA/LA size, mod TR History of arteriovenous malformation (AVM) Associated with GI bleeding in the past Insulin dependent type 2 diabetes mellitus Liver cirrhosis Nonalcoholic fatty liver disease Paroxysmal atrial fibrillation Noted on some prior EKGs, not anticoagulated due to the blood loss from gastrointestinal AVMs, not known to be chronic Peripheral vascular disease Pulmonary hypertension ECHO 04/12 Estimated pulmonary artery peak systolic pressure of 55 mmHg. Surgical History History of appendectomy History of back surgery History of cholecystectomy History of coronary artery bypass graft x 2 History of hand surgery History of heart artery stent History of hernia repair History of repair of right hip joint (~10/26/19) Close reduction with percutaneous screw fixation in the right femoral neck fracture by Dr. Vasquez Family History Other Diabetes Social History Smoking and tobacco status: former smoker Alcohol intake: never Vitals/I&O/Wt Last Vital Signs Temp 97.7 F 07/21/20 15:23 Pulse 67 07/21/20 15:23 Resp 18 07/21/20 15:23 BP 110/70 07/21/20 15:23 Pulse Ox 98 07/21/20 15:23 07/21/20 07/21/20 07/21/20 06:59 14:59 22:59 Intake Total 1000 / 2000 100 / 100 Output Total 400 / 900 Balance 600 / 1100 100 / 100 Weight last 48 hrs Weight 178 lb Physical Exam Narrative: EXAM NARRATIVE: HEENT: Normocephalic Eye: Sclera /conjunctiva normal Abdomen: Soft to palpation Neurological: Oriented to place person and time Skin: Intact, no lesions appreciated on gross exam Data Micro: Micro: Microbiology 07/20/20 20:10 Occult Blood (FIT) - Final Stool Routine Col lection A&P Assessment and plan (1) GI bleed: 70-year-old female with history of AVMs who presents with melena. Patient is hemodynamically stable. Patient has had multiple EGD and colonoscopies in the past and therefore she does not want another EGD. Patient wants to be transfused and then discharged home. I will therefore hold off on scheduling her for an upper endoscopy at this point Status: Acute Coding Level of Care Code Acute Satellite Dish Technician for [facility] Fwd Diagnoses GI bleed K92.2
== END 2020-07-21 18:00 | disposition home or self-care (01) ==
LOC: ER 17:57 → MEDSURG 07-21 08:45
PROVIDERS: Admitting Provider Hospitalist; Emergency Provider Family Medicine; PCP Family Medicine; Visit Provider Hospitalist
DX: K92.2 Gastrointestinal hemorrhage, unspecified (principal); D64.9 Anemia, unspecified; J44.9 Chronic obstructive pulmonary disease, unspecified; K76.0 Fatty (change of) liver, not elsewhere classified; I73.9 Peripheral vascular disease, unspecified; I25.810 Atherosclerosis of coronary artery bypass graft(s) without angina pectoris; Z79.4 Long term (current) use of insulin; Z99.81 Dependence on supplemental oxygen; E11.22 Type 2 diabetes mellitus with diabetic chronic kidney disease; I13.0 Hypertensive heart and chronic kidney disease with heart failure and stage 1 through stage 4 chronic kidney disease, or unspecified chronic kidney disease; N18.30 Chronic kidney disease, stage 3 unspecified; I50.40 Unspecified combined systolic (congestive) and diastolic (congestive) heart failure; I48.0 Paroxysmal atrial fibrillation; Z79.01 Long term (current) use of anticoagulants; Z79.82 Long term (current) use of aspirin; I25.10 Atherosclerotic heart disease of native coronary artery without angina pectoris; Z87.891 Personal history of nicotine dependence; E11.621 Type 2 diabetes mellitus with foot ulcer
CPT/HCPCS: 12345; 36415; 36416; 36430; 74176; 80053; 82274; 82962; 85014; 85018; 85025; 85610; 85730; 86850; 86870; 86900; 86920; 94640; 96361; 96372; 96374; 96375; 99281; 99285; C9113; G0378; J1815; J7030; J7611; P9016

== ENCOUNTER 2020-07-30 11:00 | Inpatient (IN) | payer MEDICARE, MEDICAID, SELFPAY ==
[2020-07-30] VITALS (17 sets, daily range): BP systolic 93–133; BP diastolic 49–89; PULSE 70–120; RESP 12–18; TEMP 35.9–36.8; O2SAT 99–100; BMI 26.6
--- NOTE | 2020-07-30 11:15 | XRR_ITS ---
PROCEDURE INFORMATION: Exam: XR Chest, 1 View Exam date and time: 07/30/2020 11:20 AM Age: 70 years old Clinical indication: Other: AMS; Prior surgery; Surgery date: 6+ months; Surgery type: Open heart; Additional info: Altered TECHNIQUE: Imaging protocol: XR of the chest Views: 1 view. COMPARISON: CT chest con [id number] 04/12/2020 2:35 PM FINDINGS: Lungs: Patchy diffuse interstitial and alveolar airspace disease most pronounced in the left mid lung. Edema and/or pneumonia. Pleural space: Subpulmonic effusions bilaterally. Heart/Mediastinum: cardiac silhouette is enlarged. Prior sternotomy. Mild vascular congestion. Bones/joints: See Heart/Mediastinum finding. XR/XR chest 1V portable [id number] IMPRESSION: Cardiomegaly. Mild vascular congestion/edema. Patchy interstitial and alveolar airspace disease most pronounced in the left mid lung. Edema and/or pneumonia. Covid within the differential diagnosis.
--- NOTE | 2020-07-30 11:18 | ECG_ITS ---
[facility] Test Date: 2020-07-30 Pat Name: Christina Charles Department: Room: Gender: Female X Ray Control Equipment Repairer: : 1950 Requested By: Kofi Choudhury Order Number: [id number] Von MD: Ole Flores M.D. Measurements Intervals [place] Rate: 115 P: 0 FL: 64 QRS: -31 QRSD: 112 T: 194 QT: 356 QTc: 494 Interpretive Statements Possible atrial flutter/fibrillation LEFT AXIS DEVIATION [QRS AXIS < -30] LOW QRS VOLTAGE IN PRECORDIAL LEADS [QRS DEFLECTION < 1.0 mV IN CHEST LEADS] INCOMPLETE RIGHT BUNDLE BRANCH BLOCK [90+ ms QRS DURATION, TERMINAL R IN V1/V2, 40+ ms S IN I/aVL/V4/V5/V6] POSSIBLE ANTERIOR MYOCARDIAL INFARCTION , OF INDETERMINATE AGE [30 ms Q WAVE IN V3/V4, OR R < 0.2 mV IN V4] INFERIOR MYOCARDIAL INFARCTION , PROBABLY OLD [40+ ms Q WAVE AND/OR ST/T ABNORMALITY IN II/aVF]ST DEVIATION AND MODERATE T-WAVE ABNORMALITY, CONSIDER LATERAL ISCHEMIA [-0.1+mV T WAVE IN I/aVL/V5/V6] Compared to ECG 04/12/2020 05:25:Left-axis deviation now present Low QRS voltage now present Myocardial infarct finding still present T-wave abnormality still present.Possible ischemia still present Electronically Signed On 07-30-2020 20:21:38 METAL CHECKER by Ole Flores M.D. [email or web address]
--- NOTE | 2020-07-30 11:19 | ED_ITS ---
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 She says she was discharged about a week ago and continues to have dark stools come out. She is on iron and was on aspirin but no after her discharge she was supposed to stop taking it. She says she feels weak like she needs a transfusion. Denies vomiting. Severity: moderate Exacerbating factors: bowel movement Associated symptoms: Denies abdominal pain, headache(s), nausea, rash or vomiting Review of Systems General: Reports: 10 or more systems reviewed and unremarkable except in HPI and below Const: Denies: fatigue Eyes: Denies: change in vision, blurry vision or eye redness ENMT: Denies: throat pain, swelling of lips/tongue, ear or mastoid pain or nasal congestion Card: Denies: chest pain, palpitations, irregular heart rhythm, edema, dyspnea on exertion or orthopnea Resp: Denies: dyspnea, productive cough or non-productive cough GI: Reports: hematochezia and melena; Denies: abdominal pain, nausea, vomiting, diarrhea or GI cramping : Denies: flank pain, difficulty voiding, urinary frequency or urinary urgency Musc: Denies: neck pain, back pain, extremity pain, joint pain, joint redness, limited range of motion or muscle weakness Skin/Breast: Denies: rash, pruritus, erythema, skin pain or skin tenderness Neuro: Denies: headache(s), numbness in extremities, weakness in extremities, sensory changes, difficulty walking, dizziness, confusion or Slurred speech present Psych: Denies: anxiety or depression Endo: Denies: polyuria All/Imm: Denies: urticaria, throat swelling or tongue swelling PFSH ED PFSH: Medical History (Updated 07/30/20 @ 18:12 by Wilfredo Buckner MD) Acute exacerbation of CHF (congestive heart failure) Acute kidney injury superimposed on chronic kidney disease Anemia Biventricular heart failure with reduced left ventricular function Echocardiogram 04/12 Diffuse hypokinesia left ventricle with ejection fraction around 40-45%, mildly increased RV size, increased RA/LA size, mod TR CAD (coronary artery disease) Cardiovascular renal disease Chronic anemia Chronic kidney disease (CKD) COPD (chronic obstructive pulmonary disease) GI bleed History of arteriovenous malformation (AVM) Associated with GI bleeding in the past Insulin dependent type 2 diabetes mellitus Liver cirrhosis Nonalcoholic fatty liver disease Paroxysmal atrial fibrillation Noted on some prior EKGs, not anticoagulated due to the blood loss from gastrointestinal AVMs, not known to be chronic Peripheral vascular disease Pulmonary hypertension ECHO 04/12 Estimated pulmonary artery peak systolic pressure of 55 mmHg. Surgical History History of appendectomy History of back surgery History of cholecystectomy History of coronary artery bypass graft x 2 History of hand surgery History of heart artery stent History of hernia repair History of repair of right hip joint (~10/26/19) Close reduction with percutaneous screw fixation in the right femoral neck fracture by Dr. Vasquez Family History Other Diabetes Social History (Updated 07/30/20 @ 18:12 by Wilfredo Buckner MD) Smoking and tobacco status: former smoker Alcohol intake: never Household members: children Housing: House Physical Exam Const: COMMON NORMALS: no acute distress, average body habitus, patient oriented x3, no limitations, healthy appearing, alert and well nourished GENERAL APPEARANCE: cooperative, comfortable, well kempt and well developed ORIENTATION/CONSCIOUSNESS: Yes awake, Yes oriented to person, Yes oriented to place and Yes oriented to time HENMT: COMMON NORMALS: normocephalic, external ears normal and Normal external nose present HEAD & SCALP: normal to inspection and normocephalic NOSE: Normal external nose present EXTERNAL EAR: Yes external ears normal MOUTH: Normal oral and palatal mucosa present THROAT: posterior oropharynx normal Eye: COMMON NORMALS: Equal, round and reactive pupils present and EOMs intact bilaterally GENERAL EYE: appearance normal, both eyes and all related structures PUPIL: Yes Equal, round and reactive pupils present Neck/C-Spine: COMMON NORMALS: full ROM, no lymphadenopathy, no meningeal signs and no JVD GENERAL: Yes normal visual inspection Lymph: LYMPHATIC: no lymphadenopathy noted Chest: COMMONS NORMALS: normal inspection of the chest and normal palpation of entire chest wall Resp: COMMON NORMALS: normal respiratory effort, No retractions, No use of accessory muscles, clear to auscultation bilaterally and percussion normal EFFORT & INSPECTION: Yes able to speak in complete sentences AUSCULTATION: clear to auscultation bilaterally PERCUSSION: percussion normal Cardio: COMMON NORMALS: no JVD, regular rate, regular rhythm, S1 normal heart sound present, S2 normal heart sound present and Peripheral pulses 2+ throughout RATE: regular rate RHYTHM: regular rhythm HEART SOUNDS: S1 normal heart sound present and S2 normal heart sound present PERIPHERAL PULSES: Peripheral pulses 2+ throughout GI: COMMON NORMALS: Soft to palpation and non-tender PALPATION: Yes Soft to palpation OTHER: She has obvious ascites, her belly is soft and nontender. Small scar from a recent tap which appears uninfected and nontender. : COMMON NORMALS: Yes no CVA tenderness BLADDER/KIDNEY EXAM: Yes no CVA tenderness Back/Pelvis: COMMON NORMALS: no CVA tenderness, thoracic and lumbar spine normal to inspection, no thoracic nor lumbar tenderness and thoraco-lumbar ROM normal Extremity: COMMON NORMALS: normal to inspection, full ROM, capillary refill normal, no joint enlargement and no pedal edema GENERAL: Yes normal exam ex cept as noted Neuro: COMMON NORMALS: patient oriented x3, CN's II-XII intact bilaterally, moves all extremities, no focal motor deficits, no sensory deficits noted and gait normal SENSORIUM/ORIENTATION: Yes alert, Yes oriented to person, Yes oriented to place and Yes oriented to time MENINGEAL SIGNS: Yes no meningeal signs Psych: COMMON NORMALS: mental status grossly normal, Normal thought process present, cooperative, normal affect and speech normal APPEARANCE: Yes well kempt ATTITUDE: Yes calm SPEECH: Yes normal speech THOUGHT PROCESS: Normal thought process present Skin: COMMON NORMALS: no rashes or lesions noted GENERAL SKIN EXAM: no rashes or lesions noted Course Vital Signs: Vital signs: Vital Signs Temperature 97.6 F 07/30/20 11:07 Pulse Rate 70 07/30/20 18:06 Respiratory Rate 16 07/30/20 18:06 Blood Pressure 133/75 07/30/20 18:06 Pulse Oximetry 100 07/30/20 18:06 MDM - GI Bleed MDM Narrative: Medical decision making narrative: The patient came in complaining of a GI bleed and shortness of breath. Her hemoglobin is 8.6 and stable. She likely is suffering from chronic upper GI bleed related to her AVM. Her troponin is also elevated double what it was 10 days ago at her last visit. Her kidney function is slightly better than it was at that time. Chest x-ray also shows pneumonia. She was started on antibiotics, given albuterol which helped with her shortness of breath and admitted observation under Dr. Brambila. Differential Diagnosis: GI bleed differential diagnosis: Likely Upper gastrointestinal hemorrhage Lab Data: Labs: Lab Results 07/30/20 07/30/20 07/30/20 Range/Units 11:27 11:27 11:27 WBC 6.1 (4.0-10.0) 10^3/ uL RBC 3.37 L (4.1-5.3) 10^6/u L Hgb 8.6 L (11.5-15.3) g/dL Hct 30.8 L (37.0-47.0) % MCV 91.4 (81-99) fL MCH 25.5 L (28.0-34.0) pg MCHC 27.9 L (30.0-36.0) g/dL RDW 19.6 H (12.1-15.1) % Plt Count 214 (130-400) 10^3/c mm MPV 10.5 H (7.4-10.4) fL Neut % (Auto) 85.6 % Lymph % (Auto) 7.2 % Stafford % (Auto) 4.6 % Eos % (Auto) 1.6 % Baso % (Auto) 0.5 % Neut # (Auto) 5.24 (1.8-7.7) 10^3/u L Lymph # (Auto) 0.4 L (0.8-4.8) 10^3/u L Stafford # (Auto) 0.3 (0.2-0.9) 10^3/u L Eos # (Auto) 0.1 (0.0-0.8) 10^3/u L Baso # (Auto) 0.0 (0.0-0.1) 10^3/u L Nucleated RBC % (a uto) 0 % Nucleated RBCs # 0.0 /100WBC PT 17.00 H (12.1-14.9) SECO NDS INR 1.34 H (0.8-1.2) Sodium 136 (136-145) mmol/L Potassium 4.8 (3.5-5.1) mmol/L Chloride 96 L (98-107) mmol/L Carbon Dioxide 29 (22-29) mmol/L Anion Gap 15.8 (5-19) BUN 70 H (8-23) mg/dL Creatinine 2.3 H (0.5-0.9) mg/dL GFR Calculation Not Reportable Glucose 106 (65-115) mg/dL Calculated Osmolal ity 303 H (285-295) mOsm/k g Lactate (0.5-2.2) mmol/L Calcium 8.3 L (8.5-10.5) mg/dL Total Bilirubin 0.3 (0.15-1.2) mg/dL AST 12 (0-32) U/L ALT < 5 (0-33) U/L Alkaline Phosphata se 128 H (35-105) IU/L Troponin T Baselin e (0-10) ng/L Troponin T 120 Min [place] (0-10) ng/L Delta Troponin T (0-10) ABS# Total Protein 7.1 (6.6-8.7) g/dL Albumin 3.9 (3.5-5.2) g/dL Globulin 3.2 (1.3-4.6) g/dL Lipase 20 (13-60) U/L Urine Color (Yellow) Urine Appearance (CLEAR) Urine pH (5-7) Ur Specific Gravit y (1.005-1.030) Urine Protein (Negative) Urine Glucose (UA) (Normal) Urine Ketones (Negative) Urine Blood (Negative) Urine Nitrate (Negative) Urine Bilirubin (Negative) Urine Urobilinogen (Negative) mg/dL Ur Leukocyte Majo ase (Negative) Urine RBC (0-2) /hpf Urine WBC (0-5) /hpf Ur Squamous Epith Cells (0-5) /hpf Amorphous Sediment Urine Bacteria (NONE) /hpf Urine Yeast /hpf Blood Type Rho(D) Type Antibody Screen Antibody Identific ation Crossmatch 07/30/20 07/30/20 07/30/20 Range/Units 11:27 11:27 11:55 WBC (4.0-10.0) 10^3/ uL RBC (4.1-5.3) 10^6/u L Hgb (11.5-15.3) g/dL Hct (37.0-47.0) % MCV (81-99) fL MCH (28.0-34.0) pg MCHC (30.0-36.0) g/dL RDW (12.1-15.1) % Plt Count (130-400) 10^3/c mm MPV (7.4-10.4) fL Neut % (Auto) % Lymph % (Auto) % Stafford % (Auto) % Eos % (Auto) % Baso % (Auto) % Neut # (Auto) (1.8-7.7) 10^3/u L Lymph # (Auto) (0.8-4.8) 10^3/u L Stafford # (Auto) (0.2-0.9) 10^3/u L Eos # (Auto) (0.0-0.8) 10^3/u L Baso # (Auto) (0.0-0.1) 10^3/u L Nucleated RBC % (a uto) % Nucleated RBCs # /100WBC PT (12.1-14.9) SECO NDS INR (0.8-1.2) Sodium (136-145) mmol/L Potassium (3.5-5.1) mmol/L Chloride (98-107) mmol/L Carbon Dioxide (22-29) mmol/L Anion Gap (5-19) BUN (8-23) mg/dL Creatinine (0.5-0.9) mg/dL GFR Calculation Glucose (65-115) mg/dL Calculated Osmolal ity (285-295) mOsm/k g Lactate 2.2 (0.5-2.2) mmol/L Calcium (8.5-10.5) mg/dL Total Bilirubin (0.15-1.2) mg/dL AST (0-32) U/L ALT (0-33) U/L Alkaline Phosphata se (35-105) IU/L Troponin T Baselin e 137 H* (0-10) ng/L Troponin T 120 Min [place] (0-10) ng/L Delta Troponin T (0-10) ABS# Total Protein (6.6-8.7) g/dL Albumin (3.5-5.2) g/dL Globulin (1.3-4.6) g/dL Lipase (13-60) U/L Urine Color (Yellow) Urine Appearance (CLEAR) Urine pH (5-7) Ur Specific Gravit y (1.005-1.030) Urine Protein (Negative) Urine Glucose (UA) (Normal) Urine Ketones (Negative) Urine Blood (Negative) Urine Nitrate (Negative) Urine Bilirubin (Negative) Urine Urobilinogen (Negative) mg/dL Ur Leukocyte Majo ase (Negative) Urine RBC (0-2) /hpf Urine WBC (0-5) /hpf Ur Squamous Epith Cells (0-5) /hpf Amorphous Sediment Urine Bacteria (NONE) /hpf Urine Yeast /hpf Blood Type A Positive Rho(D) Type Positive Antibody Screen Positive Antibody Identific ation Anti-K Crossmatch See Detail 07/30/20 07/30/20 Range/Units 12:50 15:48 WBC (4.0-10.0) 10^3/ uL RBC (4.1-5.3) 10^6/u L Hgb (11.5-15.3) g/dL Hct (37.0-47.0) % MCV (81-99) fL MCH (28.0-34.0) pg MCHC (30.0-36.0) g/dL RDW (12.1-15.1) % Plt Count (130-400) 10^3/c mm MPV (7.4-10.4) fL Neut % (Auto) % Lymph % (Auto) % Stafford % (Auto) % Eos % (Auto) % Baso % (Auto) % Neut # (Auto) (1.8-7.7) 10^3/u L Lymph # (Auto) (0.8-4.8) 10^3/u L [place] # (Auto) (0.2-0.9) 10^3/u L Eos # (Auto) (0.0-0.8) 10^3/u L Baso # (Auto) (0.0-0.1) 10^3/u L Nucleated RBC % (a uto) % Nucleated RBCs # /100WBC PT (12.1-14.9) SECO NDS INR (0.8-1.2) Sodium (136-145) mmol/L Potassium (3.5-5.1) mmol/L Chloride (98-107) mmol/L Carbon Dioxide (22-29) mmol/L Anion Gap (5-19) BUN (8-23) mg/dL Creatinine (0.5-0.9) mg/dL GFR Calculation Glucose (65-115) mg/dL Calculated Osmolal ity (285-295) mOsm/k g Lactate (0.5-2.2) mmol/L Calcium (8.5-10.5) mg/dL Total Bilirubin (0.15-1.2) mg/dL AST (0-32) U/L ALT (0-33) U/L Alkaline Phosphata se (35-105) IU/L Troponin T Baselin e (0-10) ng/L Troponin T 120 Min [place] 129.4 H (0-10) ng/L Delta Troponin T -7.6 L (0-10) ABS# Total Protein (6.6-8.7) g/dL Albumin (3.5-5.2) g/dL Globulin (1.3-4.6) g/dL Lipase (13-60) U/L Urine Color Straw (Yellow) Urine Appearance Clear (CLEAR) Urine pH 5 (5-7) Ur Specific Gravit y 1.015 (1.005-1.030) Urine Protein Neg (Negative) Urine Glucose (UA) Norm (Normal) Urine Ketones Negative (Negative) Urine Blood 2+ H (Negative) Urine Nitrate Negative (Negative) Urine Bilirubin Neg (Negative) Urine Urobilinogen Norm (Negative) mg/dL Ur Leukocyte Majo ase Negative (Negative) Urine RBC 0-4 H (0-2) /hpf Urine WBC 10-15 H (0-5) /hpf Ur Squamous Epith Cells 5-10 H (0-5) /hpf Amorphous Sediment Not Reportable Urine Bacteria Trace (NONE) /hpf Urine Yeast 1+ H /hpf Blood Type Rho(D) Type Antibody Screen Antibody Identific ation Crossmatch Discharge Plan Discharge Patient Disposition: Admitted As Inpatient Admit Provider: Giselle Brambila Coding Level of Care Code ED Area Director Of Home Health Sales for g Fwd Exam Comprehensive
--- NOTE | 2020-07-30 11:42 | PC.NURSE ---
Read and agree with triage and physical assessments.
[2020-07-30 12:18] LABS: INR 1.34 (0.8-1.2)
[2020-07-30 12:19] LABS: Lactate (Lactic Acid level) 2.2 mmol/L (0.5-2.2)
[2020-07-30 12:29] LABS: Troponin(5th) Baseline 137 ng/L (0-10)
[2020-07-30 12:38] LABS: Basophils % 0.5 %; Eosinophils # 0.1 10^3/uL (0.0-0.8); Eosinophils % 1.6 %; Hematocrit 30.8 % (37.0-47.0); Hemoglobin 8.6 g/dL (11.5-15.3); Lymphocytes # 0.4 10^3/uL (0.8-4.8); Lymphocytes % 7.2 %; Mean Corpuscular HGB Conc 27.9 g/dL (30.0-36.0); Mean Corpuscular Hemoglobin 25.5 pg (28.0-34.0); Mean Corpuscular Volume 91.4 fL (81-99); Mean Platelet Volume 10.5 fL (7.4-10.4); Monocytes # 0.3 10^3/uL (0.2-0.9); Monocytes % 4.6 %; Neutrophils # 5.24 10^3/uL (1.8-7.7); Neutrophils % 85.6 %; Nucleated Red Blood Cells % 0 %; Platelet Count 214 10^3/cmm (130-400); Red Blood Count 3.37 10^6/uL (4.1-5.3); Red Cell Distribution Width 19.6 % (12.1-15.1); White Blood Count 6.1 10^3/uL (4.0-10.0)
[2020-07-30 12:51] LABS: Alanine Aminotransferase < 5 U/L (0-33); Albumin Level 3.9 g/dL (3.5-5.2); Alkaline Phosphatase 128 IU/L (35-105); Anion Gap 15.8 (5-19); Aspartate Amino Transferase 12 U/L (0-32); Blood Urea Nitrogen 70 mg/dL (8-23); Calcium 8.3 mg/dL (8.5-10.5); Carbon Dioxide 29 mmol/L (22-29); Chloride 96 mmol/L (98-107); Globulin 3.2 g/dL (1.3-4.6); Glucose 106 mg/dL (65-115); Lipase 20 U/L (13-60); Osmolality Calculated 303 mOsm/kg (285-295); Potassium 4.8 mmol/L (3.5-5.1); Sodium 136 mmol/L (136-145); Total Bilirubin 0.3 mg/dL (0.15-1.2); Total Protein 7.1 g/dL (6.6-8.7)
--- NOTE | 2020-07-30 12:59 | PC.NURSE ---
Pt was straight cathed for urine and was noted to have defecated on herself. Pt provided michele care and repositioned.
[2020-07-30 13:59] LABS: Specific Gravity, Urine 1.015 (1.005-1.030); Urine Appearance Clear (CLEAR); Urine Color Straw (Yellow); pH Urine 5 (5-7)
[2020-07-30 14:00] LABS: Add Urine Culture? Yes; Add Urine Microscopic? YES; Bacteria Urine TRACE /hpf; Bilirubin Urine Neg (Negative); Blood Urine 2+ (Negative); Glucose Urine UA Norm (Normal); Ketones Urine Negative (Negative); Leukocyte Esterase Urine Negative (Negative); Nitrate Urine Negative (Negative); Protein Urine Neg (Negative); RBC Urine 0-4 /hpf (0-2); Urobilinogen Urine Norm (Negative)
[2020-07-30] MEDS: albuterol 8 gm MDI 2 PUFF INHALATION (14:08)
[2020-07-30] MEDS: levofloxacin-dextrose 5 % 750 MG/150 ML PREMIX 100 MG IV (14:31)
--- NOTE | 2020-07-30 15:06 | ECG_ITS ---
[facility] Test Date: 2020-07-30 Pat Name: Christina Charles Department: Room: Gender: Female Tax Compliance Representative: : [id number] Requested By: Kofi Choudhury Order Number: [id number] Longoria MD: Ole Flores M.D. Measurements Intervals [place] Rate: 96 P: 13 GA: 118 QRS: -35 QRSD: 102 T: 164 QT: 365 QTc: 463 Interpretive Statements Possible atrial fibrillation LEFT AXIS DEVIATION [QRS AXIS < -30] LOW QRS VOLTAGE IN PRECORDIAL LEADS [QRS DEFLECTION < 1.0 mV IN CHEST LEADS] INCOMPLETE RIGHT BUNDLE BRANCH BLOCK [90+ ms QRS DURATION, TERMINAL R IN V1/V2, 40+ ms S IN I/aVL/V4/V5/V6] POSSIBLE ANTERIOR MYOCARDIAL INFARCTION , OF INDETERMINATE AGE [30 ms Q WAVE IN V3/V4, OR R < 0.2 mV IN V4]ST DEVIATION AND MODERATE T-WAVE ABNORMALITY, CONSIDER LATERAL ISCHEMIA [-0.1+ mV T WAVE IN I/aVL/V5/V6] ST DEVIATION AND MODERATE T-WAVE ABNORMALITY, CONSIDER INFERIOR ISCHEMIA [-0.1+ mV T WAVE IN II/aVF] Compared to ECG 07/30/2020 11:30:23 Myocardial infarct finding still presentT-wave abnormality still present Possible ischemia still present Electronically Signed On 07-30-2020 20:33:56 [employer]OVEL OPERATOR by Ole Flores M.D. [email or web address]
--- NOTE | 2020-07-30 15:35 | PC.NURSE ---
Lab has been called twice d/t late 2 hr troponin draw and physician request for redraw.
[2020-07-30 16:55] LABS: Troponin 5 2HR Delta -7.6 ABS# (0-10)
[2020-07-30 16:56] LABS: Troponin 5 2HR 129.4 ng/L (0-10)
[2020-07-30] MEDS: morphine 4 mg/mL SDV 1 mL 2 MG IVP (16:56)
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
[2020-07-30 18:56] LABS: Estmated Average Glucose 105; Hemoglobin A1C 5.3 % (4.0-6.0)
[2020-07-30 18:56] LABS: Glucose Point of Care 84 mg/dL (70-110)
[2020-07-30 19:05] LABS: NT Pro B Type Natriuretic Pept 22220 pg/mL (0-125); Procalcitonin 0.52 ng/mL (0-0.5)
--- NOTE | 2020-07-30 19:06 | ECG_ITS ---
[facility] Test Date: 2020-07-31 Pat Name: Christina Charles Department: Room: 106 Gender: Female Job Analysis Manager: : 1950 Requested By: Kofi Choudhury Order Number: [id number] Von MD: Ole Flores M.D. Measurements Intervals [place] Rate: 96 P: -11 CO: 63 QRS: -35 QRSD: 112 T: 265 QT: 385 QTc: 489 Interpretive Statements SINUS RHYTHM WITH SHORT CO INTERVAL MARKED LEFT AXIS DEVIATION [QRS AXIS < -30] LOW QRS VOLTAGE IN PRECORDIAL LEADS [QRS DEFLECTION < 1.0 mV IN CHEST LEADS] INCOMPLETE RIGHT BUNDLE BRANCH BLOCK [90+ ms QRS DURATION, TERMINAL R IN V1/V2, 40+ ms S IN I/aVL/V4/V5/V6] POSSIBLE INFERIOR MYOCARDIAL INFARCTION [30 ms Q WAVE IN II/aVF], OF INDETERMINATE AGE MODERATE T-WAVE ABNORMALITY, CONSIDER ANTEROLATERAL ISCHEMIA [-0.1+ mV T WAVE I Compared to ECG 07/30/2020 13:30:45 Short CO interval now presentMyocardial infarct finding still present T-wave abnormality still present. Possible ischemia still present Electronically Signed On 07-31-2020 18:51:12 VOLTMETER OPERATOR by Ole Flores M.D. [id number]
[2020-07-30 19:16] LABS: Iron 25 ug/dL (37-145); Percent Saturation 9.9 % (20-50); Total Iron Binding Capacity 251 mcg/dl; Unsaturated Iron Binding 226 ug/dL (112-347)
[2020-07-30 19:45] LABS: Thyroid Stimulating Hormone 6.56 uIU/mL (0.27-4.20)
[2020-07-30] MEDS: atorvastatin 40 mg Tablet PO (20:36)
[2020-07-30] MEDS: trazodone 100 mg Tablet 200 MG PO (20:36)
[2020-07-30] MEDS: metoprolol tartrate 25 mg Tablet 12.5 MG PO (20:36)
[2020-07-30] MEDS: sodium hypochlorite 0.25% Btl 473 mL 1 APPLIC TOPICAL (20:37)
[2020-07-30] MEDS: neomycin-poly-bacitracin oint 28 gm 1 APPLIC TOPICAL (20:38)
[2020-07-30] MEDS: sucralfate 1 gm Tablet PO (20:42)
[2020-07-30] MEDS: HYDROcodone-acetaminophen 5-325 mg Tablet 1 TAB PO (20:42)
[2020-07-30] MEDS: pantoprazole DR 40 mg Tablet PO (20:42)
[2020-07-30] MEDS: midodrine 5 mg TABLET 2.5 MG PO (20:43)
[2020-07-30 21:37] LABS: Glucose Point of Care 81 mg/dL (70-110)
[2020-07-30 21:37] LABS: Glucose Point of Care 61 mg/dL (70-110)
[2020-07-30] MEDS: ipratropium-albuterol 3 mL Neb INHALATION (21:47)
[2020-07-30 22:53] LABS: Troponin 5 6HR 143.8 ng/L (0-10)
--- NOTE | 2020-07-30 22:57 | PC.NURSE ---
NURSE NOTE: ELEVATED TROPONIN : CALLED TROPONIN LEVEL OF 143.[address] SANDOVAL AT THIS TIME. NO NEW ORDERS AT THIS TIME.
[2020-07-31] VITALS (13 sets, daily range): BP systolic 64–124; BP diastolic 40–65; PULSE 89–112; RESP 12–20; TEMP 36.4–37.1; O2SAT 95–100
[2020-07-31] MEDS: ipratropium-albuterol 3 mL Neb INHALATION ×3 (03:39→14:41)
[2020-07-31 03:52] LABS: Basophils % 0.4 %; Eosinophils % 0.4 %; Hematocrit 26.7 % (37.0-47.0); Hemoglobin 7.5 g/dL (11.5-15.3); Lymphocytes # 0.3 10^3/uL (0.8-4.8); Mean Corpuscular HGB Conc 28.1 g/dL (30.0-36.0); Mean Corpuscular Hemoglobin 25.5 pg (28.0-34.0); Mean Corpuscular Volume 90.8 fL (81-99); Mean Platelet Volume 10.4 fL (7.4-10.4); Monocytes # 0.2 10^3/uL (0.2-0.9); Monocytes % 3.8 %; Nucleated Red Blood Cells % 0 %; Platelet Count 199 10^3/cmm (130-400); Red Blood Count 2.94 10^6/uL (4.1-5.3); White Blood Count 5.5 10^3/uL (4.0-10.0)
[2020-07-31] MEDS: HYDROcodone-acetaminophen 5-325 mg Tablet 1 TAB PO (03:52)
[2020-07-31 04:15] LABS: Alanine Aminotransferase < 5 U/L (0-33); Alkaline Phosphatase 107 IU/L (35-105); Anion Gap 13.3 (5-19); Aspartate Amino Transferase 12 U/L (0-32); Blood Urea Nitrogen 75 mg/dL (8-23); Calcium 8.1 mg/dL (8.5-10.5); Carbon Dioxide 30 mmol/L (22-29); Chloride 96 mmol/L (98-107); Globulin 3.4 g/dL (1.3-4.6); Glucose 88 mg/dL (65-115); Magnesium 2.3 mg/dL (1.7-2.3); Osmolality Calculated 300 mOsm/kg (285-295); Phosphorus 6.4 mg/dL (2.5-4.5); Potassium 5.3 mmol/L (3.5-5.1); Sodium 134 mmol/L (136-145); Total Bilirubin 0.3 mg/dL (0.15-1.2); Total Protein 6.4 g/dL (6.6-8.7)
[2020-07-31 04:54] LABS: Chol HDL Ratio 1.82 mg/dL (0.0-4.40); Cholesterol 89 mg/dL (0-200); HDL Cholesterol 49 mg/dL (60-100); LDL Cholesterol Calculated 25 mg/dL (50-129); Triglycerides 76 mg/dL (0-150); VLDL Cholestrol Calculation 15 mg/dL (0-30)
--- NOTE | 2020-07-31 05:02 | PC.NURSE ---
NURSE NOTE: HYPOTENSION/LOW HGB. NOTIFIED DR. SANDOVAL AT THIS TIME THAT PT'S LAST 3 BLOOD PRESSURES HAVE BEEN IN THE 80'S-90'S OVER 50'S-60'S. MAP 67-73/ ALSO REPORTED HGB OF 7.5(DROP FROM 8.6 IN 24 HOURS. NO NEW ORDERS RECEIVED AT THIS TIME. PT ALERT AND ORIENTED WITH C/O DIZZINESS (SLIGHT), UPON STANDING. C/O PAIN = 7/10 IN FEET BILATERALLY. BG AT BEDTIME = 66. SANDWICH, PUDDING AND JUICE GIVEN AT THAT TIME. BG THIS MORNING = 99. PT RESTING WITH EYES CLOSED. RESP EVEN AND NON LABORED. NO DISTRESS AT THIS TIME.
--- NOTE | 2020-07-31 05:54 | PC.NURSE ---
NURSING NOTE: SHIFT SUMMARY: NOTIFIED DR. SANDOVAL OF PT'S BP 70/52, PT HAS LASIX ORDER THIS MORNING. RECEIVED ORDERS TO HOLD LASIX AT THIS TIME. PT REMAINS ALERT AND ORIENTED. DENIES DIZZINESS OR CONFUSION AT THIS TIME. WILL CONTINUE TO MONITOR.
[2020-07-31 06:11] LABS: Glucose Point of Care 99 mg/dL (70-110)
[2020-07-31] MEDS: pantoprazole DR 40 mg Tablet PO ×2 (06:13→18:12)
[2020-07-31] MEDS: sucralfate 1 gm Tablet PO ×3 (06:16→18:12)
[2020-07-31] MEDS: spironolactone 25 mg Tablet 50 MG PO (08:31)
[2020-07-31] MEDS: aspirin 81 mg EC Tablet PO (08:31)
[2020-07-31] MEDS: doxycycline 100 mg Tablet PO ×2 (08:31→18:15)
[2020-07-31] MEDS: metoprolol tartrate 25 mg Tablet 12.5 MG PO (08:32)
[2020-07-31] MEDS: ferrous gluconate 324 mg Tablet PO ×2 (08:32→18:38)
[2020-07-31] MEDS: midodrine 5 mg TABLET 2.5 MG PO ×2 (08:32→20:29)
[2020-07-31] MEDS: budesonide 0.5 mg/2 mL Neb INHALATION (08:57)
--- NOTE | 2020-07-31 09:15 | PC.CHAP ---
Pastoral Care Encounter/Spiritual Assessment Type of Contact [] Declined paralegal assistant visit [] Patient/Family/Request visit [] Outpatient visit [] Follow-up visit [] Physician referral [] Code/Alert [] Routine visit [] Staff referral [] Actively dying [] Patient sleeping [] Family support [] [] Out of room [] Palliative care [] [] Receiving care in room [] Pre-surgical visit [] Trauma [] Long length of stay [] ICU visit [x] Other: isolation Relational/Emotional Strength [] Patient feels connected with others/family/visitors/staff [] Distress [] Loneliness/isolation [] Abandonment Spirituality of Patient [] Person of [place] [] Attends Buddhist of their [place] [] Believes in Prayer [] Reads Bible or Synagogue materials [] There are Spiritual issues to be addressed Records Analyst Interventions [x] Prayer [] Active listening [] Non-anxious presence [] Spiritual/emotional support [] Crisis/trauma care [] Spiritual counseling [] Bereavement support [] Provided bereavement packet [] Provided Bible/devotional materials [] Provided toy/stuffed animal, coloring book to patient or family member [] Provided Communion [] Anointing/[place] [] Salvation [x] Completed spiritual assessment [] Other: Impact on Illness or Injury [] Angry [] Fearful [] Anxious [] Often cries [] Exhaustion [] Unable to work [] Unable to attend christianity [] Unable to walk/stand [] Unable to read [] Unable to drive [] Unable to eat/drink [] Unable to sleep [] Unable to be with family [] Patient intubated [] Other: Summary Time spent with patient
[2020-07-31 11:02] LABS: Glucose Point of Care 133 mg/dL (70-110)
[2020-07-31] MEDS: HYDROcodone-acetaminophen 7.5-325 mg Tablet 1 TAB PO ×2 (11:19→18:15)
--- NOTE | 2020-07-31 17:09 | P.PN_ITS ---
Subjective Subjective: Interval history: Patient is doing okay. Had a bowel movement which was semisoft. Denies diarrhea. Denies abdominal pain. No nausea or vomiting. No fevers or chills today. Medications: Reviewed: Yes Medication Review Details: Generic Name Dose Route Start Last Admin Trade Name Arthurq PRN Reason Stop Dose Admin Hydrocodone Bitart /Acetaminophen 1 tab 07/31/20 10:02 07/31/20 11:19 Hydrocodone-Acet aminophen 7.5-325 Mg Tablet PO 1 tab Q6H PRN Administration MODERATE PAIN Albuterol/Ipratrop ium 3 ml 07/30/20 21:00 07/31/20 14:41 Ipratropium-Albu terol 3 Ml Neb INHALATION 3 ml Q6H.RESPIRATORY S CH Administration Aspirin 81 mg 07/31/20 08:00 07/31/20 08:31 Aspirin 81 Mg Ec Tablet PO 81 mg DAILY@08 RIANNA Administration Atorvastatin Calci um 40 mg 07/30/20 20:00 07/30/20 20:36 Atorvastatin 40 Mg Tablet PO 40 mg BEDTIME@1999 RIANNA Administration Budesonide 0.5 mg 07/31/20 09:00 07/31/20 08:57 Budesonide 0.5 M g/2 Ml Neb INHALATION 0.5 mg BID.RESPIRATORY S CH Administration Buspirone HCl 15 mg 07/30/20 20:00 07/31/20 08:32 Buspirone 15 Mg Tablet PO 15 mg BID@ RIANNA Administration Doxycycline Monohy drate 100 mg 07/31/20 09:00 07/31/20 08:31 Doxycycline 100 Mg Tablet PO 100 mg BID RIANNA Administration Protocol Ferrous Gluconate 324 mg 07/31/20 08:00 07/31/20 08:32 Ferrous Gluconat e 324 Mg Tablet PO 324 mg BIDWM RIANNA Administration Metoprolol Tartrat e 12.5 mg 07/31/20 08:00 07/31/20 08:32 Metoprolol Tartr ate 25 Mg Tablet PO 12.5 mg Q12H RIANNA Administration Midodrine 2.5 mg 07/30/20 20:00 07/31/20 08:32 Midodrine 5 Mg T ablet PO 2.5 mg BID@, RIANNA Administration Neomycin/Polymyxin /Bacitracin 1 applic 07/30/20 18:21 07/31/20 10:53 Fhkgczhz-Snsr-Lw citracin Oint 28 G m TOPICAL Not Given BID RIANNA Pantoprazole Sodiu m 40 mg 07/30/20 18:21 07/31/20 06:[address] 40 Mg Tablet PO 40 mg BID@ RIANNA Administration Sodium Hypochlorit e 1 applic 07/30/20 18:21 07/30/20 20:37 Sodium Hypochlor ite 0.25% Btl 473 Ml TOPICAL 1 applic Q24H RIANNA Administration Sucralfate 1 gm 07/30/20 21:00 07/31/20 11:19 Sucralfate 1 Gm Tablet PO 1 gm AC&BEDTIME RIANNA Administration Trazodone HCl 200 mg 07/30/20 20:00 07/30/20 20:36 Trazodone 100 Mg Tablet PO 200 mg BEDTIME@1999 RIANNA Administration Vitals/I&O/Wt Last Vital Signs Temp 98.7 F 07/31/20 10:52 Pulse 107 H 07/31/20 14:48 Resp 14 07/31/20 14:44 BP 64/40 07/31/20 10:52 Pulse Ox 100 07/31/20 14:44 07/31/20 07/31/20 07/31/20 06:59 14:59 22:59 Intake Total 720 / 720 Output Total 251 / 252 Balance -251 / -252 720 / 720 Weight last 48 hrs Weight 82.1 kg Weight 81.647 kg Physical Exam Narrative: EXAM NARRATIVE: Awake alert oriented. No acute distress. Mood and affect are appropriate. Responses are adequate. Skin is warm and dry. Moist mucous membranes. Neck supple. No JVD Eyes PERRLA, extraocular muscles are intact Lungs are clear. No respiratory distress Heart S1, S2, regular Abdomen soft, nontender, bowel sounds are present Extremities no edema cyanosis or calf tenderness bilaterally. No tremors. Data : 07/31/20 03:04 07/31/20 03:04 A&P Assessment and plan (1) Diarrhea: Status: Acute (2) Diabetic foot: Status: Acute (3) COPD (chronic obstructive pulmonary disease): Status: Chronic (4) Oxygen dependent: Status: Chronic (5) Pulmonary hypertension: Status: Chronic (6) Biventricular heart failure with reduced left ventricular function: Status: Acute (7) Paroxysmal atrial fibrillation: Status: Acute (8) Chronic kidney disease (CKD): Status: Chronic (9) CAD (coronary artery disease): Status: Chronic (10) Peripheral vascular disease: Status: Chronic (11) Chronic anemia: Status: Acute (12) Insulin dependent type 2 diabetes mellitus: Status: Chronic (13) Elevated troponin: Status: Acute Additional A&P Information Diarrhea: Because patient has been on antibiotic recently we will have to rule out C. difficile though chances are low. Stool studies. For now hold off on starting any treatment for C. difficile but the results come back. Elevated troponin: Likely secondary to CAD. Can be secondary demand ischemia. Continue to cycle troponins. Patient chest pain-free for now. We will monitor troponins and elevated well consult cardiology. Serial EKGs. Telemetry. Diabetic foot: Recently discharged post debridement on levofloxacin and doxycycline though patient did not take any antibiotics or follow-up with her wound care clinic. We will consult surgery for further evaluation. Start patient on levofloxacin and doxycycline for now. Wound care as per surgical recommendations. Continue [place] at lower dose of 5/325 every 6 hours as needed. Anemia: Chronic. Hemoglobin at baseline of 3.5. Patient was recently discharged after 1 week of blood transfusion. During that time she had refused colonoscopy and EGD. Monitor hemoglobin regularly. Check iron panel. COPD: Oxygen requirement at baseline to 4 L. Continue DuoNeb every 6 hours, budesonide twice daily. Oxygen supplementation to keep saturation between 88 to 90%. CKD: Baseline creatinine 2-2.3. Creatinine at baseline. Monitor BMP daily for now. Medically Plan for nephrotoxic drugs. Continue other chronic medications. Full code. No pharmacological DVT prophylaxis because of ongoing anemia and high risk of bleeding. Diabetic diet. [place] Diarrhea. Seems to be resolved. No evidence of C. difficile at this time. We will continue close monitoring. Hydration is satisfactory at this time. Diabetic foot ulcer. Continue home antibiotics. Will ask case management to arrange home health care and home wound care versus [facility]pc facility. Chronic pain. Reportedly the patient ran out of her pain medications. This could explain withdrawal symptoms and diarrhea. Currently the pain is well co ntrolled. Continue current management. Anemia and iron deficiency. Continue p.o. iron. Story of recent GI bleeding. She refused endoscopy. Continue monitoring hemoglobin level. Elevated TSH. Hypothyroidism is suspected. Will start small dose of Synthroid. Will require outpatient management and adjustments of the treatments. Hyperkalemia. I will stop her spironolactone and recheck chemistry panel tomorrow. UTI. On Levaquin. History of atrial fibrillation. Rate controlled. Continue home medications. Anticoagulation is not feasible due to recurrent GI bleeding. History of CKD. Creatinine close to baseline. Continue monitoring. The plan of care was discussed with the patient. She verbalized understanding and agreement Attestations Medical Necessity Statement*: Assessing the patient's discharge needs. Possible discharge tomorrow. Coding Level of Care Code Acute Cardiology Coordinator for g Fwd Diagnoses Diarrhea R19.7 Diabetic foot E11.8 COPD (chronic obstructive pulmonary disease) J44.9 Oxygen dependent Z99.81 Pulmonary hypertension I27.20 Biventricular heart failure with reduced left ventricular function I50.814 Paroxysmal atrial fibrillation I48.0 Chronic kidney disease (CKD) N18.9 CAD (coronary artery disease) I25.10 Peripheral vascular disease I73.9 Chronic anemia D64.9 Insulin dependent type 2 diabetes mellitus E11.9; Z79.4 Elevated troponin R77.8
[2020-07-31] MEDS: trazodone 100 mg Tablet 200 MG PO (20:27)
[2020-07-31] MEDS: atorvastatin 40 mg Tablet PO (20:27)
[2020-08-01] VITALS (17 sets, daily range): BP systolic 95–147; BP diastolic 44–89; PULSE 81–115; RESP 13–28; TEMP 36.4–36.8; O2SAT 93–100
--- NOTE | 2020-08-01 00:16 | PC.NURSE ---
PT IS RESTING IN BED. PT DENIES PAIN. PT STATES THAT THEY THINK HER BELLY NEEDS TO BE DRAINED. DRESSINGS TO RIGHT FOOT ARE C/D/I. WILL CONTINUE TO MONITOR.
[2020-08-01] MEDS: HYDROcodone-acetaminophen 7.5-325 mg Tablet 1 TAB PO ×2 (02:49→14:57)
[2020-08-01 04:26] LABS: Basophils % 0.5 %; Eosinophils # 0.2 10^3/uL (0.0-0.8); Eosinophils % 2.3 %; Hemoglobin 7.8 g/dL (11.5-15.3); Lymphocytes # 0.9 10^3/uL (0.8-4.8); Lymphocytes % 12.7 %; Mean Corpuscular HGB Conc 28.9 g/dL (30.0-36.0); Mean Corpuscular Hemoglobin 25.2 pg (28.0-34.0); Mean Corpuscular Volume 87.4 fL (81-99); Mean Platelet Volume 10.6 fL (7.4-10.4); Monocytes # 0.5 10^3/uL (0.2-0.9); Monocytes % 6.8 %; Neutrophils # 5.66 10^3/uL (1.8-7.7); Neutrophils % 77.2 %; Nucleated Red Blood Cells % 0 %; Platelet Count 220 10^3/cmm (130-400); Red Blood Count 3.09 10^6/uL (4.1-5.3); Red Cell Distribution Width 19.6 % (12.1-15.1); White Blood Count 7.3 10^3/uL (4.0-10.0)
[2020-08-01 04:50] LABS: Albumin Level 2.9 g/dL (3.5-5.2); Anion Gap 15.4 (5-19); Blood Urea Nitrogen 77 mg/dL (8-23); Carbon Dioxide 26 mmol/L (22-29); Chloride 95 mmol/L (98-107); Glucose 128 mg/dL (65-115); Phosphorus 5.8 mg/dL (2.5-4.5); Potassium 5.4 mmol/L (3.5-5.1); Sodium 131 mmol/L (136-145)
[2020-08-01 05:03] LABS: Magnesium 2.3 mg/dL (1.7-2.3)
[2020-08-01] MEDS: levothyroxine 50 mcg Tablet PO (05:14)
[2020-08-01] MEDS: pantoprazole DR 40 mg Tablet PO ×2 (05:14→18:21)
--- NOTE | 2020-08-01 05:58 | PC.NURSE ---
PT RESTING IN BED. DRESSING TO RIGHT FOOT WAS CHANGED. DRESSING IS C/D/I. PT DENIES PAIN AT THIS TIME. WILL CONTINUE TO MONITOR.
--- NOTE | 2020-08-01 06:27 | PC.NURSE ---
PT REFUSED LOPRESSOR AND CARAFATE. NOTIFIED.
--- NOTE | 2020-08-01 08:45 | PC.NURSE ---
Dr. Vo at bedside for wound check Dr. Vo look at the foot and order to redress the wound it with dakins soln wet to dry dressing. discuss of the debridement on her foot and possible paracentesis.
[2020-08-01] MEDS: midodrine 5 mg TABLET 2.5 MG PO ×2 (09:06→19:57)
[2020-08-01] MEDS: ferrous gluconate 324 mg Tablet PO (09:06)
[2020-08-01] MEDS: doxycycline 100 mg Tablet PO (09:07)
--- NOTE | 2020-08-01 09:34 | PC.RESP ---
PULMONARY REHAB INFORMATION SENT TO PATIENT.
[2020-08-01 10:08] LABS: Glucose Point of Care 130 mg/dL (70-110)
--- NOTE | 2020-08-01 10:17 | PC.NURSE ---
dr ayala requested albert to right foot wound..not neomycin
--- NOTE | 2020-08-01 10:21 | PC.NURSE ---
Pt refused her metoprolol and aspirin and nasal swab for covid and mrsa. Notified Dr. Tejeda of the pt's refusal. He is aware.
--- NOTE | 2020-08-01 10:25 | P.CONIM_ITS ---
Providers/Reason For Consult Consulting Physican/Specialty*: Dr. Valentine Reason for Consult*: Right foot wound Attending Physician: Mark Tejeda Primary Care Provider: Keena De La Torre DO History of Present Illness History of Present Illness Christina Charles is a 70 year old female with multiple comorbidities who has cirrhosis with ascites and gets frequent paracentesis. Patient has been complaining of abdominal pain. Patient was recently admitted with anemia and had refused a panendoscopy since she has had undergone multiple EGD and colonoscopies in the past. Patient had undergone debridement of the right foot wound on 07/13/2020. Patient complains of right foot pain and abdominal pain. The pain does not radiate, no aggravating or doing factors. Review of Systems General: Reports: 10 or more systems reviewed and unremarkable except in HPI and below Meds/Allergies Home Medications and Allergies Home Medications Medication Instructions Recorded Confirmed Last Taken Type buspirone 15 mg PO BID@08,10/26/19 07/30/20 07/29/20 History diphenoxylate-atropine 1 tab PO TID PRN 10/26/19 07/30/20 Unknown History hydrocodone-acetaminophen 10 - 325 tab PO 5XD PRN 10/26/19 07/30/20 07/29/20 History levalbuterol tartrate [Xopenex HFA] 1 puff INHALATION QID PRN 10/26/19 07/30/20 07/29/20 History midodrine 2.5 mg PO BID@10/26/19 07/30/20 07/20/20 History trazodone 200 mg PO BEDTIME@199910/26/19 07/30/20 07/29/20 History albuterol sulfate 2.5 mg INHALATION QID PRN 04/12/20 07/30/20 07/29/20 History HySept 1 applic TOPICAL Q24H 30 Days #473 07/19/20 07/30/20 07/20/20 Rx ml Triple Antibiotic 1 applic TOPICAL BID 30 Days #28 g 07/19/20 07/30/20 07/20/20 Rx insulin aspart U-100 [Novolog See Rx Instructions .ROUTE 07/19/20 07/30/20 07/29/20 Rx U-100 Insulin aspart] .COMPLEX #10 ml metoprolol tartrate 12.5 mg PO Q12H #0 tab 07/19/20 07/30/20 07/29/20 Rx sucralfate 1 g PO AC&BEDTIME 30 Days #60 tab 07/19/20 07/30/20 07/29/20 Rx Enema Disposable 118 ml MN DAILY PRN 07/20/20 07/30/20 Unknown History aspirin 81 mg PO DAILY@07/20/20 07/30/20 07/29/20 History atorvastatin 40 mg PO BEDTIME@199907/20/20 07/30/20 07/29/20 History bisacodyl 10 mg MN DAILY PRN 07/20/20 07/30/20 07/29/20 History furosemide 40 mg PO BID@07/20/20 07/30/20 07/29/20 History magnesium hydroxide [Milk of 30 ml PO DAILY PRN 07/20/20 07/30/20 Unknown History Magnesia] pantoprazole 40 mg PO BID@07/20/20 07/30/20 07/20/20 History spironolactone 50 mg PO DAILY@0807/30/20 07/30/20 07/29/20 History Allergies Allergy/AdvReac Type Severity Reaction Status Date / Time STERIODS Allergy ADR-Agitate Uncoded 07/28/20 13:34 d Current Medications Current Medications Generic Name Dose Route Start Last Admin Trade Name Freq PRN Reason Stop Dose Admin Hydrocodone Bitart/Acetaminophen 1 tab 07/31/20 10:02 08/01/20 02:49 Hydrocodone-Acetaminophen 7.5-325 Mg Tablet PO 1 tab Q6H PRN Administration MODERATE PAIN Albuterol/Ipratropium 3 ml 07/30/20 21:00 08/01/20 09:07 Ipratropium-Albuterol 3 Ml Neb INHALATION Not Given Q6H.RESPIRATORY RIANNA Aspirin 81 mg 07/31/20 08:00 08/01/20 09:04 Aspirin 81 Mg Ec Tablet PO Not Given DAILY@ [facility] Atorvastatin Calcium 40 mg 07/30/20 20:00 07/31/20 20:27 Atorvastatin 40 Mg Tablet PO 40 mg BEDTIME@1999 [facility] Administration Budesonide 0.5 mg 07/31/20 09:00 08/01/20 09:07 Budesonide 0.5 Mg/2 Ml Neb INHALATION Not Given BID.RESPIRATORY RIANNA Buspirone HCl 15 mg 07/30/20 20:00 08/01/20 09:10 Buspirone 15 Mg Tablet PO 15 mg BID@ RIANNA Administration Doxycycline Monohydrate 100 mg 07/31/20 09:00 08/01/20 09:07 Doxycycline 100 Mg Tablet PO 100 mg BID RIANNA Administration Protocol Ferrous Gluconate 324 mg 07/31/20 08:00 08/01/20 09:06 Ferrous Gluconate 324 Mg Tablet PO 324 mg BIDWM RIANNA Administration Levothyroxine Sodium 50 mcg 08/01/20 06:00 08/01/20 05:14 Levothyroxine 50 Mcg Tablet PO 50 mcg QAM RIANNA Administration Metoprolol Tartrate 12.5 mg 07/31/20 08:00 08/01/20 09:03 Metoprolol Tartrate 25 Mg Tablet PO Not Given Q12H RIANNA Midodrine 2.5 mg 07/30/20 20:00 08/01/20 09:06 Midodrine 5 Mg Tablet PO 2.5 mg BID@ RIANNA Administration Neomycin/Polymyxin/Bacitracin 1 applic 07/30/20 18:21 08/01/20 10:17 Aorkdfzb-Acil-Ribvsqufgv Oint 28 Gm TOPICAL Not Given BID RAINNA Pantoprazole Sodium 40 mg 07/30/20 18:21 08/01/20 05:[address] 40 Mg Tablet PO 40 mg BID@ RIANNA Administration Sodium Hypochlorite 1 applic 07/30/20 18:21 07/31/20 18:39 Sodium Hypochlorite 0.25% Btl 473 Ml TOPICAL Not Given Q24H RIANNA Sucralfate 1 gm 07/30/20 21:00 08/01/20 06:29 Sucralfate 1 Gm Tablet PO Not Given AC&BEDTIME RIANNA Trazodone HCl 200 mg 07/30/20 20:00 07/31/20 20:27 Trazodone 100 Mg Tablet PO 200 mg BEDTIME@1999 RIANNA Administration PFSH Acute PFSH: Medical History Acute exacerbation of CHF (congestive heart failure) Acute kidney injury superimposed on chronic kidney disease Anemia Biventricular heart failure with reduced left ventricular function Echocardiogram 04/12 Diffuse hypokinesia left ventricle with ejection fraction around 40-45%, mildly increased RV size, increased RA/LA size, mod TR CAD (coronary artery disease) Cardiovascular renal disease Chronic anemia Chronic kidney disease (CKD) COPD (chronic obstructive pulmonary disease) GI bleed History of arteriovenous malformation (AVM) Associated with GI bleeding in the past Insulin dependent type 2 diabetes mellitus Liver cirrhosis Nonalcoholic fatty liver disease Paroxysmal atrial fibrillation Noted on some prior EKGs, not anticoagulated due to the blood loss from asaf rointestinal AVMs, not known to be chronic Peripheral vascular disease Pulmonary hypertension ECHO 04/12 Estimated pulmonary artery peak systolic pressure of 55 mmHg. Surgical History History of appendectomy History of back surgery History of cholecystectomy History of coronary artery bypass graft x 2 History of hand surgery History of heart artery stent History of hernia repair History of repair of right hip joint (~10/26/19) Close reduction with percutaneous screw fixation in the right femoral neck f racture by Dr. Vasquez Family History Other Diabetes Social History Smoking and tobacco status: former smoker Alcohol intake: never Household members: children Housing: House Vitals/I&O/Wt Last Vital Signs Temp 98.0 F 08/01/20 08:00 Pulse 115 H 08/01/20 09:08 Resp 15 08/01/20 09:08 BP 107/62 08/01/20 08:00 Pulse Ox 99 08/01/20 09:08 07/31/20 08/01/20 08/01/20 22:59 06:59 14:59 Intake Total 720 / 1680 240 / 1680 120 / 120 Output Total 200 / 600 400 / 600 Balance 520 / 1080 -160 / 1080 120 / 120 Weight last 48 hrs Weight 179 lb 4.8 oz Weight 181 lb Weight 180 lb Physical Exam Narrative: EXAM NARRATIVE: HEENT: Normocephalic Eye: Sclera /conjunctiva normal Respiratory and chest: Bilateral clear breath sounds on auscultation Cardiovascular: Normal S1 and S2 heart sounds Abdomen: Soft to palpation, distended, tender, no guarding or rigidity Neurological: Oriented to place person and time Skin: Intact, necrotic wound on the lateral aspect of the right foot A&P Assessment and plan (1) Diabetic foot: plan for debridement of right foot under MAC today Procedure, risks, benefits and alternatives have been discussed with the patient who wishes to proceed with surgery. Status: Acute (2) Ascites: We will attempt an ultrasound-guided drainage of ascites while she is sedated Status: Acute Coding Level of Care Code Acute [employer] Fwd Diagnoses Diabetic foot E11.8 Ascites R18.8
--- NOTE | 2020-08-01 10:56 | ANES.PREANE2 ---
Pre-Anesthetic Assessment Pre-Anesthetic Assessment: Height/Weight: Height 1.75 m Weight 81.329 kg Temp Pulse Resp BP Pulse Ox 98.0 F 115 H 15 107/62 99 08/01/20 08:00 08/01/20 09:08 08/01/20 09:08 08/01/20 08:00 08/01/20 09:08 Preop Diagnosis: right foot wound Proposed Procedure: Operation Date: 08/01/20 10:30 Proposed Procedures p Debridement(Right) - Nolan Vo MD s Paracentesis(Not Applicable) - Nolan Vo MD Familial anesthetic complications: None Was Beta Kojo taken within 24 hours: Yes Last intake: NPO > 8 hrs Social: Social History: Tobacco Exam: Pre-Anes Outpt Exam: alert, oriented x 3 and regular rate & rhythm Additional Exam Findings (including area of procedure): coarse breath souns b/l Airway: Cervical ROM: WNL MP: 3 Dentition: Other ( no teeth) Pulmonary: Pulmonary: COPD (4 L NC) Comments: O2 dependent mod pulm htn CV/HEM: CV/HEM: Anemia (hgb 7.8), CAD, CHF and PVD Comments: echo EF 35%, mod tR,m od MVR, mildly decreased RV funtion PAF : : Chronic renal Insufficiency Metabolic: Metabolic: DM Anesthetic Plan: ASA status: 4 Anesthesia: MAC Other: paracentesis to be performed first Risk of > 500 ml blood loss (7ml/kg in children): No Meds/Allergies Current Medications: Current Medications Generic Name Dose Route Start Last Admin Trade Name Freq PRN Reason Stop Dose Admin Hydrocodone Bitart /Acetaminophen 1 tab 07/31/20 10:02 08/01/20 02:49 Hydrocodone-Acet aminophen 7.5-325 Mg Tablet PO 1 tab Q6H PRN Administration MODERATE PAIN Albuterol/Ipratrop ium 3 ml 07/30/20 21:00 08/01/20 09:07 Ipratropium-Albu terol 3 Ml Neb INHALATION Not Given Q6H.RESPIRATORY S CH Aspirin 81 mg 07/31/20 08:00 08/01/20 09:04 Aspirin 81 Mg Ec Tablet PO Not Given DAILY@08 [facility] Atorvastatin Calci um 40 mg 07/30/20 20:00 07/31/20 20:27 Atorvastatin 40 Mg Tablet PO 40 mg BEDTIME@1999 [facility] Administration Budesonide 0.5 mg 07/31/20 09:00 08/01/20 09:07 Budesonide 0.5 M g/2 Ml Neb INHALATION Not Given BID.RESPIRATORY S CH Buspirone HCl 15 mg 07/30/20 20:00 08/01/20 09:10 Buspirone 15 Mg Tablet PO 15 mg BID@ [facility] Administration Doxycycline Monohy drate 100 mg 07/31/20 09:00 08/01/20 09:07 Doxycycline 100 Mg Tablet PO 100 mg BID [facility] Administration Protocol Ferrous Gluconate 324 mg 07/31/20 08:00 08/01/20 09:06 Ferrous Gluconat e 324 Mg Tablet PO 324 mg BIDWM [facility] Administration Levothyroxine Sodi um 50 mcg 08/01/20 06:00 08/01/20 05:14 Levothyroxine 50 Mcg Tablet PO 50 mcg QAM [facility] Administration Metoprolol Tartrat e 12.5 mg 07/31/20 08:00 08/01/20 09:03 Metoprolol Tartr ate 25 Mg Tablet PO Not Given Q12H [facility] Midodrine 2.5 mg 07/30/20 20:00 08/01/20 09:06 Midodrine 5 Mg T ablet PO 2.5 mg BID@ [facility] Administration Neomycin/Polymyxin /Bacitracin 1 applic 07/30/20 18:21 08/01/20 10:17 Tijyjouc-Pibf-Fz citracin Oint 28 G m TOPICAL Not Given BID [facility] Pantoprazole Sodiu m 40 mg 07/30/20 18:21 08/01/20 05:[address] 40 Mg Tablet PO 40 mg BID@ [facility] Administration Sodium Hypochlorit e 1 applic 07/30/20 18:21 07/31/20 18:39 Sodium Hypochlor ite 0.25% Btl 473 Ml TOPICAL Not Given Q24H [facility] Sucralfate 1 gm 07/30/20 21:00 08/01/20 06:29 Sucralfate 1 Gm Tablet PO Not Given AC&BEDTIME [facility] Trazodone HCl 200 mg 07/30/20 20:00 07/31/20 20:27 Trazodone 100 Mg Tablet PO 200 mg BEDTIME@1999 [facility] Administration Additional Medication Information: Generic Name Dose Route Start Last Admin Trade Name Freq PRN Reason Stop Dose Admin Hydrocodone Bitart /Acetaminophen 1 tab 07/31/20 10:02 07/31/20 11:19 Hydrocodone-Acet aminophen 7.5-325 Mg Tablet PO 1 tab Q6H PRN Administration MODERATE PAIN Albuterol/Ipratrop ium 3 ml 07/30/20 21:00 07/31/20 14:41 Ipratropium-Albu terol 3 Ml Neb INHALATION 3 ml Q6H.RESPIRATORY S CH Administration Aspirin 81 mg 07/31/20 08:00 07/31/20 08:31 Aspirin 81 Mg Ec Tablet PO 81 mg DAILY@08 [facility] Administration Atorvastatin Calci um 40 mg 07/30/20 20:00 07/30/20 20:36 Atorvastatin 40 Mg Tablet PO 40 mg BEDTIME@1999 [facility] Administration Budesonide 0.5 mg 07/31/20 09:00 07/31/20 08:57 Budesonide 0.5 M g/2 Ml Neb INHALATION 0.5 mg BID.RESPIRATORY S CH Administration Buspirone HCl 15 mg 07/30/20 20:00 07/31/20 08:32 Buspirone 15 Mg Tablet PO 15 mg BID@ [facility] Administration Doxycycline Monohy drate 100 mg 07/31/20 09:00 07/31/20 08:31 Doxycycline 100 Mg Tablet PO 100 mg BID [facility] Administration Protocol Ferrous Gluconate 324 mg 07/31/20 08:00 07/31/20 08:32 Ferrous Gluconat e 324 Mg Tablet PO 324 mg BIDWM [facility] Administration Metoprolol Tartrat e 12.5 mg 07/31/20 08:00 07/31/20 08:32 Metoprolol Tartr ate 25 Mg Tablet PO 12.5 mg Q12H [facility] Administration Midodrine 2.5 mg 07/30/20 20:00 07/31/20 08:32 Midodrine 5 Mg T ablet PO 2.5 mg BID@ [facility] Administration Neomycin/Polymyxin /Bacitracin 1 applic 07/30/20 18:21 07/31/20 10:53 Ffgokpqh-Jfvx-Br citracin Oint 28 G m TOPICAL Not Given BID [facility] Pantoprazole Sodiu m 40 mg 07/30/20 18:21 07/31/20 06:[address] 40 Mg Tablet PO 40 mg BID@06,18 [facility] Administration Sodium Hypochlorit e 1 applic 07/30/20 18:21 07/30/20 20:37 Sodium Hypochlor ite 0.25% Btl 473 Ml TOPICAL 1 applic Q24H [facility] Administration Sucralfate 1 gm 07/30/20 21:00 07/31/20 11:19 Sucralfate 1 Gm Tablet PO 1 gm AC&BEDTIME [facility] Administration Trazodone HCl 200 mg 07/30/20 20:00 07/30/20 20:36 Trazodone 100 Mg Tablet PO 200 mg BEDTIME@1999 [facility] Administration PFSH Anesthesia PFSH: Medical History Acute exacerbation of CHF (congestive heart failure) Acute kidney injury superimposed on chronic kidney disease Anemia Biventricular heart failure with reduced left ventricular function Echocardiogram 04/12 Diffuse hypokinesia left ventricle with ejection fraction around 40-45%, mildly increased RV size, increased RA/LA size, mod TR CAD (coronary artery disease) Cardiovascular renal disease Chronic anemia Chronic kidney disease (CKD) COPD (chronic obstructive pulmonary disease) GI bleed History of arteriovenous malformation (AVM) Associated with GI bleeding in the past Insulin dependent type 2 diabetes mellitus Liver cirrhosis Nonalcoholic fatty liver disease Paroxysmal atrial fibrillation Noted on some prior EKGs, not anticoagulated due to the blood loss from gastrointestinal AVMs, not known to be chronic Peripheral vascular disease Pulmonary hypertension ECHO 04/12 Estimated pulmonary artery peak systolic pressure of 55 mmHg. Surgical History History of appendectomy History of back surgery History of cholecystectomy History of coronary artery bypass graft x 2 History of hand surgery History of heart artery stent History of hernia repair History of repair of right hip joint (~10/26/19) Close reduction with percutaneous screw fixation in the right femoral neck fracture by Dr. Vasquez Family History Other Diabetes Social History Smoking and tobacco status: former smoker Alcohol intake: never Household members: children Housing: House Data Anesthesia CBC & Chem 7: 08/01/20 03:24 08/01/20 03:24 Other Labs: Laboratory Results - last 48 hr 01/07/30/20 07/30/20 11:27 11:27 11:27 WBC 6.1 RBC 3.37 L Hgb 8.6 L Hct 30.8 L MCV 91.4 MCH 25.5 L MCHC 27.9 L RDW 19.6 H Plt Count 214 MPV 10.5 H Neut % (Auto) 85.6 Lymph % (Auto) 7.2 Phillips % (Auto) 4.6 Eos % (Auto) 1.6 Baso % (Auto) 0.5 Neut # (Auto) 5.24 Lymph # (Auto) 0.4 L Phillips # (Auto) 0.3 Eos # (Auto) 0.1 Baso # (Auto) 0.0 Nucleated RBC % (auto) 0 Nucleated RBCs # 0.0 PT 17.00 H INR 1.34 H Sodium 136 Potassium 4.8 Chloride 96 L Carbon Dioxide 29 Anion Gap 15.8 BUN 70 H Creatinine 2.3 H GFR Calculation Not Reportable Glucose 106 POC Glucose Estimat Average Glucose Hemoglobin A1c Calculated Osmolality 303 H Lactate Calcium 8.3 L Phosphorus Magnesium Iron TIBC % Saturation Unsat Iron Binding Total Bilirubin 0.3 AST 12 ALT < 5 Alkaline Phosphatase 128 H Troponin T Baseline Troponin T 120 Minute Delta Troponin T Troponin T Hi Sens 6Hr Troponin T Hi Sens 6Hr Delta NT-Pro-B Natriuret Pep Total Protein 7.1 Albumin 3.9 Globulin 3.2 Triglycerides Cholesterol LDL Cholesterol, Calc Total VLDL Cholesterol HDL Cholesterol Cholesterol/HDL Ratio Lipase 20 Procalcitonin TSH Urine Color Urine Appearance Urine pH Ur Specific Webster Urine Protein Urine Glucose (UA) Urine Ketones Urine Blood Urine Nitrate Urine Bilirubin Urine Urobilinogen Ur Leukocyte Esterase Urine RBC Urine WBC Ur Squamous Epith Cells Amorphous Sediment Urine Bacteria Urine Yeast Blood Type Rho(D) Type Antibody Screen Antibody Identification Crossmatch 07/30/20 07/30/20 07/30/20 11:27 11:27 11:27 WBC RBC Hgb Hct MCV MCH MCHC RDW Plt Count MPV Neut % (Auto) Lymph % (Auto) Phillips % (Auto) Eos % (Auto) Baso % (Auto) Neut # (Auto) Lymph # (Auto) Phillips # (Auto) Eos # (Auto) Baso # (Auto) Nucleated RBC % (auto) Nucleated RBCs # PT INR Sodium Potassium Chloride Carbon Dioxide Anion Gap BUN Creatinine GFR Calculation Glucose POC Glucose Estimat Average Glucose Hemoglobin A1c Calculated Osmolality Lactate 2.2 Calcium Phosphorus Magnesium Iron 25 L TIBC 251 % Saturation 9.9 L Unsat Iron Binding 226 Total Bilirubin AST ALT Alkaline Phosphatase Troponin T Baseline 137 H* Troponin T 120 Minute Delta Troponin T Troponin T Hi Sens 6Hr Troponin T Hi Sens 6Hr Delta NT-Pro-B Natriuret Pep 75872 H Total Protein Albumin Globulin Triglycerides Cholesterol LDL Cholesterol, Calc Total VLDL Cholesterol HDL Cholesterol Cholesterol/HDL Ratio Lipase Procalcitonin 0.52 H TSH Urine Color Urine Appearance Urine pH Ur Specific Webster Urine Protein Urine Glucose (UA) Urine Ketones Urine Blood Urine Nitrate Urine Bilirubin Urine Urobilinogen Ur Leukocyte Esterase Urine RBC Urine WBC Ur Squamous Epith Cells Amorphous Sediment Urine Bacteria Urine Yeast Blood Type Rho(D) Type Antibody Screen Antibody Identification Crossmatch 07/30/20 07/30/20 07/30/20 11:27 11:27 11:55 WBC RBC Hgb Hct MCV MCH MCHC RDW Plt Count MPV Neut % (Auto) Lymph % (Auto) Phillips % (Auto) Eos % (Auto) Baso % (Auto) Neut # (Auto) Lymph # (Auto) Phillips # (Auto) Eos # (Auto) Baso # (Auto) Nucleated RBC % (auto) Nucleated RBCs # PT INR Sodium Potassium Chloride Carbon Dioxide Anion Gap BUN Creatinine GFR Calculation Glucose POC Glucose Estimat Average Glucose 105 Hemoglobin A1c 5.3 Calculated Osmolality Lactate Calcium Phosphorus Magnesium Iron TIBC % Saturation Unsat Iron Binding Total Bilirubin AST ALT Alkaline Phosphatase Troponin T Baseline Troponin T 120 Minute Delta Troponin T Troponin T Hi Sens 6Hr Troponin T Hi Sens 6Hr Delta NT-Pro-B Natriuret Pep Total Protein Albumin Globulin Triglycerides Cholesterol LDL Cholesterol, Calc Total VLDL Cholesterol HDL Cholesterol Cholesterol/HDL Ratio Lipase Procalcitonin TSH 6.56 H Urine Color Urine Appearance Urine pH Ur Specific Webster Urine Protein Urine Glucose (UA) Urine Ketones Urine Blood Urine Nitrate Urine Bilirubin Urine Urobilinogen Ur Leukocyte Esterase Urine RBC Urine WBC Ur Squamous Epith Cells Amorphous Sediment Urine Bacteria Urine Yeast Blood Type A Positive Rho(D) Type Positive Antibody Screen Positive Antibody Identification Anti-K Crossmatch See Detail 07/30/20 07/30/20 07/30/20 12:50 15:48 18:41 WBC RBC Hgb Hct MCV MCH MCHC RDW Plt Count MPV Neut % (Auto) Lymph % (Auto) Phillips % (Auto) Eos % (Auto) Baso % (Auto) Neut # (Auto) Lymph # (Auto) Phillips # (Auto) Eos # (Auto) Baso # (Auto) Nucleated RBC % (auto) Nucleated RBCs # PT INR Sodium Potassium Chloride Carbon Dioxide Anion Gap BUN Creatinine GFR Calculation Glucose POC Glucose 84 Estimat Average Glucose Hemoglobin A1c Calculated Osmolality Lactate Calcium Phosphorus Magnesium Iron TIBC % Saturation Unsat Iron Binding Total Bilirubin AST ALT Alkaline Phosphatase Troponin T Baseline Troponin T 120 Minute 129.4 H Delta Troponin T -7.6 L Troponin T Hi Sens 6Hr Troponin T Hi Sens 6Hr Delta NT-Pro-B Natriuret Pep Total Protein Albumin Globulin Triglycerides Cholesterol LDL Cholesterol, Calc Total VLDL Cholesterol HDL Cholesterol Cholesterol/HDL Ratio Lipase Procalcitonin TSH Urine Color Straw Urine Appearance Clear Urine pH 5 Ur Specific Webster 1.015 Urine Protein Neg Urine Glucose (UA) Norm Urine Ketones Negative Urine Blood 2+ H Urine Nitrate Negative Urine Bilirubin Neg Urine Urobilinogen Norm Ur Leukocyte Esterase Negative Urine RBC 0-4 H Urine WBC 10-15 H Ur Squamous Epith Cells 5-10 H Amorphous Sediment Not Reportable Urine Bacteria Trace Urine Yeast 1+ H Blood Type Rho(D) Type Antibody Screen Antibody Identification Crossmatch 07/30/20 07/30/20 07/30/20 20:09 21:32 22:00 WBC RBC Hgb Hct MCV MCH MCHC RDW Plt Count MPV Neut % (Auto) Lymph % (Auto) Phillips % (Auto) Eos % (Auto) Baso % (Auto) Neut # (Auto) Lymph # (Auto) Phillips # (Auto) Eos # (Auto) Baso # (Auto) Nucleated RBC % (auto) Nucleated RBCs # PT INR Sodium Potassium Chloride Carbon Dioxide Anion Gap BUN Creatinine GFR Calculation Glucose POC Glucose 61 L 81 Estimat Average Glucose Hemoglobin A1c Calculated Osmolality Lactate Calcium Phosphorus Magnesium Iron TIBC % Saturation Unsat Iron Binding Total Bilirubin AST ALT Alkaline Phosphatase Troponin T Baseline Troponin T 120 Minute Delta Troponin T Troponin T Hi Sens 6Hr 143.8 H Troponin T Hi Sens 6Hr Delta TNP NT-Pro-B Natriuret Pep Total Protein Albumin Globulin Triglycerides Cholesterol LDL Cholesterol, Calc Total VLDL Cholesterol HDL Cholesterol Cholesterol/HDL Ratio Lipase Procalcitonin TSH Urine Color Urine Appearance Urine pH Ur Specific Webster Urine Protein Urine Glucose (UA) Urine Ketones Urine Blood Urine Nitrate Urine Bilirubin Urine Urobilinogen Ur Leukocyte Esterase Urine RBC Urine WBC Ur Squamous Epith Cells Amorphous Sediment Urine Bacteria Urine Yeast Blood Type Rho(D) Type Antibody Screen Antibody Identification Crossmatch 07/31/20 07/31/20 07/31/20 03:04 03:04 03:04 WBC 5.5 RBC 2.94 L Hgb 7.5 L Hct 26.7 L MCV 90.8 MCH 25.5 L MCHC 28.1 L RDW 19.0 H Plt Count 199 MPV 10.4 Neut % (Auto) 89.0 Lymph % (Auto) 6.0 Phillips % (Auto) 3.8 Eos % (Auto) 0.4 Baso % (Auto) 0.4 Neut # (Auto) 4.90 Lymph # (Auto) 0.3 L Phillips # (Auto) 0.2 Eos # (Auto) 0.0 Baso # (Auto) 0.0 Nucleated RBC % (auto) 0 Nucleated RBCs # 0.0 PT INR Sodium 134 L Potassium 5.3 H Chloride 96 L Carbon Dioxide 30 H Anion Gap 13.3 BUN 75 H Creatinine 2.3 H GFR Calculation Not Reportable Glucose 88 POC Glucose Estimat Average Glucose Hemoglobin A1c Calculated Osmolality 300 H Lactate Calcium 8.1 L Phosphorus 6.4 H Magnesium 2.3 Iron TIBC % Saturation Unsat Iron Binding Total Bilirubin 0.3 AST 12 ALT < 5 Alkaline Phosphatase 107 H Troponin T Baseline Troponin T 120 Minute Delta Troponin T Troponin T Hi Sens 6Hr Troponin T Hi Sens 6Hr Delta NT-Pro-B Natriuret Pep Total Protein 6.4 L Albumin 3.0 L Globulin 3.4 Triglycerides 76 Cholesterol 89 LDL Cholesterol, Calc 25 L Total VLDL Cholesterol 15 HDL Cholesterol 49 L Cholesterol/HDL Ratio 1.82 Lipase Procalcitonin TSH Urine Color Urine Appearance Urine pH Ur Specific Webster Urine Protein Urine Glucose (UA) Urine Ketones Urine Blood Urine Nitrate Urine Bilirubin Urine Urobilinogen Ur Leukocyte Esterase Urine RBC Urine WBC Ur Squamous Epith Cells Amorphous Sediment Urine Bacteria Urine Yeast Blood Type Rho(D) Type Antibody Screen Antibody Identification Crossmatch 07/31/20 07/31/20 08/01/20 04:53 10:46 03:24 WBC 7.3 RBC 3.09 L Hgb 7.8 L Hct 27.0 L MCV 87.4 MCH 25.2 L MCHC 28.9 L RDW 19.6 H Plt Count 220 MPV 10.6 H Neut % (Auto) 77.2 Lymph % (Auto) 12.7 Phillips % (Auto) 6.8 Eos % (Auto) 2.3 Baso % (Auto) 0.5 Neut # (Auto) 5.66 Lymph # (Auto) 0.9 Phillips # (Auto) 0.5 Eos # (Auto) 0.2 Baso # (Auto) 0.0 Nucleated RBC % (auto) 0 Nucleated RBCs # 0.0 PT INR Sodium Potassium Chloride Carbon Dioxide Anion Gap BUN Creatinine GFR Calculation Glucose POC Glucose 99 133 H Estimat Average Glucose Hemoglobin A1c Calculated Osmolality Lactate Calcium Phosphorus Magnesium Iron TIBC % Saturation Unsat Iron Binding Total Bilirubin AST ALT Alkaline Phosphatase Troponin T Baseline Troponin T 120 Minute Delta Troponin T Troponin T Hi Sens 6Hr Troponin T Hi Sens 6Hr Delta NT-Pro-B Natriuret Pep Total Protein Albumin Globulin Triglycerides Cholesterol LDL Cholesterol, Calc Total VLDL Cholesterol HDL Cholesterol Cholesterol/HDL Ratio Lipase Procalcitonin TSH Urine Color Urine Appearance Urine pH Ur Specific [place] Urine Protein Urine Glucose (UA) Urine Ketones Urine Blood Urine Nitrate Urine Bilirubin Urine Urobilinogen Ur Leukocyte Esterase Urine RBC Urine WBC Ur Squamous Epith Cells Amorphous Sediment Urine Bacteria Urine Yeast Blood Type Rho(D) Type Antibody Screen Antibody Identification Crossmatch 08/01/20 08/01/20 08/01/20 03:24 03:24 10:06 WBC RBC Hgb Hct MCV MCH MCHC RDW Plt Count MPV Neut % (Auto) Lymph % (Auto) Phillips % (Auto) Eos % (Auto) Baso % (Auto) Neut # (Auto) Lymph # (Auto) Phillips # (Auto) Eos # (Auto) Baso # (Auto) Nucleated RBC % (auto) Nucleated RBCs # PT INR Sodium 131 L Potassium 5.4 H Chloride 95 L Carbon Dioxide 26 Anion Gap 15.4 BUN 77 H Creatinine 2.8 H GFR Calculation Not Reportable Glucose 128 H POC Glucose 130 H Estimat Average Glucose Hemoglobin A1c Calculated Osmolality Lactate Calcium 8.0 L Phosphorus 5.8 H Magnesium 2.3 Iron TIBC % Saturation Unsat Iron Binding Total Bilirubin AST ALT Alkaline Phosphatase Troponin T Baseline Troponin T 120 Minute Delta Troponin T Troponin T Hi Sens 6Hr Troponin T Hi Sens 6Hr Delta NT-Pro-B Natriuret Pep Total Protein Albumin 2.9 L Globulin Triglycerides Cholesterol LDL Cholesterol, Calc Total VLDL Cholesterol HDL Cholesterol Cholesterol/HDL Ratio Lipase Procalcitonin TSH Urine Color Urine Appearance Urine pH Ur Specific [place] Urine Protein Urine Glucose (UA) Urine Ketones Urine Blood Urine Nitrate Urine Bilirubin Urine Urobilinogen Ur Leukocyte Esterase Urine RBC Urine WBC Ur Squamous Epith Cells Amorphous Sediment Urine Bacteria Urine Yeast Blood Type Rho(D) Type Antibody Screen Antibody Identification Crossmatch Cardiac Studies: No Data to Display
--- NOTE | 2020-08-01 12:21 | P.PN_ITS ---
Subjective Subjective: Interval history: The patient overall is doing okay. Reports increased abdominal distention and ascites. It interferes with her breathing. She is asking for paracentesis. She has history of cirrhosis and recurrent ascites requiring frequent paracentesis. Denies abdominal pain. No diarrhea. No nausea vomiting. No fever chills Medications: Reviewed: Yes Medication Review Details: Generic Name Dose Route Start Last Admin Trade Name Freq PRN Reason Stop Dose Admin Hydrocodone Bitart /Acetaminophen 1 tab 07/31/20 10:02 08/01/20 02:49 Hydrocodone-Acet aminophen 7.5-325 Mg Tablet PO 1 tab Q6H PRN Administration MODERATE PAIN Albuterol/Ipratrop ium 3 ml 07/30/20 21:00 08/01/20 09:07 Ipratropium-Albu terol 3 Ml Neb INHALATION Not Given Q6H.RESPIRATORY S CH Aspirin 81 mg 07/31/20 08:00 08/01/20 09:04 Aspirin 81 Mg Ec Tablet PO Not Given DAILY@08 [facility] Atorvastatin Calci um 40 mg 07/30/20 20:00 07/31/20 20:27 Atorvastatin 40 Mg Tablet PO 40 mg BEDTIME@1999 [facility] Administration Budesonide 0.5 mg 07/31/20 09:00 08/01/20 09:07 Budesonide 0.5 M g/2 Ml Neb INHALATION Not Given BID.RESPIRATORY S CH Buspirone HCl 15 mg 07/30/20 20:00 08/01/20 09:10 Buspirone 15 Mg Tablet PO 15 mg BID@08,20 RIANNA Administration Doxycycline Monohy drate 100 mg 07/31/20 09:00 08/01/20 09:07 Doxycycline 100 Mg Tablet PO 100 mg BID RIANNA Administration Protocol Ferrous Gluconate 324 mg 07/31/20 08:00 08/01/20 09:06 Ferrous Gluconat e 324 Mg Tablet PO 324 mg BIDWM RIANNA Administration Levothyroxine Sodi um 50 mcg 08/01/20 06:00 08/01/20 05:14 Levothyroxine 50 Mcg Tablet PO 50 mcg QAM RIANNA Administration Metoprolol Tartrat e 12.5 mg 07/31/20 08:00 08/01/20 09:03 Metoprolol Tartr ate 25 Mg Tablet PO Not Given Q12H [facility] Midodrine 2.5 mg 07/30/20 20:00 08/01/20 09:06 Midodrine 5 Mg T ablet PO 2.5 mg BID@, [facility] Administration Neomycin/Polymyxin /Bacitracin 1 applic 07/30/20 18:21 08/01/20 10:17 Xdygomtz-Vxwx-Bf citracin Oint 28 G m TOPICAL Not Given BID [facility] Pantoprazole Sodiu m 40 mg 07/30/20 18:21 08/01/20 05:[address] 40 Mg Tablet PO 40 mg BID@ [facility] Administration Sodium Hypochlorit e 1 applic 07/30/20 18:21 07/31/20 18:39 Sodium Hypochlor ite 0.25% Btl 473 Ml TOPICAL Not Given Q24H [facility] Sucralfate 1 gm 07/30/20 21:00 08/01/20 06:29 Sucralfate 1 Gm Tablet PO Not Given AC&BEDTIME RIANNA Trazodone HCl 200 mg 07/30/20 20:00 07/31/20 20:27 Trazodone 100 Mg Tablet PO 200 mg BEDTIME@1999 RIANNA Administration Vitals/I&O/Wt Last Vital Signs Temp 98 F 08/01/20 11:53 Pulse 94 08/01/20 12:13 Resp 18 08/01/20 12:13 BP 110/44 08/01/20 12:13 Pulse Ox 97 08/01/20 12:13 07/31/20 08/01/20 08/01/20 22:59 06:59 14:59 Intake Total 720 / 1440 240 / 1680 120 / 120 Output Total 200 / 200 400 / 600 Balance 520 / 1240 -160 / 1080 120 / 120 Weight last 48 hrs Weight 81.329 kg Weight 82.1 kg Physical Exam Narrative: EXAM NARRATIVE: Awake alert oriented. No acute distress. Mood and affect are appropriate. Responses are adequate. Eyes Alberto, extraocular muscles are intact Normal speech Neck supple. No JVD Lungs decreased breath sounds bibasilarly. No respiratory distress with supplemental oxygen at rest. Heart S1, S2, regular Abdomen is distended, soft, nontender, bowel sounds are present Extremities pedal edema. No cyanosis or calf tenderness bilaterally. Data : 08/01/20 03:24 08/01/20 03:24 A&P Assessment and plan (1) Diarrhea: Status: Acute (2) Diabetic foot: Status: Acute (3) COPD (chronic obstructive pulmonary disease): Status: Chronic (4) Oxygen dependent: Status: Chronic (5) Pulmonary hypertension: Status: Chronic (6) Biventricular heart failure with reduced left ventricular function: Status: Acute (7) Paroxysmal atrial fibrillation: Status: Acute (8) Chronic kidney disease (CKD): Status: Chronic (9) CAD (coronary artery disease): Status: Chronic (10) Peripheral vascular disease: Status: Chronic (11) Chronic anemia: Status: Acute (12) Insulin dependent type 2 diabetes mellitus: Status: Chronic (13) Elevated troponin: Status: Acute Additional A&P Information Diarrhea: Because patient has been on antibiotic recently we will have to rule out C. difficile though chances are low. Stool studies. For now hold off on starting any treatment for C. difficile but the results come back. Elevated troponin: Likely secondary to CAD. Can be secondary demand ischemia. Continue to cycle troponins. Patient chest pain-free for now. We will monitor troponins and elevated well consult cardiology. Serial EKGs. Telemetry. Diabetic foot: Recently discharged post debridement on levofloxacin and doxycycline though patient did not take any antibiotics or follow-up with her wound care clinic. We will consult surgery for further evaluation. Start patient on levofloxacin and doxycycline for now. Wound care as per surgical recommendations. Continue [place] at lower dose of 5/325 every 6 hours as needed. Anemia: Chronic. Hemoglobin at baseline of 3.5. Patient was recently discharged after 1 week of blood transfusion. During that time she had refused colonoscopy and EGD. Monitor hemoglobin regularly. Check iron panel. COPD: Oxygen requirement at baseline to 4 L. Continue DuoNeb every 6 hours, budesonide twice daily. Oxygen supplementation to keep saturation between 88 to 90%. CKD: Baseline creatinine 2-2.3. Creatinine at baseline. Monitor BMP daily for now. Medically Plan for nephrotoxic drugs. Continue other chronic medications. Full code. No pharmacological DVT prophylaxis because of ongoing anemia and high risk of bleeding. Diabetic diet. [place] Diarrhea. Seems to be resolved. No evidence of C. difficile at this time. We will continue close monitoring. Hydration is satisfactory at this time. Diabetic foot ulcer. Dr. Vo is doing IND today. Continue home antibiotic. Chronic pain. Reportedly the patient ran out of her pain medications. This could explain withdrawal symptoms and diarrhea. Currently the pain is well controlled. Continue current management. Anemia and iron deficiency. Continue p.o. iron. Story of recent GI bleeding. She refused endoscopy. Continue monitoring hemoglobin level. Elevated TSH. Hypothyroidism is suspected. Small dose of Synthroid is initiated. Outpatient follow-up and adjustments is necessary. Hyperkalemia. Spironolactone is stopped. Potassium level is decreased. Continue monitoring. History of cirrhosis and ascites requiring frequent paracentesis. Dr. Vo will do paracentesis today. UTI. On Levaquin. History of atrial fibrillation. Rate controlled. Continue home medications. Anticoagulation is not feasible due to recurrent GI bleeding. History of CKD. Creatinine close to baseline. Continue monitoring. The plan of care was discussed with the patient. She verbalized understanding and agreement Attestations Medical Necessity Statement*: Requires IND of the wound and paracentesis today. Possible discharge tomorrow. Coding Level of Care Code Acute Global Director Air And Climate Change for g Fwd Diagnoses Diarrhea R19.7 Diabetic foot E11.8 COPD (chronic obstructive pulmonary disease) J44.9 Oxygen dependent Z99.81 Pulmonary hypertension I27.20 Biventricular heart failure with reduced left ventricular function I50.814 Paroxysmal atrial fibrillation I48.0 Chronic kidney disease (CKD) N18.9 CAD (coronary artery disease) I25.10 Peripheral vascular disease I73.9 Chronic anemia D64.9 Insulin dependent type 2 diabetes mellitus E11.9; Z79.4 Elevated troponin R77.8
--- NOTE | 2020-08-01 13:10 | SUR.PHASEI ---
1310 Paracentesis started in OR with 1,400 dark gwendolyn fluid returned. Paracentesis finished in recovery with 4,400 dark gwendolyn fluid returned. Total of 5,800 mL drained from abdonmen. Catheter removed with exofin applied. Bandaid to cover. Pt tolerated well. States she can breath much better. VSS. Report called to ELLY Ellis.
--- NOTE | 2020-08-01 14:11 | PC.NURSE ---
returned from or via stretcher at 1325.report received.pt is alert and awake.st on monitor.denies pain at present.right lateral lower abd paracentesis site with bandaid dry and intact.5800 cc fluid drained according to pacu nurse.right foot debrided in or as well.drsg is dry and intact (kerlex wrapped around foot and ankle..with toes exposed).toes of right foot are warm to touch.instructed to notify staff for any pain,bleeding..or for any concerns at all.pt verb understanding of instructions.
--- NOTE | 2020-08-01 14:16 | ANE.PACU2 ---
Inpatient post-anesthesia follow up: Airway intact: Yes Vital signs: Temperature 98 F Pulse Rate [Left] 120 Pulse Rate 114 Respiratory Rate 15 Blood Pressure [Le ft Arm] 104/69 Blood Pressure 111/85 Pulse Oximetry 93 Oxygen Delivery Me thod Nasal Cannula Oxygen Flow Rate 4 Fraction of Inspir ed Oxygen Hydration adequate: Yes Nausea and vomiting: No Pain level: 1 Mental status: Baseline
[2020-08-01] MEDS: levoFLOXacin 500 mg Tablet PO (14:57)
[2020-08-01 17:14] LABS: Glucose Point of Care 170 mg/dL (70-110)
[2020-08-01] MEDS: lanolin oint 7 gm 1 APPLIC TOPICAL (18:20)
[2020-08-01] MEDS: sucralfate 1 gm Tablet PO (18:20)
--- NOTE | 2020-08-01 18:27 | P.OP_ITS ---
Operative Report Date of procedure: August 01, 2020 Pre-op Diagnosis: 1. Necrotic wound right foot status post partial debridement and amputation of right foot fifth metatarsal 2. Ascites Post-op Diagnosis: 1. Necrotic wound right foot status post partial debridement and amputation of right fifth metatarsal 2. Paracentesis of 5400 cc Procedure Done: Excisional debridement of necrotic skin, subcutaneous tissue Completion amputation of right fifth metatarsal Paracentesis Ultrasound guidance and interpretation to access the peritoneal cavity Specimens removed/disposition: Proximal right fifth partial metatarsal Surgeon: Nolan Vo Anesthesia: MAC Condition: stable Disposition: PACU Procedure: The patient was taken to the operating room and the abdomen was prepped and draped in a sterile manner. Ultrasound of the abdomen revealed ascites and no bowel adherent to the abdominal wall at the site of planned entry. Using a paracentesis introducer needle under ultrasound guidance, the pe ritoneal cavity was entered with aspiration of ascities fluid, the needle was removed and catheter was advanced. The catheter was attached to drainage system and 5400cc of serous fluid was drained. The right foot was prepped and draped in a sterile manner and using 15 blade excisional debridement of necrotic skin and subcutaneous tissue was performed until there was punctate bleeding noted. The proximal fifth metatarsal which had been partially amputated was exposed. The ligamentous attachments of the proximal end of the fifth metatarsal was divided using Metzenbaum scissors and a completion amputation of the right fifth metatarsal was performed. The wound was irrigated with saline, 4x 8 centimeters Surgicel was placed and covered with Kerlix gauze, ABDs and Isidro wraps. The patient was transferred to recovery room in stable condition.
[2020-08-01 19:52] LABS: Glucose Point of Care 115 mg/dL (70-110)
[2020-08-01] MEDS: trazodone 100 mg Tablet 200 MG PO (19:56)
[2020-08-01] MEDS: atorvastatin 40 mg Tablet PO (19:57)
[2020-08-02] VITALS (12 sets, daily range): BP systolic 92–102; BP diastolic 46–72; PULSE 100–119; RESP 9–23; TEMP 36.1–36.9; O2SAT 94–100
[2020-08-02] MEDS: HYDROcodone-acetaminophen 7.5-325 mg Tablet 1 TAB PO ×4 (03:50→22:30)
--- NOTE | 2020-08-02 03:57 | PC.NURSE ---
PT C/O PAIN IN RIGHT FOOT. PT STATES THAT 1-10 IT'S A 15. PRN NORCO WAS GIVEN. WILL CONTINUE TO MONITOR.
[2020-08-02 05:09] LABS: Basophils % 0.4 %; Eosinophils # 0.2 10^3/uL (0.0-0.8); Eosinophils % 2.9 %; Hematocrit 27.1 % (37.0-47.0); Hemoglobin 7.4 g/dL (11.5-15.3); Lymphocytes # 0.5 10^3/uL (0.8-4.8); Lymphocytes % 7.2 %; Mean Corpuscular HGB Conc 27.3 g/dL (30.0-36.0); Mean Corpuscular Hemoglobin 25.2 pg (28.0-34.0); Mean Corpuscular Volume 92.2 fL (81-99); Mean Platelet Volume 10.6 fL (7.4-10.4); Monocytes # 0.5 10^3/uL (0.2-0.9); Monocytes % 6.3 %; Neutrophils % 82.7 %; Nucleated Red Blood Cells % 0 %; Platelet Count 197 10^3/cmm (130-400); Red Blood Count 2.94 10^6/uL (4.1-5.3); Red Cell Distribution Width 19.3 % (12.1-15.1); White Blood Count 7.5 10^3/uL (4.0-10.0)
[2020-08-02 05:25] LABS: Alanine Aminotransferase < 5 U/L (0-33); Albumin Level 2.8 g/dL (3.5-5.2); Alkaline Phosphatase 88 IU/L (35-105); Anion Gap 12.5 (5-19); Aspartate Amino Transferase 10 U/L (0-32); Blood Urea Nitrogen 80 mg/dL (8-23); Calcium 7.8 mg/dL (8.5-10.5); Carbon Dioxide 29 mmol/L (22-29); Chloride 97 mmol/L (98-107); Globulin 2.8 g/dL (1.3-4.6); Glucose 128 mg/dL (65-115); Magnesium 2.3 mg/dL (1.7-2.3); Osmolality Calculated 302 mOsm/kg (285-295); Potassium 5.5 mmol/L (3.5-5.1); Sodium 133 mmol/L (136-145); Total Bilirubin 0.3 mg/dL (0.15-1.2); Total Protein 5.6 g/dL (6.6-8.7)
[2020-08-02] MEDS: pantoprazole DR 40 mg Tablet PO ×2 (05:57→17:37)
[2020-08-02] MEDS: levothyroxine 50 mcg Tablet PO (05:57)
--- NOTE | 2020-08-02 06:21 | PC.NURSE ---
PT WANTED UP IN CHAIR. THIS NURSE ASSISTED PT UP IN CHAIR. PT HAS REFUSED BREATHING TX. PT NOW WANTS THE SCHEDULED BREATHING TX. PT STARTED TO CRY STATING THAT IT IS HARD TO BREATH. RT WAS NOTIFIED. RT IS ON THE FLOOR TRYING TO GIVE A TX FOR PT. WILL CONTINUE TO MONITOR.
[2020-08-02] MEDS: ipratropium-albuterol 3 mL Neb INHALATION ×2 (06:24→20:15)
--- NOTE | 2020-08-02 06:26 | PC.NURSE ---
PT REFUSED LOPRESSOR AND CARAFATE. PT HAS BEEN REFUSING MEDICATIONS. WILL CONTINUE TO MONITOR.
[2020-08-02 06:53] LABS: Glucose Point of Care 140 mg/dL (70-110)
--- NOTE | 2020-08-02 07:52 | PC.NURSE ---
Patient refused medications; carafate, metoprolol, aspirin Dr. sahni notified he is to speak with patient.
[2020-08-02] MEDS: midodrine 5 mg TABLET 2.5 MG PO ×2 (07:56→20:56)
--- NOTE | 2020-08-02 09:25 | PC.CHAP ---
Pastoral Care Encounter/Spiritual Assessment Type of Contact [] Declined hygiene coordinator visit [] Patient/Family/Request visit [] Outpatient visit [] Follow-up visit [] Physician referral [] Code/Alert [x] Routine visit [] Staff referral [] Actively dying [] Patient sleeping [] Family support [] [] Out of room [] Palliative care [] [] Receiving care in room [] Pre-surgical visit [] Trauma [] Long length of stay [] ICU visit [] Other: Relational/Emotional Strength [] Patient feels connected with others/family/visitors/staff [] Distress [] Loneliness/isolation [] Abandonment Spirituality of Patient [] Person of Mary Ann [] Attends Cheondoism of their Mary Ann [] Believes in Prayer [] Reads Bible or Episcopalian materials [] There are Spiritual issues to be addressed Campaign Developer Interventions [x] Prayer [x] Active listening [x] Non-anxious presence [x] Spiritual/emotional support [] Crisis/trauma care [] Spiritual counseling [] Bereavement support [] Provided bereavement packet [] Provided Bible/devotional materials [] Provided toy/stuffed animal, coloring book to patient or family member [] Provided Communion [] Anointing/[place] [] Salvation [x] Completed spiritual assessment [] Other: Impact on Illness or Injury [] Angry [] Fearful [] Anxious [] Often cries [] Exhaustion [] Unable to work [] Unable to attend restorationist [] Unable to walk/stand [] Unable to read [] Unable to drive [] Unable to eat/drink [] Unable to sleep [] Unable to be with family [] Patient intubated [] Other: Summary feeling stronger... hungry.. Time spent with patient 10 min
--- NOTE | 2020-08-02 09:54 | PC.NURSE ---
patient resting in bed with eyes closed at this time no distress or outward events noted at this time
[2020-08-02] MEDS: sodium polystyrene sulfonate 15 gm/60 mL Btl PO ×2 (10:36→20:56)
[2020-08-02] MEDS: sucralfate 1 gm Tablet PO ×3 (10:38→20:56)
--- NOTE | 2020-08-02 12:22 | PC.NURSE ---
patient requesting pain medications for pain in right leg rated 10/10 at this time; patient in no distress will continue to monitor
--- NOTE | 2020-08-02 13:19 | P.PN_ITS ---
Subjective Subjective: Interval history: The patient overall is doing okay. Underwent IND of the foot ulcer and paracentesis by Dr. Vo yesterday. Reports feeling better today. Denies abdominal pain, nausea or vomiting, fever or chills, diarrhea. No chest pain, shortness of breath, cough, palpitations. Medications: Reviewed: Yes Medication Review Details: Generic Name Dose Route Start Last Admin Trade Name Freq PRN Reason Stop Dose Admin Hydrocodone Bitart /Acetaminophen 1 tab 07/31/20 10:02 08/02/20 12:11 Hydrocodone-Acet aminophen 7.5-325 Mg Tablet PO 1 tab Q6H PRN Administration MODERATE PAIN Albuterol/Ipratrop ium 3 ml 07/30/20 21:00 08/02/20 08:29 Ipratropium-Albu terol 3 Ml Neb INHALATION Not Given Q6H.RESPIRATORY S CH Aspirin 81 mg 07/31/20 08:00 08/02/20 07:49 Aspirin 81 Mg Ec Tablet PO Not Given DAILY@08 [facility] Atorvastatin Calci um 40 mg 07/30/20 20:00 08/01/20 19:57 Atorvastatin 40 Mg Tablet PO 40 mg BEDTIME@1999 [facility] Administration Budesonide 0.5 mg 07/31/20 09:00 08/02/20 08:29 Budesonide 0.5 M g/2 Ml Neb INHALATION Not Given BID.RESPIRATORY S CH Buspirone HCl 15 mg 07/30/20 20:00 08/02/20 07:56 Buspirone 15 Mg Tablet PO 15 mg BID@, [facility] Administration Insulin Aspart 0 unit 08/01/20 18:00 08/02/20 11:53 Insulin Aspart 1 00 Unit/1 Ml SUBCUT 3 unit WM&BEDTIME [facility] Administration Protocol Lanolin 1 applic 08/01/20 15:01 08/01/20 18:20 Lanolin Oint 7 G m TOPICAL 1 applic PRN PRN Administration DRYNESS Levofloxacin 500 mg 08/01/20 15:00 08/01/20 14:57 Levofloxacin 500 Mg Tablet PO 500 mg Q48H [facility] Administration Protocol Levothyroxine Sodi um 50 mcg 08/01/20 06:00 08/02/20 05:57 Levothyroxine 50 Mcg Tablet PO 50 mcg QAM [facility] Administration Metoprolol Tartrat e 12.5 mg 07/31/20 08:00 08/02/20 07:49 Metoprolol Tartr ate 25 Mg Tablet PO Not Given Q12H RIANNA Midodrine 2.5 mg 07/30/20 20:00 08/02/20 07:56 Midodrine 5 Mg T ablet PO 2.5 mg BID@ RIANNA Administration Neomycin/Polymyxin /Bacitracin 1 applic 07/30/20 18:21 08/01/20 17:21 Yxlzceer-Kpeq-Ij citracin Oint 28 G m TOPICAL Not Given BID RIANNA Pantoprazole Sodiu m 40 mg 07/30/20 18:21 08/02/20 05:[address] 40 Mg Tablet PO 40 mg BID@ [facility] Administration Sodium Hypochlorit e 1 applic 07/30/20 18:21 08/01/20 13:53 Sodium Hypochlor ite 0.25% Btl 473 Ml TOPICAL Not Given Q24H RIANNA Sodium Polystyrene Sulfonate 15 gm 08/02/20 10:15 08/02/20 10:36 Sodium Polystyre ne Sulfonate 15 Gm /60 Ml Btl PO 08/02/20 22:16 15 gm Q12H RIANNA Administration Sucralfate 1 gm 07/30/20 21:00 08/02/20 10:38 Sucralfate 1 Gm Tablet PO 1 gm AC&BEDTIME RIANNA Administration Trazodone HCl 200 mg 07/30/20 20:00 08/01/20 19:56 Trazodone 100 Mg Tablet PO 200 mg BEDTIME@1999 RIANNA Administration Vitals/I&O/Wt Last Vital Signs Temp 98.4 F 08/02/20 11:04 Pulse 113 H 08/02/20 11:04 Resp 12 08/02/20 11:04 BP 96/46 08/02/20 11:04 Pulse Ox 99 08/02/20 11:04 08/01/20 08/02/20 08/02/20 22:59 06:59 14:59 Intake Total 600 / 720 240 / 960 720 / 720 Output Total 450 / 6250 100 / 6350 Balance 150 / -5530 140 / -5390 720 / 720 Weight last 48 hrs Weight 81.329 kg Physical Exam Narrative: EXAM NARRATIVE: Awake alert oriented. No acute distress. Mood and affect are appropriate. Responses are adequate. Eyes Alberto, extraocular muscles are intact Normal speech Neck supple. No JVD Lungs decreased breath sounds bibasilarly. No respiratory distress with s upplemental oxygen at rest. Heart S1, S2, regular Abdomen is less distended, soft, nontender, bowel sounds are present Extremities pedal edema. No cyanosis or calf tenderness bilaterally. Data : 08/02/20 04:30 08/02/20 04:30 Micro: Gram Stain Final 07/12/20 White Blood Cells Rare EPITHELIAL CELLS Few Gram Positive Cocci Moderate in pairs and clusters * This is a corrected result. * A prior result that was reported as final has been changed. Gram Stain Final (changed) 07/12/20 No Organisms Seen No Organism Seen Tissue Culture Final 07/16/20-1343 Organism 1 Serratia marcescens Growth MODERATE Organism 2 Enterobacter cloacae Growth MODERATE Organism 3 Enterococcus faecalis Growth MODERATE S marcesc E cloacae E faecalis M.I.C. RX M.I.C. RX M.I.C. RX --------- ------ --------- ------ --------- ------ * Amikacin <=16 S <=16 S * Amoxicillin/Clavulanate >16/8 R >16/8 R * Ampicillin >16 R >16 R <=2 S * Ampicillin/Sulbactam 16/8 R 16/8 R * Aztreonam <=4 S <=4 S * Cefepime <=8 S <=8 S * Ceftriaxone <=1 S <=1 S * Cefuroxime >16 R 8 R * Ciprofloxacin <=1 S <=1 S * Gentamicin <=2 S <=2 S * Imipenem <=1 S <=1 S * Levofloxacin <=2 S <=2 S * Linezolid 2 S * Penicillin 2 S * Tetracycline >8 R <=4 S * Trimethoprim/Sulfamethoxazole <=2/38 S <=2/38 S Vancomycin 2 S * Piperacillin/Tazobactam <=16 S <=16 S Gentamicin Synergy Screen <=500 S Daptomycin 2 S Enterococcus faecalis: Gram Pos Combo 33-MScan Gentamicin Synergy Screen S Tissue Culture Preliminary (changed) 07/15/20-4272 Organism 1 Serratia marcescens Growth MODERATE Organism 2 Enterobacter cloacae Growth MODERATE Organism 3 Enterococcus species Growth MODERATE DAY 2 RESULTS TO FOLLOW S marcesc E cloacae M.I.C. RX M.I.C. RX --------- ------ --------- ------ * Amikacin <=16 S <=16 S * Amoxicillin/Clavulanate >16/8 R >16/8 R * Ampicillin >16 R >16 R * Ampicillin/Sulbactam 16/8 R 16/8 R * Aztreonam <=4 S <=4 S * Cefepime <=8 S <=8 S * Ceftriaxone <=1 S <=1 S * Cefuroxime >16 R 8 R * Ciprofloxacin <=1 S <=1 S * Gentamicin <=2 S <=2 S * Imipenem <=1 S <=1 S * Levofloxacin <=2 S <=2 S * Tetracycline >8 R <=4 S * Trimethoprim/Sulfamethoxazole <=2/38 S <=2/38 S * Piperacillin/Tazobactam <=16 S <=16 S Tissue Culture Preliminary (changed) 07/14/20-1242 Organism 1 Gram Negative Rods Growth MODERATE Organism 2 Gram Negative Rods#2 Growth MODERATE MODERATE MIXED SUPERFICIAL SKIN JOHANNA PRESENT OF DAY 1. RESULTS TO FOLLOW A&P Assessment and plan (1) Diarrhea: Status: Acute (2) Diabetic foot: Status: Acute (3) COPD (chronic obstructive pulmonary disease): Status: Chronic (4) Oxygen dependent: Status: Chronic (5) Pulmonary hypertension: Status: Chronic (6) Biventricular heart failure with reduced left ventricular function: Status: Acute (7) Paroxysmal atrial fibrillation: Status: Acute (8) Chronic kidney disease (CKD): Status: Chronic (9) CAD (coronary artery disease): Status: Chronic (10) Peripheral vascular disease: Status: Chronic (11) Chronic anemia: Status: Acute (12) Insulin dependent type 2 diabetes mellitus: Status: Chronic (13) Elevated troponin: Status: Acute Additional A&P Information Diarrhea: Because patient has been on antibiotic recently we will have to rule out C. difficile though chances are low. Stool studies. For now hold off on starting any treatment for C. difficile but the results come back. Elevated troponin: Likely secondary to CAD. Can be secondary demand ischemia. Continue to cycle troponins. Patient chest pain-free for now. We will monitor troponins and elevated well consult cardiology. Serial EKGs. Telemetry. Diabetic foot: Recently discharged post debridement on levofloxacin and doxycycline though patient did not take any antibiotics or follow-up with her wound care clinic. We will consult surgery for further evaluation. Start patient on levofloxacin and doxycycline for now. Wound care as per surgical recommendations. Continue [place] at lower dose of 5/325 every 6 hours as needed. Anemia: Chronic. Hemoglobin at baseline of 3.5. Patient was recently discharged after 1 week of blood transfusion. During that time she had refused colonoscopy and EGD. Monitor hemoglobin regularly. Check iron panel. COPD: Oxygen requirement at baseline to 4 L. Continue DuoNeb every 6 hours, budesonide twice daily. Oxygen supplementation to keep saturation between 88 to 90%. CKD: Baseline creatinine 2-2.3. Creatinine at baseline. Monitor BMP daily for now. Medically Plan for nephrotoxic drugs. Continue other chronic medications. Full code. No pharmacological DVT prophylaxis because of ongoing anemia and high risk of bleeding. Diabetic diet. [place] Diarrhea. Resolved. No evidence of C. difficile at this time. We will continue close monitoring. Hydration is satisfactory at this time. Diabetic foot ulcer. Status post I&D. Continuing antibiotics per culture results. Assessing her discharge needs for wound care. Discussed with the case management. Apparently the placement is being done by family. Chronic pain. Reportedly the patient ran out of her pain medications. This could explain withdrawal symptoms and diarrhea. Currently the pain is well controlled. Continue current management. Anemia and iron deficiency. Continue p.o. iron. Story of recent GI bleeding. She refused endoscopy. Continue monitoring hemoglobin level. Elevated TSH. Hypothyroidism is suspected. Small dose of Synthroid is initiated. Outpatient follow-up and adjustments is necessary. Hyperkalemia. Spironolactone is stopped. Slowly going up. Ordering Kayexalate today. Continue monitoring. History of cirrhosis and ascites requiring frequent paracentesis. Status post paracentesis yesterday. UTI. On Levaquin. History of atrial fibrillation. Rate controlled. Continue home medications. Anticoagulation is not feasible due to recurrent GI bleeding. History of CKD. Creatinine close to baseline. Continue monitoring. The plan of care was discussed with the patient. She verbalized understanding and agreement Attestations Medical Necessity Statement*: Working her on her hyperkalemia. Coding Level of Care Code Acute Director Immunology for g Fwd Diagnoses Diarrhea R19.7 Diabetic foot E11.8 COPD (chronic obstructive pulmonary disease) J44.9 Oxygen dependent Z99.81 Pulmonary hypertension I27.20 Biventricular heart failure with reduced left ventricular function I50.814 Paroxysmal atrial fibrillation I48.0 Chronic kidney disease (CKD) N18.9 CAD (coronary artery disease) I25.10 Peripheral vascular disease I73.9 Chronic anemia D64.9 Insulin dependent type 2 diabetes mellitus E11.9; Z79.4 Elevated troponin R77.8
[2020-08-02 13:25] LABS: Glucose Point of Care 202 mg/dL (70-110)
[2020-08-02 17:05] LABS: Glucose Point of Care 154 mg/dL (70-110)
--- NOTE | 2020-08-02 17:29 | PC.NURSE ---
Dr holden reported to this nurse he would be coming by this shift to see patient and removing bandages and make plan for dressing changes. No new orders at this time non administered wound care medications
[2020-08-02] MEDS: doxycycline 100 mg Tablet PO (17:37)
--- NOTE | 2020-08-02 17:41 | PC.NURSE ---
spoke with Dr eTjeda about patients pain medications verbal instructions to change norco 7.5/325mg to Q4H from Q6H
--- NOTE | 2020-08-02 17:48 | PM.PN ---
Subjective Subjective: Interval history: Patient states abdominal pain is better, no nausea or vomiting, keen to go home tomorrow. She would like to have a permanent catheter for ascites placed at some point since she has been needing frequent paracentesis Vitals/I&O/Wt Last Vital Signs Temp 98.4 F 08/02/20 15:04 Pulse 114 H 08/02/20 15:04 Resp 23 H 08/02/20 15:04 BP 94/53 08/02/20 15:04 Pulse Ox 94 08/02/20 15:04 08/02/20 08/02/20 08/02/20 06:59 14:59 22:59 Intake Total 240 / 960 720 / 1080 360 / 1080 Output Total 100 / 6350 Balance 140 / -5390 720 / 1080 360 / 1080 Weight last 48 hrs Weight 179 lb 4.8 oz Physical Exam Narrative: EXAM NARRATIVE: Abdomen soft Right foot: Minimal erythema, wound has granulation tissue, minimal necrotic tissue Data : 08/02/20 04:30 08/02/20 04:30 Micro: Microbiology 08/02/20 06:00 Stool Lactoferrin - Final Stool C.difficile Toxin B Gene (PCR) - Final Occult Blood (FIT) - Final A&P Assessment and plan (1) Diabetic foot: Status post debridement of right foot wound with excision of remnant fifth metatarsal bone yesterday doing well Continue with wet-to-dry dressing change once daily, cover with ABD Patient needs follow-up in wound care for potential wound VAC placement. 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
--- NOTE | 2020-08-02 18:33 | PC.NURSE ---
Dr ayala at bedside for dressing take removal Verbal instructions change dressing daily kerlex wet with normal saline; wrap abd and kerlex No instructions to apply dakins or triple antibiotic ointment no instruction to discontinue medications at this time
[2020-08-02] MEDS: budesonide 0.5 mg/2 mL Neb INHALATION (20:15)
[2020-08-02] MEDS: atorvastatin 40 mg Tablet PO (20:56)
[2020-08-02] MEDS: trazodone 100 mg Tablet 200 MG PO (20:56)
[2020-08-02 22:30] LABS: Glucose Point of Care 153 mg/dL (70-110)
--- NOTE | 2020-08-02 22:30 | PC.NURSE ---
Patient was woken up from her sleep. Patient stated I need a pain pill. Patient rates pain 10/10. Patient states she wants it exactly every four hours. Patient quickly fell back asleep.
--- NOTE | 2020-08-02 22:32 | PC.NURSE ---
Patient refused PO Metoprolol. Patient has been refusing it the last couple of shifts per documentation.
[2020-08-03] VITALS (11 sets, daily range): BP systolic 99–110; BP diastolic 52–64; PULSE 90–114; RESP 14–28; TEMP 36.6–37.1; O2SAT 82–100
[2020-08-03 00:42] LABS: Glucose Point of Care 125 mg/dL (70-110)
[2020-08-03] MEDS: HYDROcodone-acetaminophen 7.5-325 mg Tablet 1 TAB PO ×3 (02:19→13:48)
[2020-08-03 04:48] LABS: Basophils % 0.3 %; Eosinophils # 0.1 10^3/uL (0.0-0.8); Eosinophils % 1.9 %; Hematocrit 25.2 % (37.0-47.0); Hemoglobin 7.1 g/dL (11.5-15.3); Lymphocytes # 0.8 10^3/uL (0.8-4.8); Lymphocytes % 10.2 %; Mean Corpuscular HGB Conc 28.2 g/dL (30.0-36.0); Mean Corpuscular Hemoglobin 25.3 pg (28.0-34.0); Mean Corpuscular Volume 89.7 fL (81-99); Mean Platelet Volume 10.3 fL (7.4-10.4); Monocytes # 0.5 10^3/uL (0.2-0.9); Monocytes % 6.3 %; Neutrophils # 6.04 10^3/uL (1.8-7.7); Neutrophils % 80.9 %; Nucleated Red Blood Cells % 0 %; Platelet Count 168 10^3/cmm (130-400); Red Blood Count 2.81 10^6/uL (4.1-5.3); Red Cell Distribution Width 19.5 % (12.1-15.1); White Blood Count 7.5 10^3/uL (4.0-10.0)
[2020-08-03] MEDS: ipratropium-albuterol 3 mL Neb INHALATION (05:07)
[2020-08-03 05:21] LABS: Magnesium 2.1 mg/dL (1.7-2.3)
[2020-08-03 05:23] LABS: Albumin Level 2.9 g/dL (3.5-5.2); Anion Gap 11.9 (5-19); Calcium 7.6 mg/dL (8.5-10.5); Carbon Dioxide 31 mmol/L (22-29); Chloride 97 mmol/L (98-107); Glucose 111 mg/dL (65-115); Phosphorus 5.7 mg/dL (2.5-4.5); Potassium 4.9 mmol/L (3.5-5.1); Sodium 135 mmol/L (136-145)
[2020-08-03 05:25] LABS: Blood Urea Nitrogen 82 mg/dL (8-23)
--- NOTE | 2020-08-03 05:30 | PC.NURSE ---
Patient is currently resting with eyes closed.
[2020-08-03] MEDS: pantoprazole DR 40 mg Tablet PO (06:23)
[2020-08-03] MEDS: levothyroxine 50 mcg Tablet PO (06:23)
[2020-08-03] MEDS: sucralfate 1 gm Tablet PO ×2 (06:23→11:24)
[2020-08-03 06:47] LABS: Glucose Point of Care 125 mg/dL (70-110)
[2020-08-03] MEDS: midodrine 5 mg TABLET 2.5 MG PO (08:50)
[2020-08-03] MEDS: doxycycline 100 mg Tablet PO (08:50)
--- NOTE | 2020-08-03 08:58 | P.DS_ITS ---
Discharge Providers Date of Admission: 08/01/20 17:00 Date of Discharge: August 03, 2020 Attending Provider at Admission: Giselle Brambila MD Attending Provider at Discharge: Mark Tejeda Primary Care Provider: Keena De La Torre DO Diagnoses at Discharge Discharge Diagnosis (1) Diabetic foot: Status: Acute (2) Ascites: Status: Acute Reason for Visit Reason for Visit: [facility] Hospital Course Hospital Course Please see patient's H&P, consult notes, progress notes, and procedure notes for more details. Discharge diagnoses and problem list. Diarrhea. Resolved. No evidence of C. difficile at this time. Hydration is satisfactory at this time. Diabetic foot ulcer. Status post I&D. Continuing antibiotics per culture results. Cleared by Dr. Vo for discharge. The patient will need to continue follow-up with her wound care clinic and wound care provider after discharge. She will ask her provider about duration of antibiotic therapy and ask for additional prescription if longer term of antibiotics is needed. Current prescription is for 10 days. Chronic pain. Reportedly the patient ran out of her pain medications. This could explain withdrawal symptoms and diarrhea. Currently the pain is well controlled. Anemia and iron deficiency. Continue p.o. iron. Story of recent GI bleeding. She refused endoscopy. Continue monitoring hemoglobin level. Elevated TSH. Hypothyroidism is suspected. Small dose of Synthroid is initiated. Outpatient follow-up and adjustments is necessary. Hyperkalemia. Spironolactone is stopped. Potassium level has normalized. History of cirrhosis and ascites requiring frequent paracentesis. Status post paracentesis. Will follow up with Dr. Vo for long-term management. UTI. On Levaquin. History of atrial fibrillation. Rate controlled. Continue home medications. Anticoagulation is not feasible due to recurrent GI bleeding. History of CKD. Creatinine close to baseline. Continue monitoring. The plan of care was discussed with the patient. I discussed in length discharge instructions and she verbalized understanding and agreement. The patient is currently feeling well and is eager to go home. Denies any active uncontrolled complaints. No pain. Denies fevers or chills. No nausea or vomiting. No chest pain, shortness of breath, cough, palpitations. No signs of bleeding. Physical Exam Narrative: EXAM NARRATIVE: Awake alert oriented. No acute distress. Mood and affect are appropriate. Responses are adequate. Eyes Alberto, extraocular muscles are intact Normal speech Neck supple. No JVD Lungs decreased breath sounds bibasilarly. No respiratory distress with supplemental oxygen at rest. Heart S1, S2, regular Abdomen is less distended, soft, nontender, bowel sounds are present Extremities pedal edema. No cyanosis or calf tenderness bilaterally. Dressing is dry and clean Discharge Data Data Completed and Pending: Completed Studies During Hospitalization Category Date Time Status XR chest 1V velma ble [id number] Urgent Exams 07/30/20 11:15 Completed Pending at discharge Category Date Time Status Clostridioides Di fficile PCR Routin e Lab 07/30/20 18:21 Results Enteric Bacterial Panel by PCR Rout ine Lab 07/30/20 18:21 Results Enteric Parasite Panel by PCR Routi ne Lab 07/30/20 18:21 Results Immunochemical Fe nydia OCB Routine Lab 07/30/20 18:21 Results Lactoferrin Routi ne Lab 07/30/20 18:21 Results MRSA by PCR Routi ne Lab 07/30/20 18:03 Uncollected SARS Covid-2 Anti gen Routine Lab 07/30/20 18:21 Uncollected Urine Culture Sta t Lab 08/02/20 12:08 Results Labs from last 24 hours 08/03/20 08/03/20 08/03/20 06:38 04:23 04:23 WBC RBC Hgb Hct MCV MCH MCHC RDW Plt Count MPV Neut % (Auto) Lymph % (Auto) Iron % (Auto) Eos % (Auto) Baso % (Auto) Neut # (Auto) Lymph # (Auto) Iron # (Auto) Eos # (Auto) Baso # (Auto) Nucleated RBC % (a uto) Nucleated RBCs # Sodium 135 L Potassium 4.9 Chloride 97 L Carbon Dioxide 31 H Anion Gap 11.9 BUN 82 H* Creatinine 2.6 H GFR Calculation Not Reportable Glucose 111 POC Glucose 125 H Calcium 7.6 L Phosphorus 5.7 H Magnesium 2.1 Albumin 2.9 L Crossmatch 08/03/20 08/03/20 08/02/20 04:23 00:40 20:35 WBC 7.5 RBC 2.81 L Hgb 7.1 L Hct 25.2 L MCV 89.7 MCH 25.3 L MCHC 28.2 L RDW 19.5 H Plt Count 168 MPV 10.3 Neut % (Auto) 80.9 Lymph % (Auto) 10.2 Iron % (Auto) 6.3 Eos % (Auto) 1.9 Baso % (Auto) 0.3 Neut # (Auto) 6.04 Lymph # (Auto) 0.8 Iron # (Auto) 0.5 Eos # (Auto) 0.1 Baso # (Auto) 0.0 Nucleated RBC % (a uto) 0 Nucleated RBCs # 0.0 Sodium Potassium Chloride Carbon Dioxide Anion Gap BUN Creatinine GFR Calculation Glucose POC Glucose 125 H 153 H Calcium Phosphorus Magnesium Albumin Crossmatch 08/02/20 08/02/20 07/30/20 17:01 11:16 11:55 WBC RBC Hgb Hct MCV MCH MCHC RDW Plt Count MPV Neut % (Auto) Lymph % (Auto) Iron % (Auto) Eos % (Auto) Baso % (Auto) Neut # (Auto) Lymph # (Auto) Iron # (Auto) Eos # (Auto) Baso # (Auto) Nucleated RBC % (a uto) Nucleated RBCs # Sodium Potassium Chloride Carbon Dioxide Anion Gap BUN Creatinine GFR Calculation Glucose POC Glucose 154 H 202 H Calcium Phosphorus Magnesium Albumin Crossmatch See Detail Addt'l Data from Hospital Stay: Micro: Gram Stain Final 07/12/20 White Blood Cells Rare EPITHELIAL CELLS Few Gram Positive Cocci Moderate in pairs and clusters * This is a corrected result. * A prior result that was reported as final has been changed. Gram Stain Final (changed) 07/12/20 No Organisms Seen No Organism Seen Tissue Culture Final 07/16/20-7353 Organism 1 Serratia marcescens Growth MODERATE Organism 2 Enterobacter cloacae Growth MODERATE Organism 3 Enterococcus faecalis Growth MODERATE S marcesc E cloacae E faecalis M.I.C. RX M.I.C. RX M.I.C. RX --------- ------ --------- ------ --------- ------ * Amikacin <=16 S <=16 S * Amoxicillin/Clavulanate >16/8 R >16/8 R * Ampicillin >16 R >16 R <=2 S * Ampicillin/Sulbactam 16/8 R 16/8 R * Aztreonam <=4 S <=4 S * Cefepime <=8 S <=8 S * Ceftriaxone <=1 S <=1 S * Cefuroxime >16 R 8 R * Ciprofloxacin <=1 S <=1 S * Gentamicin <=2 S <=2 S * Imipenem <=1 S <=1 S * Levofloxacin <=2 S <=2 S * Linezolid 2 S * Penicillin 2 S * Tetracycline >8 R <=4 S * Trimethoprim/Sulfamethoxazole <=2/38 S <=2/38 S Vancomycin 2 S * Piperacillin/Tazobactam <=16 S <=16 S Gentamicin Synergy Screen <=500 S Daptomycin 2 S Enterococcus faecalis: Gram Pos Combo 33-MScan Gentamicin Synergy Screen S Tissue Culture Preliminary (changed) 07/15/208364 Organism 1 Serratia marcescens Growth MODERATE Organism 2 Enterobacter cloacae Growth MODERATE Organism 3 Enterococcus species Growth MODERATE DAY 2 RESULTS TO FOLLOW S marcesc E cloacae M.I.C. RX M.I.C. RX --------- ------ --------- ------ * Amikacin <=16 S <=16 S * Amoxicillin/Clavulanate >16/8 R >16/8 R * Ampicillin >16 R >16 R * Ampicillin/Sulbactam 16/8 R 16/8 R * Aztreonam <=4 S <=4 S * Cefepime <=8 S <=8 S * Ceftriaxone <=1 S <=1 S * Cefuroxime >16 R 8 R * Ciprofloxacin <=1 S <=1 S * Gentamicin <=2 S <=2 S * Imipenem <=1 S <=1 S * Levofloxacin <=2 S <=2 S * Tetracycline >8 R <=4 S * Trimethoprim/Sulfamethoxazole <=2/38 S <=2/38 S * Piperacillin/Tazobactam <=16 S <=16 S Tissue Culture Preliminary (changed) 07/14/205816 Organism 1 Gram Negative Rods Growth MODERATE Organism 2 Gram Negative Rods#2 Growth MODERATE MODERATE MIXED SUPERFICIAL SKIN JOHANNA PRESENT OF DAY 1. RESULTS TO FOLLOW Vitals: Last Vital Signs Temp 98.6 F 08/03/20 07:21 Pulse 109 H 08/03/20 07:21 Resp 15 08/03/20 07:21 BP 101/52 08/03/20 07:21 Pulse Ox 99 08/03/20 07:21 Discharge Plan Discharge Patient Disposition: Home Condition: Stable Prescriptions: New doxycycline monohydrate 100 mg Tablet 100 mg PO BID Qty: 10 RF: 0 levothyroxine 50 mcg Tablet 50 mcg PO QAM Qty: 30 RF: 0 hydrocodone-acetaminophen 7.5-325 mg Tablet 1 tab PO Q6H PRN (Reason: Moderate Pain) Qty: 20 RF: 0 levofloxacin 500 mg Tablet 500 mg PO Q48H Qty: 5 RF: 0 lactulose 20 gram packet 20 g PO DAILY Qty: 30 RF: 0 ferrous sulfate [iron] 325 mg (65 mg iron) tablet 325 mg PO DAILY Qty: 30 RF: 0 Continued albuterol sulfate 2.5 mg /3 mL (0.083 %) Solution For Nebulization 2.5 mg INHALATION QID PRN (Reason: Shortness Of Breath) RF: 0 Triple Antibiotic 3.5mg-400 unit- 5,000 unit/gram Ointment 1 applic topical BID 30 Days Qty: 28 RF: 0 HySept 0.25 % Solution 1 applic topical Q24H 30 Days Qty: 473 RF: 0 sucralfate 1 gram Tablet 1 g PO AC&BEDTIME 30 Days Qty: 60 RF: 0 insulin aspart U-100 [Novolog U-100 Insulin aspart] 100 unit/mL Solution See Rx Instructions .ROUTE .COMPLEX Qty: 10 RF: 0 metoprolol tartrate 25 mg tablet 12.5 mg PO Q12H Qty: 0 RF: 0 trazodone 100 mg tablet 200 mg PO BEDTIME@1999 RF: 0 midodrine 2.5 mg tablet 2.5 mg PO BID@08,20 RF: 0 buspirone 15 mg tablet 15 mg PO BID@08,20 RF: 0 levalbuterol tartrate [Xopenex HFA] 45 mcg/actuation HFA aerosol inhaler 1 puff INHALATION QID PRN (Reason: Shortness Of Breath) RF: 0 furosemide 40 mg tablet 40 mg PO BID@,14 RF: 0 atorvastatin 40 mg tablet 40 mg PO BEDTIME@2000 RF: 0 aspirin 81 mg tablet,delayed release (DR/EC) 81 mg PO DAILY@08 RF: 0 Hold Instructions: Resume on 07/28/20. If hemoglobin is stable on repeat outpatient blood work and okayed by primary care physician pantoprazole 40 mg tablet,delayed release (DR/EC) 40 mg PO BID@,18 RF: 0 Discontinued spironolactone 50 mg tablet 50 mg PO DAILY@0800 RF: 0 diphenoxylate-atropine 2.5-0.025 mg tablet 1 tab PO TID PRN (Reason: Diarrhea) RF: 0 hydrocodone-acetaminophen 10-325 mg tablet 10 - 325 tab PO 5XD PRN (Reason: Pain) RF: 0 magnesium hydroxide [Milk of Magnesia] 400 mg/5 mL Suspension 30 ml PO DAILY PRN (Reason: Constipation) RF: 0 bisacodyl 10 mg Suppository 10 mg VA DAILY PRN (Reason: Constipation) RF: 0 Enema Disposable 19-7 gram/118 mL Enema 118 ml VA DAILY PRN (Reason: Constipation) RF: 0 Discharge Orders: Discharge Order (Routine); Ordered 08/03/20 Ordered By: Mark Tejeda Other Ambulatory Orders: Complete Blood Count w/Auto (Routine) Timeframe: 1 Week Location: Determined by Patient Ordered By: Mark Tejeda Comprehensive Metabolic Panel (Routine) Timeframe: 1 Week Facility: [facility] - Location: Lab - Main Lab Ordered By: Mark Tejeda Referrals: Nolan Vo MD [Physician] - 1 week (Follow-up for recurrent ascites and long-term management) Keena De La Torre DO [Primary Care Provider] - Discharge Diet: Cardiac and Diabetic Discharge Activity: Increase activity as tolerated Patient Instructions: Hydrocodone/Acetaminophen (By mouth), Levothyroxine (By mouth), Lactulose (By mouth), Levofloxacin (By mouth), Doxylamine (By mouth), Acute Wound Care (DC), Ascites (DC) Activity Restrictions/Additional Instructions: Please follow-up with your primary care physician in 1 week. Please ask your primary care provider to monitor your blood count, renal function tests and electrolytes, thyroid hormone levels. Please ask your primary care provider to adjust your medications as needed depending on the test results. Please follow-up with your wound care clinic provider in 1 week. Wound VAC placement will need to be considered. Ask your provider about duration of antibiotic treatment. Please come back to emergency room if develop new or worsening pain, fever or chills, confusion, nausea or vomiting, abdominal pain, diarrhea, black stool or rectal blood, chest pain, shortness of breath, cough, palpitations or any other new complaints. 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
--- NOTE | 2020-08-03 09:39 | PM.PN ---
Subjective Subjective: Interval history: Patient doing well denies any nausea or vomiting, denies significant abdominal pain after paracentesis Vitals/I&O/Wt Last Vital Signs Temp 98.6 F 08/03/20 07:21 Pulse 110 H 08/03/20 09:11 Resp 14 08/03/20 09:11 BP 101/52 08/03/20 07:21 Pulse Ox 99 08/03/20 09:11 08/02/20 08/03/20 08/03/20 22:59 06:59 14:59 Intake Total 360 / 1380 300 / 1380 480 / 480 Balance 360 / 1230 300 / 1230 480 / 480 Weight last 48 hrs Weight 180 lb Physical Exam Narrative: EXAM NARRATIVE: Right foot:, No significant erythema, wound has reasonable granulation tissue, minimal necrotic tissue Data : 08/03/20 04:23 08/03/20 04:23 Micro: Microbiology 08/02/20 12:08 Urine Culture - Preliminary Urine,Clean Catch 08/02/20 06:00 Stool Lactoferrin - Final Stool C.difficile Toxin B Gene (PCR) - Final Occult Blood (FIT) - Final A&P Assessment and plan (1) Diabetic foot: Status post debridement right foot doing well Continue wet-to-dry Follow-up in wound care for potential placement of wound VAC Status: Acute (2) Ascites: Doing well after paracentesis Follow-up in clinic to discuss long-term management of paracentesis Status: Acute Attestations Medical Necessity Statement*: Status post paracentesis and debridement of right foot Coding Level of Care Code Acute Digital Controls Technical Officer for [facility] Fwd Diagnoses Diabetic foot E11.8 Ascites R18.8
[2020-08-03 11:37] LABS: Glucose Point of Care 156 mg/dL (70-110)
--- NOTE | 2020-08-03 17:04 | PC.NURSE ---
pt refused blood sugar going home
--- NOTE | 2020-08-03 17:43 | PC.NURSE ---
Patient has been awaiting discharge all this day [facility] was notified this day by case management to get portable o2 for patient to leave hospital with [facility] reported they was in need of a new DME order due to patient increase in flow rate and a new home o2 evaluation was needed. Home 02 eval was completed and orders was placed by physician sent to [facility] notified case management there labor and delivery registered nurse was in [place], [place] and was headed to the hospital next. Now at this time portable o2 has not yet arrived; patient is expressing agitation towards supply company for holding up her discharge.
--- NOTE | 2020-08-03 18:31 | PC.NURSE ---
Due to patients aggravation in her delay of discharge patient refused evening medication administrations
== END 2020-08-03 19:24 | disposition home or self-care (01) | DRG 617 ==
LOC: ER 12:52 → CSU 17:59
PROVIDERS: Student in an Organized Health Care Education/Training Program; Surgery; Admitting Provider Student in an Organized Health Care Education/Training Program; Emergency Provider Family Medicine; PCP Family Medicine; Visit Provider Internal Medicine
PROC: 0Y6X0Z0 Detachment at Right 5th Toe, Complete, Open Approach (ICD-10-PCS; principal; 2020-08-01 10:30)
PROC: 0Y6X0Z0 Detachment at Right 5th Toe, Complete, Open Approach (ICD-10-PCS; CPT 49082; 2020-08-01 10:30)
DX: E11.621 Type 2 diabetes mellitus with foot ulcer (principal); R18.8 Other ascites; N39.0 Urinary tract infection, site not specified; L97.512 Non-pressure chronic ulcer of other part of right foot with fat layer exposed; N18.9 Chronic kidney disease, unspecified; E11.22 Type 2 diabetes mellitus with diabetic chronic kidney disease; I25.10 Atherosclerotic heart disease of native coronary artery without angina pectoris; Z95.1 Presence of aortocoronary bypass graft; Z95.5 Presence of coronary angioplasty implant and graft; J44.9 Chronic obstructive pulmonary disease, unspecified; Z99.81 Dependence on supplemental oxygen; D50.9 Iron deficiency anemia, unspecified; K74.60 Unspecified cirrhosis of liver; I48.0 Paroxysmal atrial fibrillation; I27.20 Pulmonary hypertension, unspecified; E11.51 Type 2 diabetes mellitus with diabetic peripheral angiopathy without gangrene; N17.9 Acute kidney failure, unspecified; K76.0 Fatty (change of) liver, not elsewhere classified; Z87.891 Personal history of nicotine dependence; Z79.82 Long term (current) use of aspirin; Z79.4 Long term (current) use of insulin; Z79.51 Long term (current) use of inhaled steroids; G89.29 Other chronic pain; Z89.421 Acquired absence of other right toe(s); E87.5 Hyperkalemia; E03.9 Hypothyroidism, unspecified; R19.7 Diarrhea, unspecified; I50.814 Right heart failure due to left heart failure
CPT/HCPCS: 12345; 36415; 36416; 71045; 80053; 80061; 80069; 81001; 82274; 82962; 83036; 83540; 83550; 83605; 83630; 83690; 83735; 83880; 84100; 84145; 84443; 84484; 85025; 85610; 86850; 86870; 86900; 86920; 87086; 87493; 87506; 93005; 94640; 96372; 99283; G0378; J1815; J1956; J2250; J2270; J2370; J2704; J3010; J3490; J3535; J7626